=== PATIENT | male | born 1935 | race Two or more races ===

== ENCOUNTER 2016-06-08 15:16 | Inpatient (IN) | payer MEDICARE, MEDICAID ==
[~2016-06-08] VITALS: Ht 154.9 cm; Wt 60.3 kg
[~2016-06-08 15:16] MED LIST: AMLODIPINE-ATO1 EACH ORAL; ASPIRIN EC81 MG ORAL; CARVEDILOL3.125 MG ORAL; CLOPIDOGREL75 MG ORAL; DONEPEZIL HCL10 M2 ORAL; FAMOTIDINE20 MG ORAL; FUROSEMIDE20 M1 ORAL; GABAPENTIN300 MG ORAL; LEVAQUIN250 M1 ORAL; LISINOPRIL20 MG ORAL; MULTIVITAMINS1 EA13 ORAL; NAMENDA10 MG ORAL; REGULAR INSULIN; TAMSULOSIN HCL0.4 MG ORAL; VITAMIN C250 MG ORAL; ZINC SULFATE220 M1 ORAL; ZYPREXA2.5 MG ORAL
[2016-06-08 15:26] VITALS: BP 149/71
[2016-06-08] MEDS ORDERED: NORVASC10 MG ORAL (15:31)
[2016-06-08] MEDS ORDERED: FUROSEMIDE40 MG ORAL (15:31)
[2016-06-08] MEDS ORDERED: ATORVASTATIN CA10 MG ORAL (15:31)
[2016-06-08] MEDS ORDERED: LANTUS SOL100 UNIT/1 SUBQ (15:31)
--- NOTE | 2016-06-08 15:52 | Emergency Room Report ---
History of Present Illness General Chief Complaint: Altered Level of Consciousness Source: Medical Record Present Illness HPI 80 YOM BIBEMS for "AMS." EMS did not provide additional info. EMS strip shows 1st degree AV block. Patient not providing additional info at this time. Is comfortable , smiling in stretcher. Vitals are stable. Afebrile. patient is DNR and comfort care only. I discussed with hospitalist Dr Rodarte and we agree for labwork, ECG, CXR only. Allergies: Coded Allergies: PENICILLINS (Verified Allergy, Unknown, 11/14/15) Patient History Past Medical History: HTN, CAD, renal disease Past Surgical History: unable to obtain Pertinent Family History: unable to obtain Social History: Denies: alcohol use, drug use, smoking Immunizations: UTD Reviewed Nursing Documentation: PMH: Agreed, PSxH: Agreed Nursing Documentation-PMH Hx Cardiac Problems: Yes - cabg Hx Hypertension: Yes Hx Diabetes: No Hx Cancer: No Hx Gastrointestinal Problems: Yes - gi reflux Hx Dialysis: No History Of Psychiatric Problem: Yes - dementia Hx Cerebrovascular Accident: Yes Hx Seizures: No Hx Memory Loss: Yes Hx Dizziness: Yes Hx Syncope: Yes Review of Systems All Other Systems: limited - Patient altered? vs dementia Physical Exam Vital Signs Date Time Temp Pulse Resp B/P Pulse Ox O2 Delivery O2 Flow Rate FiO2 06/08/16 15:16 98.1 60 16 149/71 97 Room Air Sp02 EP Interpretation: reviewed, normal General Appearance: normal inspection, well appearing, no apparent distress, alert, non-toxic Head: normocephalic, atraumatic Eyes: bilateral eye EOMI, bilateral eye PERRL ENT: normal ENT inspection, hearing grossly normal, normal voice Neck: normal inspection, full range of motion, supple, thyroid normal, no meningismus, no bony tend Respiratory: normal inspection, lungs clear, normal breath sounds, no rhonchi, no respiratory distress, no retraction, no accessory muscle use, no wheezing Cardiovascular #1: regular rate, rhythm, no edema Gastrointestinal: normal inspection, normal bowel sounds, non tender, soft, no guarding, no hernia Genitourinary: no CVA tenderness Musculoskeletal: normal inspection, back normal, normal range of motion, Ashish' s Sign negative Neurologic: normal inspection, alert, responsive, 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 I attest that this information is true, accurate and complete to the best of my knowledge. I understand that any falsification, omission, or concealment of material fact may subject me to administrative, civil, or criminal liability. This patient warrants hospital admission for extreme of age and has a condition that cannot be treated as outpatient. Diagnostic Impression: Primary Impression: Altered level of consciousness Additional Impressions: JUAQUIN (acute kidney injury) Hyperglycemia ER Course 80 YO M with ?AMS from SNF during rehab. Patient is comfort care only, paperwork is in chart Patient's daughter bedside, agrees for "minimal workup" ECG is sinus rhythm with 1st degree AV block Troponin 0 Serum Cr 2.7 H&H stable No leuks Glucose 394 AMS possibly d/t elevated glucose, JUAQUIN IVF and insulin given SPoke to Dr Ha at [phone] from patient's insurance He approved admission for overnight stay/observation - they have no beds at their facility either Endorsed to Dr Rodarte at 726pm for med/surg admission. EKG Diagnostic Results Rate: normal, other - 1st degree AV block Rhythm: NSR ST Segments: no acute changes ASA given to the pt in ED: No Rhythm Strip Diag. Results EP Interpretation: yes Rate: 55 Rhythm: NSR, no PVC's, no ectopy Chest X-Ray Diagnostic Results EP Interpretation: Yes Findings: no consolidation, no effusion, no pneumothorax, no acute cardiopulmonary disease Number of Views: 1 Last Vital Signs Date Time Temp Pulse Resp B/P Pulse Ox O2 Delivery O2 Flow Rate FiO2 06/08/16 15:16 98.1 60 16 149/71 97 Room Air Status: improved Disposition: ADMITTED INPATIENT Condition: Serious CHAPIS GUERRERO M.D. Jun 08, 2016 15:51
[2016-06-08 16:02] LABS: BASOPHILS % (AUTO) 1.3 % (0.0-2.0); EOSINOPHILS % (AUTO) 3.6 % (0.0-3.0); LYMPHOCYTES % (AUTO) 28.3 % (20.0-45.0); MEAN CORPUSCULAR HEMOGLOBIN 31.9 PG (27.0-31.0); MEAN CORPUSCULAR HGB CONC 33.5 G/DL (32.0-36.0); MEAN CORPUSCULAR VOLUME 95 FL (80-99); MEAN PLATELET VOLUME 10.6 FL (6.5-10.1); MONOCYTES % (AUTO) 10.2 % (1.0-10.0); NEUTROPHILS % (AUTO) 56.7 % (45.0-75.0); PLATELET COUNT 131 K/UL (150-450); RED BLOOD COUNT 4.11 M/UL (4.70-6.10); RED CELL DISTRIBUTION WIDTH 12.1 % (11.6-14.8); WHITE BLOOD COUNT 6.8 K/UL (4.8-10.8)
[2016-06-08 16:11] LABS: TROPONIN I < 0.30 ng/mL (<=0.30)
[2016-06-08 16:20] LABS: ALANINE AMINOTRANSFERASE 7 U/L (3-41); ALBUMIN/GLOBULIN RATIO 1.1 (1.0-2.7); ANION GAP 15 (5-15); ASPARTATE AMINO TRANSFERASE 14 U/L (5-40); CALCIUM 9.4 mg/dL (8.6-10.2); CARBON DIOXIDE 23 mEQ/L (20-30); CHLORIDE 97 mEQ/L (98-107); CREATININE 2.7 mg/dL (0.7-1.2); HEMOLYSIS 29; POTASSIUM 4.7 mEQ/L (3.4-4.9); SODIUM 135 mEQ/L (135-145); TOTAL PROTEIN 6.3 g/dL (6.6-8.7)
[2016-06-08 18:26] VITALS: BP 165/70
[2016-06-08] MEDS ORDERED: Miralax 17gm pkt ORAL PRN (20:15)
[2016-06-08] MEDS ORDERED: DuoNeb 0.5-3(2.5)mg/3ml neb HHN PRN (20:15)
[2016-06-08] MEDS ORDERED: Morphine Sulfate 2mg/ml Inj IVP PRN (20:15)
[2016-06-08] MEDS ORDERED: Nitroglycerin Subl 0.4mg tab (Bottle Of 25) SL PRN (20:15)
[2016-06-08 20:50] VITALS: BP 177/71
[2016-06-08] MEDS: NovoLOG Insulin Flexpen SUBQ SCH (21:00)
[2016-06-08] MEDS: Heparin 5000 units/ml inj SUBQ SCH (21:00)
[2016-06-08] MEDS ORDERED: Cefepime 1gm vial ONE (21:16)
[2016-06-08] MEDS ORDERED: Cefepime HCl 2 GM in D5W 110 ML IV ONE (22:30)
[2016-06-08 22:56] VITALS: BP 160/96
[2016-06-09] VITALS (8 sets, daily range): BP systolic 138–172; BP diastolic 60–84
[2016-06-09] MEDS ORDERED: Vancomycin 1 GM in D5W 275 ML IV SCH (00:30)
[2016-06-09] MEDS ORDERED: Vancomycin 1gm inj IVPB ONE (04:50)
[2016-06-09] MEDS: NovoLOG Insulin Flexpen SUBQ SCH ×4 (07:11→20:31)
[2016-06-09 08:10] LABS: BASOPHILS % (AUTO) 0.7 % (0.0-2.0); EOSINOPHILS % (AUTO) 3.1 % (0.0-3.0); LYMPHOCYTES % (AUTO) 27.2 % (20.0-45.0); MEAN CORPUSCULAR HEMOGLOBIN 32.5 PG (27.0-31.0); MEAN CORPUSCULAR HGB CONC 34.7 G/DL (32.0-36.0); MEAN CORPUSCULAR VOLUME 94 FL (80-99); MEAN PLATELET VOLUME 12.4 FL (6.5-10.1); MONOCYTES % (AUTO) 9.9 % (1.0-10.0); NEUTROPHILS % (AUTO) 59.2 % (45.0-75.0); PLATELET COUNT 133 K/UL (150-450); RED BLOOD COUNT 3.95 M/UL (4.70-6.10); RED CELL DISTRIBUTION WIDTH 12.1 % (11.6-14.8); WHITE BLOOD COUNT 7.4 K/UL (4.8-10.8)
[2016-06-09 08:30] LABS: ALANINE AMINOTRANSFERASE 5 U/L (3-41); ALBUMIN/GLOBULIN RATIO 1.3 (1.0-2.7); ANION GAP 11 (5-15); ASPARTATE AMINO TRANSFERASE 12 U/L (5-40); CALCIUM 9.4 mg/dL (8.6-10.2); CARBON DIOXIDE 27 mEQ/L (20-30); CHLORIDE 105 mEQ/L (98-107); CREATININE 2.2 mg/dL (0.7-1.2); HEMOLYSIS 4; POTASSIUM 4.3 mEQ/L (3.4-4.9); SODIUM 143 mEQ/L (135-145)
[2016-06-09] MEDS ORDERED: OLANZapine 2.5mg tab ORAL SCH (09:00)
[2016-06-09] MEDS: Heparin 5000 units/ml inj SUBQ SCH ×2 (09:40→20:31)
--- NOTE | 2016-06-09 11:08 | Consultation ---
Consult Note Consult Note ID Dic # [id number] MARLI CLANCY M.D. Jun 09, 2016 11:07
--- NOTE | 2016-06-09 12:36 | History and Physical ---
History of Present Illness General Date patient seen: Jun 09, 2016 Reason for Hospitalization: Altered Level of Consciousness Present Illness HPI 80 year old male with hx of CAD, htn, Renal insufficiency, custodial resident was taken by paramedics to [facility] b/o [facility]. Pt was found to have hyperglycemia, his mental status improved slowly. He is admitted for further work up. Currently he is comfortable, no acute distress. Allergies: Coded Allergies: PENICILLINS (Verified Allergy, Unknown, 11/14/15) Medication History Scheduled Amlodipine Besylate (Norvasc), 10 MG ORAL DAILY, (Reported) Amlodipine/Atorvastatin 10-10 Mg (Amlodipine-Atorvast 10-10 Mg), 1 TAB ORAL DAILY, (Reported) Ascorbic Acid* (Vitamin C*), 500 MG ORAL DAILY, (Reported) Aspirin Ec* (Aspirin Ec*), 81 MG ORAL DAILY, (Reported) Atorvastatin Calcium* (Lipitor*), 10 MG ORAL BEDTIME, (Reported) Carvedilol* (Carvedilol*), 3.125 MG ORAL BID, (Reported) Clopidogrel* (Clopidogrel*), 75 MG ORAL DAILY, (Reported) Donepezil Hcl* (Donepezil Hcl*), 10 MG ORAL DAILY, (Reported) Furosemide* (Lasix*), 40 MG ORAL DAILY, (Reported) Furosemide* (Lasix*), 40 MG ORAL DAILY, (Reported) Gabapentin* (Gabapentin*), 300 MG ORAL THREE TIMES A DAY, (Reported) Insulin Glargine (Lantus), 0 SUBQ BEDTIME, (Reported) Levofloxacin* (Levaquin*), 250 MG ORAL DAILY Multivitamin with Minerals (Multivitamins with Minerals), 1 TAB ORAL DAILY, ( Reported) Olanzapine* (Zyprexa*), 2.5 MG ORAL DAILY, (Reported) Zinc Sulfate (Zinc Sulfate*), 220 MG ORAL DAILY, (Reported) Miscellaneous Medications [Regular Insulin], (Reported) Patient History Healthcare decision maker Resuscitation status Do Not Resuscitate Advanced Directive on File No Past Medical/Surgical History Past Medical/Surgical History: (1) CAD (coronary artery disease) (2) Hx of CABG (3) Renal insufficiency Review of Systems All Other Systems: negative except mentioned in HPI Physical Exam Lines, tubes and drains: peripheral, central line HEENT: normocephalic, atraumatic Neck: non-tender, normal alignment Respiratory/Chest: chest wall non-tender, lungs clear Cardiovascular/Chest: normal peripheral pulses, normal rate Abdomen: non tender Genitourinary/Rectal: normal genital exam, normal rectal exam Last 24 Hour Vital Signs Date Time Temp Pulse Resp B/P Pulse Ox O2 Delivery O2 Flow Rate FiO2 06/09/16 11:44 97.9 54 18 144/69 99 Room Air 06/09/16 08:14 97.7 63 18 143/73 98 Room Air 06/09/16 08:00 71 06/09/16 04:00 97.0 94 20 169/84 97 Room Air 06/09/16 02:35 98.1 75 17 163/70 99 Room Air 06/09/16 01:56 98.1 75 17 163/70 99 Room Air 06/09/16 00:56 98.0 74 18 164/71 99 Room Air 06/08/16 22:56 98.2 70 15 160/96 100 Room Air 06/08/16 20:50 98.2 64 15 177/71 99 Room Air 06/08/16 18:26 98.2 56 18 165/70 99 Room Air 06/08/16 15:26 98.1 82 16 149/71 97 Room Air 06/08/16 15:16 98.1 60 16 149/71 97 Room Air Intake and Output 06/08/16 06/09/16 19:00 07:00 Intake Total 950 ml Balance 950 ml Intake IV Total 950 ml # Voids 1 1 Laboratory Tests Test 06/08/16 15:35 06/09/16 06:35 White Blood Count 6.8 K/UL (4.8-10.8) 7.4 K/UL (4.8-10.8) Red Blood Count 4.11 M/UL (4.70-6.10) L 3.95 M/UL (4.70-6.10) L Hemoglobin 13.1 G/DL (14.2-18.0) L 12.8 G/DL (14.2-18.0) L Hematocrit 39.1 % (42.0-52.0) L 37.0 % (42.0-52.0) L Mean Corpuscular Volume 95 FL (80-99) 94 FL (80-99) Mean Corpuscular Hemoglobin 31.9 PG (27.0-31.0) H 32.5 PG (27.0-31.0) H Mean Corpuscular Hemoglobin Concent 33.5 G/DL (32.0-36.0) 34.7 G/DL (32.0-36.0) Red Cell Distribution Width 12.1 % (11.6-14.8) 12.1 % (11.6-14.8) Platelet Count 131 K/UL (150-450) L 133 K/UL (150-450) L Mean Platelet Volume 10.6 FL (6.5-10.1) H 12.4 FL (6.5-10.1) H Neutrophils (%) (Auto) 56.7 % (45.0-75.0) 59.2 % (45.0-75.0) Lymphocytes (%) (Auto) 28.3 % (20.0-45.0) 27.2 % (20.0-45.0) Monocytes (%) (Auto) 10.2 % (1.0-10.0) H 9.9 % (1.0-10.0) Eosinophils (%) (Auto) 3.6 % (0.0-3.0) H 3.1 % (0.0-3.0) H Basophils (%) (Auto) 1.3 % (0.0-2.0) 0.7 % (0.0-2.0) Sodium Level 135 mEQ/L (135-145) 143 mEQ/L (135-145) Potassium Level 4.7 mEQ/L (3.4-4.9) 4.3 mEQ/L (3.4-4.9) Chloride Level 97 mEQ/L (98-107) L 105 mEQ/L (98-107) Carbon Dioxide Level 23 mEQ/L (20-30) 27 mEQ/L (20-30) Anion Gap 15 (5-15) 11 (5-15) Blood Urea Nitrogen 33 mg/dL (7-23) H 28 mg/dL (7-23) H Creatinine 2.7 mg/dL (0.7-1.2) H 2.2 mg/dL (0.7-1.2) H Estimat Glomerular Filtration Rate mL/min (>60) mL/min (>60) Glucose Level 394 mg/dL (74-106) H 231 mg/dL (74-106) #H Lactic Acid Level 1.60 mmol/L (0.66-2.22) Calcium Level 9.4 mg/dL (8.6-10.2) 9.4 mg/dL (8.6-10.2) Total Bilirubin 0.3 mg/dL (0.0-1.2) 0.4 mg/dL (0.0-1.2) Aspartate Amino Transf (AST/SGOT) 14 U/L (5-40) 12 U/L (5-40) Alanine Aminotransferase (ALT/SGPT) 7 U/L (3-41) 5 U/L (3-41) Alkaline Phosphatase 100 U/L (40-129) 82 U/L (40-129) Total Creatine Kinase 34 U/L (38-174) L Creatine Kinase MB Pending Troponin I < 0.30 ng/mL (<=0.30) Total Protein 6.3 g/dL (6.6-8.7) L 6.0 g/dL (6.6-8.7) L Albumin 3.4 g/dL (3.5-5.2) L 3.4 g/dL (3.5-5.2) L Globulin 2.9 g/dL 2.6 g/dL Albumin/Globulin Ratio 1.1 (1.0-2.7) 1.3 (1.0-2.7) Height (Feet): 5 Height (Inches): 1.00 Weight (Pounds): 133 Medications Current Medications Medications (Trade) Dose Ordered Sig/Jason Route PRN Reason Start Time Stop Time Status Last Admin Dose Admin Acetaminophen (Tylenol) 650 mg Q4H PRN ORAL fever 06/08/16 20:15 07/08/16 20:14 Albuterol/ Ipratropium (DuoNeb 0.5-3(2.5)mg/3ml) 3 ml EVERY 4 HOURS PRN HHN Shortness of Breath 06/08/16 20:15 06/13/16 20:14 Dextrose (Dextrose 50%) STAT PRN IV Hypoglycemia 06/08/16 20:15 07/08/16 20:14 Heparin Sodium (Porcine) (Heparin 5000 units/ml) 5,000 units EVERY 12 HOURS SUBQ 06/08/16 21:00 07/08/16 20:59 06/09/16 09:40 Insulin Aspart (NovoLOG) BEFORE MEALS AND HS SUBQ 06/08/16 21:00 07/08/16 20:59 06/09/16 07:11 Morphine Sulfate (Morphine Sulfate) 2 mg EVERY 4 HOURS PRN IVP Moderate Pain (Pain Scale 4-6) 06/08/16 20:15 06/15/16 20:14 Nitroglycerin (Ntg) 0.4 mg Q5M PRN SL CHEST PAIN 06/08/16 20:15 07/08/16 20:14 Olanzapine 2.5 mg 2.5 mg DAILY ORAL 06/09/16 09:00 07/09/16 08:59 06/09/16 09:40 Ondansetron HCl (Zofran) 4 mg Q6H PRN IVP Nausea & Vomiting 06/08/16 20:15 07/08/16 20:14 Polyethylene Glycol (Miralax) 17 gm DAILYPRN PRN ORAL Constipation 06/08/16 20:15 07/08/16 20:14 Sodium Chloride (Sodium Chloride 1000ml bag) 1,000 ml @ 100 mls/hr Q10H IVLG 06/09/16 00:21 07/09/16 00:20 06/09/16 04:34 Temazepam (Restoril) 15 mg HSPRN PRN ORAL Insomnia 06/08/16 20:15 06/15/16 20:14 Assessment/Plan Problem List: (1) Acute encephalopathy ICD Codes: G93.40 - Encephalopathy, unspecified SNOMED: 9958618 (2) Hyperglycemia ICD Codes: R73.9 - Hyperglycemia, unspecified SNOMED: 53378680 (3) JUAQUIN (acute kidney injury) ICD Codes: N17.9 - Acute kidney failure, unspecified SNOMED: 20455459 (4) Hx of CABG ICD Codes: Z95.1 - Presence of aortocoronary bypass graft SNOMED: 838658493, 661134773 (5) CAD (coronary artery disease) ICD Codes: I25.10 - Atherosclerotic heart disease of [place] coronary artery without angina pectoris SNOMED: 95354423 Assessment/Plan Neuro evaluaiton pt/ot check hem A1c endo evaluation titrate cardiac meds pt receiving too many meds at the custodial DEYANIRA LOPEZ Jun 09, 2016 12:36
[2016-06-09] MEDS ORDERED: Vancomycin 500mg/D5W 110ml IVPB ONE ×2 (13:00)
--- NOTE | 2016-06-09 16:13 | Consultation ---
Consult Note Consult Note asked to eval for renal failure 80 YOM BIBEMS for "AMS." EMS did not provide additional info. EMS strip shows 1st degree AV block. Patient not providing additional info at this time. Is comfortable , smiling in stretcher. Vitals are stable. Afebrile. patient is DNR and comfort care only. I discussed with hospitalist Dr Rodarte and we agree for labwork, ECG, CXR only. Allergies: Coded Allergies: PENICILLINS (Verified Allergy, Unknown, 11/14/15) Past Medical History: HTN, CAD, renal disease Hx Cardiac Problems: Yes - cabg Hx Hypertension: Yes Hx Gastrointestinal Problems: Yes - gi reflux History Of Psychiatric Problem: Yes - dementia Hx Cerebrovascular Accident: Yes Hx Memory Loss: Yes Hx Dizziness: Yes Hx Syncope: Yes Assessment/Plan status: (1) Acute encephalopathy (2) Hyperglycemia / Dm (3) JUAQUIN (acute kidney injury) ? superimposed on CKD Possibilities: Diabetic Nephropathy- ( No UA Available) (4) Hx of CABG (5) CAD (coronary artery disease) Plan: UA and urine studies Keep BS and BP in check Avoid Nephrotoxics- Kidney SHERI adjust bp MEHRDAD Moore Jun 09, 2016 16:13
[2016-06-09] MEDS ORDERED: HydrALAZINE 25mg tab ORAL PRN (16:30)
[2016-06-09] MEDS ORDERED: Tamsulosin 0.4mg cap ORAL ONE (16:30)
[2016-06-09] MEDS ORDERED: Tamsulosin 0.4mg cap ORAL SCH (21:00)
[2016-06-09] MEDS ORDERED: Cefepime 1gm/D5W 55ml IVPB SCH ×2 (21:00)
--- NOTE | 2016-06-09 21:17 | Consultation ---
DATE OF CONSULTATION: INFECTIOUS DISEASES CONSULTATION CONSULTING PHYSICIAN: Song Esquivel M.D. REFERRING PHYSICIAN: Frankie Rodarte M.D. REASON FOR CONSULTATION: Evaluation of the patient for possible sepsis and antibiotic management. HISTORY OF PRESENT ILLNESS: The patient is an 80-year-old male with multiple medical problems listed below. The patient was brought to the hospital after the patient had chest pain and discomfort. The patient was found to have AV block. In the past, the patient was admitted for sepsis. An Infectious Disease consultation has been requested if there is need for sepsis workup and antibiotic treatment. PAST MEDICAL HISTORY: 1. CAD/acute OR. 2. Diabetes. 3. Hypertension. 4. Benign prostatic hypertrophy. 5. Gastroesophageal reflux disease. 6. Chronic kidney disease. MEDICATIONS: Vancomycin and cefepime. ALLERGIES: Penicillin. FAMILY HISTORY: Noncontributory. REVIEW OF SYSTEMS: HEENT: No recent change in vision or hearing. no chills. Pulmonary: No cough or shortness of breath. Cardiovascular: as mentioned above. Gastrointestinal: No nausea or vomiting. No diarrhea. Genitourinary: No dysuria. PHYSICAL EXAMINATION: VITAL SIGNS: Temperature 97.7, blood pressure 143/78, pulse 86, respiratory rate 18. HEENT: Mild pale conjunctivae. No icterus. NECK: No lymphadenopathy. CHEST: Coarse breathing sounds. HEART: S1 and S2. ABDOMEN: Soft and nontender. EXTREMITIES: No cyanosis. NEUROLOGIC: Awake and alert. LABORATORY AND DIAGNOSTIC DATA: White cell 7.4, hemoglobin 12.8, platelets were 133,000. BUN 28, creatinine 2.2. UA unremarkable. ASSESSMENT: The patient is an 80-year-old male, who came in with chest discomfort. Apparently the patient also had altered level of consciousness, probably cardiac issues. At this time do not appear to have any source of infection and no need for antibiotic treatment. PLAN: 1. We will discontinue antibiotics. 2. We will monitor sputum cultures. 3. . 4. Monitor BMP. 5. Monitor chest x-ray. Based on the patient's clinical course and laboratories, we do further recommendations. Thank you, Dr. Rodarte, for allowing me to participate in the care of this patient. I will follow the patient with you during this hospitalization. Song Esquivel M.D. DR: Danilo JOB#: [id number] CC:
[2016-06-10] VITALS: BP 141/69
[2016-06-10 00:10] VITALS: BP 147/62
[2016-06-10] MEDS ORDERED: Nitroglycerin Subl 0.4mg tab (Bottle Of 25) SL PRN (00:15)
[2016-06-10] MEDS ORDERED: DuoNeb 0.5-3(2.5)mg/3ml neb HHN PRN (01:00)
[2016-06-10] MEDS ORDERED: Morphine Sulfate 2mg/ml Inj IVP PRN (01:00)
[2016-06-10 02:29] LABS: APPEARANCE,URINE CLEAR; KETONES,URINE NEGATIVE (NEGATIVE); LEUKOCYTE ESTERASE ,URINE NEGATIVE (NEGATIVE); NITRITE,URINE NEGATIVE (NEGATIVE); PH,URINE 6 (4.5-8.0); PROTEIN,URINE 3+ (NEGATIVE); UROBILINOGEN,URINE NORMAL MG/DL (0.0-1.0)
[2016-06-10 02:43] LABS: RBC,URINE 0-2 /HPF (0 - 0); WBC,URINE 0 /HPF (0 - 0)
[2016-06-10 02:44] LABS: SQUAMOUS EPITHELIAL CELL,UR FEW /LPF (NONE/OCC)
[2016-06-10 04:00] VITALS: BP 148/67
[2016-06-10] MEDS ORDERED: HydrALAZINE 25mg tab ORAL PRN (04:30)
[2016-06-10] MEDS: NovoLOG Insulin Flexpen SUBQ SCH ×3 (06:18→17:03)
[2016-06-10 08:00] VITALS: BP 138/55
[2016-06-10] MEDS ORDERED: OLANZapine 2.5mg tab ORAL SCH (09:00)
[2016-06-10] MEDS ORDERED: Aspirin EC 81mg tab ORAL SCH ×2 (09:00)
[2016-06-10] MEDS ORDERED: Heparin 5000 units/ml inj SUBQ SCH (09:00)
[2016-06-10 09:45] LABS: BASOPHILS % (AUTO) 0.8 % (0.0-2.0); EOSINOPHILS % (AUTO) 5.5 % (0.0-3.0); MEAN CORPUSCULAR HEMOGLOBIN 32.2 PG (27.0-31.0); MEAN CORPUSCULAR HGB CONC 33.8 G/DL (32.0-36.0); MEAN CORPUSCULAR VOLUME 95 FL (80-99); MEAN PLATELET VOLUME 12.3 FL (6.5-10.1); MONOCYTES % (AUTO) 8.9 % (1.0-10.0); NEUTROPHILS % (AUTO) 55.9 % (45.0-75.0); PLATELET COUNT 130 K/UL (150-450); RED BLOOD COUNT 3.89 M/UL (4.70-6.10); RED CELL DISTRIBUTION WIDTH 12.2 % (11.6-14.8); WHITE BLOOD COUNT 5.1 K/UL (4.8-10.8)
--- NOTE | 2016-06-10 09:52 | Infectious Diseases Prog Note ---
Assessment/Plan Assessment/Plan A: The patient is an 80-year-old male with no evidence of infection / sepsis at this time SP chest pain AV block CAD/acute IA. Diabetes. HTN BPH GERD Chronic kidney disease PLAN: Monitor pt off of AB Rx Monitor cultures Monitor BMP and CBC Monitor chest x-ray Subjective Constitutional: Denies: anorexia, chills, drenching sweats, fatigue, fever, no symptoms, other Allergies: Coded Allergies: PENICILLINS (Verified Allergy, Unknown, 11/14/15) Objective Vital Signs Last 24 Hour Vital Signs Date Time Temp Pulse Resp B/P Pulse Ox O2 Delivery O2 Flow Rate FiO2 06/10/16 08:48 78 138/55 06/10/16 04:00 97.2 62 19 148/67 98 Room Air 06/10/16 00:10 98.6 48 21 147/62 94 Room Air 06/10/16 00:00 97.2 46 19 141/69 97 Room Air 06/09/16 20:00 97.9 51 20 147/62 97 Room Air 06/09/16 17:00 138/60 06/09/16 16:00 97.9 62 21 172/75 98 Room Air 06/09/16 14:19 50 06/09/16 11:44 97.9 54 18 144/69 99 Room Air Height (Feet): 5 Height (Inches): 1.00 Weight (Pounds): 133 HEENT: anicteric Respiratory/Chest: lungs clear Cardiovascular: normal rate Abdomen: non distended Laboratory Tests Test 06/10/16 02:15 06/10/16 09:20 Urine Color Pale yellow Urine Appearance Clear Urine pH 6 (4.5-8.0) Urine Specific [place] 1.010 (1.005-1.035) Urine Protein 3+ (NEGATIVE) H Urine Glucose (UA) 2+ (NEGATIVE) H Urine Ketones Negative (NEGATIVE) Urine Occult Blood 1+ (NEGATIVE) H Urine Nitrite Negative (NEGATIVE) Urine Bilirubin Negative (NEGATIVE) Urine Urobilinogen Normal MG/DL (0.0-1.0) Urine Leukocyte Esterase Negative (NEGATIVE) Urine RBC 0-2 /HPF (0 - 0) H Urine WBC 0 /HPF (0 - 0) Urine Squamous Epithelial Cells Few /LPF (NONE/OCC) Urine Bacteria None /HPF (NONE) Urine Sperm Few /LPF (NONE) Urine Eosinophils None seen Urine Random Sodium Pending White Blood Count 5.1 K/UL (4.8-10.8) Red Blood Count 3.89 M/UL (4.70-6.10) L Hemoglobin 12.5 G/DL (14.2-18.0) L Hematocrit 37.0 % (42.0-52.0) L Mean Corpuscular Volume 95 FL (80-99) Mean Corpuscular Hemoglobin 32.2 PG (27.0-31.0) H Mean Corpuscular Hemoglobin Concent 33.8 G/DL (32.0-36.0) Red Cell Distribution Width 12.2 % (11.6-14.8) Platelet Count 130 K/UL (150-450) L Mean Platelet Volume 12.3 FL (6.5-10.1) H Neutrophils (%) (Auto) 55.9 % (45.0-75.0) Lymphocytes (%) (Auto) 29.0 % (20.0-45.0) Monocytes (%) (Auto) 8.9 % (1.0-10.0) Eosinophils (%) (Auto) 5.5 % (0.0-3.0) H Basophils (%) (Auto) 0.8 % (0.0-2.0) Sodium Level Pending Potassium Level Pending Chloride Level Pending Carbon Dioxide Level Pending Blood Urea Nitrogen Pending Creatinine Pending Estimat Glomerular Filtration Rate Pending Glucose Level Pending Uric Acid Pending Calcium Level Pending Phosphorus Level Pending Magnesium Level Pending Total Bilirubin Pending Gamma Glutamyl Transpeptidase Pending Aspartate Amino Transf (AST/SGOT) Pending Alanine Aminotransferase (ALT/SGPT) Pending Alkaline Phosphatase Pending Total Creatine Kinase Pending C-Reactive Protein, Quantitative Pending Pro-B-Type Natriuretic Peptide Pending Total Protein Pending Albumin Pending Globulin Pending Triglycerides Level Pending Cholesterol Level Pending LDL Cholesterol Pending HDL Cholesterol Pending Cholesterol/HDL Ratio Pending Vitamin B12 Level Pending Folate Pending Current Medications Medications (Trade) Dose Ordered Sig/Jason Route PRN Reason Start Time Stop Time Status Last Admin Dose Admin Acetaminophen (Tylenol) 650 mg Q4H PRN ORAL fever 06/10/16 00:15 07/10/16 00:14 Albuterol/ Ipratropium (DuoNeb 0.5-3(2.5)mg/3ml) 3 ml Q4H PRN HHN Shortness of Breath 06/10/16 01:00 06/15/16 00:59 Amlodipine Besylate (Norvasc) 10 mg DAILY ORAL 06/10/16 09:00 07/10/16 08:59 06/10/16 08:48 Aspirin (Ecotrin) 81 mg DAILY ORAL 06/10/16 09:00 07/10/16 08:59 06/10/16 08:48 Dextrose (Dextrose 50%) STAT PRN IV Hypoglycemia 06/10/16 20:15 07/10/16 20:14 Heparin Sodium (Porcine) (Heparin 5000 units/ml) 5,000 units EVERY 12 HOURS SUBQ 06/10/16 09:00 07/10/16 08:59 Hydralazine HCl (Apresoline) 25 mg Q6H PRN ORAL bp over 160 syst 06/10/16 04:30 07/10/16 04:29 Insulin Aspart (NovoLOG) BEFORE MEALS AND HS SUBQ 06/10/16 06:30 07/10/16 06:29 06/10/16 06:18 Morphine Sulfate (Morphine Sulfate) 2 mg Q4H PRN IVP Moderate Pain (Pain Scale 4-6) 06/10/16 01:00 06/17/16 00:59 Nitroglycerin (Ntg) 0.4 mg Q5M PRN SL CHEST PAIN 06/10/16 00:15 07/10/16 00:14 Olanzapine (ZyPREXA) 2.5 mg DAILY ORAL 06/10/16 09:00 07/10/16 08:59 06/10/16 08:48 Ondansetron HCl (Zofran) 4 mg Q6H PRN IVP Nausea & Vomiting 06/10/16 02:15 07/10/16 02:14 Polyethylene Glycol (Miralax) 17 gm DAILYPRN PRN ORAL Constipation 06/10/16 20:15 07/10/16 20:14 Sodium Chloride (Sodium Chloride 1000ml bag) 1,000 ml @ 75 mls/hr [id number] IVLG 06/10/16 00:15 07/10/16 00:14 06/10/16 00:37 Tamsulosin HCl (Flomax) 0.4 mg BEDTIME ORAL 06/10/16 21:00 07/10/16 20:59 Temazepam (Restoril) 15 mg HSPRN PRN ORAL Insomnia 06/10/16 20:15 06/17/16 20:14 MARLI CLANCY M.D. Jun 10, 2016 09:52
[2016-06-10 10:08] LABS: ALANINE AMINOTRANSFERASE 6 U/L (3-41); ALBUMIN/GLOBULIN RATIO 1.4 (1.0-2.7); ANION GAP 13 (5-15); ASPARTATE AMINO TRANSFERASE 11 U/L (5-40); CALCIUM 9.5 mg/dL (8.6-10.2); CARBON DIOXIDE 23 mEQ/L (20-30); CHLORIDE 105 mEQ/L (98-107); CREATININE 2.1 mg/dL (0.7-1.2); HEMOLYSIS 3; MAGNESIUM 1.8 mg/dL (1.7-2.5); PHOSPHORUS 2.8 mg/dL (2.5-4.8); POTASSIUM 4.4 mEQ/L (3.4-4.9); SODIUM 141 mEQ/L (135-145)
[2016-06-10 12:00] VITALS: BP 153/73
--- NOTE | 2016-06-10 13:36 | Pulmonology Progress Note ---
Assessment/Plan Problems: (1) Acute encephalopathy (2) Hyperglycemia (3) JUAQUIN (acute kidney injury) (4) Hx of CABG (5) CAD (coronary artery disease) Assessment/Plan improving no sign of sepsis probably had one episode of TIA dc to [facility]. Subjective ROS Limited/Unobtainable: No Constitutional: Reports: no symptoms HEENT: Repors: no symptoms Respiratory: Reports: no symptoms Cardiovascular: Reports: no symptoms Allergies: Coded Allergies: PENICILLINS (Verified Allergy, Unknown, 11/14/15) Objective Last 24 Hour Vital Signs Date Time Temp Pulse Resp B/P Pulse Ox O2 Delivery O2 Flow Rate FiO2 06/10/16 12:00 96.6 71 20 153/73 98 Room Air 71 06/10/16 08:48 78 138/55 06/10/16 08:00 97.7 78 20 138/55 98 Room Air 78 06/10/16 04:00 97.2 62 19 148/67 98 Room Air 06/10/16 00:10 98.6 48 21 147/62 94 Room Air 06/10/16 00:00 97.2 46 19 141/69 97 Room Air 06/09/16 20:00 97.9 51 20 147/62 97 Room Air 06/09/16 17:00 138/60 06/09/16 16:00 97.9 62 21 172/75 98 Room Air 06/09/16 14:19 50 Intake and Output 06/09/16 06/10/16 19:00 07:00 Intake Total 995 ml 750 ml Output Total 0 ml Balance 995 ml 750 ml Intake Oral 120 ml IV Total 875 ml 750 ml Output Urine Total 0 ml # Voids 3 2 # Bowel Movements 1 General Appearance: WD/WN HEENT: normocephalic Respiratory/Chest: chest wall non-tender, lungs clear Cardiovascular: normal peripheral pulses, normal rate Abdomen: normal bowel sounds, no organomegaly Laboratory Tests 06/10/16 02:15: Urine Color Pale yellow, Urine Appearance Clear, Urine pH 6, Urine Specific [place] 1.010, Urine Protein 3+H, Urine Glucose (UA) 2+H, Urine Ketones Negative , Urine Occult Blood 1+H, Urine Nitrite Negative, Urine Bilirubin Negative, Urine Urobilinogen Normal, Urine Leukocyte Esterase Negative, Urine RBC 0-2H, Urine WBC 0, Urine Squamous Epithelial Cells Few, Urine Bacteria None, Urine Sperm Few, Urine Eosinophils None seen, Urine Random Sodium 70 06/10/16 09:20: White Blood Count 5.1, Red Blood Count 3.89L, Hemoglobin 12.5L, Hematocrit 37.0L , Mean Corpuscular Volume 95, Mean Corpuscular Hemoglobin 32.2H, Mean Corpuscular Hemoglobin Concent 33.8, Red Cell Distribution Width 12.2, Platelet Count 130L, Mean Platelet Volume 12.3H, Neutrophils (%) (Auto) 55.9, Lymphocytes (%) (Auto) 29.0, Monocytes (%) (Auto) 8.9, Eosinophils (%) (Auto) 5.5H, Basophils (%) (Auto) 0.8, Sodium Level 141, Potassium Level 4.4, Chloride Level 105, Carbon Dioxide Level 23, Anion Gap 13, Blood Urea Nitrogen 25H, Creatinine 2.1H, Estimat Glomerular Filtration Rate , Glucose Level 230H, Uric Acid [Pending], Calcium Level 9.5, Phosphorus Level 2.8, Magnesium Level 1.8, Total Bilirubin 0.4, Gamma Glutamyl Transpeptidase [Pending], Aspartate Amino Transf (AST/SGOT) 11, Alanine Aminotransferase (ALT/SGPT) 6, Alkaline Phosphatase 80, Total Creatine Kinase 31L, C-Reactive Protein, Quantitative [ Pending], Pro-B-Type Natriuretic Peptide 1499H, Total Protein 6.0L, Albumin 3.5 , Globulin 2.5, Albumin/Globulin Ratio 1.4, Triglycerides Level [Pending], Cholesterol Level [Pending], LDL Cholesterol [Pending], HDL Cholesterol [Pending ], Cholesterol/HDL Ratio [Pending], Vitamin B12 Level [Pending], Folate [Pending ] Current Medications Medications (Trade) Dose Ordered Sig/Jason Route PRN Reason Start Time Stop Time Status Last Admin Dose Admin Acetaminophen (Tylenol) 650 mg Q4H PRN ORAL fever 06/10/16 00:15 07/10/16 00:14 Albuterol/ Ipratropium (DuoNeb 0.5-3(2.5)mg/3ml) 3 ml Q4H PRN HHN Shortness of Breath 06/10/16 01:00 06/15/16 00:59 Amlodipine Besylate (Norvasc) 10 mg DAILY ORAL 06/10/16 09:00 07/10/16 08:59 06/10/16 08:48 Aspirin (Ecotrin) 81 mg DAILY ORAL 06/10/16 09:00 07/10/16 08:59 06/10/16 08:48 Dextrose (Dextrose 50%) STAT PRN IV Hypoglycemia 06/10/16 20:15 07/10/16 20:14 Heparin Sodium (Porcine) (Heparin 5000 units/ml) 5,000 units EVERY 12 HOURS SUBQ 06/10/16 09:00 07/10/16 08:59 Hydralazine HCl (Apresoline) 25 mg Q6H PRN ORAL bp over 160 syst 06/10/16 04:30 07/10/16 04:29 Insulin Aspart (NovoLOG) BEFORE MEALS AND HS SUBQ 06/10/16 06:30 07/10/16 06:29 06/10/16 11:40 Morphine Sulfate (Morphine Sulfate) 2 mg Q4H PRN IVP Moderate Pain (Pain Scale 4-6) 06/10/16 01:00 06/17/16 00:59 Nitroglycerin (Ntg) 0.4 mg Q5M PRN SL CHEST PAIN 06/10/16 00:15 07/10/16 00:14 Olanzapine (ZyPREXA) 2.5 mg DAILY ORAL 06/10/16 09:00 07/10/16 08:59 06/10/16 08:48 Ondansetron HCl (Zofran) 4 mg Q6H PRN IVP Nausea & Vomiting 06/10/16 02:15 07/10/16 02:14 Polyethylene Glycol (Miralax) 17 gm DAILYPRN PRN ORAL Constipation 06/10/16 20:15 07/10/16 20:14 Sodium Chloride (Sodium Chloride 1000ml bag) 1,000 ml @ 75 mls/hr [id number] IVLG 06/10/16 00:15 07/10/16 00:14 06/10/16 00:37 Tamsulosin HCl (Flomax) 0.4 mg BEDTIME ORAL 06/10/16 21:00 07/10/16 20:59 Temazepam (Restoril) 15 mg HSPRN PRN ORAL Insomnia 06/10/16 20:15 06/17/16 20:14 DEYANIRA LOPEZ Jun 10, 2016 13:36
--- NOTE | 2016-06-10 13:40 | General Progress Note ---
Assessment/Plan Status: stable Assessment/Plan (1) Acute encephalopathy (2) Hyperglycemia / Dm (3) JUAQUIN (acute kidney injury) ? superimposed on CKD Possibilities: Diabetic Nephropathy- ( UA 3+ Protein, 2+ Glucose) (4) Hx of CABG (5) CAD (coronary artery disease) Plan: UA and urine studies Keep BS and BP in check Avoid Nephrotoxics- Kidney SHERI adjust BP meds Subjective ROS Limited/Unobtainable: No Constitutional: Reports: malaise Allergies: Coded Allergies: PENICILLINS (Verified Allergy, Unknown, 11/14/15) Objective Last 24 Hour Vital Signs Date Time Temp Pulse Resp B/P Pulse Ox O2 Delivery O2 Flow Rate FiO2 06/10/16 12:00 96.6 71 20 153/73 98 Room Air 71 06/10/16 08:48 78 138/55 06/10/16 08:00 97.7 78 20 138/55 98 Room Air 78 06/10/16 04:00 97.2 62 19 148/67 98 Room Air 06/10/16 00:10 98.6 48 21 147/62 94 Room Air 06/10/16 00:00 97.2 46 19 141/69 97 Room Air 06/09/16 20:00 97.9 51 20 147/62 97 Room Air 06/09/16 17:00 138/60 06/09/16 16:00 97.9 62 21 172/75 98 Room Air 06/09/16 14:19 50 Intake and Output 06/09/16 06/10/16 19:00 07:00 Intake Total 995 ml 750 ml Output Total 0 ml Balance 995 ml 750 ml Intake Oral 120 ml IV Total 875 ml 750 ml Output Urine Total 0 ml # Voids 3 2 # Bowel Movements 1 Laboratory Tests 06/10/16 02:15: Urine Color Pale yellow, Urine Appearance Clear, Urine pH 6, Urine Specific [place] 1.010, Urine Protein 3+H, Urine Glucose (UA) 2+H, Urine Ketones Negative , Urine Occult Blood 1+H, Urine Nitrite Negative, Urine Bilirubin Negative, Urine Urobilinogen Normal, Urine Leukocyte Esterase Negative, Urine RBC 0-2H, Urine WBC 0, Urine Squamous Epithelial Cells Few, Urine Bacteria None, Urine Sperm Few, Urine Eosinophils None seen, Urine Random Sodium 70 06/10/16 09:20: White Blood Count 5.1, Red Blood Count 3.89L, Hemoglobin 12.5L, Hematocrit 37.0L , Mean Corpuscular Volume 95, Mean Corpuscular Hemoglobin 32.2H, Mean Corpuscular Hemoglobin Concent 33.8, Red Cell Distribution Width 12.2, Platelet Count 130L, Mean Platelet Volume 12.3H, Neutrophils (%) (Auto) 55.9, Lymphocytes (%) (Auto) 29.0, Monocytes (%) (Auto) 8.9, Eosinophils (%) (Auto) 5.5H, Basophils (%) (Auto) 0.8, Sodium Level 141, Potassium Level 4.4, Chloride Level 105, Carbon Dioxide Level 23, Anion Gap 13, Blood Urea Nitrogen 25H, Creatinine 2.1H, Estimat Glomerular Filtration Rate , Glucose Level 230H, Uric Acid [Pending], Calcium Level 9.5, Phosphorus Level 2.8, Magnesium Level 1.8, Total Bilirubin 0.4, Gamma Glutamyl Transpeptidase [Pending], Aspartate Amino Transf (AST/SGOT) 11, Alanine Aminotransferase (ALT/SGPT) 6, Alkaline Phosphatase 80, Total Creatine Kinase 31L, C-Reactive Protein, Quantitative [ Pending], Pro-B-Type Natriuretic Peptide 1499H, Total Protein 6.0L, Albumin 3.5 , Globulin 2.5, Albumin/Globulin Ratio 1.4, Triglycerides Level [Pending], Cholesterol Level [Pending], LDL Cholesterol [Pending], HDL Cholesterol [Pending ], Cholesterol/HDL Ratio [Pending], Vitamin B12 Level [Pending], Folate [Pending ] Height (Feet): 5 Height (Inches): 1.00 Weight (Pounds): 133 General Appearance: no apparent distress Respiratory/Chest: decreased breath sounds Objective physical exam not changed MEHRDAD GONZALEZ Jun 10, 2016 13:40
[2016-06-10 14:07] LABS: CHOLESTEROL 166 mg/dL (< 200); CHOLESTEROL/HDL RATIO 2.6 (3.3-4.4); CRP QUANT 1.1 mg/dL (< 0.5); LDL CHOLESTEROL (CALC.) 84 mg/dL (60-99); URIC ACID 5.3 mg/dL (3.0-7.5)
[2016-06-10 14:21] LABS: CKMB < 1.5 ng/mL (< 6.7)
[2016-06-10 16:28] VITALS: BP 146/80
[2016-06-10] MEDS ORDERED: 1/2 NS 1000ml IV ONE (17:59)
[2016-06-10] MEDS ORDERED: D5W 275ml ONE (17:59)
[2016-06-10] MEDS ORDERED: NS 275ml ONE (17:59)
[2016-06-10] MEDS ORDERED: Tubing IV Secondary IV ONE ×3 (17:59)
[2016-06-10] MEDS ORDERED: Miralax 17gm pkt ORAL PRN (20:15)
[2016-06-10] MEDS ORDERED: Tamsulosin 0.4mg cap ORAL SCH (21:00)
--- NOTE | 2016-06-11 08:17 | Cardiology Report ---
APPROVED REPORT EXAM: Two-dimensional and M-mode echocardiogram with Doppler and color Doppler. INDICATION Left ventricular function M-Mode DIMENSIONS IVSd1.1 (0.7-1.1cm)Left Atrium (MM)4.3 (1.6-4.0cm) LVDd4.5 (3.5-5.6cm)Aortic Root3.3 (2.0-3.7cm) PWd0.9 (0.7-1.1cm)Aortic Cusp Exc.1.9 (1.5-2.0cm) LVDs3.3 (2.5-4.0cm) PWs0.9 cm Normal left ventricular chamber size, systolic function and wall motion. Left ventricular ejection fraction estimated to be 55-60 %. Mild left ventricular hypertrophy. No evidence of pericardial fat or effusion. Right cardiac chamber sizes are within normal limits. Mild left atrial enlargement by 2D. Focal aortic valve sclerosis with adequate cusp excursion Thickened mitral valve leaflets with normal excursion. Mitral annulus and aortic root calcification. Pulmonic valve not well visualized. Normal tricuspid valve structure. IVC is normal in size with physiologic collapse. A color flow and spectral Doppler study was performed and revealed: No aortic regurgitation. Trace mitral regurgitation. Left ventricular diastolic dysfunction grade 1. No tricuspid regurgitation. Pulmonic regurgitation present.
--- NOTE | 2016-06-11 11:39 | Discharge Summary ---
Discharge Summary Hospital Course Date of Admission Jun 08, 2016 at 19:03 Date of Discharge Jun 10, 2016 at 18:00 Admitting Diagnosis ALTERD MENTAL STATUS HPI Manjeet Juarez is a 80 year old male who was admitted on Jun 08, 2016 at 19: 03 for Altered Mental Status Hospital Course [id number] Discharge Discharge Disposition Patient was discharged to SNF/Subacute Facility(03) Discharge Diagnoses: Dara Rodriguez NP Jun 11, 2016 11:39
--- NOTE | 2016-06-11 13:00 | Diagnostic Imaging Report ---
Indication: Chest Technique: One view of the chest Comparison: 11/14/2015 Findings: Lungs and pleural spaces are clear. Heart size is normal. Prior CABG. An eggshell calcification again projects in the left lower neck, and Impression: No acute process Left lower neck eggshell calcification. Most likely a calcified thyroid nodule, other etiologies such as calcified aneurysm excludable. Consider further evaluation with sonography if not performed previously
--- NOTE | 2016-06-11 15:46 | Cardiology Report ---
APPROVED REPORT EKG Measurement Heart [id number] Sinus bradycardia with 1st degree AV block Possible Anterior infarct, age undetermined Abnormal ECG
--- NOTE | 2016-06-11 23:27 | Discharge Summary 2 SIG ---
DATE OF ADMISSION: 06/08/2016 DATE OF DISCHARGE: 06/10/2016 CONSULTANTS: 1. Song Esquivel M.D. 2. Quan Romero M.D. BRIEF HOSPITAL COURSE: The patient is an 80-year-old male with history of coronary artery disease, hypertension, renal insufficiency, snf resident, who was taken by paramedics to [facility] because of altered level of consciousness. The patient was found to have hyperglycemia. Glucose of 394 and also creatinine was elevated to 2.7. Dr. Romero was consulted. Urine studies showed urine sodium of 70 with negative eosinophils. The patient has probable superimposed chronic kidney disease secondary to diabetic nephropathy with UA 2+ protein and 2+ glucose. Dr. Esquivel was consulted. However, on evaluation did not appear to have any signs of infection. No sepsis and patient was taken off antibiotic treatment. He was eventually discharged back to the snf. FINAL DIAGNOSES: 1. Acute metabolic encephalopathy. 2. Hyperglycemia secondary to uncontrolled diabetes mellitus. 3. Acute kidney injury superimposed on chronic kidney disease. 4. Diabetes mellitus with diabetic nephropathy. 5. Coronary artery disease. 6. History of coronary artery bypass graft. Frankie Rodarte M.D. I have been assigned to dictate discharge summary on this account and I was not involved in the patient's management. Dara Rodriguez N.P. DR: NAVDEEP JOB#: [id number] CC: ARACELY
== END 2016-06-10 18:00 | DRG 637 ==
LOC: EDBD 15:16 → EMR 16:32 → 2E 19:03 → EDBEDREQ 06-09 01:33 → 2E 06-09 05:23 → 3E 06-10 00:45
DX: E11.65 Type 2 diabetes mellitus with hyperglycemia (principal); G93.41 Metabolic encephalopathy; N17.9 Acute kidney failure, unspecified; E11.22 Type 2 diabetes mellitus with diabetic chronic kidney disease; I25.10 Atherosclerotic heart disease of native coronary artery without angina pectoris; I44.0 Atrioventricular block, first degree; Z51.5 Encounter for palliative care; Z66 Do not resuscitate; I12.9 Hypertensive chronic kidney disease with stage 1 through stage 4 chronic kidney disease, or unspecified chronic kidney disease; N40.0 Benign prostatic hyperplasia without lower urinary tract symptoms; N18.9 Chronic kidney disease, unspecified; Z95.1 Presence of aortocoronary bypass graft; Z79.4 Long term (current) use of insulin; Z79.82 Long term (current) use of aspirin; Z88.0 Allergy status to penicillin; I25.2 Old myocardial infarction; K21.9 Gastro-esophageal reflux disease without esophagitis
CPT/HCPCS: 36415; 71010; 80053; 80061; 81001; 82550; 82553; 82607; 82746; 82962; 82977; 83036; 83605; 83735; 83880; 84100; 84300; 84484; 84550; 85025; 86140; 87081; 89050; 93005; 93306; J1815

== ENCOUNTER 2016-06-26 06:17 | Inpatient (IN) | payer MEDICARE, MEDICAID ==
[~2016-06-26] VITALS: Ht 172.7 cm; Wt 72.6 kg
[~2016-06-26 06:17] MED LIST changes: +ATORVASTATIN CA10 MG ORAL; +FUROSEMIDE40 MG ORAL; +LANTUS SOL100 UNIT/1 SUBQ; +NORVASC10 MG ORAL
[2016-06-26 06:35] VITALS: BP 157/59
[2016-06-26 06:53] LABS: BASOPHILS % (AUTO) 0.7 % (0.0-2.0); EOSINOPHILS % (AUTO) 4.2 % (0.0-3.0); LYMPHOCYTES % (AUTO) 30.5 % (20.0-45.0); MEAN CORPUSCULAR HEMOGLOBIN 30.7 PG (27.0-31.0); MEAN CORPUSCULAR HGB CONC 32.9 G/DL (32.0-36.0); MEAN CORPUSCULAR VOLUME 93 FL (80-99); MONOCYTES % (AUTO) 9.7 % (1.0-10.0); PLATELET COUNT 237 K/UL (150-450); RED BLOOD COUNT 4.43 M/UL (4.70-6.10); RED CELL DISTRIBUTION WIDTH 11.7 % (11.6-14.8); WHITE BLOOD COUNT 8.6 K/UL (4.8-10.8)
[2016-06-26 07:07] LABS: ALANINE AMINOTRANSFERASE 12 U/L (3-41); ALBUMIN/GLOBULIN RATIO 0.9 (1.0-2.7); ASPARTATE AMINO TRANSFERASE 17 U/L (5-40); CARBON DIOXIDE 26 mEQ/L (20-30); CREATININE 2.9 mg/dL (0.7-1.2); HEMOLYSIS 0; TOTAL PROTEIN 7.1 g/dL (6.6-8.7)
[2016-06-26 07:08] LABS: ANION GAP 16 (5-15); CHLORIDE 98 mEQ/L (98-107); POTASSIUM 4.3 mEQ/L (3.4-4.9); SODIUM 140 mEQ/L (135-145)
--- NOTE | 2016-06-26 07:17 | Emergency Room Report ---
History of Present Illness General Chief Complaint: Multiple Trauma/Fall Source: Patient, EMS Present Illness HPI Patient is an 80-year-old male who presented after increased left hip pain after a fall at his correction. Patient reportedly normally ambulatory with walker. Patient has some prior history of kidney disease. The patient reported having increased pain with movement to his left hip. The patient was brought in by EMS and was given IV morphine prior to arrival. The patient reported sharp pain which is worse with movement pain is severe in intensity. Allergies: Coded Allergies: PENICILLINS (Verified Allergy, Unknown, 11/14/15) Patient History Past Medical History: see triage record Reviewed Nursing Documentation: PMH: Agreed, PSxH: Agreed Nursing Documentation-PMH Hx Cardiac Problems: Yes - cabg Hx Hypertension: Yes Hx Diabetes: No Hx Cancer: No Hx Gastrointestinal Problems: Yes - gi reflux Hx Dialysis: No Hx Cerebrovascular Accident: Yes Hx Seizures: No Hx Memory Loss: Yes Hx Dizziness: Yes Hx Syncope: Yes Review of Systems All Other Systems: negative except mentioned in HPI Physical Exam Vital Signs Date Time Temp Pulse Resp B/P Pulse Ox O2 Delivery O2 Flow Rate FiO2 06/26/16 06:17 96.6 68 14 160/64 95 06/26/16 06:35 Room Air Sp02 EP Interpretation: reviewed, normal General Appearance: normal inspection, well appearing, no apparent distress, alert, non-toxic Head: normocephalic, atraumatic ENT: normal ENT inspection, hearing grossly normal, normal voice Neck: normal inspection, full range of motion, supple, no bony tend Respiratory: normal inspection, lungs clear, normal breath sounds, no respiratory distress, no retraction, no wheezing Cardiovascular #1: regular rate, rhythm, no edema Gastrointestinal: normal inspection, normal bowel sounds, non tender, soft, no guarding, no hernia Genitourinary: no CVA tenderness Musculoskeletal: normal inspection, back normal, tender - decreased rom, tenderness to left hip Neurologic: normal inspection, alert, oriented x3, responsive, carcass trimmer III-XII nml as tested, speech normal, motor weakness Psychiatric: normal inspection, judgement/insight normal, mood/affect normal Skin: normal inspection, normal color, no rash Medical Decision Making Diagnostic Impression: Primary Impression: Fall Additional Impressions: Renal insufficiency Hip fracture ER Course Patient presented for left hip pain. Differential diagnosis included was not limited to fracture, dislocation, muscle injury, sprain, among others.Because of complexity of patient's case laboratory testing and imaging studies were ordered. A CT imaging of the left hip was obtained which showed a nondisplaced fracture intertrochanteric of the left proximal femur. EKG interpreted by me showed normal sinus rhythm with a rate of [address] or T wave changes patient was noted to have a prolonged QT interval. Patient was discussed with Dr. Eros Espinoza for inpatient management due to patients insurance. Patient was also discussed with Dr. Otis Greene for orthopedic consult Labs Test 06/26/16 06:23 White Blood Count 8.6 K/UL (4.8-10.8) Red Blood Count 4.43 M/UL (4.70-6.10) Hemoglobin 13.6 G/DL (14.2-18.0) Hematocrit 41.3 % (42.0-52.0) Mean Corpuscular Volume 93 FL (80-99) Mean Corpuscular Hemoglobin 30.7 PG (27.0-31.0) Mean Corpuscular Hemoglobin Concent 32.9 G/DL (32.0-36.0) Red Cell Distribution Width 11.7 % (11.6-14.8) Platelet Count 237 K/UL (150-450) Mean Platelet Volume 10.0 FL (6.5-10.1) Neutrophils (%) (Auto) 55.0 % (45.0-75.0) Lymphocytes (%) (Auto) 30.5 % (20.0-45.0) Monocytes (%) (Auto) 9.7 % (1.0-10.0) Eosinophils (%) (Auto) 4.2 % (0.0-3.0) Basophils (%) (Auto) 0.7 % (0.0-2.0) Prothrombin Time 10.0 SEC (9.30-11.50) Prothromb Time International Ratio 1.0 (0.9-1.1) Activated Partial Thromboplast Time 26 SEC (23-33) Sodium Level 140 mEQ/L (135-145) Potassium Level 4.3 mEQ/L (3.4-4.9) Chloride Level 98 mEQ/L (98-107) Carbon Dioxide Level 26 mEQ/L (20-30) Anion Gap 16 (5-15) Blood Urea Nitrogen 34 mg/dL (7-23) Creatinine 2.9 mg/dL (0.7-1.2) Estimat Glomerular Filtration Rate mL/min (>60) Glucose Level 175 mg/dL (74-106) Calcium Level 10.0 mg/dL (8.6-10.2) Total Bilirubin 0.4 mg/dL (0.0-1.2) Aspartate Amino Transf (AST/SGOT) 17 U/L (5-40) Alanine Aminotransferase (ALT/SGPT) 12 U/L (3-41) Alkaline Phosphatase 94 U/L (40-129) Total Protein 7.1 g/dL (6.6-8.7) Albumin 3.5 g/dL (3.5-5.2) Globulin 3.6 g/dL Albumin/Globulin Ratio 0.9 (1.0-2.7) Rhythm Strip Diag. Results EP Interpretation: yes Rhythm: NSR, no PVC's, no ectopy, other Last Vital Signs Date Time Temp Pulse Resp B/P Pulse Ox O2 Delivery O2 Flow Rate FiO2 06/26/16 06:35 96.6 61 11 157/59 96 Room Air Status: unchanged Disposition: ADMITTED INPATIENT Condition: Serious Referrals: NON PHYSICIAN (PCP) Abiodun Paul Jun 26, 2016 07:17
[2016-06-26 08:55] VITALS: BP 143/55
[2016-06-26] MEDS ORDERED: Morphine Sulfate 2mg/ml Inj ONE (09:40)
[2016-06-26] MEDS ORDERED: Morphine Sulfate 2mg/ml Inj IVP ONE (09:45)
[2016-06-26 10:25] VITALS: BP 152/74
--- NOTE | 2016-06-26 11:09 | Diagnostic Imaging Report ---
Indication: Left-sided hip pain status post fall Technique: Noncontrast spiral acquisitions obtained through the left hip. Multiplanar reconstructions were generated. Total dose length product 339 mGycm. CTDIvol(s) mGy. Radiation dose was minimized using automated exposure control Comparison: None Findings: There is a nondisplaced left intertrochanteric fracture. The fracture lines are difficult to follow, as they are only seen in the cortices and not visible within the medullary space.. However, there is definitely a cortical break in the sub-trochanteric region inferior cortex, best visualized on the coronal reconstructed images. Cortical breaks are seen in the greater trochanter, both medially and laterally, best appreciated on the coronal reconstructed images. A cortical break is seen in the medial intertrochanteric region on both the coronal and axial reconstructed images. On the axial images, but appears to be a subtle cortical break is seen extending into the distal femoral neck. No pelvic fracture demonstrated. There is minimal degenerative change of the left sacroiliac joint and pubic symphysis. The joint spaces are preserved. There is minimal soft tissue contusion. Included pelvic viscera are remarkable for the presence of colonic diverticulosis. Impression: Positive for nondisplaced intertrochanteric fracture Incidental finding of colonic diverticulosis This agrees with the preliminary interpretation provided overnight by [facility] teleradiology service. The CT scanner at [facility] is accredited by the [employer] and the scans are performed using protocols designed to limit radiation exposure to as low as reasonably achievable to attain images of sufficient resolution adequate for diagnostic evaluation.
[2016-06-26 11:19] VITALS: BP 149/77
--- NOTE | 2016-06-26 11:28 | Diagnostic Imaging Report ---
Indication: Cough Technique: One view of the chest Comparison: 06/08/2016 Findings: Inspiration is suboptimal. Heart is mildly enlarged. There is question with some infiltrate at the right lung base although this could be an artifact of crowding of the bronchovascular markings. Evidence of prior CABG. There is an eggshell calcification in the left neck again demonstrated. Impression: Hypoventilatory exam. Questionable infiltrate at the right lung base, may just be an artifact of crowding of the bronchovascular markings, but pneumonia not completely excludable. Cardiomegaly Other findings as noted
[2016-06-26] MEDS: Zinc Sulfate 220mg cap ORAL SCH ×2 (12:27→12:31)
[2016-06-26] MEDS: Ascorbic Acid 500mg tab ORAL SCH ×2 (12:27→12:31)
[2016-06-26] MEDS: HYDROmorphone 1mg/ml Carpuject IVP PRN ×2 (12:34→18:03)
--- NOTE | 2016-06-26 14:45 | Cardiology Report ---
APPROVED REPORT EKG Measurement Heart [id number] Sinus rhythm with 1st degree AV block Nonspecific T wave abnormality Prolonged QT Abnormal ECG
--- NOTE | 2016-06-26 15:56 | Cardiology Progress Note ---
Assessment/Plan Assessment/Plan The patient is seen and examined, full consult note will be dictated. Objective Last 24 Hour Vital Signs Date Time Temp Pulse Resp B/P Pulse Ox O2 Delivery O2 Flow Rate FiO2 06/26/16 13:19 97.6 06/26/16 12:27 61 149/77 06/26/16 11:19 97.6 61 20 149/77 97 Nasal Cannula 2.0 06/26/16 10:25 97.8 67 20 152/74 98 Nasal Cannula 2.0 06/26/16 09:59 96.6 06/26/16 09:35 96.6 61 11 143/55 95 Room Air 06/26/16 08:55 96.6 61 11 143/55 95 Room Air 06/26/16 06:35 96.6 61 11 157/59 96 Room Air 06/26/16 06:17 96.6 68 14 160/64 95 Laboratory Tests Test 06/26/16 06:23 White Blood Count 8.6 K/UL (4.8-10.8) Red Blood Count 4.43 M/UL (4.70-6.10) L Hemoglobin 13.6 G/DL (14.2-18.0) L Hematocrit 41.3 % (42.0-52.0) L Mean Corpuscular Volume 93 FL (80-99) Mean Corpuscular Hemoglobin 30.7 PG (27.0-31.0) Mean Corpuscular Hemoglobin Concent 32.9 G/DL (32.0-36.0) Red Cell Distribution Width 11.7 % (11.6-14.8) Platelet Count 237 K/UL (150-450) Mean Platelet Volume 10.0 FL (6.5-10.1) Neutrophils (%) (Auto) 55.0 % (45.0-75.0) Lymphocytes (%) (Auto) 30.5 % (20.0-45.0) Monocytes (%) (Auto) 9.7 % (1.0-10.0) Eosinophils (%) (Auto) 4.2 % (0.0-3.0) H Basophils (%) (Auto) 0.7 % (0.0-2.0) Prothrombin Time 10.0 SEC (9.30-11.50) Prothromb Time International Ratio 1.0 (0.9-1.1) Activated Partial Thromboplast Time 26 SEC (23-33) Sodium Level 140 mEQ/L (135-145) Potassium Level 4.3 mEQ/L (3.4-4.9) Chloride Level 98 mEQ/L (98-107) Carbon Dioxide Level 26 mEQ/L (20-30) Anion Gap 16 (5-15) H Blood Urea Nitrogen 34 mg/dL (7-23) H Creatinine 2.9 mg/dL (0.7-1.2) H Estimat Glomerular Filtration Rate mL/min (>60) Glucose Level 175 mg/dL (74-106) H Calcium Level 10.0 mg/dL (8.6-10.2) Total Bilirubin 0.4 mg/dL (0.0-1.2) Aspartate Amino Transf (AST/SGOT) 17 U/L (5-40) Alanine Aminotransferase (ALT/SGPT) 12 U/L (3-41) Alkaline Phosphatase 94 U/L (40-129) Total Protein 7.1 g/dL (6.6-8.7) Albumin 3.5 g/dL (3.5-5.2) Globulin 3.6 g/dL Albumin/Globulin Ratio 0.9 (1.0-2.7) JARRET FERRARO Jun 26, 2016 15:56
[2016-06-26 16:00] VITALS: BP 145/80
[2016-06-26] MEDS: NovoLOG Insulin Flexpen SUBQ SCH ×2 (18:01→21:39)
[2016-06-26 20:00] VITALS: BP 139/79
[2016-06-26] MEDS ORDERED: Donepezil 10mg tab ORAL SCH (21:00)
--- NOTE | 2016-06-26 21:39 | Consultation ---
DATE OF CONSULTATION: 06/26/2016 ORTHOPEDIC CONSULTATION CHIEF COMPLAINT: Left hip pain. HISTORY OF PRESENT ILLNESS: The patient is a pleasant 80-year-old gentleman, who has got multiple medical problems, who presents with complaints of left hip pain. The patient reports having a mechanical fall. He has had difficulty ambulating. He was brought to the ER where imaging study showed a fracture of the hip. Orthopedic consultation was obtained for further care and recommendation. PAST MEDICAL HISTORY: Reviewed from the intake chart. PAST SURGICAL HISTORY: Reviewed from the intake chart. MEDICATIONS: Reviewed from the intake chart. PHYSICAL EXAMINATION: The patient is alert. He is in moderate discomfort. He has pain with internal and external rotation of the left leg. Posterior calf is soft. Neurovascular is normal. RADIOGRAPHIC DATA: CT scan of the left hip shows a nondisplaced left intertrochanteric hip fracture. At this point, he is having significant discomfort and pain. ASSESSMENT: Left intertrochanteric hip fracture. DISCUSSION: At this point, he is indicative of operative fixation with intramedullary device. Unfortunately, he has multiple medical problems that need to be optimized. He currently is also on Plavix and aspirin. I discussed the case with the PMD. We are going to optimize him over the next several days and hopefully, proceed with surgery as soon as possible, probably early next week. Risks, limitations, expectations, and complications related to procedure were discussed in detail. All questions addressed. We will proceed with surgery once he is medically optimized. Otis Greene M.D. DR: POLLO JOB#: [id number] CC:
--- NOTE | 2016-06-26 21:59 | Consultation ---
DATE OF CONSULTATION: 06/26/2016 CARDIOLOGY CONSULTATION CONSULTING PHYSICIAN: Carson Kee M.D. REFERRING PHYSICIAN: Eros Espinoza M.D. REASON FOR CONSULTATION: Management of preoperative cardiac assessment for noncardiac surgery. HISTORY OF PRESENT ILLNESS: The patient is a very pleasant 80-year-old gentleman, who has suffered from cerebrovascular accident in the past and therefore has dysphagia and a very poor historian. He presents to the hospital apparently after sustaining a fall in the nursing facility. He sustained a left hip pain and inability to walk around. The patient was brought in by EMS for further evaluation and management. In the emergency department, his initial blood pressure was 160/64 and heart rate of 68. He had a CT imaging of the left hip, which showed a nondisplaced fracture of inter trochanter of the left femur. A Cardiology consultation, who was seen in for at request of Dr. Espinoza for preoperative cardiac assessment, as he is scheduled for ORIF of the left hip. The review of the record shows that the patient has history of coronary artery disease and coronary artery bypass graft surgery. However, the detail of this procedure is unknown. PAST MEDICAL HISTORY: History of coronary artery disease, status post coronary artery bypass graft surgery, history of hypertension, history of gastroesophageal reflux, history of cerebrovascular accident, history of dizziness/syncope and history of memory loss. PAST SURGICAL HISTORY: Coronary artery bypass graft surgery. ALLERGIES: Penicillin. LIST OF MEDICATIONS: Amlodipine 10 mg p.o. daily, atorvastatin 10 mg p.o. q.h.s., ascorbic acid 500 mg p.o. daily, aspirin 81 mg p.o. daily, carvedilol 3.125 mg p.o. twice daily, clopidogrel 75 mg p.o. daily, donepezil 10 mg p.o. daily, Lasix 40 mg p.o. daily, gabapentin 300 mg p.o. three times daily, insulin Lantus and Levaquin 250 mg p.o. daily, multivitamin one tablet p.o. daily, Zyprexa 2.5 mg p.o. daily, and zinc sulfate 220 mg p.o. daily. HABITS: Denies any tobacco, alcohol, or illicit drug use. He is a resident of retirement facility. REVIEW OF SYSTEMS: Twelve system review were done essentially negative except what was mentioned in the history of present illness. PHYSICAL EXAMINATION: VITAL SIGNS: Blood pressure on arrival to the hospital was 160/64, respiration of 14, pulse of 68, temperature 96.6 degrees Fahrenheit, and O2 saturation is 95% on room air. GENERAL: The patient is a very unfortunate 80-year-old gentleman, in no apparent respiratory distress. HEENT: Atraumatic and normocephalic. Anicteric. Pupils are equal, round, and reactive to light and accommodation. Extraocular muscles intact. NECK: JVP is less than 5 cm. No carotid bruit. Carotid upstroke is 2+ bilaterally. CARDIOVASCULAR: Normal S1 and S2. Regular rate and rhythm. No murmurs, gallops, or rubs. PMI is at fourth intercostal space at the midclavicular line. LUNGS: Clear to auscultation bilaterally. ABDOMEN: Soft, nontender, and nondistended. No hepatosplenomegaly. Positive bowel sounds. EXTREMITIES: No evidence of edema, clubbing, or cyanosis. LABORATORY AND DIAGNOSTIC DATA: INR was 1.0. Sodium 140, potassium 4.3, chloride 98, bicarbonate 26, BUN 34, and creatinine 2.9. Glucose is 175. Calcium is 10.0. WBC is 8.6, hemoglobin of 13.6, hematocrit of 41.3, and platelet count of 237,000. Chest x-ray showed sternal wires, hypoventilatory exam, no pulmonary edema, and cardiomegaly. ASSESSMENT AND PLAN: The patient is a very pleasant 80-year-old gentleman, who was seen in Cardiology consultation at request of Dr. Espinoza. The patient is scheduled for left hip open reduction and internal fixation due to intertrochanteric fracture. Prior to this event, he was ambulatory and did not have any symptoms of chest pain or shortness of breath with these activities. Although, he has had history of coronary artery disease and coronary artery bypass graft surgery. His 12-lead electrocardiogram shows no evidence of ischemia. The patient is scheduled for intermediate risk procedure. He is cleared for the above procedure with the risk of coronary artery events similar to the coronary artery events perioperatively estimated to be less between 1% to 5%. In the meantime, we will like to obtain 2D echocardiography for assessment of left ventricular systolic function. I would like to thank, Dr. Espinoza, for allowing me to participate in the care of this patient. Carson Kee M.D. DR: RAYMOND JOB#: [id number] CC:
[2016-06-27] VITALS: BP 154/73
[2016-06-27] MEDS: HYDROmorphone 1mg/ml Carpuject IVP PRN ×5 (01:35→19:25)
[2016-06-27 04:30] VITALS: BP 159/79
[2016-06-27] MEDS: NovoLOG Insulin Flexpen SUBQ SCH ×4 (06:24→20:48)
[2016-06-27 07:49] VITALS: BP 156/81
[2016-06-27] MEDS: Ascorbic Acid 500mg tab ORAL SCH (08:31)
[2016-06-27] MEDS: Zinc Sulfate 220mg cap ORAL SCH (08:31)
[2016-06-27] MEDS ORDERED: Furosemide 40mg tab ORAL SCH (09:00)
--- NOTE | 2016-06-27 10:53 | History & Physical ---
History and Physical History & Physicial DATE OF ADMISSION: 06/26/2016 HISTORY AND PHYSICAL HISTORY OF PRESENT ILLNESS: The patient is a very pleasant 80-year-old gentleman, who has suffered from cerebrovascular accident in the past and therefore has dysphagia and a very poor historian. He presents to the hospital apparently after sustaining a fall in the nursing facility. He sustained a left hip pain and inability to walk around. The patient was brought in by EMS for further evaluation and management. In the emergency department, his initial blood pressure was 160/64 and heart rate of 68. He had a CT imaging of the left hip, which showed a nondisplaced fracture of inter trochanter of the left femur. He is scheduled for ORIF of the left hip. The review of the record shows that the patient has history of coronary artery disease and coronary artery bypass graft surgery. However, the detail of this procedure is unknown. PAST MEDICAL HISTORY: History of coronary artery disease, status post coronary artery bypass graft surgery, history of hypertension, history of gastroesophageal reflux, history of cerebrovascular accident, history of dizziness/syncope and history of memory loss. PAST SURGICAL HISTORY: Coronary artery bypass graft surgery. ALLERGIES: Penicillin. LIST OF MEDICATIONS: Amlodipine 10 mg p.o. daily, atorvastatin 10 mg p.o. q.h.s., ascorbic acid 500 mg p.o. daily, aspirin 81 mg p.o. daily, carvedilol 3.125 mg p.o. twice daily, clopidogrel 75 mg p.o. daily, donepezil 10 mg p.o. daily, Lasix 40 mg p.o. daily, gabapentin 300 mg p.o. three times daily, insulin Lantus and Levaquin 250 mg p.o. daily, multivitamin one tablet p.o. daily, Zyprexa 2.5 mg p.o. daily, and zinc sulfate 220 mg p.o. daily. HABITS: Denies any tobacco, alcohol, or illicit drug use. He is a resident of skilled nursing facility. REVIEW OF SYSTEMS: Twelve system review were done essentially negative except what was mentioned in the history of present illness. PHYSICAL EXAMINATION: VITAL SIGNS: Blood pressure on arrival to the hospital was 160/64, respiration of 14, pulse of 68, temperature 96.6 degrees Fahrenheit, and O2 saturation is 95% on room air. GENERAL: The patient is a very unfortunate 80-year-old gentleman, in no apparent respiratory distress. HEENT: Atraumatic and normocephalic. Anicteric. Pupils are equal, round, and reactive to light and accommodation. Extraocular muscles intact. NECK: JVP is less than 5 cm. No carotid bruit. Carotid upstroke is 2+ bilaterally. CARDIOVASCULAR: Normal S1 and S2. Regular rate and rhythm. No murmurs, gallops, or rubs. PMI is at fourth intercostal space at the midclavicular line. LUNGS: Clear to auscultation bilaterally. ABDOMEN: Soft, nontender, and nondistended. No hepatosplenomegaly. Positive bowel sounds. EXTREMITIES: No evidence of edema, clubbing, or cyanosis. LABORATORY AND DIAGNOSTIC DATA: INR was 1.0. Sodium 140, potassium 4.3, chloride 98, bicarbonate 26, BUN 34, and creatinine 2.9. Glucose is 175. Calcium is 10.0. WBC is 8.6, hemoglobin of 13.6, hematocrit of 41.3, and platelet count of 237,000. Chest x-ray showed sternal wires, hypoventilatory exam, no pulmonary edema, and cardiomegaly. ASSESSMENT AND PLAN: The patient is a very pleasant 80-year-old gentleman. The patient is scheduled for left hip open reduction and internal fixation due to intertrochanteric fracture. Prior to this event, he was ambulatory and did not have any symptoms of chest pain or shortness of breath with these activities. Although, he has had history of coronary artery disease and coronary artery bypass graft surgery. His 12-lead electrocardiogram shows no evidence of ischemia. The patient is scheduled for intermediate risk procedure. Per cardiology. he is cleared for the above procedure with the risk of coronary artery events similar to the coronary artery events perioperatively estimated to be less between 1% to 5%. Eros Espinoza M.D. Eros Espinoza MD Jun 27, 2016 10:53
[2016-06-27 11:07] VITALS: BP 145/71
[2016-06-27 16:00] VITALS: BP 157/79
[2016-06-27 20:00] VITALS: BP 161/74
[2016-06-27] MEDS: Donepezil 10mg tab ORAL SCH (20:46)
--- NOTE | 2016-06-27 20:58 | Cardiology Progress Note ---
Assessment/Plan Assessment/Plan 1. Stable coronary artery disease, status post coronary artery bypass graft surgery, ORIF of the left hip required, off ASA and plavix. 2. History of hypertension, continue coreg and amlodipine. 3. History of gastroesophageal reflux. 4. History of cerebrovascular accident. Subjective Subjective Sinus rhythm with 1st degree AVB at 77. Objective Last 24 Hour Vital Signs Date Time Temp Pulse Resp B/P Pulse Ox O2 Delivery O2 Flow Rate FiO2 06/27/16 20:45 77 161/74 06/27/16 20:00 77 06/27/16 20:00 80 18 161/74 Nasal Cannula 2.0 91 06/27/16 16:00 79 06/27/16 16:00 97.3 72 18 157/79 Nasal Cannula 2.0 97 06/27/16 11:07 97.5 67 16 145/71 95 Room Air 06/27/16 10:33 97.2 06/27/16 08:32 70 156/81 06/27/16 08:31 70 156/81 06/27/16 07:49 97.2 70 14 156/81 96 Nasal Cannula 06/27/16 04:30 98.0 85 20 159/79 99 Nasal Cannula 2.0 06/27/16 04:00 98.1 83 20 99 Nasal Cannula 2.0 06/27/16 00:00 97.5 77 20 154/73 92 Nasal Cannula 2.0 06/26/16 21:38 73 145/80 Intake and Output 06/26/16 06/27/16 19:00 07:00 Intake Total 100 ml 630 ml Output Total 250 ml Balance -150 ml 630 ml Intake Oral 0 ml 180 ml IV Total 100 ml 450 ml Output Urine Total 250 ml # Voids 3 Microbiology Date/Time Source Procedure Growth Status 06/26/16 08:45 Nasal Nares MRSA Culture - Final NO METHICILLIN RESISTANT STAPH AUREUS... Complete Objective HEENT: Atraumatic and normocephalic. Anicteric. Pupils are equal, round, and reactive to light and accommodation. Extraocular muscles intact. NECK: JVP is less than 5 cm. No carotid bruit. Carotid upstroke is 2+ bilaterally. CARDIOVASCULAR: Normal S1 and S2. Regular rate and rhythm. No murmurs, gallops, or rubs. PMI is at fourth intercostal space at the midclavicular line. LUNGS: Clear to auscultation bilaterally. ABDOMEN: Soft, nontender, and nondistended. No hepatosplenomegaly. Positive bowel sounds. EXTREMITIES: No evidence of edema, clubbing, or cyanosis. JARRET GODINEZ Jun 27, 2016 20:58
[2016-06-28] VITALS (7 sets, daily range): BP systolic 126–188; BP diastolic 58–90
[2016-06-28] MEDS: HYDROmorphone 1mg/ml Carpuject IVP PRN ×5 (01:15→21:49)
[2016-06-28] MEDS: NovoLOG Insulin Flexpen SUBQ SCH ×4 (05:41→21:45)
--- NOTE | 2016-06-28 08:30 | Diagnostic Imaging Report ---
\H\CT Brain without Intravenous Contrast INDICATION: \N\Altered mental status.\H\ COMPARISON: \N\None\H\ TECHNIQUE: Serial axial images were obtained from the the skull base through the vertex without intravenous contrast. Coronal reformats were obtained. Dose Estimate: Total DLP \N\1449\H\ mGycm CTDIvol \N\70\H\ mGy FINDINGS: Hypodensity from prior infarct involving the right cerebellum is identified. Probable chronic lacunar infarcts are noted in the basal ganglia. Few periventricular and subcortical white matter hypodensities are nonspecific but may reflect the sequela of chronic microangiopathy. There is no evidence of acute intracranial hemorrhage or large territorial infarct. The cortical sulci, ventricles and extra-axial CSF spaces appear prominent but likely normal for patient's age. There is no space occupying lesion, mass effect or midline shift. Mild mucosal thickening of the right maxillary sinus is noted. The remaining visualized paranasal sinuses and mastoid air cells are clear. The osseous structures are unremarkable. \N\\H\IMPRESSION: 1. No acute intracranial hemorrhage, midline shift or mass effect. 2. Probable lacunar infarcts involving the basal ganglia. Chronic focal infarct involving the right cerebellum. 3. Mild diffuse cerebral atrophy. Few scattered white matter hypodensities are nonspecific but may reflect the sequela of chronic microangiopathy.\N\
[2016-06-28 08:51] LABS: TROPONIN I < 0.30 ng/mL (<=0.30)
[2016-06-28] MEDS: Ascorbic Acid 500mg tab ORAL SCH (09:40)
[2016-06-28] MEDS: Zinc Sulfate 220mg cap ORAL SCH (09:41)
[2016-06-28] MEDS: Furosemide 40mg tab ORAL SCH (09:41)
--- NOTE | 2016-06-28 11:00 | Pulmonology Progress Note ---
Assessment/Plan Assessment/Plan ASSESSMENT AND PLAN: Plan noted for left hip open reduction and internal fixation due to intertrochanteric fracture. CAD (coronary artery disease and coronary artery bypass graft surgery) Will continue to hold ASA and Plavix CKD Cleared for surgery Is considered intermediate risk Subjective Interval Events: More awake today; dysarthric Constitutional: Reports: no symptoms HEENT: Repors: no symptoms Respiratory: Reports: no symptoms Cardiovascular: Reports: no symptoms Gastrointestinal/Abdominal: Reports: no symptoms Genitourinary: Reports: no symptoms Allergies: Coded Allergies: PENICILLINS (Verified Allergy, Unknown, 11/14/15) Objective Last 24 Hour Vital Signs Date Time Temp Pulse Resp B/P Pulse Ox O2 Delivery O2 Flow Rate FiO2 06/28/16 09:43 80 167/73 06/28/16 09:42 80 167/73 06/28/16 08:00 98.2 123 17 167/73 93 Room Air 06/28/16 08:00 75 06/28/16 04:00 98.0 79 20 126/76 95 Nasal Cannula 2.0 06/28/16 04:00 70 06/28/16 00:00 97.0 66 20 181/90 99 Nasal Cannula 2.0 06/28/16 00:00 63 06/27/16 20:45 77 161/74 06/27/16 20:00 77 06/27/16 20:00 80 18 161/74 Nasal Cannula 2.0 91 06/27/16 16:00 79 06/27/16 16:00 97.3 72 18 157/79 Nasal Cannula 2.0 97 06/27/16 11:07 97.5 67 16 145/71 95 Room Air Intake and Output 06/27/16 06/28/16 19:00 07:00 Intake Total 700 ml 600 ml Output Total 550 ml 900 ml Balance 150 ml -300 ml Intake Oral 250 ml IV Total 450 ml 600 ml Output Urine Total 550 ml 900 ml # Voids 2 General Appearance: WD/WN HEENT: normocephalic Respiratory/Chest: chest wall non-tender, lungs clear Cardiovascular: normal peripheral pulses, normal rate Abdomen: normal bowel sounds, soft, non tender Extremities: no cyanosis Microbiology Date/Time Source Procedure Growth Status 06/26/16 08:45 Nasal Nares MRSA Culture - Final NO METHICILLIN RESISTANT STAPH AUREUS... Complete Laboratory Tests 06/28/16 08:00: Troponin I < 0.30 Current Medications Medications (Trade) Dose Ordered Sig/Jason Route PRN Reason Start Time Stop Time Status Last Admin Dose Admin Amlodipine Besylate (Norvasc) 10 mg DAILY ORAL 06/28/16 09:00 07/28/16 08:59 06/28/16 09:42 Ascorbic Acid (Vitamin C) 500 mg DAILY ORAL 06/28/16 09:00 07/28/16 08:59 06/28/16 09:40 Atorvastatin Calcium (Lipitor) 10 mg BEDTIME ORAL 06/27/16 21:00 07/27/16 20:59 06/27/16 20:46 Carvedilol (Coreg) 3.125 mg EVERY 12 HOURS ORAL 06/27/16 21:00 07/27/16 20:59 06/28/16 09:43 Dextrose (Dextrose 50%) STAT PRN IV Hypoglycemia 06/27/16 15:00 07/27/16 14:59 Donepezil HCl (Aricept) 10 mg QHS ORAL 06/27/16 21:00 07/27/16 20:59 06/27/16 20:46 Furosemide (Lasix) 40 mg DAILY ORAL 06/28/16 09:00 07/28/16 08:59 06/28/16 09:41 Gabapentin (Neurontin) 300 mg THREE TIMES A DAY ORAL 06/27/16 18:00 07/27/16 17:59 06/28/16 09:40 Hydromorphone HCl (Dilaudid) 1 mg Q4H PRN IVP For Pain 06/27/16 15:00 07/04/16 14:59 06/28/16 05:35 Insulin Aspart (NovoLOG) BEFORE MEALS AND HS SUBQ 06/27/16 16:30 07/27/16 16:29 06/28/16 05:41 Multivitamins (Multivitamins) 1 tab DAILY ORAL 06/28/16 09:00 07/28/16 08:59 06/28/16 09:40 Sodium Chloride (Sodium Chloride 1000ml bag) 1,000 ml @ 50 mls/hr Q20H IV 06/27/16 15:00 07/27/16 14:59 06/27/16 15:06 Zinc Sulfate (Zinc Sulfate) 220 mg DAILY ORAL 06/28/16 09:00 07/28/16 08:59 06/28/16 09:41 Eros Espinoza MD Jun 28, 2016 11:00
[2016-06-28] MEDS: Donepezil 10mg tab ORAL SCH (21:42)
[2016-06-29] VITALS (12 sets, daily range): BP systolic 145–186; BP diastolic 42–96
[2016-06-29] MEDS: HYDROmorphone 1mg/ml Carpuject IVP PRN ×2 (04:26→08:44)
[2016-06-29] MEDS: NovoLOG Insulin Flexpen SUBQ SCH ×4 (06:30→21:56)
[2016-06-29 08:38] LABS: TROPONIN I < 0.30 ng/mL (<=0.30)
[2016-06-29] MEDS: Ascorbic Acid 500mg tab ORAL SCH (08:44)
[2016-06-29] MEDS: Furosemide 40mg tab ORAL SCH (08:45)
[2016-06-29] MEDS: Zinc Sulfate 220mg cap ORAL SCH (08:45)
--- NOTE | 2016-06-29 09:23 | Cardiology Report ---
APPROVED REPORT EXAM: Two-dimensional and M-mode echocardiogram with Doppler and color Doppler. INDICATION CAD M-Mode DIMENSIONS IVSd0.8 (0.7-1.1cm)Left Atrium (MM)3.8 (1.6-4.0cm) LVDd4.6 (3.5-5.6cm)Aortic Root2.8 (2.0-3.7cm) PWd0.7 (0.7-1.1cm)Aortic Cusp Exc.1.8 (1.5-2.0cm) LVDs3.2 (2.5-4.0cm) PWs1.2 cm Normal left ventricular chamber size, systolic function and wall motion. Left ventricular ejection fraction estimated to be 60-65 %. Mild left ventricular hypertrophy. No evidence of pericardial fat or effusion. Right cardiac chamber sizes are within normal limits. Mild left atrial enlargement by 2D. Focal aortic valve sclerosis with adequate cusp excursion Thickened mitral valve leaflets with normal excursion. Mild mitral annulus and aortic root calcification. Pulmonic valve is well visualized. Normal tricuspid valve structure. IVC not obtainable. A color flow and spectral Doppler study was performed and revealed: No aortic regurgitation. No mitral regurgitation. Left ventricular diastolic dysfunction grade 1. No tricuspid regurgitation.
--- NOTE | 2016-06-29 10:06 | Cardiology Report ---
APPROVED REPORT EKG Measurement Heart [id number] MA [id number] Sinus rhythm with 1st degree AV block Nonspecific T wave abnormality Abnormal ECG
--- NOTE | 2016-06-29 10:21 | Pulmonology Progress Note ---
Assessment/Plan Assessment/Plan ASSESSMENT AND PLAN: Plan noted for left hip open reduction and internal fixation due to intertrochanteric fracture. CAD (coronary artery disease and coronary artery bypass graft surgery) Will continue to hold ASA and Plavix CKD Cleared for surgery Is considered intermediate risk Subjective Interval Events: For surgery today; no new complaints Constitutional: Reports: no symptoms HEENT: Repors: no symptoms Respiratory: Reports: no symptoms Cardiovascular: Reports: no symptoms Gastrointestinal/Abdominal: Reports: no symptoms Allergies: Coded Allergies: PENICILLINS (Verified Allergy, Unknown, 11/14/15) Objective Last 24 Hour Vital Signs Date Time Temp Pulse Resp B/P Pulse Ox O2 Delivery O2 Flow Rate FiO2 06/29/16 08:45 66 159/88 06/29/16 08:45 66 159/88 06/29/16 08:08 97.9 85 20 175/67 96 Room Air 06/29/16 04:56 97.3 06/29/16 04:21 97.3 77 16 169/86 97 Room Air 06/29/16 04:00 77 06/29/16 00:00 97.0 66 16 159/88 95 Room Air 06/29/16 00:00 65 06/28/16 21:42 59 152/74 06/28/16 20:00 59 18 152/74 96 Room Air 06/28/16 20:00 62 06/28/16 16:00 97.9 72 19 170/71 94 Room Air 06/28/16 16:00 71 06/28/16 14:50 73 134/58 06/28/16 12:00 88 06/28/16 12:00 97.2 71 18 188/80 95 Room Air Intake and Output 06/28/16 06/29/16 19:00 07:00 Intake Total 540 ml Output Total 860 ml 600 ml Balance -320 ml -600 ml Intake Oral 120 ml IV Total 420 ml Output Urine Total 860 ml 600 ml # Voids 1 General Appearance: no acute distress HEENT: normocephalic Respiratory/Chest: chest wall non-tender, lungs clear Cardiovascular: normal peripheral pulses, normal rate Abdomen: normal bowel sounds Laboratory Tests 06/29/16 07:50: Troponin I < 0.30 Current Medications Medications (Trade) Dose Ordered Sig/Jason Route PRN Reason Start Time Stop Time Status Last Admin Dose Admin Amlodipine Besylate (Norvasc) 10 mg DAILY ORAL 2/19/17 09:00 07/28/16 08:59 06/29/16 08:45 Ascorbic Acid (Vitamin C) 500 mg DAILY ORAL 06/28/16 09:00 07/28/16 08:59 06/29/16 08:44 Atorvastatin Calcium (Lipitor) 10 mg BEDTIME ORAL 06/27/16 21:00 07/27/16 20:59 06/28/16 21:42 Carvedilol (Coreg) 3.125 mg EVERY 12 HOURS ORAL 06/27/16 21:00 07/27/16 20:59 06/29/16 08:45 Dextrose (Dextrose 50%) STAT PRN IV Hypoglycemia 06/27/16 15:00 07/27/16 14:59 Donepezil HCl (Aricept) 10 mg QHS ORAL 06/27/16 21:00 07/27/16 20:59 06/28/16 21:42 Furosemide (Lasix) 40 mg DAILY ORAL 06/28/16 09:00 07/28/16 08:59 06/29/16 08:45 Gabapentin (Neurontin) 300 mg THREE TIMES A DAY ORAL 06/27/16 18:00 07/27/16 17:59 06/29/16 08:44 Hydromorphone HCl (Dilaudid) 1 mg Q4H PRN IVP For Pain 06/27/16 15:00 07/04/16 14:59 06/29/16 08:44 Insulin Aspart (NovoLOG) BEFORE MEALS AND HS SUBQ 06/27/16 16:30 07/27/16 16:29 06/29/16 06:30 Multivitamins (Multivitamins) 1 tab DAILY ORAL 06/28/16 09:00 07/28/16 08:59 06/29/16 08:45 Sodium Chloride (Sodium Chloride 1000ml bag) 1,000 ml @ 50 mls/hr Q20H IV 06/27/16 15:00 07/27/16 14:59 06/29/16 06:30 Zinc Sulfate (Zinc Sulfate) 220 mg DAILY ORAL 06/28/16 09:00 07/28/16 08:59 06/29/16 08:45 Eros Espinoza MD Jun 29, 2016 10:21
--- NOTE | 2016-06-29 10:54 | Diagnostic Imaging Report ---
Indication:Flank pain Technique: Grayscale and duplex Doppler imaging of the kidneys performed. Comparison: None Findings: The renal cortical parenchyma may be slightly echogenic. There is suggestion of small cyst in the right kidney measuring 8 mm. There is no hydronephrosis demonstrated. Ravi catheter is present. IVC is not demonstrated. The right kidney is 9.5 CM. Left kidney 10.9 CM in length. Impression: No obstructive nephropathy demonstrated Questionable medical renal disease.
--- NOTE | 2016-06-29 15:17 | Physician Query ---
PLEASE COMPLETE THE DOCUMENT BEFORE SIGNING Dear Dr. Eros Espinoza Date: June Dross Puller/CDS Name: Jodi Ro CDS Dross Puller / CDS Phone #[phone] Exercise your independent professional judgment when responding to query. Question asked do not imply a particular answer is desired/expected Clinical Documentation States: "CKD" documented in the Assessment of Dr. Eros Espinoza. Clinical Findings Show: Creatinine 2.9 BUN 34 Cr/BUN GFR Urinalysis Please Clarify the type of renal failure below: Etiology [] ARF w/ Tubular Necrosis [] ARF w/ Cortical Necrosis [] ARF w/ Medullary Necrosis [] Acute Renal Failure (unspecified) [] Other: If Chronic, please specify the stage: [] CKD Stage 1 [] CKD Stage 2 [] CKD Stage 3 [] CKD Stage 4 [] CKD Stage 5 [] ESRD [] Not applicable Condition Present on Admission: [] Yes [] No []Clinically Undeterminable Please also document in your Progress Notes and/or Discharge Summary and indicate if the condition was present on admission. Eros Espinoza MD Time/Date MTDD
[2016-06-29] MEDS ORDERED: Bacitracin 50000 Units Vial ONE (15:54)
[2016-06-29] MEDS ORDERED: Midazolam 2mg/2ml Inj ONE (16:00)
[2016-06-29] MEDS ORDERED: LR 1000ml ONE (16:00)
[2016-06-29] MEDS ORDERED: Propofol 10mg/ml 20ml IV ONE (16:00)
[2016-06-29] MEDS ORDERED: NS Irrig 1000ml ONE (16:00)
[2016-06-29] MEDS ORDERED: fentaNYL 100 mcg/2 mL IV ONE (16:00)
[2016-06-29] MEDS ORDERED: LR 1000ml 1,000 ML IVLG SCH ×2 (16:07)
[2016-06-29] MEDS ORDERED: LORazepam Inj 2mg/ml 1ml IV PRN (16:15)
[2016-06-29] MEDS ORDERED: Hydromorphone 0.5mg/0.5ml inj IVP PRN ×2 (16:15)
[2016-06-29] MEDS ORDERED: LR 1000ml 1,000 ML IV SCH (16:15)
--- NOTE | 2016-06-29 16:16 | Immediate Post-Op Evaluation ---
Immediate Post-Op Evalulation Immediate Post-Op Evalulation Procedure: ORIF left hip Date of Evaluation: Jun 29, 2016 Time of Evaluation: 17:25 IV Fluids: 300 Estimated Blood Loss: 30 Blood Pressure Systolic: 181 Blood Pressure Diastolic: 86 Pulse Rate: 86 Respiratory Rate: 16 O2 Sat by Pulse Oximetry: 100 Temperature (Fahrenheit): 98.7 Pain Score (1-10): 0 Nausea: No Vomiting: No Complications No complication Patient Status: reacts, patent, none Hydration Status: adequate Drug: Ancef Given Within 1 Hr of Incision: Yes Time Given: 16:20 AMBER CISNEROS M.D. Jun 29, 2016 16:16
--- NOTE | 2016-06-29 16:16 | Anethesia Preoperative Eval ---
Anesthesia Pre-op PMH/ROS General Date of Evaluation: Jun 29, 2016 Time of Evaluation: 15:00 Anesthesiologist: Kalani ASA Score: ASA 3 Mallampati Score Class I : Soft palate, uvula, fauces, pillars visible Class II: Soft palate, uvula, fauces visible Class III: Soft palate, base of uvula visible Class IV: Only hard plate visible Mallampati Classification: Class II Surgeon: Jc Diagnosis: Left hip fracture Surgical Procedure: ORID left hip Allergies: Coded Allergies: PENICILLINS (Verified Allergy, Unknown, 11/14/15) Medications: see eMAR Past Medical History Cardiovascular: Reports: CAD - S/P CABG, HTN Gastrointestinal/Genitourinary: Reports: GERD, other - Elevated Bun/Cr Neurologic/Psychiatric: Reports: CVA, dementia PMH Narrative: HTN, CAD (s/p CABG), GERD, CVA, dementia PSxH Narrative: CABG Anesthesia Pre-op Phys. Exam Physician Exam Last Vital Signs Date Time Temp Pulse Resp B/P Pulse Ox O2 Delivery O2 Flow Rate FiO2 06/29/16 12:00 79 06/29/16 11:20 97.2 20 167/74 96 Room Air 06/28/16 04:00 2.0 06/27/16 20:00 91 Constitutional: NAD Neurologic: other - Poor historian Cardiovascular: RRR, no M/R/G Respiratory: CTA Gastrointestinal: S/NT/ND Airway Exam Mallampati Score: Class II MO: full ROM: full Anesthesia Pre-op A/P Labs Chemistry Test 06/29/16 07:50 Troponin I < 0.30 ng/mL (<=0.30) Studies Pre-op Studies: EKG - !st degree AVB, slilght delay or R wave progression, echo - Normal EF and wall motion, no significant valvular defect Risk Assessment & Plan Assessment: ORIF left hip Plan: GA, LMA Status Change Before Surgery: No Pre-Antibiotics Drug: Ancef Given Within 1 Hr of Incision: Yes Time Given: 16:20 AMBER CISNEROS M.D. Jun 29, 2016 16:16
--- NOTE | 2016-06-29 16:21 | Operative Note - PDOC ---
Operative Note Operative Note Pre-op Diagnosis: left hip fracture Procedure: orif left hip Post-op Diagnosis: same as pre-op Operative Findings: consistent w/pre-op dx studies Anesthesia: general Specimen: none Complications: none Condition: stable Estimated Blood Loss: minimal Implant(s) used?: Yes AUGUSTO DREW Jun 29, 2016 16:21
--- NOTE | 2016-06-29 16:21 | Pre-Procedure Note/Attestation ---
Pre-Procedure Note/Attestation Complete Prior to Procedure Planned Procedure: left Procedure Narrative: hip orif Indications for Procedure Pre-Operative Diagnosis: left hip fracture Attestation I attest that I discussed the nature of the procedure; its benefits; risks and complications; and alternatives (and the risks and benefits of such alternatives ), prior to the procedure, with the patient (or the patient's legal passenger service representative). I attest that, if there was a reasonable possibility of needing a blood transfusion, the patient (or the patient's legal passenger service representative) was given the [facility] standardized written summary, pursuant to the [place] Blood Safety Act ([place] Health and Safety Code # 1645, as amended). I attest that I re-evaluated the patient just prior to the surgery and that there has been no change in the patient's H&P, except as documented below: AUGUSTO DREW Jun 29, 2016 16:21
[2016-06-29] MEDS ORDERED: Bupivacaine w/Epi 0.25% 30ml Vial INJ ONE (16:47)
--- NOTE | 2016-06-29 17:22 | 48 Hour Post Anesthesia Eval ---
Post Anesthesia Evaluation Procedure: ORIF left hip Date of Evaluation: Jun 29, 2016 Time of Evaluation: 18:00 Blood Pressure Systolic: 165 0: 72 Pulse Rate: 74 Respiratory Rate: 15 O2 Sat by Pulse Oximetry: 100 Airway: patent Nausea: No Vomiting: No Pain Intensity: 0 Hydration Status: adequate Cardiopulmonary Status: Stable Mental Status/LOC: patient returned to baseline Follow-up Care/Observations: As per surgery Post-Anesthesia Complications: No anesthetic complication Follow-up care needed: N/A AMBER CISNEROS M.D. Jun 29, 2016 17:22
[2016-06-29] MEDS: Labetalol 5mg/ml 20ml vial IV PRN ×2 (17:33→17:55)
[2016-06-29] MEDS ORDERED: Norco 5mg/325mg tab ORAL PRN (19:00)
[2016-06-29] MEDS ORDERED: Norco 7.5mg/325mg tab ORAL PRN (19:00)
[2016-06-29] MEDS ORDERED: Milk of Magnesia 30ml Ud ORAL PRN (19:00)
[2016-06-29] MEDS ORDERED: oxyCODONE 5mg IR tab ORAL PRN (19:00)
[2016-06-29] MEDS ORDERED: Morphine Sulfate 2mg/ml Inj IVP PRN (19:00)
--- NOTE | 2016-06-29 20:08 | Operative Note - Dictated ---
DATE OF OPERATION: 06/29/2016 PREOPERATIVE DIAGNOSIS: Left two-part intertrochanteric hip fracture. POSTOPERATIVE DIAGNOSIS: Left two-part intertrochanteric hip fracture. PROCEDURES: Open reduction and internal fixation of left two-part intertrochanteric hip fracture. SURGEON: Otis Greene M.D. ANESTHESIA: General preop. INDICATION FOR THE PROCEDURE: The patient is a pleasant gentleman, who has had mechanical fall and diagnosed nondisplaced intertrochanteric hip fracture is indicating operative fixation. Risks, limitations, expectations, and complications of procedure were discussed in detail. All questions were addressed. DESCRIPTION OF PROCEDURE: An informed consent was obtained. The patient was brought to the operating room and placed under general anesthesia. The patient was then carefully placed on the fracture table, padded all the extremities. Once the left hip was adequately positioned, it was prepped and draped in a sterile manner and Ancef was administered. A standard lateral skin incision was then made. Guidewire was put into the proximal femur. The proximal femur was opened with the opening reamer. A short Gamma nail was selected. The second stab incision, the guidewire was placed through the neck head junction. 90 mm cannula screw was then placed. The screws were locked and turned off quarter turn. At this point, the third stab incision, a 30 mm distal locking screw was placed. Once this was done, turned device was removed. The wound was copiously irrigated. Hemostasis using electrocautery. The skin was closed with #1 Vicryl suture, 3-0 Vicryl suture and 3-0 Monocryl sutures. Compression dressing was applied. The patient was awoken and taken to the recovery room with stable vital signs. ESTIMATED BLOOD LOSS: Minimal. COMPLICATIONS: None. SPECIMENS: None. IMPLANT: Include Mindy short gamma nail. Otis Greene M.D. DR: STARLA JOB#: [id number] CC:
[2016-06-29] MEDS: D5 1/2NS w/KCl 20mEq 1,000 ML IV SCH (21:54)
[2016-06-29] MEDS: Morphine Sulfate 2mg/ml Inj IVP PRN (21:55)
[2016-06-29] MEDS: Pericolace tab ORAL SCH (21:59)
[2016-06-29] MEDS: Donepezil 10mg tab ORAL SCH (21:59)
--- NOTE | 2016-06-29 23:48 | Cardiology Progress Note ---
Assessment/Plan Assessment/Plan 1. Stable coronary artery disease, status post coronary artery bypass graft surgery. 2. S/p ORIF of the left hip, POD #0 2. History of hypertension, continue coreg and amlodipine. 3. History of gastroesophageal reflux. 4. History of cerebrovascular accident. Subjective Subjective Sinus rhythm with 1st degree AVB at 82. s/p left hip ORIF. Objective Last 24 Hour Vital Signs Date Time Temp Pulse Resp B/P Pulse Ox O2 Delivery O2 Flow Rate FiO2 06/29/16 21:54 82 159/83 06/29/16 20:00 97.5 82 20 159/83 98 Nasal Cannula 2.0 06/29/16 19:00 Nasal Cannula 2.0 28 06/29/16 18:12 98.9 06/29/16 18:10 98.9 70 11 145/42 100 Nasal Cannula 3.0 06/29/16 17:55 73 179/81 06/29/16 17:55 68 19 173/89 100 Nasal Cannula 3.0 06/29/16 17:40 71 18 178/82 100 Nasal Cannula 3.0 06/29/16 17:33 81 184/92 06/29/16 17:25 82 16 184/92 96 Nasal Cannula 3.0 06/29/16 17:22 74 15 100 06/29/16 17:21 86 16 100 06/29/16 17:20 84 14 186/96 96 Simple Mask 6.0 06/29/16 17:15 98.7 81 11 181/86 96 Simple Mask 6.0 06/29/16 12:00 79 06/29/16 11:20 97.2 76 20 167/74 96 Room Air 06/29/16 08:45 66 159/88 06/29/16 08:45 66 159/88 06/29/16 08:08 97.9 85 20 175/67 96 Room Air 06/29/16 08:00 75 06/29/16 04:56 97.3 06/29/16 04:21 97.3 77 16 169/86 97 Room Air 06/29/16 04:00 77 06/29/16 00:00 97.0 66 16 159/88 95 Room Air 06/29/16 00:00 65 Intake and Output 06/28/16 06/29/16 19:00 07:00 Intake Total 540 ml Output Total 860 ml 600 ml Balance -320 ml -600 ml Intake Oral 120 ml IV Total 420 ml Output Urine Total 860 ml 600 ml # Voids 1 2D Echo: LVEF 60-65%, Grade I LVDD Laboratory Tests Test 06/29/16 07:50 Troponin I < 0.30 ng/mL (<=0.30) Objective HEENT: Atraumatic and normocephalic. Anicteric. Pupils are equal, round, and reactive to light and accommodation. Extraocular muscles intact. NECK: JVP is less than 5 cm. No carotid bruit. Carotid upstroke is 2+ bilaterally. CARDIOVASCULAR: Normal S1 and S2. Regular rate and rhythm. No murmurs, gallops, or rubs. PMI is at fourth intercostal space at the midclavicular line. LUNGS: Clear to auscultation bilaterally. ABDOMEN: Soft, nontender, and nondistended. No hepatosplenomegaly. Positive bowel sounds. EXTREMITIES: No evidence of edema, clubbing, or cyanosis. JARRET GODINEZ Jun 29, 2016 23:48
[2016-06-30] VITALS (9 sets, daily range): BP systolic 140–175; BP diastolic 62–96
[2016-06-30] MEDS: ceFAZolin sod 1 GM in D5W 55 ML IV SCH ×2 (00:48→08:57)
[2016-06-30] MEDS: Morphine Sulfate 2mg/ml Inj IVP PRN ×3 (01:01→09:33)
[2016-06-30] MEDS: D5 1/2NS w/KCl 20mEq 1,000 ML IV SCH (06:04)
[2016-06-30] MEDS: NovoLOG Insulin Flexpen SUBQ SCH ×4 (06:06→21:31)
[2016-06-30 08:47] LABS: TROPONIN I < 0.30 ng/mL (<=0.30)
--- NOTE | 2016-06-30 09:05 | Pulmonology Progress Note ---
Assessment/Plan Assessment/Plan ASSESSMENT AND PLAN: s/p left hip open reduction and internal fixation due to intertrochanteric fracture. POD #1 CAD (coronary artery disease and coronary artery bypass graft surgery) Will continue to hold ASA and Plavix CKD DM PT/OT Change to diabetic diet DC IV fluids DC planning Sub Q insulin Check labs in AM Subjective Interval Events: POD s/p ORIF hip; hyperglycemic today Constitutional: Reports: no symptoms HEENT: Repors: no symptoms Respiratory: Reports: no symptoms Cardiovascular: Reports: no symptoms Allergies: Coded Allergies: PENICILLINS (Verified Allergy, Unknown, 11/14/15) Objective Last 24 Hour Vital Signs Date Time Temp Pulse Resp B/P Pulse Ox O2 Delivery O2 Flow Rate FiO2 06/30/16 07:42 97.9 70 20 143/62 96 Room Air 06/30/16 04:30 149/82 06/30/16 04:00 91 06/30/16 04:00 97.9 92 20 175/96 94 Nasal Cannula 2.0 06/30/16 01:30 153/79 06/30/16 00:00 97.9 90 20 161/82 95 Nasal Cannula 2.0 06/30/16 00:00 83 06/29/16 22:30 146/81 06/29/16 21:54 82 159/83 06/29/16 20:00 97.5 82 20 159/83 98 Nasal Cannula 2.0 06/29/16 20:00 87 06/29/16 19:00 Nasal Cannula 2.0 28 06/29/16 18:12 98.9 06/29/16 18:10 98.9 70 11 145/42 100 Nasal Cannula 3.0 06/29/16 17:55 73 179/81 06/29/16 17:55 68 19 173/89 100 Nasal Cannula 3.0 06/29/16 17:40 71 18 178/82 100 Nasal Cannula 3.0 06/29/16 17:33 81 184/92 06/29/16 17:25 82 16 184/92 96 Nasal Cannula 3.0 06/29/16 17:22 74 15 100 06/29/16 17:21 86 16 100 06/29/16 17:20 84 14 186/96 96 Simple Mask 6.0 06/29/16 17:15 98.7 81 11 181/86 96 Simple Mask 6.0 06/29/16 12:00 79 06/29/16 11:20 97.2 76 20 167/74 96 Room Air Intake and Output 06/29/16 06/30/16 19:00 07:00 Intake Total 800 ml 810 ml Output Total 1230 ml 1900 ml Balance -430 ml -1090 ml IV Total 800 ml 810 ml Output Urine Total 1200 ml 1900 ml Estimated Blood Loss 30 ml General Appearance: no acute distress HEENT: normocephalic Respiratory/Chest: chest wall non-tender, lungs clear Cardiovascular: normal peripheral pulses, normal rate Extremities: no cyanosis Laboratory Tests 06/30/16 07:55: Troponin I < 0.30 Current Medications Medications (Trade) Dose Ordered Sig/Jason Route PRN Reason Start Time Stop Time Status Last Admin Dose Admin Acetaminophen/ Hydrocodone Bitart ([place] 5/325) 2 tab Q6H PRN ORAL Severe Pain (Pain Scale 7-10) 06/29/16 19:00 07/06/16 18:59 06/30/16 06:05 Acetaminophen/ Hydrocodone Bitart ([place] 7.5/325) 1 ea Q4H PRN ORAL Moderate Pain (Pain Scale 4-6) 06/29/16 19:00 07/06/16 18:59 Amlodipine Besylate (Norvasc) 10 mg DAILY ORAL 06/28/16 09:00 07/28/16 08:59 06/29/16 08:45 Ascorbic Acid (Vitamin C) 500 mg DAILY ORAL 06/28/16 09:00 07/28/16 08:59 06/29/16 08:44 Atorvastatin Calcium (Lipitor) 10 mg BEDTIME ORAL 06/27/16 21:00 07/27/16 20:59 06/29/16 21:54 Carvedilol (Coreg) 3.125 mg EVERY 12 HOURS ORAL 06/27/16 21:00 07/27/16 20:59 06/29/16 21:54 Dextrose (Dextrose 50%) STAT PRN IV Hypoglycemia 06/27/16 15:00 07/27/16 14:59 Dextrose/ Electrolytes (D5 0.45%NS W/ KCl 20mEq) 1,000 ml @ 100 mls/hr Q10H IV 06/29/16 19:00 07/29/16 18:59 06/30/16 06:04 Donepezil HCl (Aricept) 10 mg QHS ORAL 06/27/16 21:00 07/27/16 20:59 06/29/16 21:59 Furosemide (Lasix) 40 mg DAILY ORAL 06/28/16 09:00 07/28/16 08:59 06/29/16 08:45 Gabapentin (Neurontin) 300 mg THREE TIMES A DAY ORAL 06/27/16 18:00 07/27/16 17:59 06/29/16 13:20 Insulin Aspart (NovoLOG) BEFORE MEALS AND HS SUBQ 06/27/16 16:30 07/27/16 16:29 06/30/16 06:06 Magnesium Hydroxide (Mom) 30 ml DAILYPRN PRN ORAL Constipation 06/29/16 19:00 07/29/16 18:59 Morphine Sulfate (Morphine Sulfate) 1 mg Q3H PRN IVP Pain scale 1-3 06/29/16 19:00 07/06/16 18:59 Morphine Sulfate (Morphine Sulfate) 2 mg Q3H PRN IVP Moderate Pain (Pain Scale 4-6) 06/29/16 19:00 07/06/16 18:59 06/30/16 04:01 Multivitamins (Multivitamins) 1 tab DAILY ORAL 06/28/16 09:00 07/28/16 08:59 06/29/16 08:45 Ondansetron HCl (Zofran) 4 mg Q6HR PRN IVP Nausea & Vomiting 06/29/16 16:30 07/29/16 16:29 Oxycodone HCl (Roxicodone) 5 mg Q4H PRN ORAL Breakthrough Pain 06/29/16 19:00 07/06/16 18:59 Senna/Docusate Sodium (Linda-Colace) 1 ea TWICE A DAY ORAL 06/29/16 19:00 07/29/16 18:59 06/29/16 21:59 Temazepam (Restoril) 15 mg HSPRN PRN ORAL Insomnia 06/29/16 16:30 07/06/16 16:29 Zinc Sulfate 220 mg 220 mg DAILY ORAL 06/28/16 09:00 07/28/16 08:59 06/29/16 08:45 Eros Espinoza MD Jun 30, 2016 09:05
--- NOTE | 2016-06-30 09:33 | Diagnostic Imaging Report ---
Indication: FX, pain, status post fall Technique: Digital intraoperative images Comparison: CT scan dated 06/26/2016 Findings: Intraoperative images document surgical repair of previously reported intertrochanteric fracture with medullary cam and compression screw Impression: Intraoperative imaging, as described
[2016-06-30] MEDS: Furosemide 40mg tab ORAL SCH (09:37)
[2016-06-30] MEDS: Pericolace tab ORAL SCH ×2 (09:38→17:43)
[2016-06-30] MEDS: Zinc Sulfate 220mg cap ORAL SCH (09:39)
[2016-06-30] MEDS: Ascorbic Acid 500mg tab ORAL SCH (09:39)
[2016-06-30] MEDS ORDERED: Levemir Flexpen SUBQ SCH (21:00)
[2016-06-30] MEDS: Donepezil 10mg tab ORAL SCH (21:30)
--- NOTE | 2016-06-30 22:35 | Cardiology Progress Note ---
Assessment/Plan Assessment/Plan 1. Coronary artery disease, status post coronary artery bypass graft surgery, stable, asymptomatic. 2. S/p ORIF of the left hip, POD #1, no perioperative cardiac events. 3. History of hypertension, continue coreg and amlodipine. 4. History of gastroesophageal reflux. 5. History of cerebrovascular accident. Subjective Subjective Sinus rhythm with 1st degree AVB at 75. s/p left hip ORIF, POD #1 Objective Last 24 Hour Vital Signs Date Time Temp Pulse Resp B/P Pulse Ox O2 Delivery O2 Flow Rate FiO2 06/30/16 22:00 98.1 70 18 151/62 96 Nasal Cannula 2.0 06/30/16 21:29 73 163/73 06/30/16 20:00 98.1 68 18 163/81 94 Room Air 06/30/16 17:12 94 Nasal Cannula 2.0 28 06/30/16 17:12 Nasal Cannula 2.0 28 06/30/16 16:00 62 06/30/16 16:00 97.3 60 18 152/72 93 Room Air 06/30/16 12:00 61 06/30/16 11:22 97.2 60 20 140/80 96 Room Air 06/30/16 09:39 70 143/62 06/30/16 09:39 70 143/62 06/30/16 08:00 66 06/30/16 07:42 97.9 70 20 143/62 96 Room Air 06/30/16 04:30 149/82 06/30/16 04:00 91 06/30/16 04:00 97.9 92 20 175/96 94 Nasal Cannula 2.0 06/30/16 01:30 153/79 06/30/16 00:00 97.9 90 20 161/82 95 Nasal Cannula 2.0 06/30/16 00:00 83 Intake and Output 06/29/16 06/30/16 19:00 07:00 Intake Total 800 ml 810 ml Output Total 1230 ml 1900 ml Balance -430 ml -1090 ml IV Total 800 ml 810 ml Output Urine Total 1200 ml 1900 ml Estimated Blood Loss 30 ml 2D Echo: LVEF 60-65%, Grade I LVDD Laboratory Tests Test 06/30/16 07:55 Troponin I < 0.30 ng/mL (<=0.30) Objective HEENT: Atraumatic and normocephalic. Anicteric. Pupils are equal, round, and reactive to light and accommodation. Extraocular muscles intact. NECK: JVP is less than 5 cm. No carotid bruit. Carotid upstroke is 2+ bilaterally. CARDIOVASCULAR: Normal S1 and S2. Regular rate and rhythm. No murmurs, gallops, or rubs. PMI is at fourth intercostal space at the midclavicular line. LUNGS: Clear to auscultation bilaterally. ABDOMEN: Soft, nontender, and nondistended. No hepatosplenomegaly. Positive bowel sounds. EXTREMITIES: No evidence of edema, clubbing, or cyanosis. JARRET GODINEZ Jun 30, 2016 22:35
[2016-07-01 00:32] VITALS: BP 128/60
[2016-07-01 04:00] VITALS: BP 114/61
[2016-07-01] MEDS: NovoLOG Insulin Flexpen SUBQ SCH ×4 (06:10→21:53)
[2016-07-01] MEDS ORDERED: sitaGLIPtin 50mg tab ORAL SCH (06:30)
[2016-07-01] MEDS: sitaGLIPtin 50mg tab ORAL SCH (06:49)
--- NOTE | 2016-07-01 06:55 | Pulmonology Progress Note ---
Assessment/Plan Assessment/Plan ASSESSMENT AND PLAN: s/p left hip open reduction and internal fixation due to intertrochanteric fracture. POD #1 CAD (coronary artery disease and coronary artery bypass graft surgery) Will continue to hold ASA and Plavix CKD DM PT/OT Changed to diabetic diet Endocrine consult DC to SNF in AM tomorrow Sub Q insulin Check labs in AM Subjective Interval Events: No new problems; sugars better Constitutional: Reports: no symptoms HEENT: Repors: no symptoms Respiratory: Reports: no symptoms Cardiovascular: Reports: no symptoms Allergies: Coded Allergies: PENICILLINS (Verified Allergy, Unknown, 11/14/15) Objective Last 24 Hour Vital Signs Date Time Temp Pulse Resp B/P Pulse Ox O2 Delivery O2 Flow Rate FiO2 07/01/16 04:00 98.2 68 20 114/61 94 Room Air 07/01/16 03:35 62 07/01/16 00:32 97.1 61 20 128/60 94 Room Air 06/30/16 23:47 62 06/30/16 22:00 98.2 70 18 151/62 95 Room Air 06/30/16 21:29 73 163/73 06/30/16 20:00 98.1 68 18 163/81 94 Room Air 06/30/16 20:00 67 06/30/16 17:12 94 Nasal Cannula 2.0 28 06/30/16 17:12 Nasal Cannula 2.0 28 06/30/16 16:00 62 06/30/16 16:00 97.3 60 18 152/72 93 Room Air 06/30/16 12:00 61 06/30/16 11:22 97.2 60 20 140/80 96 Room Air 06/30/16 09:39 70 143/62 06/30/16 09:39 70 143/62 06/30/16 08:00 66 06/30/16 07:42 97.9 70 20 143/62 96 Room Air Intake and Output 06/30/16 07/01/16 19:00 07:00 Intake Total 640 ml 300 ml Output Total 250 ml 850 ml Balance 390 ml -550 ml Intake Oral 440 ml 300 ml IV Total 200 ml Output Urine Total 250 ml 850 ml General Appearance: no acute distress HEENT: normocephalic Respiratory/Chest: chest wall non-tender, lungs clear Cardiovascular: normal peripheral pulses, normal rate Abdomen: normal bowel sounds, soft, non tender Laboratory Tests 06/30/16 07:55: Troponin I < 0.30 Current Medications Medications (Trade) Dose Ordered Sig/Jason Route PRN Reason Start Time Stop Time Status Last Admin Dose Admin Acetaminophen/ Hydrocodone Bitart ([place] 5/325) 2 tab Q6H PRN ORAL Severe Pain (Pain Scale 7-10) 06/29/16 19:00 07/06/16 18:59 06/30/16 06:05 Acetaminophen/ Hydrocodone Bitart ([place] 7.5/325) 1 ea Q4H PRN ORAL Moderate Pain (Pain Scale 4-6) 06/29/16 19:00 07/06/16 18:59 Amlodipine Besylate (Norvasc) 10 mg DAILY ORAL 06/28/16 09:00 07/28/16 08:59 06/30/16 09:39 Ascorbic Acid (Vitamin C) 500 mg DAILY ORAL 06/28/16 09:00 07/28/16 08:59 06/30/16 09:39 Atorvastatin Calcium (Lipitor) 10 mg BEDTIME ORAL 06/27/16 21:00 07/27/16 20:59 06/30/16 21:29 Carvedilol (Coreg) 3.125 mg EVERY 12 HOURS ORAL 06/27/16 21:00 07/27/16 20:59 06/30/16 21:29 Dextrose (Dextrose 50%) STAT PRN IV Hypoglycemia 06/30/16 09:15 07/30/16 09:14 Donepezil HCl (Aricept) 10 mg QHS ORAL 06/27/16 21:00 07/27/16 20:59 06/30/16 21:30 Furosemide (Lasix) 40 mg DAILY ORAL 06/28/16 09:00 07/28/16 08:59 06/30/16 09:37 Gabapentin (Neurontin) 300 mg THREE TIMES A DAY ORAL 06/27/16 18:00 07/27/16 17:59 06/30/16 17:43 Insulin Aspart (NovoLOG) BEFORE MEALS AND HS SUBQ 06/27/16 16:30 07/27/16 16:29 07/01/16 06:10 Insulin Detemir (Levemir) 10 units BID@0900,2100 SUBQ 07/01/16 09:00 07/31/16 08:59 Magnesium Hydroxide (Mom) 30 ml DAILYPRN PRN ORAL Constipation 06/29/16 19:00 07/29/16 18:59 Morphine Sulfate (Morphine Sulfate) 1 mg Q3H PRN IVP Pain scale 1-3 06/29/16 19:00 07/06/16 18:59 Morphine Sulfate (Morphine Sulfate) 2 mg Q3H PRN IVP Moderate Pain (Pain Scale 4-6) 06/29/16 19:00 07/06/16 18:59 06/30/16 09:33 Multivitamins (Multivitamins) 1 tab DAILY ORAL 06/28/16 09:00 07/28/16 08:59 06/30/16 09:38 Nateglinide (Starlix) 120 mg TIAC ORAL 07/01/16 06:30 07/31/16 06:29 07/01/16 06:49 Ondansetron HCl (Zofran) 4 mg Q6HR PRN IVP Nausea & Vomiting 06/29/16 16:30 07/29/16 16:29 Oxycodone HCl (Roxicodone) 5 mg Q4H PRN ORAL Breakthrough Pain 06/29/16 19:00 07/06/16 18:59 Senna/Docusate Sodium (Linda-Colace) 1 ea TWICE A DAY ORAL 06/29/16 19:00 07/29/16 18:59 06/30/16 17:43 Sitagliptin Phosphate (Januvia) 25 mg ACBREAKFAST ORAL 07/01/16 06:45 07/31/16 06:44 07/01/16 06:49 Temazepam (Restoril) 15 mg HSPRN PRN ORAL Insomnia 06/29/16 16:30 07/06/16 16:29 Zinc Sulfate (Zinc Sulfate) 220 mg DAILY ORAL 06/28/16 09:00 07/28/16 08:59 06/30/16 09:39 Eros Espinoza MD Jul 01, 2016 06:55
[2016-07-01 07:30] LABS: BASOPHILS % (AUTO) 0.3 % (0.0-2.0); EOSINOPHILS % (AUTO) 5.7 % (0.0-3.0); LYMPHOCYTES % (AUTO) 17.8 % (20.0-45.0); MEAN CORPUSCULAR HEMOGLOBIN 31.6 PG (27.0-31.0); MEAN CORPUSCULAR HGB CONC 33.6 G/DL (32.0-36.0); MEAN CORPUSCULAR VOLUME 94 FL (80-99); MEAN PLATELET VOLUME 8.5 FL (6.5-10.1); MONOCYTES % (AUTO) 9.9 % (1.0-10.0); NEUTROPHILS % (AUTO) 66.4 % (45.0-75.0); PLATELET COUNT 199 K/UL (150-450); RED BLOOD COUNT 3.81 M/UL (4.70-6.10); WHITE BLOOD COUNT 9.6 K/UL (4.8-10.8)
[2016-07-01 07:36] LABS: ANION GAP 14 (5-15); CALCIUM 9.2 mg/dL (8.6-10.2); CARBON DIOXIDE 27 mEQ/L (20-30); CHLORIDE 103 mEQ/L (98-107); CREATININE 2.8 mg/dL (0.7-1.2); HEMOLYSIS 3; POTASSIUM 3.8 mEQ/L (3.4-4.9); SODIUM 144 mEQ/L (135-145)
[2016-07-01 08:00] VITALS: BP 148/67
[2016-07-01] MEDS: Zinc Sulfate 220mg cap ORAL SCH (08:55)
[2016-07-01] MEDS: Pericolace tab ORAL SCH ×2 (08:55→18:20)
[2016-07-01] MEDS: Ascorbic Acid 500mg tab ORAL SCH (08:56)
[2016-07-01] MEDS: Furosemide 40mg tab ORAL SCH (08:56)
[2016-07-01] MEDS: Levemir Flexpen SUBQ SCH ×2 (08:59→21:53)
[2016-07-01] MEDS: Morphine Sulfate 2mg/ml Inj IVP PRN ×2 (09:40→21:52)
--- NOTE | 2016-07-01 09:58 | Consultation ---
DATE OF CONSULTATION: 07/01/2016 ENDOCRINOLOGY CONSULTATION CONSULTING PHYSICIAN: Rahul Florence M.D. REFERRING PHYSICIAN: Eros Espinoza M.D. REASON FOR CONSULTATION: Diabetes management. HISTORY OF PRESENT ILLNESS: The patient is a pleasant 80-year-old male, who was admitted to [facility] on 06/26/2016 with status post falling from the stair at the senior care facility sustaining a left hip fracture. He underwent a left hip surgery by Dr. Otis Greene on 06/29/2016. Glucose is elevated. Endocrinology was consulted in order to assist in the management of hyperglycemia. PAST MEDICAL HISTORY: 1. Type 2 diabetes. 2. Coronary artery disease. 3. CABG. 4. Chronic kidney disease. 5. Hypertension. 6. CVA. 7. Memory loss. PAST SURGICAL HISTORY: CABG and hip fracture during this admission. MEDICATIONS: Reviewed and reconciled. ALLERGIES: Allergy to penicillin. SOCIAL HISTORY: No smoking, alcohol, or drug use. He lives in an adult senior care facility. REVIEW OF SYSTEMS: Difficult to obtain. PHYSICAL EXAMINATION: VITAL SIGNS: Blood pressure is 114/61, pulse of 68, temperature of 98.2 degrees, and respiratory rate of 20. HEENT: Pupils are equal and reactive to light. Sclerae are anicteric. NECK: No JVD. LUNGS: Clear. HEART: Regular. ABDOMEN: Positive bowel sounds. EXTREMITIES: Trace edema. LABORATORY DATA: Laboratory values, sodium 140, potassium 4.2, chloride 98, bicarbonate 26, BUN 34, creatinine 2.9, point of care glucose is 336, 341, 374, 431, and 478. DIAGNOSES: 1. Hip fracture, status post surgery. 2. Chronic kidney disease. 3. Coronary artery disease. 4. Diabetes out of control. PLAN: 1. Change Levemir from 8 units nightly to 10 units b.i.d. 2. Add Starlix 120 mg before each meal. 3. Add Januvia 50 mg daily. 4. Continue sliding scale with NovoLog. 5. I will follow the patient during the hospital stay. Thank you, Dr. Espinoza, for the courtesy of this consultation. Rahul Florence M.D. DR: Dahlia JOB#: [id number] CC:
[2016-07-01 12:00] VITALS: BP 129/57
[2016-07-01 16:00] VITALS: BP 150/76
[2016-07-01 20:00] VITALS: BP 166/76
[2016-07-01] MEDS: Donepezil 10mg tab ORAL SCH (21:51)
[2016-07-02 00:14] VITALS: BP 164/76
[2016-07-02 04:00] VITALS: BP 154/69
[2016-07-02] MEDS: sitaGLIPtin 50mg tab ORAL SCH (06:25)
[2016-07-02] MEDS: NovoLOG Insulin Flexpen SUBQ SCH ×2 (06:25→12:47)
--- NOTE | 2016-07-02 06:51 | General Progress Note ---
Assessment/Plan Problem List: (1) Hip fracture ICD Codes: S72.009A - Fracture of unspecified part of neck of unspecified femur , initial encounter for closed fracture SNOMED: 242722817 (2) Renal insufficiency ICD Codes: N28.9 - Disorder of kidney and ureter, unspecified SNOMED: 253076210 (3) Diabetes mellitus out of control ICD Codes: E11.65 - Type 2 diabetes mellitus with hyperglycemia SNOMED: 306063588 Assessment/Plan glycemic control has improved continue Starlix 120 mg ac tid and Januvia 25 mg daily + SSI reduce Levemir 10 units bid to 8 units bid Subjective Allergies: Coded Allergies: PENICILLINS (Verified Allergy, Unknown, 11/14/15) All Systems: reviewed and negative except above Subjective events noted Objective Last 24 Hour Vital Signs Date Time Temp Pulse Resp B/P Pulse Ox O2 Delivery O2 Flow Rate FiO2 07/02/16 04:00 98.2 66 20 154/69 97 Room Air 07/02/16 00:14 97.2 68 18 164/76 97 Room Air 07/02/16 00:00 67 07/01/16 21:51 74 166/76 07/01/16 20:00 74 18 166/76 96 Room Air 07/01/16 20:00 80 07/01/16 19:30 Room Air 07/01/16 19:30 97 Room Air 07/01/16 16:00 54 07/01/16 16:00 98.1 71 18 150/76 95 Room Air 07/01/16 12:00 98.1 64 17 129/57 98 Room Air 07/01/16 12:00 65 07/01/16 10:00 97.6 07/01/16 08:56 65 148/67 07/01/16 08:55 65 148/67 07/01/16 08:00 62 07/01/16 08:00 97.6 65 17 148/67 99 Room Air Intake and Output 07/01/16 07/02/16 19:00 07:00 Intake Total 200 ml Balance 200 ml Intake Oral 200 ml # Voids 2 3 # Bowel Movements 1 4 Height (Feet): 5 Height (Inches): 8.00 Weight (Pounds): 160 General Appearance: no apparent distress Neck: normal alignment Cardiovascular: normal rate Respiratory/Chest: lungs clear Abdomen: normal bowel sounds Edema: no edema noted Arm (L), no edema noted Arm (R), no edema noted Leg (L), no edema noted Leg (R), no edema noted Pedal (L), no edema noted Pedal (R), no edema noted Generalized Objective Current Medications Medications (Trade) Dose Ordered Sig/Jason Route PRN Reason Start Time Stop Time Status Last Admin Dose Admin Acetaminophen/ Hydrocodone Bitart ([place] 5/325) 2 tab Q6H PRN ORAL Severe Pain (Pain Scale 7-10) 06/29/16 19:00 07/06/16 18:59 06/30/16 06:05 Acetaminophen/ Hydrocodone Bitart ([place] 7.5/325) 1 ea Q4H PRN ORAL Moderate Pain (Pain Scale 4-6) 06/29/16 19:00 07/06/16 18:59 Amlodipine Besylate (Norvasc) 10 mg DAILY ORAL 06/28/16 09:00 07/28/16 08:59 07/01/16 08:55 Ascorbic Acid (Vitamin C) 500 mg DAILY ORAL 06/28/16 09:00 07/28/16 08:59 07/01/16 08:56 Atorvastatin Calcium (Lipitor) 10 mg BEDTIME ORAL 06/27/16 21:00 07/27/16 20:59 07/01/16 21:51 Carvedilol (Coreg) 3.125 mg EVERY 12 HOURS ORAL 06/27/16 21:00 07/27/16 20:59 07/01/16 21:51 Dextrose (Dextrose 50%) STAT PRN IV Hypoglycemia 06/30/16 09:15 07/30/16 09:14 Donepezil HCl (Aricept) 10 mg QHS ORAL 06/27/16 21:00 07/27/16 20:59 07/01/16 21:51 Furosemide (Lasix) 40 mg DAILY ORAL 06/28/16 09:00 07/28/16 08:59 07/01/16 08:56 Gabapentin (Neurontin) 300 mg THREE TIMES A DAY ORAL 06/27/16 18:00 07/27/16 17:59 07/01/16 18:20 Insulin Aspart (NovoLOG) BEFORE MEALS AND HS SUBQ 06/27/16 16:30 07/27/16 16:29 07/01/16 21:53 Insulin Detemir (Levemir) 10 units BID@0900,2100 SUBQ 07/01/16 09:00 07/31/16 08:59 07/01/16 21:53 Magnesium Hydroxide (Mom) 30 ml DAILYPRN PRN ORAL Constipation 06/29/16 19:00 07/29/16 18:59 Morphine Sulfate (Morphine Sulfate) 1 mg Q3H PRN IVP Pain scale 1-3 06/29/16 19:00 07/06/16 18:59 Morphine Sulfate (Morphine Sulfate) 2 mg Q3H PRN IVP Moderate Pain (Pain Scale 4-6) 06/29/16 19:00 07/06/16 18:59 07/01/16 21:52 Multivitamins (Multivitamins) 1 tab DAILY ORAL 06/28/16 09:00 07/28/16 08:59 07/01/16 08:55 Nateglinide (Starlix) 120 mg TIAC ORAL 07/01/16 06:30 07/31/16 06:29 07/02/16 06:25 Ondansetron HCl (Zofran) 4 mg Q6HR PRN IVP Nausea & Vomiting 06/29/16 16:30 07/29/16 16:29 Oxycodone HCl (Roxicodone) 5 mg Q4H PRN ORAL Breakthrough Pain 06/29/16 19:00 07/06/16 18:59 Senna/Docusate Sodium (Linda-Colace) 1 ea TWICE A DAY ORAL 06/29/16 19:00 07/29/16 18:59 07/01/16 18:20 Sitagliptin Phosphate (Januvia) 25 mg ACBREAKFAST ORAL 07/01/16 06:45 07/31/16 06:44 07/02/16 06:25 Temazepam (Restoril) 15 mg HSPRN PRN ORAL Insomnia 06/29/16 16:30 07/06/16 16:29 Zinc Sulfate (Zinc Sulfate) 220 mg DAILY ORAL 06/28/16 09:00 07/28/16 08:59 07/01/16 08:55 Item Value Date Time Bedside Blood Glucose 92 mg/dl 07/02/16 0625 Bedside Blood Glucose 123 mg/dl H 07/01/162152 Bedside Blood Glucose 182 mg/dl H 07/01/16 182 Bedside Blood Glucose 209 mg/dl H 07/01/16 1120 Bedside Blood Glucose 188 mg/dl H 07/01/16 0859 CARMEN GREWAL Jul 02, 2016 06:51
[2016-07-02 07:50] LABS: ANION GAP 14 (5-15); CALCIUM 9.2 mg/dL (8.6-10.2); CARBON DIOXIDE 27 mEQ/L (20-30); CHLORIDE 100 mEQ/L (98-107); CREATININE 2.8 mg/dL (0.7-1.2); HEMOLYSIS 0; POTASSIUM 3.8 mEQ/L (3.4-4.9); SODIUM 141 mEQ/L (135-145)
[2016-07-02 07:53] LABS: BASOPHILS % (AUTO) 0.7 % (0.0-2.0); EOSINOPHILS % (AUTO) 6.3 % (0.0-3.0); MEAN CORPUSCULAR HEMOGLOBIN 31.4 PG (27.0-31.0); MEAN CORPUSCULAR HGB CONC 32.8 G/DL (32.0-36.0); MEAN CORPUSCULAR VOLUME 96 FL (80-99); MEAN PLATELET VOLUME 8.2 FL (6.5-10.1); MONOCYTES % (AUTO) 11.2 % (1.0-10.0); NEUTROPHILS % (AUTO) 61.8 % (45.0-75.0); PLATELET COUNT 169 K/UL (150-450); RED BLOOD COUNT 3.87 M/UL (4.70-6.10); RED CELL DISTRIBUTION WIDTH 11.7 % (11.6-14.8); WHITE BLOOD COUNT 8.9 K/UL (4.8-10.8)
[2016-07-02 08:00] VITALS: BP 151/71
[2016-07-02] MEDS: Zinc Sulfate 220mg cap ORAL SCH (08:39)
[2016-07-02] MEDS: Ascorbic Acid 500mg tab ORAL SCH (08:39)
[2016-07-02] MEDS: Furosemide 40mg tab ORAL SCH (08:39)
[2016-07-02] MEDS: Pericolace tab ORAL SCH (08:43)
--- NOTE | 2016-07-02 08:59 | Pulmonology Progress Note ---
Assessment/Plan Assessment/Plan ASSESSMENT AND PLAN: s/p left hip open reduction and internal fixation due to intertrochanteric fracture. CAD (coronary artery disease and coronary artery bypass graft surgery) Will continue to hold ASA and Plavix CKD DM PT/OT On diabetic diet Endocrine consult noted DC to SNF today Subjective Interval Events: Doing well, sugars controlled; delgado dc; smiling in bed Constitutional: Reports: no symptoms HEENT: Repors: no symptoms Respiratory: Reports: no symptoms Cardiovascular: Reports: no symptoms Gastrointestinal/Abdominal: Reports: no symptoms Allergies: Coded Allergies: PENICILLINS (Verified Allergy, Unknown, 11/14/15) Objective Last 24 Hour Vital Signs Date Time Temp Pulse Resp B/P Pulse Ox O2 Delivery O2 Flow Rate FiO2 07/02/16 08:39 75 157/71 07/02/16 08:38 75 157/71 07/02/16 04:00 98.2 66 20 154/69 97 Room Air 07/02/16 04:00 58 07/02/16 00:14 97.2 68 18 164/76 97 Room Air 07/02/16 00:00 67 07/01/16 21:51 74 166/76 07/01/16 20:00 74 18 166/76 96 Room Air 07/01/16 20:00 80 07/01/16 19:30 Room Air 07/01/16 19:30 97 Room Air 07/01/16 16:00 54 07/01/16 16:00 98.1 71 18 150/76 95 Room Air 07/01/16 12:00 98.1 64 17 129/57 98 Room Air 07/01/16 12:00 65 07/01/16 10:00 97.6 Intake and Output 07/01/16 07/02/16 19:00 07:00 Intake Total 200 ml Balance 200 ml Intake Oral 200 ml # Voids 2 3 # Bowel Movements 1 4 General Appearance: no acute distress HEENT: normocephalic Respiratory/Chest: chest wall non-tender, lungs clear Cardiovascular: normal peripheral pulses, normal rate Abdomen: normal bowel sounds, soft, non tender Laboratory Tests 07/02/16 07:05: White Blood Count 8.9, Red Blood Count 3.87L, Hemoglobin 12.1L, Hematocrit 37.0L , Mean Corpuscular Volume 96, Mean Corpuscular Hemoglobin 31.4H, Mean Corpuscular Hemoglobin Concent 32.8, Red Cell Distribution Width 11.7, Platelet Count 169, Mean Platelet Volume 8.2, Neutrophils (%) (Auto) 61.8, Lymphocytes (% ) (Auto) 20.0, Monocytes (%) (Auto) 11.2H, Eosinophils (%) (Auto) 6.3H, Basophils (%) (Auto) 0.7, Sodium Level 141, Potassium Level 3.8, Chloride Level 100, Carbon Dioxide Level 27, Anion Gap 14, Blood Urea Nitrogen 40H, Creatinine 2.8H, Estimat Glomerular Filtration Rate , Glucose Level 127#H, Calcium Level 9.2 Current Medications Medications (Trade) Dose Ordered Sig/Jason Route PRN Reason Start Time Stop Time Status Last Admin Dose Admin Acetaminophen/ Hydrocodone Bitart ([place] 5/325) 2 tab Q6H PRN ORAL Severe Pain (Pain Scale 7-10) 06/29/16 19:00 07/06/16 18:59 06/30/16 06:05 Acetaminophen/ Hydrocodone Bitart ([place] 7.5/325) 1 ea Q4H PRN ORAL Moderate Pain (Pain Scale 4-6) 06/29/16 19:00 07/06/16 18:59 Amlodipine Besylate (Norvasc) 10 mg DAILY ORAL 06/28/16 09:00 07/28/16 08:59 07/02/16 08:39 Ascorbic Acid (Vitamin C) 500 mg DAILY ORAL 06/28/16 09:00 07/28/16 08:59 07/02/16 08:39 Atorvastatin Calcium (Lipitor) 10 mg BEDTIME ORAL 06/27/16 21:00 07/27/16 20:59 07/01/16 21:51 Carvedilol (Coreg) 3.125 mg EVERY 12 HOURS ORAL 06/27/16 21:00 07/27/16 20:59 07/02/16 08:38 Dextrose (Dextrose 50%) STAT PRN IV Hypoglycemia 06/30/16 09:15 07/30/16 09:14 Donepezil HCl (Aricept) 10 mg QHS ORAL 06/27/16 21:00 07/27/16 20:59 07/01/16 21:51 Furosemide (Lasix) 40 mg DAILY ORAL 06/28/16 09:00 07/28/16 08:59 07/02/16 08:39 Gabapentin (Neurontin) 300 mg THREE TIMES A DAY ORAL 06/27/16 18:00 07/27/16 17:59 07/02/16 08:39 Insulin Aspart (NovoLOG) BEFORE MEALS AND HS SUBQ 06/27/16 16:30 07/27/16 16:29 07/01/16 21:53 Insulin Detemir (Levemir) 8 units BID@0900,2100 SUBQ 07/02/16 09:00 08/01/16 08:59 07/02/16 08:42 Magnesium Hydroxide (Mom) 30 ml DAILYPRN PRN ORAL Constipation 06/29/16 19:00 07/29/16 18:59 Morphine Sulfate (Morphine Sulfate) 1 mg Q3H PRN IVP Pain scale 1-3 06/29/16 19:00 07/06/16 18:59 Morphine Sulfate (Morphine Sulfate) 2 mg Q3H PRN IVP Moderate Pain (Pain Scale 4-6) 06/29/16 19:00 07/06/16 18:59 07/01/16 21:52 Multivitamins (Multivitamins) 1 tab DAILY ORAL 06/28/16 09:00 07/28/16 08:59 07/02/16 08:38 Nateglinide (Starlix) 120 mg TIAC ORAL 07/01/16 06:30 07/31/16 06:29 07/02/16 06:25 Ondansetron HCl (Zofran) 4 mg Q6HR PRN IVP Nausea & Vomiting 06/29/16 16:30 07/29/16 16:29 Oxycodone HCl (Roxicodone) 5 mg Q4H PRN ORAL Breakthrough Pain 06/29/16 19:00 07/06/16 18:59 Senna/Docusate Sodium (Linda-Colace) 1 ea TWICE A DAY ORAL 06/29/16 19:00 07/29/16 18:59 07/01/16 18:20 Sitagliptin Phosphate (Januvia) 25 mg ACBREAKFAST ORAL 07/01/16 06:45 07/31/16 06:44 07/02/16 06:25 Temazepam (Restoril) 15 mg HSPRN PRN ORAL Insomnia 06/29/16 16:30 07/06/16 16:29 Zinc Sulfate (Zinc Sulfate) 220 mg DAILY ORAL 06/28/16 09:00 07/28/16 08:59 07/02/16 08:39 Eros Espinoza MD Jul 02, 2016 08:59
[2016-07-02] MEDS ORDERED: Levemir Flexpen SUBQ SCH (09:00)
[2016-07-02] MEDS ORDERED: JANUVIA50 MG ORAL (09:02)
[2016-07-02] MEDS ORDERED: ROXICODONE5 MG ORAL (09:02)
[2016-07-02] MEDS ORDERED: STARLIX120 MG ORAL (09:02)
[2016-07-02] MEDS: Morphine Sulfate 2mg/ml Inj IVP PRN (09:12)
[2016-07-02 12:00] VITALS: BP 149/73
[2016-07-02] MEDS ORDERED: Tubing IV Secondary IV ONE (13:45)
[2016-07-02] MEDS ORDERED: NS 275ml ONE (13:45)
--- NOTE | 2016-07-03 09:55 | Discharge Summary ---
Discharge Summary Hospital Course Date of Admission Jun 26, 2016 at 08:18 Date of Discharge Jul 02, 2016 at 13:46 Admitting Diagnosis left hip fracture HPI Manjeet Juarez is a 80 year old male who was admitted on Jun 26, 2016 at 08: 18 for Left Hip Fracture Hospital Course [id number] Discharge Discharge Disposition Patient was discharged to SNF/Subacute Facility(03) Discharge Diagnoses: Dara Rodriguez NP Jul 03, 2016 09:55
--- NOTE | 2016-07-04 01:18 | Discharge Summary 2 SIG ---
DATE OF ADMISSION: 06/26/2016 DATE OF DISCHARGE: 07/02/2016 CONSULTANTS: 1. Otis Greene M.D. 2. Carson Kee M.D. 3. Rahul Florence M.D. BRIEF HOSPITAL COURSE: The patient is an 80-year-old gentleman, who suffered from cerebrovascular accident in the past and has dysphagia. Apparently, he sustained a fall in the nursing facility and had left hip pain and inability to walk. He was brought in by EMS to ED where he had a CAT scan imaging of the left hip that showed a nondisplaced fracture of the intertrochanteric of the left femur. Prior to this event, he was ambulatory and did not have any symptoms of chest pain or shortness of breath. He does have coronary artery disease and has been on Plavix and aspirin. Dr. Kee was consulted for preoperative clearance. Plavix and aspirin has been discontinued. He had a 12-lead echocardiogram that showed no ischemia. Echocardiogram showed ejection fraction of 60% to 65% with normal left ventricular size, function, and wall motion. He was cleared for procedure. On 06/29/2016, he underwent open reduction and internal fixation of the left two part intertrochanteric hip. He tolerated the procedure well and postoperatively was given pain management and physical and occupational therapy. He had episodes of hyperglycemia and Dr. Florence was consulted. Levemir was increased to 10 units b.i.d. Januvia and Starlix were added and was continued on sliding scale with NovoLog. Insulin was adjusted. Glycemic control has improved. Levemir was reduced back to 8 units b.i.d. The patient was eventually discharged back to SNF. FINAL DIAGNOSES: 1. Left hip fracture status post left hip open reduction and internal fixation. 2. Coronary artery disease status post coronary artery bypass graft surgery. 3. Chronic kidney disease. 4. Diabetes mellitus. 5. Hypertension. 6. Gastroesophageal reflux disease. 7. Old cerebrovascular accident. Eros Espinoza M.D. I have been assigned to dictate discharge summary on this account and I was not involved in the patient's management. Dara Rodriguez N.P. DR: NAVDEEP JOB#: [id number] CC: ARACELY
== END 2016-07-02 13:46 | DRG 482 ==
LOC: EDBD 06:17 → EMR 06:34 → EDBEDREQ 07:35 → 4E 08:18 → EDBEDREQ 08:59 → 4E 06-27 05:21 → 2E 06-27 14:23
PROC: 0QS706Z Reposition Left Upper Femur with Intramedullary Internal Fixation Device, Open Approach (ICD-10-PCS; principal; 2016-06-29 14:45)
DX: S72.142A Displaced intertrochanteric fracture of left femur, initial encounter for closed fracture (principal); E11.65 Type 2 diabetes mellitus with hyperglycemia; Z95.1 Presence of aortocoronary bypass graft; R13.10 Dysphagia, unspecified; I12.9 Hypertensive chronic kidney disease with stage 1 through stage 4 chronic kidney disease, or unspecified chronic kidney disease; W19.XXXA Unspecified fall, initial encounter; Y92.9 Unspecified place or not applicable; I25.10 Atherosclerotic heart disease of native coronary artery without angina pectoris; Z86.73 Personal history of transient ischemic attack (TIA), and cerebral infarction without residual deficits; K21.9 Gastro-esophageal reflux disease without esophagitis; N18.9 Chronic kidney disease, unspecified; Z88.0 Allergy status to penicillin; Y92.129 Unspecified place in nursing home as the place of occurrence of the external cause; Z79.4 Long term (current) use of insulin; Z79.02 Long term (current) use of antithrombotics/antiplatelets
CPT/HCPCS: 36415; 70450; 71010; 76001; 76775; 80048; 80053; 82962; 84484; 85025; 85610; 85730; 86850; 86900; 86901; 87081; 93005; 93306; 94003; 94150; 94760; C9399; J1815; J2250; J2405; S5561

== ENCOUNTER 2016-12-31 14:06 | Inpatient (IN) | payer MEDICARE, MEDICAID ==
[~2016-12-31] VITALS: Ht 165.1 cm; Wt 68.0 kg
[~2016-12-31 14:06] MED LIST changes: +JANUVIA50 MG ORAL; +ROXICODONE5 MG ORAL; +STARLIX120 MG ORAL
[2016-12-31] MEDS ORDERED: Nitroglycerin Subl 0.4mg tab (Bottle Of 25) SL ONE (14:09)
[2016-12-31] MEDS ORDERED: Nitroglycerin Subl 0.4mg tab (Bottle Of 25) SL PRN (14:15)
--- NOTE | 2016-12-31 14:22 | Emergency Room Report ---
History of Present Illness General Chief Complaint: Chest Pain Source: Medical Record, EMS Present Illness HPI 81 yo M with pmhx of * CAD (?CABG), CVA, HTN, GERD, dementia p/w chest pain x 1 day. EMS providing history as patient has dementia only AO x1. EMS reports that chest pain started after patient ate lunch. Nursing facility noted patient to be complaining of chest pain however not describing pain. Occurred at rest. Unknown if patient had any palpitations but there was no nausea or vomiting. Unknown last stress test or cardiac catheterization. Patient is currently oriented to name however not answering questions appropriately. Patient with baseline dementia, no change in his mental status. BGM >300 in the field Allergies: Coded Allergies: PENICILLINS (Verified Allergy, Unknown, 11/14/15) Patient History Limited by: medical condition - dementia Past Surgical History: unable to obtain Pertinent Family History: unable to obtain Nursing Documentation-PMH Hx Cardiac Problems: Yes Hx Hypertension: Yes Hx Diabetes: Yes Hx Cancer: No Hx Gastrointestinal Problems: Yes - gi reflux Hx Dialysis: No History Of Psychiatric Problem: Yes - DEMENTIA Hx Cerebrovascular Accident: Yes - Multiple Hx Dementia: Yes Hx Alzheimer's Disease: Yes Hx Seizures: No Hx Memory Loss: Yes Hx Dizziness: Yes Hx Syncope: Yes Review of Systems All Other Systems: limited Physical Exam Vital Signs Date Time Temp Pulse Resp B/P (MAP) Pulse Ox O2 Delivery O2 Flow Rate FiO2 12/31/16 13:56 99.0 64 14 166/88 98 Room Air Sp02 EP Interpretation: reviewed, normal General Appearance: normal inspection, alert, other - Elderly male awake moving extremities spontaneously not in acute distress Head: normocephalic, atraumatic Eyes: bilateral eye normal inspection, bilateral eye PERRL, bilateral eye EOMI ENT: normal ENT inspection, normal pharynx, moist mucus membranes Neck: normal inspection, full range of motion, supple Respiratory: normal inspection, lungs clear, normal breath sounds, no respiratory distress, no retraction, no wheezing, speaking full sentences, chest symmetrical Cardiovascular #1: normal inspection, regular rate, rhythm, no edema, normal capillary refill, other - Well-healed substernal surgical scar Gastrointestinal: normal inspection, non tender, soft, non-distended, no guarding Musculoskeletal: normal inspection, back normal, normal range of motion, non- tender Neurologic: normal inspection, alert, responsive, motor strength/tone normal, sensory intact, other - Follows commands moves extremities spontaneously oriented to name Psychiatric: normal inspection, judgement/insight normal, memory normal Skin: normal inspection, normal color, no rash, warm/dry, well hydrated, normal turgor Medical Decision Making Medicare Attestation I, Simon Singh MD hereby attest that the medical record entry for date of service, 12 31 16 accurately reflects signatures/notations that I made in my capacity as MD when I treated/diagnosed the above listed Medicare beneficiary. I attest that this information is true, accurate and complete to the best of my knowledge. I understand that any falsification, omission, or concealment of material fact may subject me to administrative, civil, or criminal liability. This patient warrants hospital admission for extreme of age and has a condition that cannot be treated as outpatient. Diagnostic Impression: Primary Impression: Chest pain Qualified Codes: R07.2 - Precordial pain Additional Impression: Renal failure Qualified Codes: N19 - Unspecified kidney failure ER Course 81 yo M p/w CP DDX: ACS vs. CHF vs. pneumonia vs. gastritis/GERD Plan: IV access, obtain labs including troponin, EKG, CXR ASA, pain control with nitro / morphine Anticipate admission ER course: Patient was treated with ASA. Pain was treated with nitroglycerin SL Labs - renal failure, Troponin neg x 1 EKG: sinus rose, T wave flattening lateral leads. 2 ekgs performed with no evolving changes CXR: unremarkable Patient has remained on a monitor, HD stable, chest pain improved. Disposition: Patient requires admission for chest pain. d/w risk factors, he is at increased risk of major acute cardiac event. Patient requires admission for further workup, serial troponin, and possible stress test /cath inpatient. D/W hospitalist Laboratory Tests Test 12/31/16 14:40 White Blood Count 7.0 K/UL (4.8-10.8) Red Blood Count 4.50 M/UL (4.70-6.10) L Hemoglobin 13.9 G/DL (14.2-18.0) L Hematocrit 43.4 % (42.0-52.0) Mean Corpuscular Volume 96 FL (80-99) Mean Corpuscular Hemoglobin 30.8 PG (27.0-31.0) Mean Corpuscular Hemoglobin Concent 32.0 G/DL (32.0-36.0) Red Cell Distribution Width 12.4 % (11.6-14.8) Platelet Count 174 K/UL (150-450) Mean Platelet Volume 10.1 FL (6.5-10.1) Neutrophils (%) (Auto) 58.1 % (45.0-75.0) Lymphocytes (%) (Auto) 24.8 % (20.0-45.0) Monocytes (%) (Auto) 10.2 % (1.0-10.0) H Eosinophils (%) (Auto) 6.1 % (0.0-3.0) H Basophils (%) (Auto) 0.7 % (0.0-2.0) Sodium Level 137 mEQ/L (135-145) Potassium Level 4.2 mEQ/L (3.4-4.9) Chloride Level 99 mEQ/L (98-107) Carbon Dioxide Level 25 mEQ/L (20-30) Anion Gap 13 (5-15) Blood Urea Nitrogen 32 mg/dL (7-23) H Creatinine 3.5 mg/dL (0.7-1.2) H Estimate Glomerular Filtration Rate mL/min (>60) Glucose Level 321 mg/dL (74-106) H Calcium Level 9.7 mg/dL (8.6-10.2) Total Bilirubin 0.2 mg/dL (0.0-1.2) Aspartate Amino Transferase (AST) 10 U/L (5-40) Alanine Aminotransferase (ALT) 5 U/L (3-41) Alkaline Phosphatase 111 U/L (40-129) Total Creatine Kinase 41 U/L (38-174) Creatine Kinase MB < 1.5 ng/mL (< 6.7) Creatine Kinase MB Relative Index Troponin I < 0.30 ng/mL (<=0.30) Total Protein 6.9 g/dL (6.6-8.7) Albumin 3.9 g/dL (3.5-5.2) Globulin 3.0 g/dL Albumin/Globulin Ratio 1.3 (1.0-2.7) EKG Diagnostic Results Rate: bradycardiac Rhythm: NSR ST Segments: other - t wave flattening lateral leads ASA given to the pt in ED: Yes Rhythm Strip Diag. Results EP Interpretation: yes Rhythm: NSR Chest X-Ray Diagnostic Results Chest X-Ray Diagnostic Results : # of Views/Limited/Complete: 1 View Indication: Chest Pain EP Interpretation: Yes Interpretation: no acute cardiopulmonary disease Impression: No acute disease Interpreting ER Provider: Electronically signed by Simon Singh M.D. Last Vital Signs Date Time Temp Pulse Resp B/P (MAP) Pulse Ox O2 Delivery O2 Flow Rate FiO2 12/31/16 14:14 166/88 12/31/16 13:56 99.0 64 14 98 Room Air Disposition: ADMITTED INPATIENT Condition: Serious Simon Singh M.D. Dec 31, 2016 14:22
--- NOTE | 2016-12-31 14:58 | Diagnostic Imaging Report ---
Indication: Dyspnea Comparison: 06/26/16 A single view chest radiograph was obtained. Findings: The heart is mildly enlarged. Sternotomy is noted. Lungs are essentially clear. Bones are osteopenic. Impression: No acute disease
[2016-12-31 15:07] LABS: BASOPHILS % (AUTO) 0.7 % (0.0-2.0); EOSINOPHILS % (AUTO) 6.1 % (0.0-3.0); LYMPHOCYTES % (AUTO) 24.8 % (20.0-45.0); MEAN CORPUSCULAR HEMOGLOBIN 30.8 PG (27.0-31.0); MEAN CORPUSCULAR VOLUME 96 FL (80-99); MEAN PLATELET VOLUME 10.1 FL (6.5-10.1); MONOCYTES % (AUTO) 10.2 % (1.0-10.0); NEUTROPHILS % (AUTO) 58.1 % (45.0-75.0); PLATELET COUNT 174 K/UL (150-450); RED CELL DISTRIBUTION WIDTH 12.4 % (11.6-14.8)
[2016-12-31 15:15] LABS: ALANINE AMINOTRANSFERASE 5 U/L (3-41); ALBUMIN/GLOBULIN RATIO 1.3 (1.0-2.7); ANION GAP 13 (5-15); ASPARTATE AMINO TRANSFERASE 10 U/L (5-40); CALCIUM 9.7 mg/dL (8.6-10.2); CARBON DIOXIDE 25 mEQ/L (20-30); CHLORIDE 99 mEQ/L (98-107); CREATININE 3.5 mg/dL (0.7-1.2); HEMOLYSIS 4; POTASSIUM 4.2 mEQ/L (3.4-4.9); SODIUM 137 mEQ/L (135-145); TOTAL PROTEIN 6.9 g/dL (6.6-8.7)
[2016-12-31 15:16] LABS: TROPONIN I < 0.30 ng/mL (<=0.30)
[2016-12-31 15:25] LABS: CKMB < 1.5 ng/mL (< 6.7)
[2016-12-31 15:52] VITALS: BP 166/88
[2016-12-31 15:54] VITALS: BP 159/68
[2016-12-31] MEDS ORDERED: DOCUSATE SODIU100 MG ORAL (16:00)
[2016-12-31] MEDS ORDERED: ARICEPT10 MG ORAL (16:00)
[2016-12-31] MEDS ORDERED: JANUVIA25 MG ORAL (16:00)
[2016-12-31 17:21] VITALS: BP 172/70
[2016-12-31 18:40] VITALS: BP 178/74
[2016-12-31 19:21] VITALS: BP 183/108
[2016-12-31] MEDS ORDERED: Oxybutynin 5mg tab ORAL PRN (21:30)
[2016-12-31 23:27] VITALS: BP 157/81
[2017-01-01] VITALS: BP 157/81
[2017-01-01 03:45] VITALS: BP 140/65
[2017-01-01] MEDS: NovoLOG Insulin Flexpen SUBQ SCH ×3 (05:45→22:14)
[2017-01-01 06:25] LABS: HEMOGLOBIN A1C 7.3 % (< 6.0)
[2017-01-01 06:26] LABS: TROPONIN I < 0.30 ng/mL (<=0.30)
[2017-01-01 06:39] LABS: ANION GAP 10 (5-15); CALCIUM 9.3 mg/dL (8.6-10.2); CARBON DIOXIDE 26 mEQ/L (20-30); CHLORIDE 106 mEQ/L (98-107); CHOLESTEROL 133 mg/dL (< 200); CHOLESTEROL/HDL RATIO 2.6 (3.3-4.4); CREATININE 3.3 mg/dL (0.7-1.2); HEMOLYSIS 4; LDL CHOLESTEROL (CALC.) 54 mg/dL (60-99); POTASSIUM 4.2 mEQ/L (3.4-4.9); SODIUM 142 mEQ/L (135-145)
--- NOTE | 2017-01-01 06:46 | Consultation ---
DATE OF CONSULTATION: 12/31/2016 CARDIOLOGY CONSULTATION CONSULTING PHYSICIAN: Blaze Lucero M.D. REQUESTING PHYSICIAN: Eros Espinoza M.D. REASON FOR CONSULTATION: Chest pain is the reason in the setting of known coronary artery disease. HISTORY OF PRESENT ILLNESS: This is an 81-year-old male with a known history of coronary artery disease and prior coronary artery bypass graft. Apparently, he had chest pain following lunch today. He has underlying dementia, so poor historical data can be obtained. He lives at a senior care facility following a recent hip fracture and surgery. The chest pain occurred at rest and with unusual prompting has been transferred here for further evaluation. The patient was hospitalized here in June of this year for a hip fracture. At that time, he had an echocardiogram revealing normal ejection fraction. His baseline creatinine was in the range of 2.5 to 3. He did not have any other diagnostic cardiac studies. PAST MEDICAL HISTORY: Coronary artery disease status post coronary artery bypass graft, cerebrovascular disease with history of CVA, hypertension, gastroesophageal reflux disease, prior hip fracture and ORIF on the left. ALLERGIES: Include penicillin. MEDICATIONS: Reviewed and reconciled. SOCIAL HISTORY: No record of smoking, alcohol, or substance abuse. REVIEW OF SYSTEMS: Cannot be reliably obtained. PHYSICAL EXAMINATION: VITAL SIGNS: Blood pressure 166/88, pulse 64, respirations 14, afebrile, temperature 99 degrees. NECK: Supple. Jugular venous pressure normal. LUNGS: Clear. CARDIAC: Regular rhythm and rate. Normal S1 and S2 with a fourth heart sound. ABDOMEN: Soft. EXTREMITIES: Without edema. LABORATORY AND DIAGNOSTIC DATA: White count 7, hemoglobin 13.9, potassium 4.2, BUN 32, and creatinine 2.5. Troponin negative. Glucose 321. Albumin 3.9. EKG with sinus bradycardia with first-degree AV block, poor R-wave progression and possible old inferior infarction. Chest x-ray with no acute process. IMPRESSION: This is an 81-year-old male with prior coronary artery bypass graft surgery and coronary artery disease who presents with chest pain and limited associated data. Obviously, he does have multiple risk factors for coronary disease and at this time an assessment of coronary flow reserve would be prudent to help guide long-term therapy and help to avoid future hospitalizations. PLAN: He will be continued on anti-platelet therapy, ruled out for myocardial infarction and have his diuretic held with close monitoring of cardiorenal parameters and volume status. Serial troponins are pending. Assessment of his hyperglycemia is warranted as well as analysis of lipid parameters. A dobutamine echocardiogram is requested and further recommendations will follow the results of this study. Blaze Lucero M.D. DR: ANDREY JOB#: [id number] CC:
[2017-01-01 08:00] VITALS: BP 156/76
[2017-01-01] MEDS: sitaGLIPtin 25mg tab ORAL SCH (11:52)
[2017-01-01] MEDS: Ascorbic Acid 500mg tab ORAL SCH (11:53)
[2017-01-01] MEDS: Donepezil 10mg tab ORAL SCH (11:53)
[2017-01-01] MEDS: Docusate 100mg cap ORAL SCH ×2 (11:53→19:13)
[2017-01-01] MEDS: Aspirin Baby 81mg ORAL SCH (11:53)
[2017-01-01 11:56] VITALS: BP 153/74
[2017-01-01 12:11] LABS: TROPONIN I < 0.30 ng/mL (<=0.30)
[2017-01-01 15:58] VITALS: BP 157/77
[2017-01-01 20:25] VITALS: BP 142/75
[2017-01-01 20:35] LABS: TROPONIN I < 0.30 ng/mL (<=0.30)
[2017-01-02 00:30] VITALS: BP 138/59
--- NOTE | 2017-01-02 01:45 | History and Physical Report ---
DATE OF ADMISSION: 12/31/2016 HISTORY OF PRESENT ILLNESS: This is an 81-year-old male who was admitted with a history of CAD and CABG. He is a intermediate resident with underlying cognitive impairment and dementia. He presented to the emergency room after having chest pain following lunch yesterday. He was seen and worked up by Cardiology as well. The patient has been residing in intermediate after recent hip fracture and surgical correction. PAST MEDICAL HISTORY: CAD, previous CVA, hypertension, GERD, hip fracture, cognitive impairment, and dementia. ALLERGIES: Penicillin. MEDICATIONS: Home medications are reviewed and reconciled. SOCIAL HISTORY: No alcohol or tobacco usage. REVIEW OF SYSTEMS: Unreliable. PHYSICAL EXAMINATION: GENERAL: Reveals an 81-year-old male. VITAL SIGNS: Blood pressure 160/80, heart rate 64, respirations 18, he is afebrile. HEENT: Unremarkable. CHEST: Shows clear breath sounds bilaterally. ABDOMEN: Soft. EXTREMITIES: There is no edema. NEUROLOGIC: Nonfocal. LABORATORY DATA: Noncontributory with negative troponin. EKG shows first-degree AV block and old PR suggest negative. IMPRESSION: 1. Chest pain. 2. Coronary artery disease. 3. Previous coronary artery bypass graft. 4. Hypertension. 5. Cognitive impairment. PLAN: We will await to be echo. Check serial troponins. Cardiology consultation. We will follow carefully. Eros Espinoza M.D. DR: SEBASTIÁN JOB#: [id number] CC:
[2017-01-02 04:20] VITALS: BP 135/69
[2017-01-02] MEDS: NovoLOG Insulin Flexpen SUBQ SCH ×2 (05:36→11:50)
--- NOTE | 2017-01-02 07:00 | Progress Note ---
DATE: 01/01/2017 CARDIOLOGY PROGRESS NOTE SUBJECTIVE: The patient has no chest pain or shortness of breath. He refused a stress test today. Troponin levels have been negative. OBJECTIVE: VITAL SIGNS: Blood pressure 142/75, pulse 52, and respiratory rate 20. NECK: Supple. LUNGS: Clear. CARDIAC: Regular, but bradycardic. Normal S1 and S2. No murmur. ABDOMEN: Soft. EXTREMITIES: No edema. IMPRESSION: 1. Ischemic heart disease. 2. Class 2 angina. 3. Hypertensive heart disease. 4. Chronic kidney disease. 5. Elevated natriuretic peptide essay due to kidney disease. 6. Acute on chronic diastolic congestive heart failure. 7. Type 2 diabetes mellitus. 8. Bradycardia on beta-blockers. PLAN: 1. Medical management. 2. Continue low-dose carvedilol. 3. Continue anti-platelet and anti-lipid drugs. 4. Titrate diuretics for optimal volume management. 5. Discharge plan with medical management long-term, as the patient has poor performance status. Blaze Lucero M.D. DR: ANDREY JOB#: [id number] CC:
--- NOTE | 2017-01-02 07:39 | Pulmonology Progress Note ---
Assessment/Plan Assessment/Plan IMPRESSION: 1. Chest pain. 2. Coronary artery disease. 3. Previous coronary artery bypass graft. 4. Hypertension. 5. Cognitive impairment. PLAN: Patient refused strress test. HE has been seen and cleared by cardiology Troponins are negative Will dc back to SNF Subjective Interval Events: None Constitutional: Reports: no symptoms HEENT: Repors: no symptoms Respiratory: Reports: no symptoms Cardiovascular: Reports: no symptoms Gastrointestinal/Abdominal: Reports: no symptoms Genitourinary: Reports: no symptoms Allergies: Coded Allergies: PENICILLINS (Verified Allergy, Unknown, 11/14/15) Objective Last 24 Hour Vital Signs Date Time Temp Pulse Resp B/P (MAP) Pulse Ox O2 Delivery O2 Flow Rate FiO2 01/02/17 04:20 97.3 51 20 135/69 94 Nasal Cannula 2.0 01/02/17 00:30 98.4 54 20 138/59 94 Room Air 01/02/17 00:00 56 01/01/17 21:00 50 123/58 01/01/17 20:25 97.0 52 20 142/75 96 Room Air 01/01/17 20:00 51 01/01/17 15:58 97.1 56 21 157/77 97 Room Air 01/01/17 12:00 72 01/01/17 11:56 97.1 50 20 153/74 97 Room Air 01/01/17 11:56 78 156/76 01/01/17 11:54 78 01/01/17 08:00 97.1 51 20 156/76 98 Room Air 01/01/17 08:00 83 General Appearance: no acute distress HEENT: normocephalic Respiratory/Chest: chest wall non-tender, lungs clear Cardiovascular: normal peripheral pulses, normal rate Microbiology Date/Time Source Procedure Growth Status 12/31/16 16:10 Nasal Nares MRSA Culture - Final NO METHICILLIN RESISTANT STAPH AUREUS... Complete Laboratory Tests 01/01/17 11:50: Troponin I < 0.30 01/01/17 20:10: Troponin I < 0.30 Current Medications Medications (Trade) Dose Ordered Sig/Jason Route PRN Reason Start Time Stop Time Status Last Admin Dose Admin Acetaminophen (Tylenol) 650 mg Q4H PRN ORAL Mild Pain/Temp > 100.5 12/31/16 21:30 01/30/17 21:29 Amlodipine Besylate (Norvasc) 10 mg DAILY ORAL 01/01/17 09:00 01/31/17 08:59 01/01/17 11:56 Ascorbic Acid (Vitamin C) 250 mg DAILY ORAL 01/01/17 09:00 01/31/17 08:59 01/01/17 11:53 Aspirin (ASA) 81 mg DAILY ORAL 01/01/17 09:00 01/31/17 08:59 01/01/17 11:53 Atorvastatin Calcium (Lipitor) 10 mg BEDTIME ORAL 01/01/17 21:00 01/31/17 20:59 01/01/17 22:13 Carvedilol (Coreg) 3.125 mg EVERY 12 HOURS ORAL 01/01/17 09:00 01/31/17 08:59 01/01/17 11:54 Clonidine HCl (Catapres) 0.1 mg EVERY 6 HOURS PRN ORAL SBP>150 01/01/17 00:00 01/31/17 00:00 12/31/16 23:05 Clopidogrel Bisulfate (Plavix) 75 mg DAILY ORAL 01/01/17 09:00 01/31/17 08:59 01/01/17 11:53 Dextrose (Dextrose 50%) STAT PRN IV Hypoglycemia 12/31/16 21:30 01/30/17 21:29 Docusate Sodium (Colace) 100 mg TWICE A DAY ORAL 01/01/17 09:00 01/31/17 08:59 01/01/17 19:13 Donepezil HCl (Aricept) 10 mg DAILY ORAL 01/01/17 09:00 01/31/17 08:59 01/01/17 11:53 Gabapentin (Neurontin) 300 mg THREE TIMES A DAY ORAL 01/01/17 09:00 01/31/17 08:59 01/01/17 19:13 Insulin Aspart (NovoLOG) BS <150 0 UNITS... NOVOTIAC SUBQ 01/01/17 06:30 01/31/17 06:29 01/02/17 05:36 Nateglinide (Starlix) 120 mg EVERY 8 HOURS ORAL 12/31/16 22:00 01/30/17 21:59 01/02/17 05:34 Sitagliptin Phosphate (Januvia) 25 mg DAILY ORAL 01/01/17 09:00 01/31/17 08:59 01/01/17 11:52 Eros Espinoza MD Jan 02, 2017 07:39
[2017-01-02 08:00] VITALS: BP 133/68
[2017-01-02] MEDS: sitaGLIPtin 25mg tab ORAL SCH (10:13)
[2017-01-02] MEDS: Donepezil 10mg tab ORAL SCH (10:13)
[2017-01-02] MEDS: Ascorbic Acid 500mg tab ORAL SCH (10:13)
[2017-01-02] MEDS: Docusate 100mg cap ORAL SCH (10:13)
[2017-01-02] MEDS: Aspirin Baby 81mg ORAL SCH (10:14)
[2017-01-02 12:00] VITALS: BP 139/66
--- NOTE | 2017-01-03 09:15 | Progress Note ---
DATE: 01/02/2017 CARDIOLOGY PROGRESS NOTE SUBJECTIVE: The patient remains without chest pain. OBJECTIVE: VITAL SIGNS: Blood pressure 133/68 and pulse 53. Monitored sinus bradycardia. No pauses. NECK: Supple. LUNGS: Clear. Median sternotomy scar. CARDIAC: Regular. Normal S1 and S2. ABDOMEN: Soft. EXTREMITIES: No edema. NEUROLOGIC: Moderate cognitive impairment. IMPRESSION: 1. Anginal syndrome, stable anginal pattern. Refusing stress test. 2. Poor performance status. 3. History of prior acute coronary artery bypass graft. 4. Limited mobility. 5. Low risk for exertional hypoperfusion. 6. Sinus bradycardia of no clinical significance. PLAN: Continue medical therapy as outlined including anti-platelet, anti-lipid, and antihypertensive regimen with beta-dale titration limited by low baseline heart rate. Blaze Lucero M.D. DR: PERRI JOB#: [id number] CC:
[2017-01-03] MEDS ORDERED: NOVOLOG100 UNIT/3 SUBQ (20:40)
[2017-01-03] MEDS ORDERED: ACETAMINOPHEN325 M1 ORAL (20:40)
--- NOTE | 2017-01-05 06:31 | Discharge Summary 2 SIG ---
DATE OF ADMISSION: 12/31/2016 DATE OF DISCHARGE: 01/02/2017 REASON FOR ADMISSION: This is an 81-year-old male with history of coronary artery disease, CABG, hypertension, and GERD, was sent to emergency room for evaluation for chest pain. The patient has underlying dementia and cognitive impairment. The patient developed chest pain after eating lunch. The patient is unable to describe the pain rest. Troponin was negative. Blood pressure was slightly elevated at 166/88. Pulse oximetry was stable on room air. EKG revealed sinus bradycardia with T-wave flattening in lateral leads. EKG performed no evolving changes noted. Chest x-ray was unremarkable. Laboratory workup revealed evidence of renal failure with BUN of 32 and creatinine 3.5. The patient admitted for further management. ADMITTING DIAGNOSES: 1. Chest pain, rule out acute coronary syndrome. 2. Renal failure. 3. Hypertension. 4. Coronary artery disease. 5. History of coronary artery bypass grafting. HOSPITAL STAY: The patient admitted to telemetry floor. Cardiology consult was requested. Serial troponins were negative. EKG revealed no acute ischemic changes. Therefore, the patient was ruled out for acute IL. Obstetrics And Gynecology Professor seen the patient. Obstetrics And Gynecology Professor stated that the patient has multiple risk factor for acute coronary syndrome and suggested the patient to have a stress test. In the meantime, the patient was continued on antiplatelet therapy and statin as well. Lipid panel was stable. Diuretic initially were held secondary to renal parameters. Elevated proBNP likely also to renal failure, as per perinatal specialist. Antihypertensive medications were titrated. The patient was bradycardic, sinus bradycardia on telemetry. Obstetrics And Gynecology Professor recommended low-dose of beta-dale due to the low baseline heart rate. The patient apparently has chronic kidney disease. No change in creatinine parameters. The patient completed first part of the stress test and then declined the test afterward. The patient was discharged back to long term facility and the patient was told that he needs outpatient stress test to be done. According to medical device sales representative, the patient has anginal syndrome. The patient needs close monitoring with the poor performance status and limited mobility. FINAL DIAGNOSES: 1. Anginal syndrome. 2. Coronary artery disease. 3. History of coronary artery bypass graft. 4. Chronic renal failure. 5. Chronic kidney disease. 6. Hypertensive heart disease. 7. Acute on chronic diastolic congestive heart failure. 8. Poor performance status. 9. Sinus bradycardia (No clinical significance, limited mobility.) DISCHARGE MEDICATIONS: See medication reconciliation list. DISCHARGE INSTRUCTIONS: The patient discharged to long term facility. FOLLOWUP: Follow up with medical doctor at the facility. Eros Espinoza M.D. I have been assigned to dictate discharge summary on this account and I was not involved in the patient's management. Anne chantravis NJordanaPJordana DR: Lio JOB#: [id number] CC:
--- NOTE | 2017-01-05 15:55 | Cardiology Report ---
APPROVED REPORT EKG Measurement Heart [id number] Sinus bradycardia with 1st degree AV block Possible Anterior infarct, age undetermined Abnormal ECG
== END 2017-01-02 12:15 | DRG 302 ==
LOC: EDBD 14:06 → EDBEDREQ 15:08 → EMR 16:42 → 2E 16:43 → EDBEDREQ 16:49
DX: I25.119 Atherosclerotic heart disease of native coronary artery with unspecified angina pectoris (principal); I50.33 Acute on chronic diastolic (congestive) heart failure; R00.1 Bradycardia, unspecified; F03.90 Unspecified dementia, unspecified severity, without behavioral disturbance, psychotic disturbance, mood disturbance, and anxiety; I13.0 Hypertensive heart and chronic kidney disease with heart failure and stage 1 through stage 4 chronic kidney disease, or unspecified chronic kidney disease; Z95.1 Presence of aortocoronary bypass graft; K21.9 Gastro-esophageal reflux disease without esophagitis; N18.9 Chronic kidney disease, unspecified; Z88.0 Allergy status to penicillin; Z86.73 Personal history of transient ischemic attack (TIA), and cerebral infarction without residual deficits
CPT/HCPCS: 36415; 71010; 80048; 80053; 80061; 82550; 82553; 82962; 83036; 83880; 84484; 85025; 87081; 93005; 99285; J1815

== ENCOUNTER 2017-01-03 11:51 | Inpatient (IN) | payer MEDICARE, MEDICAID ==
[~2017-01-03] VITALS: Ht 167.6 cm; Wt 74.8 kg
[2017-01-03] VITALS (7 sets, daily range): BP systolic 161–193; BP diastolic 62–84
[~2017-01-03 11:51] MED LIST changes: +ARICEPT10 MG ORAL; +DOCUSATE SODIU100 MG ORAL; +JANUVIA25 MG ORAL
--- NOTE | 2017-01-03 11:59 | Emergency Room Report ---
History of Present Illness General Chief Complaint: Chest Pain Source: Medical Record Present Illness HPI 81 yo m with pmhx of HTN, CAD, CABG, dementia p/w chest pain sent from [facility] Pt poor historian, how is c/o CP. Localized to substernal area, no radiation to back or other areas, sharp in nature, gradual in onset, unknown time frame but states "1 month". Occurred at rest. + SOB. Denies palpitations, diaphoresis, n/ v. . Denies fever, chills, cough, abd pain. Denies trauma. Unknown last stress test or cardiac catheterization. Allergies: Coded Allergies: PENICILLINS (Verified Allergy, Unknown, 11/14/15) Patient History Past Medical History: see triage record Past Surgical History: CABG Pertinent Family History: none Reviewed Nursing Documentation: PMH: Agreed, PSxH: Agreed Nursing Documentation-PMH Past Medical History Deferred: Pt Cognitively Impaired Past Medical History: No History, Except For Hx Cardiac Problems: Yes Hx Hypertension: Yes Hx Diabetes: Yes Hx Cancer: No Hx Gastrointestinal Problems: Yes Hx Dialysis: No Hx Neurological Problems: Yes Hx Cerebrovascular Accident: Yes - Multiple Hx Dementia: Yes Hx Alzheimer's Disease: Yes Hx Seizures: No Hx Memory Loss: Yes Hx Dizziness: Yes Hx Syncope: Yes Review of Systems All Other Systems: negative except mentioned in HPI Physical Exam Vital Signs Date Time Temp Pulse Resp B/P (MAP) Pulse Ox O2 Delivery O2 Flow Rate FiO2 01/03/17 11:46 98.2 58 13 161/64 98 Room Air Sp02 EP Interpretation: reviewed, normal General Appearance: no apparent distress, alert, non-toxic, mild distress, other - Chronically ill-appearing elderly male, appears to be in pain, no respiratory distress, speaking complete sentences Head: normocephalic, atraumatic Eyes: bilateral eye normal inspection, bilateral eye PERRL, bilateral eye EOMI ENT: normal ENT inspection, normal pharynx, normal voice, moist mucus membranes Neck: normal inspection, full range of motion, supple Respiratory: normal inspection, lungs clear, normal breath sounds, no respiratory distress, no retraction, no wheezing, speaking full sentences, chest symmetrical Cardiovascular #1: normal inspection, regular rate, rhythm, no edema, normal capillary refill, other - Well-healed substernal surgical scar Gastrointestinal: normal inspection, non tender, soft, non-distended, no guarding Musculoskeletal: normal inspection, back normal, normal range of motion, non- tender Neurologic: alert, responsive, sensory intact, speech normal, other - Oriented to person, following commands, moving all 4 extremities spontaneously Psychiatric: other - dementia Skin: normal inspection, normal color, no rash, warm/dry, well hydrated, normal turgor Medical Decision Making Diagnostic Impression: Primary Impression: Chest pain Additional Impression: Chronic renal failure ER Course 81 yo M with p/w CP DDX: ACS vs. CHF vs. pneumonia vs. gastritis/GERD vs. pneumothorax Plan: IV access, obtain labs including troponin, EKG, CXR ASA, pain control with nitro / morphine Anticipate admission ER course: Patient was treated with ASA. Labs- Troponin negative Patient has remained on a monitor, HD stable Pepcid also given to patient Disposition: Patient requires admission for chest pain. D/w patients risk factors and history, he is at an increased risk of major acute cardiac event. I discussed the case with Dr Espinoza. Patient was recently in the hospital for chest pain however patient refused stress test. Due to patient's risk factors we will admit the patient to telemetry observation. Please note that this Emergency Department Report was dictated using [employer] payment technology software, occasionally this can lead to erroneous entry secondary to interpretation by the dictation equipment. Laboratory Tests Test 01/03/17 12:00 White Blood Count 6.6 K/UL (4.8-10.8) Red Blood Count 4.78 M/UL (4.70-6.10) Hemoglobin 14.5 G/DL (14.2-18.0) Hematocrit 45.3 % (42.0-52.0) Mean Corpuscular Volume 95 FL (80-99) Mean Corpuscular Hemoglobin 30.4 PG (27.0-31.0) Mean Corpuscular Hemoglobin Concent 32.1 G/DL (32.0-36.0) Red Cell Distribution Width 12.0 % (11.6-14.8) Platelet Count 188 K/UL (150-450) Mean Platelet Volume 9.6 FL (6.5-10.1) Neutrophils (%) (Auto) 58.3 % (45.0-75.0) Lymphocytes (%) (Auto) 24.8 % (20.0-45.0) Monocytes (%) (Auto) 8.4 % (1.0-10.0) Eosinophils (%) (Auto) 7.9 % (0.0-3.0) H Basophils (%) (Auto) 0.7 % (0.0-2.0) Sodium Level 138 mEQ/L (135-145) Potassium Level 4.6 mEQ/L (3.4-4.9) Chloride Level 100 mEQ/L (98-107) Carbon Dioxide Level 24 mEQ/L (20-30) Anion Gap 14 (5-15) Blood Urea Nitrogen 30 mg/dL (7-23) H Creatinine 3.0 mg/dL (0.7-1.2) H Estimate Glomerular Filtration Rate mL/min (>60) Glucose Level 334 mg/dL (74-106) H Calcium Level 9.7 mg/dL (8.6-10.2) Total Bilirubin 0.2 mg/dL (0.0-1.2) Aspartate Amino Transferase (AST) 13 U/L (5-40) Alanine Aminotransferase (ALT) < 5 U/L (3-41) Alkaline Phosphatase 105 U/L (40-129) Total Creatine Kinase 40 U/L (38-174) Creatine Kinase MB < 1.5 ng/mL (< 6.7) Creatine Kinase MB Relative Index 3.7 Troponin I < 0.30 ng/mL (<=0.30) Total Protein 6.8 g/dL (6.6-8.7) Albumin 3.5 g/dL (3.5-5.2) Globulin 3.3 g/dL Albumin/Globulin Ratio 1.0 (1.0-2.7) EKG Diagnostic Results Rate: bradycardiac Rhythm: NSR ST Segments: other - TWI V3, T wave flattening lateral leads ASA given to the pt in ED: Yes Rhythm Strip Diag. Results EP Interpretation: yes Rate: 76 Rhythm: NSR, no PVC's, no ectopy Chest X-Ray Diagnostic Results Chest X-Ray Diagnostic Results : Chest X-Ray Ordered: Yes # of Views/Limited/Complete: 1 View Indication: Chest Pain EP Interpretation: Yes Interpretation: other - Cardiomegaly, poor inspiratory effort Impression: Other - Cardiomegaly Interpreting ER Provider: Electronically signed by Simon Singh MD Last Vital Signs Date Time Temp Pulse Resp B/P (MAP) Pulse Ox O2 Delivery O2 Flow Rate FiO2 8/27/17 11:51 58 13 Room Air 01/03/17 11:51 98.2 161/64 98 Disposition: PLACE IN OBSERVATION Condition: Serious RetinoSimon M.D. Jan 03, 2017 11:59
[2017-01-03 12:22] LABS: ALANINE AMINOTRANSFERASE < 5 U/L (3-41); ANION GAP 14 (5-15); ASPARTATE AMINO TRANSFERASE 13 U/L (5-40); CALCIUM 9.7 mg/dL (8.6-10.2); CARBON DIOXIDE 24 mEQ/L (20-30); CHLORIDE 100 mEQ/L (98-107); HEMOLYSIS 37; POTASSIUM 4.6 mEQ/L (3.4-4.9); SODIUM 138 mEQ/L (135-145); TOTAL PROTEIN 6.8 g/dL (6.6-8.7); TROPONIN I < 0.30 ng/mL (<=0.30)
[2017-01-03 12:33] LABS: CKMB < 1.5 ng/mL (< 6.7)
[2017-01-03 12:37] LABS: BASOPHILS % (AUTO) 0.7 % (0.0-2.0); EOSINOPHILS % (AUTO) 7.9 % (0.0-3.0); LYMPHOCYTES % (AUTO) 24.8 % (20.0-45.0); MEAN CORPUSCULAR HEMOGLOBIN 30.4 PG (27.0-31.0); MEAN CORPUSCULAR HGB CONC 32.1 G/DL (32.0-36.0); MEAN CORPUSCULAR VOLUME 95 FL (80-99); MEAN PLATELET VOLUME 9.6 FL (6.5-10.1); MONOCYTES % (AUTO) 8.4 % (1.0-10.0); NEUTROPHILS % (AUTO) 58.3 % (45.0-75.0); PLATELET COUNT 188 K/UL (150-450); RED BLOOD COUNT 4.78 M/UL (4.70-6.10); WHITE BLOOD COUNT 6.6 K/UL (4.8-10.8)
[2017-01-03] MEDS ORDERED: Famotidine 20 MG/ 2ML VIAL IVP ONE (13:30)
[2017-01-03] MEDS ORDERED: NOVOLOG100 UNIT/3 SUBQ (20:40)
[2017-01-03] MEDS ORDERED: ACETAMINOPHEN325 M1 ORAL (20:40)
[2017-01-03 20:43] LABS: TROPONIN I < 0.30 ng/mL (<=0.30)
[2017-01-03] MEDS ORDERED: oxyCODONE 5mg IR tab ORAL PRN (21:45)
[2017-01-03] MEDS: Donepezil 10mg tab ORAL SCH (21:54)
[2017-01-03] MEDS: NovoLOG Insulin Flexpen SUBQ SCH (22:33)
[2017-01-04] VITALS (7 sets, daily range): BP systolic 121–189; BP diastolic 63–89
[2017-01-04 05:29] LABS: TROPONIN I < 0.30 ng/mL (<=0.30)
[2017-01-04] MEDS ORDERED: sitaGLIPtin 50mg tab ORAL SCH (06:30)
[2017-01-04] MEDS ORDERED: NovoLOG Insulin Flexpen SUBQ SCH (06:30)
[2017-01-04] MEDS: sitaGLIPtin 50mg tab ORAL SCH ×2 (07:21→07:30)
[2017-01-04] MEDS: NovoLOG Insulin Flexpen SUBQ SCH ×4 (07:24→21:40)
[2017-01-04] MEDS: Docusate 100mg cap ORAL SCH (08:58)
[2017-01-04] MEDS: Aspirin EC 81mg tab ORAL SCH (08:59)
[2017-01-04] MEDS: Multivitamin w/Minerals tab ORAL SCH (08:59)
[2017-01-04] MEDS: Ascorbic Acid 500mg tab ORAL SCH (08:59)
[2017-01-04] MEDS ORDERED: Docusate 100mg cap ORAL SCH (09:00)
[2017-01-04] MEDS ORDERED: Donepezil 10mg tab ORAL SCH (09:00)
[2017-01-04] MEDS ORDERED: OLANZapine 2.5mg tab ORAL SCH (09:00)
[2017-01-04] MEDS ORDERED: Aspirin Baby 81mg ORAL SCH (09:00)
--- NOTE | 2017-01-04 09:53 | History & Physical ---
History and Physical History & Physicial DATE OF ADMISSION: 01/03/2017 HISTORY OF PRESENT ILLNESS: This is an 81-year-old male who was admitted with a history of CAD and CABG. he had been admitted here a few days but then discharged as he remained asymptomatic and had refused a stress test. He is a [facility] resident with underlying cognitive impairment and dementia. He presented to the emergency room after having chest pain yesterday. He was seen and worked up by Cardiology as well. The patient has been residing in [facility] after recent hip fracture and surgical correction. PAST MEDICAL HISTORY: CAD, previous CVA, hypertension, GERD, hip fracture, cognitive impairment, and dementia. ALLERGIES: Penicillin. MEDICATIONS: Home medications are reviewed and reconciled. SOCIAL HISTORY: No alcohol or tobacco usage. REVIEW OF SYSTEMS: Unreliable. PHYSICAL EXAMINATION: GENERAL: Reveals an 81-year-old male. VITAL SIGNS: Blood pressure 140/80, heart rate 68, respirations 18, he is afebrile. HEENT: Unremarkable. CHEST: Shows clear breath sounds bilaterally. ABDOMEN: Soft. EXTREMITIES: There is no edema. NEUROLOGIC: Nonfocal. LABORATORY DATA: Noncontributory with negative troponin. EKG shows first-degree AV block and old VA. IMPRESSION: 1. Chest pain. 2. Coronary artery disease. 3. Previous coronary artery bypass graft. 4. Hypertension. 5. Cognitive impairment. PLAN: Will order stress test. Check serial troponins. Cardiology consultation. I will follow carefully. Eros Espinoza M.D. Eros Espinoza MD Jan 04, 2017 09:53
[2017-01-04] MEDS: Nitroglycerin 2% oint pkt TOPIC SCH ×2 (12:00→17:06)
[2017-01-04] MEDS ORDERED: Adenosine Inj IVP ONE (13:00)
[2017-01-04 13:45] LABS: TROPONIN I < 0.30 ng/mL (<=0.30)
--- NOTE | 2017-01-04 15:59 | Diagnostic Imaging Report ---
Indication: Chest pain Comparison: 12/31/16 A single view chest radiograph was obtained. Findings: No definite infiltrate or pulmonary vascular congestion identified. Calcified focus again noted left of the trachea in the area of the thyroid gland Sternotomy noted. The heart is enlarged. The aorta is mildly enlarged consistent with atherosclerotic vascular disease. The bones are osteopenic. Impression: No acute disease
--- NOTE | 2017-01-04 16:49 | Diagnostic Imaging Report ---
Indication: chest pain Technique: The study was conducted under the supervision of a application specialist. Adenosine infusion followed by intravenous administration of 30.1 mCi of technetium 99m Myoview was performed. Three plane SPECT imaging of the heart was then performed. A resting study was performed as part of the one-day protocol with 10.7 mCi of technetium 99m myoview injected intravenously at that time. Three plane SPECT imaging of the heart was obtained. Comparison: None Clinical data: 1. Clinical response: Ischemic. Patient chest pain. 2. Electrocardiographic response: Non ischemic Findings: The myocardial perfusion scan demonstrates fixed perfusion defect in the anterior wall extending into the apex. No definite reversibility of this segment or other segments identified. Finding is probably due to an infarct. Please correlate clinically. LVEF is slightly low at 51%. Impression: Suspected infarct involving the anterior wall and apex. No definite evidence of myocardial ischemia. LVEF 51%
--- NOTE | 2017-01-04 19:42 | Cardiology Report ---
APPROVED REPORT EKG Measurement Heart [id number] ND 260P24 [id number] Sinus bradycardia with 1st degree AV block Possible Anterior infarct, age undetermined Abnormal ECG
[2017-01-04] MEDS: Donepezil 10mg tab ORAL SCH (21:34)
[2017-01-05 00:02] VITALS: BP 122/49
[2017-01-05 04:00] VITALS: BP_SYST 158; BP_SYST 177; BP_DIAS 78
--- NOTE | 2017-01-05 05:00 | Progress Note ---
DATE: 01/04/2017 CARDIOLOGY PROGRESS NOTE SUBJECTIVE: The patient agreed to have a myocardial perfusion scan with adenosine stress today. Results were reviewed and notable for inferior infarction and no reversible ischemia with ejection fraction of about 50%. OBJECTIVE: VITAL SIGNS: Blood pressure 127/70, pulse 49, and respirations 20. NECK: Supple. LUNGS: Clear. CARDIAC: Regular. Slow rate. Normal S1 and S2. Positive fourth heart sound. EXTREMITIES: No edema. IMPRESSION: 1. Ischemic cardiomyopathy. 2. Inferior infarction. 3. Mild systolic dysfunction. 4. Bradycardia due to medications. No role for coronary angiography at this time. PLAN: 1. Add long-acting nitrates. 2. Decrease beta-dale dose. 3. Discharge planning if remains clinically stable with adjusted regimen. 4. Continuing anti-platelet and anti-lipid drugs without change. Blaze Lucero M.D. DR: PERRI JOB#: [id number] CC:
[2017-01-05] MEDS: sitaGLIPtin 50mg tab ORAL SCH (06:30)
[2017-01-05] MEDS: NovoLOG Insulin Flexpen SUBQ SCH ×2 (06:30→12:06)
[2017-01-05] MEDS: Nitroglycerin 2% oint pkt TOPIC SCH ×2 (06:30→12:09)
--- NOTE | 2017-01-05 06:30 | Consultation ---
DATE OF CONSULTATION: CARDIOLOGY CONSULTATION REQUESTING PHYSICIAN: Eros Espinoza M.D. HISTORY OF PRESENT ILLNESS: This 81-year-old, male with known history of coronary artery disease and prior coronary artery bypass graft, was admitted several days ago with chest pain. He is ruled out for myocardial infarction. A dobutamine stress dose was recommended to help guide management, but the patient refused. [facility] to a [facility] facility. He returns today with recurring chest pain. PAST MEDICAL HISTORY: Coronary artery disease, cerebrovascular accident with dementia, hypertension, gastroesophageal reflux disease and history of hip fracture. ALLERGIES: Penicillin. MEDICATIONS: Reviewed and reconciled. SOCIAL HISTORY: No smoking, alcohol, or substance abuse. REVIEW OF SYSTEMS: Not obtainable from patient and unchanged from my dictation several days ago. PHYSICAL EXAMINATION: VITAL SIGNS: Blood pressure 140/80, pulse 70, respirations 18, and afebrile. NECK: Supple. Jugular venous pressure normal. ABDOMEN: Median sternotomy scar. LUNGS: Clear. CARDIAC: Regular. Normal S1 and S2 with a fourth heart sound. EXTREMITIES: No edema. NEUROLOGICAL: Left-sided weakness. DIAGNOSTIC DATA: EKG sinus rhythm, first-degree AV block and possible septal infarct. IMPRESSION: 1. Acute coronary syndrome. 2. Ischemic heart disease. 3. History of coronary artery bypass graft. 4. Hypertension. 5. Cerebrovascular disease with dementia. PLAN: 1. Maximize antianginal regimen. 2. Continue anti-platelet and anti-lipid drugs to help risk stratify and guide long-term management, as well as avoid recurring hospitalizations and noninvasive assessment of coronary flow reserve will be ordered. I will speak with family members to help assist to get this test done and convince patient to comply. Blaze Lucero M.D. DR: ANDREY JOB#: [id number] CC:
[2017-01-05 08:00] VITALS: BP 170/69
[2017-01-05] MEDS: Multivitamin w/Minerals tab ORAL SCH (08:36)
[2017-01-05] MEDS: Aspirin EC 81mg tab ORAL SCH (08:37)
[2017-01-05] MEDS: Ascorbic Acid 500mg tab ORAL SCH (08:37)
[2017-01-05] MEDS: Docusate 100mg cap ORAL SCH (08:37)
[2017-01-05] MEDS ORDERED: Imdur 30mg tab ORAL SCH (09:00)
[2017-01-05] MEDS ORDERED: D5NS 1000ml IV ONE (09:51)
[2017-01-05 12:00] VITALS: BP 125/64
--- NOTE | 2017-01-05 12:52 | Pulmonology Progress Note ---
Assessment/Plan Assessment/Plan 1. Ischemic cardiomyopathy. 2. Inferior infarction. 3. Mild systolic dysfunction. 4. Bradycardia due to medications. No role for coronary angiography at this time. PLAN: 1. Add long-acting nitrates. 2. Decrease beta-dale dose. 3. Discharge back to SNF 4. Continuing anti-platelet and anti-lipid drugs without change. Subjective Interval Events: No chest pain Constitutional: Reports: no symptoms HEENT: Repors: no symptoms Respiratory: Reports: no symptoms Cardiovascular: Reports: no symptoms Gastrointestinal/Abdominal: Reports: no symptoms Allergies: Coded Allergies: PENICILLINS (Verified Allergy, Unknown, 11/14/15) Objective Last 24 Hour Vital Signs Date Time Temp Pulse Resp B/P (MAP) Pulse Ox O2 Delivery O2 Flow Rate FiO2 01/05/17 12:09 125/64 01/05/17 12:00 53 01/05/17 08:42 60 170/69 01/05/17 08:36 170/69 01/05/17 08:00 51 01/05/17 08:00 96.4 52 20 170/69 95 Room Air 01/05/17 06:30 166/77 01/05/17 04:00 98.0 50 20 158/78 98 Room Air 01/05/17 04:00 43 01/05/17 00:02 97.5 43 20 122/49 97 Room Air 01/05/17 00:00 41 01/04/17 20:17 97.0 49 20 127/70 97 Room Air 01/04/17 20:00 46 01/04/17 17:06 148/64 01/04/17 17:05 58 149/64 01/04/17 16:01 96.6 49 18 147/75 97 Room Air 01/04/17 16:00 52 Intake and Output 01/05/17 01/06/17 19:00 07:00 Intake Total 120 ml Balance 120 ml Intake Oral 120 ml # Voids 1 General Appearance: no acute distress HEENT: normocephalic Respiratory/Chest: chest wall non-tender, lungs clear Cardiovascular: normal peripheral pulses, normal rate Microbiology Date/Time Source Procedure Growth Status 01/03/17 13:30 Nasal Nares MRSA Culture - Final NO METHICILLIN RESISTANT STAPH AUREUS... Complete 01/03/17 13:30 Rectum VRE Culture - Final NO VANCOMYCIN RESISTANT ENTEROCOCCUS ... Complete Current Medications Medications (Trade) Dose Ordered Sig/Jason Route PRN Reason Start Time Stop Time Status Last Admin Dose Admin Acetaminophen (Tylenol) 650 mg Q4H PRN ORAL Mild Pain/Temp > 100.5 01/03/17 21:45 02/02/17 21:44 Amlodipine Besylate (Norvasc) 10 mg DAILY ORAL 01/04/17 09:00 02/03/17 08:59 01/05/17 08:42 Ascorbic Acid (Vitamin C) 500 mg DAILY ORAL 01/04/17 09:00 02/03/17 08:59 01/05/17 08:37 Aspirin (Ecotrin) 81 mg DAILY ORAL 01/04/17 09:00 02/03/17 08:59 01/05/17 08:37 Atorvastatin Calcium (Lipitor) 10 mg BEDTIME ORAL 01/03/17 21:00 02/02/17 20:59 01/04/17 21:34 Carvedilol (Coreg) 3.125 mg QHS ORAL 01/05/17 21:00 02/04/17 20:59 Clopidogrel Bisulfate (Plavix) 75 mg DAILY ORAL 01/04/17 09:00 02/03/17 08:59 01/05/17 08:37 Docusate Sodium (Colace) 100 mg DAILY ORAL 01/04/17 09:00 02/03/17 08:59 01/05/17 08:37 Donepezil HCl (Aricept) 10 mg QHS ORAL 01/03/17 21:00 02/02/17 20:59 01/04/17 21:34 Furosemide (Lasix) 20 mg DAILY ORAL 01/04/17 09:00 02/03/17 08:59 01/05/17 08:37 Gabapentin (Neurontin) 300 mg THREE TIMES A DAY ORAL 01/04/17 09:00 02/03/17 08:59 01/05/17 12:48 Insulin Aspart (NovoLOG) BS <150 = no covera... AC+HS SUBQ 01/03/17 22:15 02/02/17 22:14 01/05/17 12:06 Isosorbide Mononitrate (Imdur) 30 mg DAILY ORAL 01/05/17 09:00 02/04/17 08:59 01/05/17 08:36 Multivitamins Therapeutic (Therapeutic Multivitamin) 1 ea DAILY ORAL 01/04/17 09:00 02/03/17 08:59 01/05/17 08:36 Nateglinide (Starlix) 120 mg TIAC ORAL 01/04/17 06:30 02/03/17 06:29 01/05/17 12:04 Nitroglycerin (Nitro-Bid) 1 inch TID@0600,1200,1800 TOPIC 01/04/17 12:00 02/03/17 11:59 01/05/17 12:09 Oxycodone HCl (Roxicodone) 5 mg Q4H PRN ORAL Moderate Pain (Pain Scale 4-6) 01/03/17 21:45 01/10/17 21:44 Sitagliptin Phosphate (Januvia) 25 mg ACBREAKFAST ORAL 01/04/17 06:30 02/03/17 06:29 Eros Espinoza MD Jan 05, 2017 12:52
[2017-01-05] MEDS ORDERED: ISOSORBIDE MONO30 M1 ORAL (12:54)
[2017-01-05] MEDS ORDERED: COREG3.125 MG ORAL (12:54)
[2017-01-05 16:00] VITALS: BP 122/64
--- NOTE | 2017-01-06 06:00 | Progress Note ---
DATE: 01/05/2017 CARDIOLOGY PROGRESS NOTE SUBJECTIVE: No new chest pain. Myocardial perfusion scan yesterday revealed minimally decreased ejection fraction with inferior infarct and no inducible ischemia. OBJECTIVE: VITAL SIGNS: Blood pressure is 125/64 to 170/69, heart rate 51 to 60, respiratory rate 20, and afebrile. NECK: Supple. LUNGS: Clear. Median sternotomy scar. HEART: Regular rhythm and rate. Normal S1 and S2 with a fourth heart sound. ABDOMEN: Soft. EXTREMITIES: No edema. IMPRESSION: 1. Ischemic heart disease. 2. Coronary flow reserve is quite adequate for his performance status. 3. Sinus bradycardia, on beta-blockers. 4. Cerebrovascular disease. PLAN: Medical management including statin drug and anti-platelet therapy as well as long-acting nitrates. Decreasing doses of beta-blockers due to bradycardia. Antihypertensive regimen was advanced last night to optimize blood pressure control. Stable for discharge to shelter facility. Blaze Lucero M.D. DR: SAVANNAH/edwina JOB#: [id number] CC:
--- NOTE | 2017-01-07 10:53 | Discharge Summary ---
Discharge Summary Hospital Course Date of Admission Jan 03, 2017 at 16:40 Date of Discharge Jan 05, 2017 at 17:30 Admitting Diagnosis chest pain HPI Manjeet Juarez is a 81 year old male who was admitted on Jan 03, 2017 at 16: 40 for Chest Pain Hospital Course [id number] Discharge Discharge Disposition Patient was discharged to snf Discharge Diagnoses: Dara Rodriguez NP Jan 07, 2017 10:53
--- NOTE | 2017-01-07 17:00 | Discharge Summary 2 SIG ---
DATE OF ADMISSION: 01/03/2017 DATE OF DISCHARGE: 01/05/2017 TIRE SORTER: Blaze Lucero M.D. BRIEF HOSPITAL COURSE: The patient is an 81-year-old male with a history of CAD and coronary artery bypass graft, who was recently admitted for chest pain and refused to complete a stress test. He was discharged back to group home. However, he presented again for chest pain. He was given aspirin at ED, troponin was negative. Due to his risk factors, he was admitted to telemetry for cardiac evaluation. EKG showed normal sinus rhythm with T-wave inversions in V3 and T-wave flattening on the lateral leads. He was continued on antianginal regimen and resumed on antiplatelet and anti-lipid drugs. He was continued on Lipitor 10 mg. Long acting nitrate was added. He had episodes of bradycardia and Coreg was decreased. He underwent myocardial perfusion scan and revealed minimally decreased ejection fraction with inferior infarct and no inducible ischemia. He was continued on medical management and was eventually discharged back to group home. FINAL DIAGNOSES: 1. Ischemic cardiomyopathy. 2. Inferior infarction. 3. Mild systolic dysfunction. 4. Bradycardia due to medications. DISPOSITION: The patient was discharged to SNF. DISCHARGE MEDICATIONS: Refer to medication list. Eros Espinoza M.D. I have been assigned to dictate discharge summary on this account and I was not involved in the patient's management. Dara Rodriguez N.P. DR: NAZIA JOB#: [id number] CC:
== END 2017-01-05 17:30 | DRG 303 ==
LOC: EDBD 11:51 → EMR 12:05 → EDBEDREQ 13:23 → 2E 16:40
DX: I25.5 Ischemic cardiomyopathy (principal); F03.90 Unspecified dementia, unspecified severity, without behavioral disturbance, psychotic disturbance, mood disturbance, and anxiety; R00.1 Bradycardia, unspecified; I12.9 Hypertensive chronic kidney disease with stage 1 through stage 4 chronic kidney disease, or unspecified chronic kidney disease; G31.84 Mild cognitive impairment of uncertain or unknown etiology; N18.9 Chronic kidney disease, unspecified; I25.10 Atherosclerotic heart disease of native coronary artery without angina pectoris; K21.9 Gastro-esophageal reflux disease without esophagitis; T50.905A Adverse effect of unspecified drugs, medicaments and biological substances, initial encounter; Z95.1 Presence of aortocoronary bypass graft; Z88.0 Allergy status to penicillin; Z86.73 Personal history of transient ischemic attack (TIA), and cerebral infarction without residual deficits; Y92.89 Other specified places as the place of occurrence of the external cause
CPT/HCPCS: 36415; 71010; 78452; 80053; 82550; 82553; 82962; 84484; 85025; 87081; 93005; 93017; 99285; J1815

== ENCOUNTER 2017-02-06 12:52 | Emergency (ER) | payer MEDICARE, MEDICAID ==
[~2017-02-06] VITALS: Ht 177.8 cm; Wt 86.2 kg
[~2017-02-06 12:52] MED LIST changes: +ACETAMINOPHEN325 M1 ORAL; +COREG3.125 MG ORAL; +ISOSORBIDE MONO30 M1 ORAL; +NOVOLOG100 UNIT/3 SUBQ
[2017-02-06 12:56] VITALS: BP 164/66
--- NOTE | 2017-02-06 13:08 | Emergency Room Report ---
History of Present Illness General Chief Complaint: Generalized Weakness Source: Patient, Medical Record, EMS (ELIS MILLER.Thierry) Present Illness HPI Patient presents with complaints of general weakness Patient himself is a poor historian and history of present illness is limited Unknown regarding fevers there was no reports of vomiting or diarrhea Patient however has been eating less than usual There was no reports of focal weakness There was no reports of fall or other traumatic injury Symptoms ongoing for the past 3-4 days The daughter does present to provide further input Patient apparently was found to be hypertensive at the facility, there was also a question of the patient had increased confusion and slurring of his speech (ELIS MILLER D.O.) Allergies: Coded Allergies: PENICILLINS (Verified Allergy, Unknown, 11/14/15) Patient History Past Medical History: see triage record Pertinent Family History: none Reviewed Nursing Documentation: PMH: Agreed, PSxH: Agreed (ELIS MILLER D.O.) Nursing Documentation-PMH Hx Cardiac Problems: Yes - aortocoronary bypass graft, atherosclerosis of CABG w/o angina pectoris Hx Hypertension: Yes - hypertensive CKD Hx Pacemaker: No Hx Asthma: No Hx COPD: No 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 Hx Cancer: No Hx Gastrointestinal Problems: Yes - CKD, BPH, GERD without esophagitis Hx Dialysis: No History Of Psychiatric Problem: No Hx Neurological Problems: Yes - dysphasia following CVA, blindness (one eye) Hx Cerebrovascular Accident: Yes - CVA, unspecified sequelae of cerebral infarction Hx Dementia: Yes Hx Alzheimer's Disease: Yes Hx Seizures: No Hx Peripheral Neuropathy: Yes - polyneuropathy Hx Memory Loss: Yes Hx Dizziness: Yes Hx Syncope: Yes Hx Dysphasia: Yes (ELIS MILLER D.O.) Review of Systems All Other Systems: negative except mentioned in HPI (ELIS MILLER.Thierry) Physical Exam Vital Signs Date Time Temp Pulse Resp B/P (MAP) Pulse Ox O2 Delivery O2 Flow Rate FiO2 02/06/17 12:46 98.8 92 18 168/98 98 Room Air Sp02 EP Interpretation: reviewed, normal General Appearance: no apparent distress Head: normocephalic, atraumatic Eyes: bilateral eye PERRL, bilateral eye EOMI ENT: dry mucus membranes Neck: supple, thyroid normal Respiratory: lungs clear, normal breath sounds Cardiovascular #1: regular rate, rhythm, no edema Gastrointestinal: non tender, soft Musculoskeletal: other - No obvious focal deficit Neurologic: responsive - Verbally and physically poor historian Skin: other - Poor skin turgor (ELIS MILLER D.O.) Medical Decision Making Diagnostic Impression: Primary Impression: Renal insufficiency Additional Impression: UTI (urinary tract infection) ER Course Patient endorsed to me by Dr. Miller. The patient was noted to have a history of diabetes as well as chronic renal sufficiency. Per the patient's daughter patient was at his usual mental status. The patient denied any current complaints. CT of the head read by radiology showed no evidence of acute hemorrhage or CVA with degenerative white matter changes. Patient was noted to have some baseline renal insufficiency. The patient was noted to have slight urinary infection was given IV antibiotics. The patient was discussed with the patient's daughter and she is agreed with discharge to the nursing facility and declined offer for admission. The patient was given prescription for antibiotics for urinary infection Labs Test 02/06/17 14:30 02/06/17 14:50 02/06/17 15:38 Urine Color Pale yellow Urine Appearance Clear Urine pH 5 (4.5-8.0) Urine Specific [place] 1.015 (1.005-1.035) Urine Protein 3+ (NEGATIVE) Urine Glucose (UA) 4+ (NEGATIVE) Urine Ketones Negative (NEGATIVE) Urine Occult Blood 2+ (NEGATIVE) Urine Nitrite Negative (NEGATIVE) Urine Bilirubin Negative (NEGATIVE) Urine Urobilinogen Normal MG/DL (0.0-1.0) Urine Leukocyte Esterase Negative (NEGATIVE) Urine RBC 2-4 /HPF (0 - 0) Urine WBC 2-4 /HPF (0 - 0) Urine Squamous Epithelial Cells None /LPF (NONE/OCC) Urine Bacteria None /HPF (NONE) White Blood Count 10.9 K/UL (4.8-10.8) Red Blood Count 4.29 M/UL (4.70-6.10) Hemoglobin 13.5 G/DL (14.2-18.0) Hematocrit 41.2 % (42.0-52.0) Mean Corpuscular Volume 96 FL (80-99) Mean Corpuscular Hemoglobin 31.4 PG (27.0-31.0) Mean Corpuscular Hemoglobin Concent 32.6 G/DL (32.0-36.0) Red Cell Distribution Width 12.2 % (11.6-14.8) Platelet Count 185 K/UL (150-450) Mean Platelet Volume 10.7 FL (6.5-10.1) Neutrophils (%) (Auto) 82.6 % (45.0-75.0) Lymphocytes (%) (Auto) 7.3 % (20.0-45.0) Monocytes (%) (Auto) 7.8 % (1.0-10.0) Eosinophils (%) (Auto) 1.8 % (0.0-3.0) Basophils (%) (Auto) 0.6 % (0.0-2.0) Sodium Level 140 mEQ/L (135-145) Potassium Level 4.0 mEQ/L (3.4-4.9) Chloride Level 101 mEQ/L (98-107) Carbon Dioxide Level 24 mEQ/L (20-30) Anion Gap 15 (5-15) Blood Urea Nitrogen 37 mg/dL (7-23) Creatinine 3.4 mg/dL (0.7-1.2) Estimat Glomerular Filtration Rate mL/min (>60) Glucose Level 339 mg/dL (74-106) Calcium Level 9.8 mg/dL (8.6-10.2) Total Bilirubin 0.3 mg/dL (0.0-1.2) Aspartate Amino Transf (AST/SGOT) 10 U/L (5-40) Alanine Aminotransferase (ALT/SGPT) 7 U/L (3-41) Alkaline Phosphatase 99 U/L (40-129) Total Creatine Kinase 62 U/L (38-174) Creatine Kinase MB < 1.5 ng/mL (< 6.7) Creatine Kinase MB Relative Index Troponin I < 0.30 ng/mL (<=0.30) Total Protein 6.7 g/dL (6.6-8.7) Albumin 3.6 g/dL (3.5-5.2) Globulin 3.1 g/dL Albumin/Globulin Ratio 1.1 (1.0-2.7) Lactic Acid Level 1.80 mmol/L (0.66-2.22) (Abiodun Pual) Last Vital Signs Date Time Temp Pulse Resp B/P (MAP) Pulse Ox O2 Delivery O2 Flow Rate FiO2 02/06/17 12:56 98.0 75 18 164/66 100 Room Air (ELIS MILLER D.O.) Status: improved (Abiodun Paul) Disposition: XFER SNF Condition: Stable Scripts Ciprofloxacin Hcl* (CIPROFLOXACIN HCL*) 500 Mg Tablet 250 MG ORAL Q12H, #10 TAB 0 Refills Prov: Abiodun Paul 02/06/17 ELIS MILLER D.O. Feb 06, 2017 13:08 Abiodun Paul Feb 06, 2017 17:19
[2017-02-06] MEDS ORDERED: FAMOTIDINE20 MG ORAL (13:27)
[2017-02-06] MEDS ORDERED: JANUVIA25 MG ORAL (13:27)
[2017-02-06 14:20] VITALS: BP 148/68
[2017-02-06 14:55] LABS: BASOPHILS % (AUTO) 0.6 % (0.0-2.0); EOSINOPHILS % (AUTO) 1.8 % (0.0-3.0); LYMPHOCYTES % (AUTO) 7.3 % (20.0-45.0); MEAN CORPUSCULAR HEMOGLOBIN 31.4 PG (27.0-31.0); MEAN CORPUSCULAR HGB CONC 32.6 G/DL (32.0-36.0); MEAN CORPUSCULAR VOLUME 96 FL (80-99); MEAN PLATELET VOLUME 10.7 FL (6.5-10.1); MONOCYTES % (AUTO) 7.8 % (1.0-10.0); NEUTROPHILS % (AUTO) 82.6 % (45.0-75.0); PLATELET COUNT 185 K/UL (150-450); RED BLOOD COUNT 4.29 M/UL (4.70-6.10); RED CELL DISTRIBUTION WIDTH 12.2 % (11.6-14.8); WHITE BLOOD COUNT 10.9 K/UL (4.8-10.8)
[2017-02-06 15:10] LABS: APPEARANCE,URINE CLEAR; KETONES,URINE NEGATIVE (NEGATIVE); LEUKOCYTE ESTERASE ,URINE NEGATIVE (NEGATIVE); NITRITE,URINE NEGATIVE (NEGATIVE); PH,URINE 5 (4.5-8.0); PROTEIN,URINE 3+ (NEGATIVE); UROBILINOGEN,URINE NORMAL MG/DL (0.0-1.0)
[2017-02-06 15:13] LABS: TROPONIN I < 0.30 ng/mL (<=0.30)
[2017-02-06 15:16] LABS: ALANINE AMINOTRANSFERASE 7 U/L (3-41); ALBUMIN/GLOBULIN RATIO 1.1 (1.0-2.7); ANION GAP 15 (5-15); ASPARTATE AMINO TRANSFERASE 10 U/L (5-40); CALCIUM 9.8 mg/dL (8.6-10.2); CARBON DIOXIDE 24 mEQ/L (20-30); CHLORIDE 101 mEQ/L (98-107); CREATININE 3.4 mg/dL (0.7-1.2); HEMOLYSIS 7; SODIUM 140 mEQ/L (135-145); TOTAL PROTEIN 6.7 g/dL (6.6-8.7)
[2017-02-06 15:22] LABS: REFLEX LACTIC ACID YES OR NO YES
[2017-02-06 15:27] LABS: CKMB < 1.5 ng/mL (< 6.7)
[2017-02-06] MEDS ORDERED: CIPROFLOXACIN500 M2 ORAL (15:50)
[2017-02-06 16:20] VITALS: BP 157/62
[2017-02-06 18:30] VITALS: BP 175/75
--- NOTE | 2017-02-07 09:20 | Diagnostic Imaging Report ---
Indication: Altered mental status, weakness Comparison: None Technique: Contiguous helical CT images of the brain was performed with [address] dose: Total DLP: 1414 mGycm; CTDI volume: 70.4 mGy Findings: There is no acute intracranial hemorrhage or infarct. No mass, mass effect or midline shift identified. Ventricles and sulci are prominent secondary to global cortical atrophy. There are no extra-axial fluid collections seen. Periventricular chronic ischemic changes are noted. Bony calvarium is intact. Mastoid air cells and visualized paranasal sinuses are clear. Impression: 1. No acute intracranial abnormalities. 2. Global cortical atrophy with periventricular chronic ischemic changes. The CT scanner at [facility] is accredited by the [employer] and the scans are performed using protocols designed to limit radiation exposure to as low as reasonably achievable to attain images of sufficient resolution adequate for diagnostic evaluation.
--- NOTE | 2017-02-07 09:27 | Diagnostic Imaging Report ---
Indication: Shortness of breath Comparison: 01/03/2013 chest one view Findings: Single view of the chest shows a normal cardiomediastinal silhouette. Pulmonary vasculature is normal. Lung are clear. Sternal wires are again noted. Soft tissues and osseous structures are within normal limits. Impression: No acute chest disease
--- NOTE | 2017-02-28 17:40 | Cardiology Report ---
APPROVED REPORT EKG Measurement Heart [id number] Sinus rhythm with 1st degree AV block Nonspecific T wave abnormality Abnormal ECG
== END 2017-02-06 18:30 ==
LOC: EDBD 12:52 → EMR 13:17 → UNDOADMIN 14:46 → 4E 14:46 → EDBEDREQ 14:56 → EMR 18:30 → UNDODISIN 22:32
DX: N39.0 Urinary tract infection, site not specified (principal); I12.9 Hypertensive chronic kidney disease with stage 1 through stage 4 chronic kidney disease, or unspecified chronic kidney disease; E10.22 Type 1 diabetes mellitus with diabetic chronic kidney disease; N18.9 Chronic kidney disease, unspecified; I25.10 Atherosclerotic heart disease of native coronary artery without angina pectoris; Z95.1 Presence of aortocoronary bypass graft; Z88.0 Allergy status to penicillin
CPT/HCPCS: 36415; 51701; 70450; 71010; 80053; 81003; 82550; 82553; 82962; 83605; 84484; 85025; 87040; 87081; 93005; 96365; 96366; 99284; J0744; 99285

== ENCOUNTER 2017-02-06 19:10 | Inpatient (IN) | payer MEDICARE, MEDICAID ==
[~2017-02-06] VITALS: Ht 167.6 cm; Wt 68.0 kg
[~2017-02-06 19:10] MED LIST changes: +CIPROFLOXACIN500 M2 ORAL
[2017-02-06] MEDS ORDERED: levETIRAcetam 1,000mg/NS100ml 100 ML IVPB ONE (19:15)
[2017-02-06] MEDS ORDERED: LORazepam Inj 2mg/ml 1ml ONE (19:19)
--- NOTE | 2017-02-06 19:22 | Emergency Room Report ---
History of Present Illness General Chief Complaint: Seizure Source: EMS Present Illness HPI This is an 81-year-old male who presented after increased altered level consciousness. Patient was noted to have episode of decreased respirations associated with muscle rigidity. Patient had recently been discharged after emergency visit and was noted to have been an ambulance the time of onset. The patient recently been given IV Cipro as well as Flagyl for UTI. 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 Hx Cancer: No Hx Gastrointestinal Problems: Yes - CKD, BPH, GERD without esophagitis Hx Dialysis: No Hx Neurological Problems: Yes - dysphasia following CVA, blindness (one eye) Hx Cerebrovascular Accident: Yes - CVA, unspecified sequelae of cerebral infarction Hx Dementia: Yes Hx Alzheimer's Disease: Yes Hx Seizures: No Hx Peripheral Neuropathy: Yes - polyneuropathy Hx Memory Loss: Yes Hx Dizziness: Yes Hx Syncope: Yes Hx Dysphasia: Yes Review of Systems All Other Systems: negative except mentioned in HPI Physical Exam Vital Signs Date Time Temp Pulse Resp B/P (MAP) Pulse Ox O2 Delivery O2 Flow Rate FiO2 02/06/17 19:10 95 20 165/89 97 Room Air Sp02 EP Interpretation: reviewed, normal General Appearance: normal inspection, alert, moderate distress Head: atraumatic Eyes: bilateral eye PERRL ENT: normal ENT inspection, hearing grossly normal, normal voice Neck: normal inspection, full range of motion, supple, no bony tend Respiratory: normal inspection, lungs clear, normal breath sounds, no respiratory distress, no retraction, no wheezing Cardiovascular #1: regular rate, rhythm, no edema Gastrointestinal: normal inspection, normal bowel sounds, non tender, soft, no guarding, no hernia Genitourinary: no CVA tenderness Musculoskeletal: normal inspection, back normal, normal range of motion Neurologic: normal inspection, alert, other - actively seizing, with repetitive movements Psychiatric: normal inspection, mood/affect normal, other - confused Skin: normal inspection, normal color, no rash Medical Decision Making Diagnostic Impression: Primary Impression: Seizure Additional Impression: UTI (urinary tract infection) ER Course Patient was noted to acute onset of altered mental status. Differential diagnoses include was not limited to CVA, seizure, intracranial hemorrhage, urinary infection and among others.Because of complexity of patient's case laboratory testing and imaging studies were ordered.Given IM Ativan for active seizure. The patient was also given IV Ativan. The patient improvement of seizure activity. The patient was subsequently loaded on IV Keppra. Patient was given IV magnesium his EKG showed some prolongation of his QT interval. Patient discussed with Dr. Blaze Lucero for inpatient management. CT of the head interpreted by radiology showed no acute changes from previous CT Labs Test 02/06/17 19:18 02/06/17 21:01 02/07/17 03:35 02/08/17 04:05 Prothrombin Time 9.7 SEC (9.30-11.50) Prothromb Time International Ratio 0.9 (0.9-1.1) Activated Partial Thromboplast Time 28 SEC (23-33) Troponin I < 0.30 ng/mL (<=0.30) Thyroid Stimulating Hormone (TSH) 1.950 uIU/mL (0.300-4.500) Arterial Blood pH 7.404 (7.350-7.450) Arterial Blood Partial Pressure CO2 37.7 mmHg (35.0-45.0) Arterial Blood Partial Pressure O2 69.0 mmHg (75.0-100.0) Arterial Blood HCO3 23.0 mmol/L (22.0-26.0) Arterial Blood Oxygen Saturation 94.2 % (92.0-98.0) Arterial Blood Base Excess -1.3 Daniel Test Positive Magnesium Level 2.1 mg/dL (1.7-2.5) Total Bilirubin 0.3 mg/dL (0.0-1.2) Aspartate Amino Transf (AST/SGOT) 9 U/L (5-40) Alanine Aminotransferase (ALT/SGPT) 6 U/L (3-41) Alkaline Phosphatase 97 U/L (40-129) Total Protein 6.7 g/dL (6.6-8.7) Albumin 3.6 g/dL (3.5-5.2) Globulin 3.1 g/dL Albumin/Globulin Ratio 1.1 (1.0-2.7) Vitamin B12 Level 597 pg/mL (211-946) White Blood Count 9.4 K/UL (4.8-10.8) Red Blood Count 3.53 M/UL (4.70-6.10) Hemoglobin 11.7 G/DL (14.2-18.0) Hematocrit 34.3 % (42.0-52.0) Mean Corpuscular Volume 97 FL (80-99) Mean Corpuscular Hemoglobin 33.1 PG (27.0-31.0) Mean Corpuscular Hemoglobin Concent 34.1 G/DL (32.0-36.0) Red Cell Distribution Width 12.3 % (11.6-14.8) Platelet Count 147 K/UL (150-450) Mean Platelet Volume 10.8 FL (6.5-10.1) Neutrophils (%) (Auto) 60.7 % (45.0-75.0) Lymphocytes (%) (Auto) 18.7 % (20.0-45.0) Monocytes (%) (Auto) 13.5 % (1.0-10.0) Eosinophils (%) (Auto) 6.5 % (0.0-3.0) Basophils (%) (Auto) 0.6 % (0.0-2.0) Sodium Level 142 mEQ/L (135-145) Potassium Level 4.0 mEQ/L (3.4-4.9) Chloride Level 105 mEQ/L (98-107) Carbon Dioxide Level 24 mEQ/L (20-30) Anion Gap 13 (5-15) Blood Urea Nitrogen 33 mg/dL (7-23) Creatinine 3.8 mg/dL (0.7-1.2) Estimat Glomerular Filtration Rate mL/min (>60) Glucose Level 162 mg/dL (74-106) Calcium Level 9.4 mg/dL (8.6-10.2) Last Vital Signs Date Time Temp Pulse Resp B/P (MAP) Pulse Ox O2 Delivery O2 Flow Rate FiO2 02/06/17 19:10 95 20 165/89 97 Room Air Status: unchanged Disposition: ADMITTED INPATIENT Condition: Abiodun Aragon Feb 06, 2017 19:22
[2017-02-06] MEDS ORDERED: LORazepam Inj 2mg/ml 1ml IV ONE (19:30)
[2017-02-06] MEDS ORDERED: LORazepam Inj 2mg/ml 1ml IM ONE (19:30)
[2017-02-06 19:43] LABS: BASOPHILS % (AUTO) 0.8 % (0.0-2.0); LYMPHOCYTES % (AUTO) 15.4 % (20.0-45.0); MEAN CORPUSCULAR HEMOGLOBIN 31.2 PG (27.0-31.0); MEAN CORPUSCULAR HGB CONC 32.4 G/DL (32.0-36.0); MEAN CORPUSCULAR VOLUME 96 FL (80-99); MEAN PLATELET VOLUME 9.9 FL (6.5-10.1); NEUTROPHILS % (AUTO) 72.9 % (45.0-75.0); PLATELET COUNT 182 K/UL (150-450); RED BLOOD COUNT 4.37 M/UL (4.70-6.10); WHITE BLOOD COUNT 11.5 K/UL (4.8-10.8)
[2017-02-06 19:47] LABS: INR 0.9 (0.9-1.1); PROTHROMBIN TIME 9.7 SEC (9.30-11.50)
[2017-02-06 19:54] LABS: ALANINE AMINOTRANSFERASE 7 U/L (3-41); ALBUMIN/GLOBULIN RATIO 1.1 (1.0-2.7); ANION GAP 17 (5-15); ASPARTATE AMINO TRANSFERASE 12 U/L (5-40); CALCIUM 10.3 mg/dL (8.6-10.2); CARBON DIOXIDE 26 mEQ/L (20-30); CHLORIDE 101 mEQ/L (98-107); CREATININE 3.5 mg/dL (0.7-1.2); HEMOLYSIS 19; POTASSIUM 4.4 mEQ/L (3.4-4.9); SODIUM 144 mEQ/L (135-145); TOTAL PROTEIN 7.3 g/dL (6.6-8.7)
[2017-02-06 20:35] VITALS: BP 190/83
[2017-02-06 20:41] LABS: TROPONIN I < 0.30 ng/mL (<=0.30)
[2017-02-06 21:20] LABS: ABG ALLEN TEST POSITIVE; ABG BASE EXCESS -1.3; ABG PCO2 37.7 mmHg (35.0-45.0)
[2017-02-06 22:13] VITALS: BP 182/76
[2017-02-06] MEDS ORDERED: LORazepam Inj 2mg/ml 1ml IV PRN (22:30)
[2017-02-07 00:26] VITALS: BP 157/67
[2017-02-07] MEDS ORDERED: cefTRIAXone 2 GM in D5W 110 ML IVPB SCH (01:00)
[2017-02-07] MEDS ORDERED: Vancomycin 1gm inj IVPB ONE (01:15)
[2017-02-07] MEDS: D5 1/2NS w/KCL 10meq 1,000 ML IV SCH ×2 (01:42→10:33)
[2017-02-07] MEDS ORDERED: Vancomycin 1gm/D5W 275ml IVPB ONE ×2 (02:00)
[2017-02-07 04:00] VITALS: BP 147/73
[2017-02-07 05:17] LABS: ALANINE AMINOTRANSFERASE 6 U/L (3-41); ALBUMIN/GLOBULIN RATIO 1.1 (1.0-2.7); ANION GAP 14 (5-15); ASPARTATE AMINO TRANSFERASE 9 U/L (5-40); CALCIUM 9.6 mg/dL (8.6-10.2); CARBON DIOXIDE 26 mEQ/L (20-30); CHLORIDE 100 mEQ/L (98-107); CREATININE 3.4 mg/dL (0.7-1.2); HEMOLYSIS 3; MAGNESIUM 2.1 mg/dL (1.7-2.5); POTASSIUM 4.3 mEQ/L (3.4-4.9); SODIUM 140 mEQ/L (135-145); TOTAL PROTEIN 6.7 g/dL (6.6-8.7)
[2017-02-07 05:23] LABS: BASOPHILS % (AUTO) 0.5 % (0.0-2.0); EOSINOPHILS % (AUTO) 2.1 % (0.0-3.0); MEAN CORPUSCULAR HEMOGLOBIN 31.8 PG (27.0-31.0); MEAN CORPUSCULAR HGB CONC 33.1 G/DL (32.0-36.0); MEAN CORPUSCULAR VOLUME 96 FL (80-99); MEAN PLATELET VOLUME 10.3 FL (6.5-10.1); MONOCYTES % (AUTO) 8.8 % (1.0-10.0); NEUTROPHILS % (AUTO) 79.6 % (45.0-75.0); PLATELET COUNT 172 K/UL (150-450); RED BLOOD COUNT 4.12 M/UL (4.70-6.10); RED CELL DISTRIBUTION WIDTH 12.1 % (11.6-14.8); WHITE BLOOD COUNT 11.8 K/UL (4.8-10.8)
[2017-02-07] MEDS: NovoLOG Insulin Flexpen SUBQ SCH ×4 (06:49→22:01)
[2017-02-07 08:00] VITALS: BP 131/55
[2017-02-07] MEDS ORDERED: levETIRAcetam 500mg/NS100ml 100 ML IVPB ONE (09:00)
--- NOTE | 2017-02-07 09:22 | Diagnostic Imaging Report ---
Indication: Seizure after being discharged from ER. Comparison: Noncontrast CT brain 6 hours earlier Technique: Contiguous helical CT images of the brain was performed with [address] dose: Total DLP: 1400 mGycm; CTDI volume: 8.4 mGy Findings: There is no acute intracranial hemorrhage or infarct. No mass, mass effect or midline shift identified. Ventricles and sulci are prominent secondary to global cortical atrophy. There are no extra-axial fluid collections seen. Periventricular chronic ischemic changes are noted. Bony calvarium is intact. Mastoid air cells and visualized paranasal sinuses are clear. Impression: No significant interval change from prior exam 6 hours earlier. No acute intracranial abnormalities. Global cortical atrophy with periventricular chronic ischemic changes. The CT scanner at [facility] is accredited by the [employer] and the scans are performed using protocols designed to limit radiation exposure to as low as reasonably achievable to attain images of sufficient resolution adequate for diagnostic evaluation.
[2017-02-07 12:00] VITALS: BP 132/65
[2017-02-07] MEDS ORDERED: LEVETIRACETAM 500 MG IVPB ONE (12:00)
--- NOTE | 2017-02-07 15:09 | Infectious Diseases Prog Note ---
Assessment/Plan Problems: (1) UTI (urinary tract infection) Assessment & Plan: will start aztreonam empirically and send urine culture (2) Sepsis Assessment & Plan: will start aztreonam and clindamycin pending blood culture results, will order CXR to rule out pneumonia (3) Fever Assessment & Plan: due to the above, continue wide spectrum antibiotics, pending culture results (4) Seizure Assessment & Plan: continue neuro check, and tele, on [facility] , recommend neurology consult Subjective Allergies: Coded Allergies: PENICILLINS (Verified Allergy, Unknown, 11/14/15) Objective Vital Signs Last 24 Hour Vital Signs Date Time Temp Pulse Resp B/P (MAP) Pulse Ox O2 Delivery O2 Flow Rate FiO2 02/07/17 12:00 60 02/07/17 12:00 97.9 59 18 132/65 94 Nasal Cannula 2.0 02/07/17 08:00 98.1 63 18 131/55 91 Nasal Cannula 2.0 02/07/17 08:00 68 02/07/17 06:56 176/79 02/07/17 04:00 84 02/07/17 04:00 99.0 75 20 147/73 95 Nasal Cannula 2.0 02/07/17 00:26 99.1 94 20 157/67 96 Nasal Cannula 2.0 02/06/17 22:53 99.7 97 19 182/76 96 Nasal Cannula 2.0 02/06/17 22:13 97 19 182/76 96 Nasal Cannula 2.0 02/06/17 20:35 99.7 102 16 190/83 100 Nasal Cannula 2.0 02/06/17 19:15 95 20 Room Air 02/06/17 19:10 95 20 165/89 97 Room Air Height (Feet): 5 Height (Inches): 6.00 Weight (Pounds): 150 Laboratory Tests Test 02/06/17 19:18 02/06/17 21:01 02/07/17 03:35 White Blood Count 11.5 K/UL (4.8-10.8) H 11.8 K/UL (4.8-10.8) H Red Blood Count 4.37 M/UL (4.70-6.10) L 4.12 M/UL (4.70-6.10) L Hemoglobin 13.7 G/DL (14.2-18.0) L 13.1 G/DL (14.2-18.0) L Hematocrit 42.2 % (42.0-52.0) 39.6 % (42.0-52.0) L Mean Corpuscular Volume 96 FL (80-99) 96 FL (80-99) Mean Corpuscular Hemoglobin 31.2 PG (27.0-31.0) H 31.8 PG (27.0-31.0) H Mean Corpuscular Hemoglobin Concent 32.4 G/DL (32.0-36.0) 33.1 G/DL (32.0-36.0) Red Cell Distribution Width 12.0 % (11.6-14.8) 12.1 % (11.6-14.8) Platelet Count 182 K/UL (150-450) 172 K/UL (150-450) Mean Platelet Volume 9.9 FL (6.5-10.1) 10.3 FL (6.5-10.1) H Neutrophils (%) (Auto) 72.9 % (45.0-75.0) 79.6 % (45.0-75.0) H Lymphocytes (%) (Auto) 15.4 % (20.0-45.0) L 9.0 % (20.0-45.0) L Monocytes (%) (Auto) 8.0 % (1.0-10.0) 8.8 % (1.0-10.0) Eosinophils (%) (Auto) 3.0 % (0.0-3.0) 2.1 % (0.0-3.0) Basophils (%) (Auto) 0.8 % (0.0-2.0) 0.5 % (0.0-2.0) Prothrombin Time 9.7 SEC (9.30-11.50) Prothromb Time International Ratio 0.9 (0.9-1.1) Activated Partial Thromboplast Time 28 SEC (23-33) Sodium Level 144 mEQ/L (135-145) 140 mEQ/L (135-145) Potassium Level 4.4 mEQ/L (3.4-4.9) 4.3 mEQ/L (3.4-4.9) Chloride Level 101 mEQ/L (98-107) 100 mEQ/L (98-107) Carbon Dioxide Level 26 mEQ/L (20-30) 26 mEQ/L (20-30) Anion Gap 17 (5-15) H 14 (5-15) Blood Urea Nitrogen 35 mg/dL (7-23) H 33 mg/dL (7-23) H Creatinine 3.5 mg/dL (0.7-1.2) H 3.4 mg/dL (0.7-1.2) H Estimat Glomerular Filtration Rate mL/min (>60) mL/min (>60) Glucose Level 288 mg/dL (74-106) H 341 mg/dL (74-106) H Calcium Level 10.3 mg/dL (8.6-10.2) H 9.6 mg/dL (8.6-10.2) Total Bilirubin 0.4 mg/dL (0.0-1.2) 0.3 mg/dL (0.0-1.2) Aspartate Amino Transf (AST/SGOT) 12 U/L (5-40) 9 U/L (5-40) Alanine Aminotransferase (ALT/SGPT) 7 U/L (3-41) 6 U/L (3-41) Alkaline Phosphatase 106 U/L (40-129) 97 U/L (40-129) Troponin I < 0.30 ng/mL (<=0.30) Total Protein 7.3 g/dL (6.6-8.7) 6.7 g/dL (6.6-8.7) Albumin 3.9 g/dL (3.5-5.2) 3.6 g/dL (3.5-5.2) Globulin 3.4 g/dL 3.1 g/dL Albumin/Globulin Ratio 1.1 (1.0-2.7) 1.1 (1.0-2.7) Thyroid Stimulating Hormone (TSH) 1.950 uIU/mL (0.300-4.500) Arterial Blood pH 7.404 (7.350-7.450) Arterial Blood Partial Pressure CO2 37.7 mmHg (35.0-45.0) Arterial Blood Partial Pressure O2 69.0 mmHg (75.0-100.0) L Arterial Blood HCO3 23.0 mmol/L (22.0-26.0) Arterial Blood Oxygen Saturation 94.2 % (92.0-98.0) Arterial Blood Base Excess -1.3 Daniel Test Positive Magnesium Level 2.1 mg/dL (1.7-2.5) Vitamin B12 Level 597 pg/mL (211-946) Folate Pending Current Medications Medications (Trade) Dose Ordered Sig/Jason Route PRN Reason Start Time Stop Time Status Last Admin Dose Admin Acetaminophen (Tylenol) 325 mg Q6H PRN RECTAL Mild Pain/Temp > 100.0 02/07/17 00:15 03/09/17 00:14 Aspirin (ASA) 600 mg DAILY RECTAL 02/07/17 09:00 03/09/17 08:59 02/07/17 10:32 Ceftriaxone Sodium 2 gm/ Dextrose 110 ml @ 220 mls/hr Q24H IVPB 02/07/17 01:00 02/14/17 00:59 02/07/17 01:42 Clonidine HCl (Catapres) 0.1 mg Q4H PRN ORAL SBP above 160 02/06/17 22:30 03/08/17 22:29 02/07/17 06:56 Clonidine HCl (Catapres) 0.1 mg Q4H PRN SL SBP above 160 02/06/17 22:45 03/08/17 22:44 Dextrose (Dextrose 50%) STAT PRN IV Hypoglycemia 02/06/17 22:30 03/08/17 22:29 Dextrose/ Electrolytes 1,000 ml @ 100 mls/hr Q10H IV 02/07/17 00:00 03/09/17 00:00 02/07/17 10:33 Insulin Aspart (NovoLOG) BEFORE MEALS AND HS SUBQ 02/07/17 06:30 03/09/17 06:29 02/07/17 12:51 Levetiracetam 100 ml @ 400 mls/hr Q12HR ONCE IVPB 02/07/17 09:00 02/07/17 09:14 UNV Lorazepam (Ativan 2mg/ml 1ml) 2 mg DAILYPRN PRN IV seizure 02/06/17 22:30 02/13/17 22:29 Vancomycin HCl (Vanco rx to dose) 1 ea DAILY PRN MISC Per rx protocol 02/07/17 00:15 03/09/17 00:14 Ana Maria Calvin M.D. Feb 07, 2017 15:09
[2017-02-07] MEDS ORDERED: Aztreonam Inj 2 GM in D5W 110 ML IVPB SCH (15:15)
[2017-02-07] MEDS ORDERED: Tubing IV Secondary IV ONE (15:40)
[2017-02-07] MEDS ORDERED: NS 275ml ONE (15:40)
[2017-02-07] MEDS ORDERED: D5W 275ml ONE (15:40)
[2017-02-07 16:00] VITALS: BP 155/65
--- NOTE | 2017-02-07 16:45 | History and Physical Report ---
DATE OF ADMISSION: 02/06/2017 REASON FOR ADMISSION: New onset seizures. History Of Present Illness: This 81-year-old male with a history of cerebrovascular disease, dementia, and ischemic cardiomyopathy was referred to the emergency room early today with generalized weakness. A workup was performed notable only for lactic acidosis that resolved and according to patient's family member his daughter he was at his baseline mentation. He was treated empirically for urinary infection and discharged back to a halfway facility. Upon discussions with the patient's daughter who agreed with plan. Apparently in the ambulance, he suffered a seizure and had a recurrent one just upon arrival back to the emergency room. He was treated with lorazepam and Keppra and subsequently was lethargic and poorly responsive consistent with a postictal state. The patient had a CAT scan of the brain performed both pre and post seizures and both were without any signs of acute process. Past Medical History: Coronary artery disease with history of CABG, chronic stable angina, noninvasive stress test here at this hospital approximately one month ago revealing no significant reversible ischemia, hypertensive heart disease, chronic kidney disease, type 1 diabetes mellitus, benign prostatic hypertrophy, gastroesophageal reflux disease, blindness in one eye, dysphagia, polyneuropathy, and dementia. ALLERGIES: Penicillin. SOCIAL HISTORY: No record of smoking, alcohol, or substance abuse. Medications: Prior to admission, reviewed and reconciled. Advance directive DNR/DNI. Review Of Systems: Not obtainable from the patient. Pertinent data from prior review of records is outlined above. PHYSICAL EXAMINATION: Vital Signs: Blood pressure 165/89, pulse 95, and respiratory rate 20, and afebrile. HEENT: Temporal wasting. Pale conjunctiva. Oropharynx clear. NECK: Supple. LUNGS: Clear. Cardiac: Regular rhythm and rate. Normal S1 and S2 with a fourth heart sound. Chest with median sternotomy scar. ABDOMEN: Soft and nontender. EXTREMITIES: Without edema. Neurologic: Presently to be without seizure activity and poorly responsive. Laboratory and Diagnostic Data: White count 11.5 and hemoglobin 13.7. Troponin negative. TSH is 1.9. Sodium 144, potassium 4.4, bicarbonate 26, BUN 35, creatinine 3.5, and glucose 288. ABG 7.40, 37, and 69. IMPRESSION: 1. New onset seizures. 2. Cerebrovascular disease with multi-infarct dementia. 3. Ischemic cardiomyopathy with prior coronary artery bypass graft. 4. Insulin-requiring diabetes with multiple complications. 5. Lactic acidosis, resolved. PLAN: 1. Cardiac monitoring. 2. nursing care plan. 3. Hypotonic IV fluid hydration. 4. Insulin coverage by sliding scale. 5. NPO for now. 6. Seizure precautions. 7. Continue IV Keppra. 8. Metabolic profile. 9. SCDs. 10. We will follow up with neurologic evaluation and likely need MRI of the brain. 11. Continue cardiac monitoring for signs of atrial arrhythmias. 12. We will continue anti-platelet therapy. 13. We will follow. Blaze Lucero M.D. DR: ANDREY JOB#: [id number] CC: Eros Espinoza M.D.; Fax#: [phone]
[2017-02-07] MEDS: Aztreonam 1gm/D5W 55ml IVPB SCH ×4 (17:14→22:00)
[2017-02-07 19:37] VITALS: BP 156/81
[2017-02-07] MEDS ORDERED: levETIRAcetam 500mg/NS100ml 100 ML IVPB SCH (21:00)
[2017-02-07] MEDS: Clindamycin 600mg 50 ML IV SCH (22:02)
[2017-02-08 00:04] VITALS: BP 119/39
[2017-02-08 04:00] VITALS: BP 142/53
[2017-02-08 05:26] LABS: BASOPHILS % (AUTO) 0.6 % (0.0-2.0); EOSINOPHILS % (AUTO) 6.5 % (0.0-3.0); LYMPHOCYTES % (AUTO) 18.7 % (20.0-45.0); MEAN CORPUSCULAR HEMOGLOBIN 33.1 PG (27.0-31.0); MEAN CORPUSCULAR HGB CONC 34.1 G/DL (32.0-36.0); MEAN CORPUSCULAR VOLUME 97 FL (80-99); MEAN PLATELET VOLUME 10.8 FL (6.5-10.1); MONOCYTES % (AUTO) 13.5 % (1.0-10.0); NEUTROPHILS % (AUTO) 60.7 % (45.0-75.0); PLATELET COUNT 147 K/UL (150-450); RED BLOOD COUNT 3.53 M/UL (4.70-6.10); RED CELL DISTRIBUTION WIDTH 12.3 % (11.6-14.8); WHITE BLOOD COUNT 9.4 K/UL (4.8-10.8)
[2017-02-08] MEDS: Aztreonam 1gm/D5W 55ml IVPB SCH ×6 (06:00→22:07)
[2017-02-08 06:15] LABS: ANION GAP 13 (5-15); CALCIUM 9.4 mg/dL (8.6-10.2); CARBON DIOXIDE 24 mEQ/L (20-30); CHLORIDE 105 mEQ/L (98-107); CREATININE 3.8 mg/dL (0.7-1.2); HEMOLYSIS 0; SODIUM 142 mEQ/L (135-145)
[2017-02-08] MEDS: Clindamycin 600mg 50 ML IV SCH ×3 (06:27→21:25)
[2017-02-08] MEDS: NovoLOG Insulin Flexpen SUBQ SCH ×4 (06:48→21:26)
[2017-02-08 08:00] VITALS: BP 139/54
--- NOTE | 2017-02-08 08:32 | Progress Note ---
DATE: 02/07/2017 Subjective: The patient had seizures yesterday in the emergency room after initially presenting with altered mentation. No definitive source of infection was found. He was loaded with Keppra. No recurring seizures were noted, however, he did have recurrent fever. He was pancultured and started on antibiotics last evening with choice of antibiotics. They also are concerned about possible meningitis. OBJECTIVE: Vital Signs: 132/65 to 155/65, heart rate 52 to 62, respiratory rate 16 to 18, and temperature now 97.3 degrees. General: Left-sided weakness. The patient is alert and interactive today. LUNGS: Clear. CARDIAC: Regular. Normal S1 and S2. ABDOMEN: Soft. EXTREMITIES: No edema. Laboratory Data: White count 11.8 and hemoglobin 13.1. Potassium 4.3, BUN 33, creatinine 3.4, and glucose 341. IMPRESSION: 1. New onset seizures. 2. Fevers. 3. 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 4. Possible aspiration. 5. Acute on chronic kidney disease. 6. Hypertensive heart disease. PLAN: 1. Continue empiric antibiotics with coverage for [employer] system. 2. Antiseizure therapy with Keppra. 3. Await Neurology and ID consult. 4. Discontinue IV fluids. 5. Adjust insulin regimen. 6. Resume diet now that the patient is alert and at baseline mentation. 7. Seizure precautions. 8. 03:16. Blaze Lucero M.D. DR: PERRI JOB#: [id number] CC:
--- NOTE | 2017-02-08 10:20 | Diagnostic Imaging Report ---
Indication: Dyspnea Comparison: None A single view chest radiograph was obtained. Findings: Mild platelike atelectasis demonstrated at the left lung base. Cardiomegaly is present but stable. Sternotomy noted. Bones are osteopenic. Impression: No significant change.
--- NOTE | 2017-02-08 11:21 | Neurology Progress Note ---
Objective Physical Exam Last Vital Signs Date Time Temp Pulse Resp B/P (MAP) Pulse Ox O2 Delivery O2 Flow Rate FiO2 02/08/17 08:00 97.7 56 18 139/54 Nasal Cannula 3.0 02/08/17 04:00 97 Laboratory Tests Test 02/08/17 04:05 White Blood Count 9.4 K/UL (4.8-10.8) Red Blood Count 3.53 M/UL (4.70-6.10) L Hemoglobin 11.7 G/DL (14.2-18.0) L Hematocrit 34.3 % (42.0-52.0) L Mean Corpuscular Volume 97 FL (80-99) Mean Corpuscular Hemoglobin 33.1 PG (27.0-31.0) H Mean Corpuscular Hemoglobin Concent 34.1 G/DL (32.0-36.0) Red Cell Distribution Width 12.3 % (11.6-14.8) Platelet Count 147 K/UL (150-450) L Mean Platelet Volume 10.8 FL (6.5-10.1) H Neutrophils (%) (Auto) 60.7 % (45.0-75.0) Lymphocytes (%) (Auto) 18.7 % (20.0-45.0) L Monocytes (%) (Auto) 13.5 % (1.0-10.0) H Eosinophils (%) (Auto) 6.5 % (0.0-3.0) H Basophils (%) (Auto) 0.6 % (0.0-2.0) Sodium Level 142 mEQ/L (135-145) Potassium Level 4.0 mEQ/L (3.4-4.9) Chloride Level 105 mEQ/L (98-107) Carbon Dioxide Level 24 mEQ/L (20-30) Anion Gap 13 (5-15) Blood Urea Nitrogen 33 mg/dL (7-23) H Creatinine 3.8 mg/dL (0.7-1.2) H Estimat Glomerular Filtration Rate mL/min (>60) Glucose Level 162 mg/dL (74-106) #H Calcium Level 9.4 mg/dL (8.6-10.2) Impression/Recommendations Recommendations # [id number] ARTHUR FULLER Feb 08, 2017 11:21
[2017-02-08 12:00] VITALS: BP 136/75
[2017-02-08 16:00] VITALS: BP 148/62
--- NOTE | 2017-02-08 17:19 | Infectious Diseases Prog Note ---
Assessment/Plan Problems: (1) UTI (urinary tract infection) Assessment & Plan: on aztreonam empirically pending urine culture (2) Sepsis Assessment & Plan: on aztreonam and clindamycin pending blood culture results, CXR ruled out pneumonia (3) Fever Assessment & Plan: no evidence of meningitis or encephalitis clinically, most likely due to the above, continue wide spectrum antibiotics, pending culture results (4) Seizure Assessment & Plan: continue neuro check, and tele, on [facility] , neurology is following Subjective ROS Limited/Unobtainable: Yes Allergies: Coded Allergies: PENICILLINS (Verified Allergy, Unknown, 11/14/15) Subjective he was awake and alert, no agitation or neck stiffness, tolerated diet well, no cough or SOB, no seizure activity Objective Vital Signs Last 24 Hour Vital Signs Date Time Temp Pulse Resp B/P (MAP) Pulse Ox O2 Delivery O2 Flow Rate FiO2 02/08/17 12:00 97.2 49 16 136/75 Nasal Cannula 3.0 02/08/17 12:00 49 02/08/17 08:00 97.7 56 18 139/54 Nasal Cannula 3.0 02/08/17 08:00 52 02/08/17 04:00 61 02/08/17 04:00 98.2 57 16 142/53 97 Nasal Cannula 2.0 02/08/17 00:04 98.8 54 16 119/39 97 Nasal Cannula 2.0 02/08/17 00:00 56 02/07/17 20:00 63 02/07/17 19:37 98.2 63 16 156/81 97 Nasal Cannula 2.0 Height (Feet): 5 Height (Inches): 6.00 Weight (Pounds): 150 General Appearance: WD/WN, no acute distress HEENT: normocephalic, atraumatic, anicteric, mucous membranes moist Respiratory/Chest: chest wall non-tender, normal breath sounds, no respiratory distress, no accessory muscle use, decreased breath sounds Cardiovascular: normal peripheral pulses, normal rate, regular rhythm Abdomen: normal bowel sounds, soft, non tender, no organomegaly, non distended , no mass Extremities: no cyanosis, no clubbing, other - bruises, and scraches Skin: no rash, no lesions Microbiology Date/Time Source Procedure Growth Status 02/06/17 19:00 Nasal Nares MRSA Culture - Final NO METHICILLIN RESISTANT STAPH AUREUS... Complete 02/06/17 19:00 Rectum VRE Culture - Final NO VANCOMYCIN RESISTANT ENTEROCOCCUS ... Complete Laboratory Tests Test 02/08/17 04:05 White Blood Count 9.4 K/UL (4.8-10.8) Red Blood Count 3.53 M/UL (4.70-6.10) L Hemoglobin 11.7 G/DL (14.2-18.0) L Hematocrit 34.3 % (42.0-52.0) L Mean Corpuscular Volume 97 FL (80-99) Mean Corpuscular Hemoglobin 33.1 PG (27.0-31.0) H Mean Corpuscular Hemoglobin Concent 34.1 G/DL (32.0-36.0) Red Cell Distribution Width 12.3 % (11.6-14.8) Platelet Count 147 K/UL (150-450) L Mean Platelet Volume 10.8 FL (6.5-10.1) H Neutrophils (%) (Auto) 60.7 % (45.0-75.0) Lymphocytes (%) (Auto) 18.7 % (20.0-45.0) L Monocytes (%) (Auto) 13.5 % (1.0-10.0) H Eosinophils (%) (Auto) 6.5 % (0.0-3.0) H Basophils (%) (Auto) 0.6 % (0.0-2.0) Sodium Level 142 mEQ/L (135-145) Potassium Level 4.0 mEQ/L (3.4-4.9) Chloride Level 105 mEQ/L (98-107) Carbon Dioxide Level 24 mEQ/L (20-30) Anion Gap 13 (5-15) Blood Urea Nitrogen 33 mg/dL (7-23) H Creatinine 3.8 mg/dL (0.7-1.2) H Estimat Glomerular Filtration Rate mL/min (>60) Glucose Level 162 mg/dL (74-106) #H Calcium Level 9.4 mg/dL (8.6-10.2) Current Medications Medications (Trade) Dose Ordered Sig/Jason Route PRN Reason Start Time Stop Time Status Last Admin Dose Admin Acetaminophen (Tylenol) 325 mg Q6H PRN RECTAL Mild Pain/Temp > 100.0 02/07/17 00:15 03/09/17 00:14 Aspirin (ASA) 600 mg DAILY RECTAL 02/07/17 09:00 03/09/17 08:59 02/08/17 09:01 Aztreonam 1 gm/ Dextrose 55 ml @ 110 mls/hr EVERY 8 HOURS IVPB 02/07/17 16:00 02/14/17 15:59 02/08/17 14:19 Clindamycin HCl/ Dextrose 50 ml @ 100 mls/hr Q8HR IV 02/07/17 22:00 02/14/17 21:59 02/08/17 14:24 Clonidine HCl (Catapres) 0.1 mg Q4H PRN ORAL SBP above 160 02/06/17 22:30 03/08/17 22:29 02/07/17 06:56 Clonidine HCl (Catapres) 0.1 mg Q4H PRN SL SBP above 160 02/06/17 22:45 03/08/17 22:44 Dextrose (Dextrose 50%) STAT PRN IV Hypoglycemia 02/06/17 22:30 03/08/17 22:29 Insulin Aspart (NovoLOG) BEFORE MEALS AND HS SUBQ 02/07/17 06:30 03/09/17 06:29 02/08/17 09:02 Levetiracetam (Keppra) 500 mg Q12HR ORAL 02/07/17 21:00 03/09/17 20:59 02/08/17 09:00 Lorazepam (Ativan 2mg/ml 1ml) 2 mg DAILYPRN PRN IV seizure 02/06/17 22:30 02/13/17 22:29 Sodium Chloride 1,000 ml @ 75 mls/hr [id number] IV 02/07/17 15:30 03/09/17 15:29 02/08/17 04:50 Ana Maria Calvin M.D. Feb 08, 2017 17:19
[2017-02-08 20:00] VITALS: BP 157/73
--- NOTE | 2017-02-08 20:00 | Consultation ---
DATE OF CONSULTATION: 02/08/2017 NEUROLOGICAL CONSULTATION CONSULTING PHYSICIAN: Monroe Hill M.D. REQUESTING PHYSICIAN: Blaze Lucero M.D. History Of Present Illness: This is an 81-year-old man seen in neurological consultation to evaluate new onset of seizure activities. The patient was initially brought to the emergency room for evidence of acute onset of generalized weakness and was being discharged. Described by paramedics as being oriented x0. He was transferred from [facility] to [facility]. When he started to see going in and out of consciousness without breathing, he was ventilated, given oxygen, and returned back to [facility]. He was transferred to emergency room again. The patient was described as having episodes of decreased respirations associated with muscle rigidity. He was started on intravenous Cipro and Flagyl for urinary tract infection. His vital signs on admission, blood pressure 165/89 and he was afebrile. Initial laboratory work included a CBC study with WBC 11.5. Normal coagulation. Chemistry panel with anion gap of 17, BUN of 35, creatinine 3.5, elevated blood sugar 288, and calcium 10.3. Normal TSH, B12, troponin, and liver function. His imaging studies included CAT scan of the brain, which revealed global cortical atrophy and periventricular chronic ischemic changes. No evidence of acute stroke. No midline shift. His chest x-ray, no significant changes. Cardiomegaly noted. Sternotomy noted. The patient was loaded with Keppra. No further seizure activities were detected. Past Medical History: The patient has a history of left eye blindness, he had a previous stroke with some dysphagia and loss of visual acuity in the left eye. He has a history of diabetes type 2 and diabetic polyneuropathy, coronary artery disease status post coronary artery bypass graft and stenting. He has hypertension with chronic renal insufficiency, benign prostatic hypertrophy, and urinary incontinence. Current Medications: His treatment prior to admission included amlodipine, aspirin, Lipitor, Coreg, Cipro, Plavix, donepezil, famotidine, furosemide, gabapentin 300 mg t.i.d., insulin, Starlix, Januvia, and Zyprexa 2.5 at bedtime. Review Of Symptoms: The patient indicated that he is feeling well. He has no complaints. Denying headache or dizziness. No chest pain. No palpitations. He is unaware having seizures or strokes. PHYSICAL EXAMINATION: General: A well developed and well nourished man, in no acute distress, lying comfortably in bed, and asleep. VITAL SIGNS: Blood pressure 142/80 and respirations 14. HEENT: Head normocephalic. No evidence of trauma. Eyes, ears, and throat are clear. NECK: Supple. No meningeal signs. Musculoskeletal: Unremarkable. There is no deformities. Peripheral pulses 1+ and symmetric. Mental Status: The patient is alert and oriented to his name, but stated his age is 40. He is unaware of where he is located, unaware of the year, and unable to provide with history. He is coherent. Follows commands. Cranial Nerve II: Pupils both responding to light and accommodation. Extraocular movement intact. No nystagmus. CRANIAL NERVE V: Normal corneal responses. CRANIAL NERVE VII: No facial asymmetry. CRANIAL NERVE VIII: Slight decrease in hearing. Cranial Nerve IX Through XII: Tongue is in midline. Symmetric palate elevation. Motor Examination: Able to lift arms against the gravity. No pronation drift. Deep tendon reflexes depressed bilaterally. Plantar responses flexor. The patient indicated that he is unable to ambulate although strength in both lower extremities appears normal. IMPRESSION: 1. Acute onset of generalized seizure activity. 2. 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 3. Diabetes type 1. 4. Hypertension. 5. Chronic renal insufficiency. 6. Vascular dementia. Recommendations: The patient will continue on Keppra 250 mg b.i.d., if necessary to be further titrated. We will check EEG to identify epileptogenic focus. Meanwhile, continue with IV fluids and antibiotics to cover underlying infection. We will continue with aspirin, Lipitor, and Plavix. Thank you for allowing me to see this interesting patient in neurological consultation. Monroe Hill M.D. DR: SILAS JOB#: [id number] CC:
--- NOTE | 2017-02-08 21:30 | History and Physical Report ---
DATE OF ADMISSION: 02/06/2017 History Of Present Illness: This is an 81-year-old male, who was seen in the emergency room here at [facility] with altered level of consciousness. The patient apparently was noted to have decreased respirations with muscle rigidity and he was brought back to the hospital for the same reason. The patient was last seen here in December 2016 with a history of CAD and CABG. He is a residential resident with underlying dementia. In the past, he was seen by Cardiology as well and then refused a stress test, which was subsequently done. Past History: As discussed before, hypertension, CAD, CABG, and cognitive impairment. Medications: Include at this time clindamycin, Keppra, aztreonam, aspirin, and insulin sliding scale. He has also received ceftriaxone and vancomycin. REVIEW OF SYSTEMS: Not obtainable. PHYSICAL EXAMINATION: GENERAL: Examination reveals an elderly male. HEENT: Unremarkable. CHEST: Clear. Breath sounds bilaterally. ABDOMEN: Soft. EXTREMITIES: There is no appreciable edema. NEUROLOGIC: Unable to evaluate because of poor cooperation. Laboratory Data: Lab testing shows hemoglobin 11.7 and white count 9.4. Chemistry notable for creatinine 3.8. His creatinine has been elevated to 3.5 as far back as December 2016. IMPRESSION: 1. Altered mental status. 2. Possible seizures. 3. Rule out meningitis. 4. Chronic renal failure. 5. Hypertension. 6. Coronary artery disease. Discussion: The patient has been seen by Cardiology and ID. I will consult Neurology as well. Continue present medications. We will follow carefully. Eros Espinoza M.D. DR: SEBASTIÁN JOB#: [id number] CC:
[2017-02-09] VITALS (7 sets, daily range): BP systolic 144–172; BP diastolic 60–83
--- NOTE | 2017-02-09 03:15 | Consultation ---
DATE OF CONSULTATION: INFECTIOUS DISEASE CONSULTATION CONSULTING PHYSICIAN: Ana Maria Calvin M.D. REQUESTING PHYSICIAN: Blaze Lucero M.D. Reason For Consultation: Sepsis, fever, possible pneumonia, recommendation for antibiotics treatment. History Of Present Illness: The patient is an 81-year-old male with past medical history of coronary artery disease status post bypass surgery, hypertension, chronic kidney disease, diabetes type 1, GERD, and CVA, was [facility] emergency room for new onset of seizure. Unclear whether he had clonic-tonic seizure. There was no report of fever or chills, but UTI. The patient was given Cipro with Flagyl for treatment of UTI at the facility. The patient was found to have fever in the emergency room so he was given vancomycin and ceftriaxone by the admitting physician and I was consulted for antibiotic choice and further evaluation and management. As of note, the patient is poor historian, cannot provide any history. History was mainly obtained from his daughter and medical record. Review Of Systems: Unable to obtain at this point, the patient is a poor historian. Past Medical History: Significant for coronary artery disease status post bypass graft, chronic kidney disease, hypertension, diabetes type 1, benign prostatic hypertrophy, GERD, dysphagia, CVA, left eye blindness, Alzheimer dementia. PAST SURGICAL HISTORY: He had CABG graft surgery. Medications: The patient received vancomycin and ceftriaxone by the admitting physician. For the rest of his medications, please refer to MAR. ALLERGIES: He is allergic to penicillin, unclear exact reaction. Social History: He is a [facility] resident. No recent drugs, tobacco, or alcohol. 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 FAMILY HISTORY: Unable to obtain. PHYSICAL EXAMINATION: Vital Signs: Temperature 99 degrees, pulse 75, respirations 20, blood pressure 147/73, and O2 saturation 95% on two liters nasal cannula. General: An elderly male, lying in bed, awake, alert, responsive, daughter at the bedside, not in acute distress. HEENT: Normocephalic and atraumatic. Pupils are reactive on the right. On the left eye, he had artificial lens. Dry oral mucosa. No exudate. NECK: Supple. No lymphadenopathy. CARDIOVASCULAR: Regular rate and rhythm. No murmur or gallop. Lungs: He had congestion with rales. Diminished breathing sound at the bases. No wheezing. ABDOMEN: Soft, nontender, nondistended. Positive bowel sounds. EXTREMITIES: No edema or cyanosis. Multiple bruises on both legs. Skin: No rash or hives, but bruises and ecchymosis on both thighs and legs. Laboratory Data: Labs showed white count of 11.8, hemoglobin of 15.1, platelet count of 172. BUN of 33, creatinine of 3.4, calcium of 10.3. AST of 12, ALT of 7. Imaging: CT scan of the head showed no significant interval change from prior exam six hours earlier no acute intracranial abnormalities. ASSESSMENT AND RECOMMENDATION: 1. Urinary tract infection. We will start aztreonam empiric treatment since he has allergy to penicillin and send urine culture. 2. Sepsis, source most likely urine infection, need to rule out pneumonia. We will order chest x-ray to rule out pneumonia. Continue aztreonam and clindamycin empiric treatment. Pending blood culture. 3. Fever due to the above. Continue wide-spectrum antibiotics. Pending culture results. 4. New onset seizure. Continue neurologic check, Keppra, and telemonitor. Recommend Neurology consult for further evaluation. 5. Chronic kidney disease. Recommend hydration. Avoid nephrotoxic medicine and monitor renal function. Ana Maria Calvin M.D. DR: Kai JOB#: [id number] CC:
--- NOTE | 2017-02-09 05:00 | Progress Note ---
DATE: 02/08/2017 CARDIOLOGY PROGRESS NOTE Subjective: The patient has not had any new seizure activity. He has not complained of chest pain or shortness of breath. EEG is in progress. OBJECTIVE: Vital Signs: Blood pressure 157/73, pulse 63, respiratory rate 20. Heart rate ranging from 49 to 66. Monitored rhythm, sinus bradycardia. LUNGS: Bilateral breath sounds. Heart: Regular rhythm and rate. Normal S1 and S2 with a fourth heart sound. ABDOMEN: Soft. EXTREMITIES: No edema. Left hemiparesis. IMPRESSION: 1. Ischemic cardiomyopathy. 2. Stable angina. 3. Rehydrated with IV fluids. 4. Bradycardia of no clinical significance. 5. Seizure disorder. 6. Cerebrovascular disease. 7. Hypertensive heart disease. PLAN: 1. Discontinue clonidine. 2. Discontinue IV fluids. 3. Continue anti-platelet therapy with aspirin. 4. Low-dose statin added. 5. Add low-dose hydralazine for blood pressure control and reflex tachycardic benefits. Blaze Lucero M.D. DR: ANDREY JOB#: [id number] CC:
[2017-02-09] MEDS: Clindamycin 600mg 50 ML IV SCH ×3 (05:07→21:17)
[2017-02-09] MEDS: Aztreonam 1gm/D5W 55ml IVPB SCH ×6 (05:54→22:36)
[2017-02-09] MEDS: Nateglinide 60mg tab ORAL SCH ×3 (06:36→17:06)
[2017-02-09] MEDS: NovoLOG Insulin Flexpen SUBQ SCH ×4 (06:38→21:25)
[2017-02-09] MEDS: Imdur 30mg tab ORAL SCH (09:28)
[2017-02-09] MEDS: Aspirin Baby 81mg ORAL SCH (09:28)
--- NOTE | 2017-02-09 12:22 | Pulmonology Progress Note ---
Assessment/Plan Assessment/Plan 1. Altered mental status. Improved 2. Possible seizures. Seen by neurology 3. Rule out meningitis. On Abx 4. Chronic renal failure. 5. Hypertension. 6. Coronary artery disease. Discussion: The patient has been seen by Neurology, Cardiology and ID. I will consult Nephrology as well. Continue present medications. I will follow carefully. Subjective Interval Events: More awake and responsive Constitutional: Reports: no symptoms HEENT: Repors: no symptoms Respiratory: Reports: no symptoms Cardiovascular: Reports: no symptoms Gastrointestinal/Abdominal: Reports: no symptoms Allergies: Coded Allergies: PENICILLINS (Verified Allergy, Unknown, 11/14/15) Objective Last 24 Hour Vital Signs Date Time Temp Pulse Resp B/P (MAP) Pulse Ox O2 Delivery O2 Flow Rate FiO2 02/09/17 12:00 53 02/09/17 09:28 159/70 02/09/17 08:00 66 02/09/17 08:00 97.8 64 19 159/70 94 Nasal Cannula 2.0 02/09/17 04:00 98.4 59 20 154/76 98 Nasal Cannula 2.0 02/09/17 03:36 61 02/09/17 00:02 64 02/09/17 00:00 97.3 64 20 147/66 98 Nasal Cannula 2.0 02/08/17 20:02 66 02/08/17 20:00 97.3 63 20 157/73 99 Nasal Cannula 2.0 02/08/17 16:00 97.7 55 19 148/62 96 Nasal Cannula 2.0 02/08/17 16:00 55 HEENT: normocephalic Respiratory/Chest: chest wall non-tender Cardiovascular: normal peripheral pulses Abdomen: normal bowel sounds Extremities: no cyanosis Microbiology Date/Time Source Procedure Growth Status 02/07/17 12:15 Blood Blood Culture - Preliminary NO GROWTH AFTER 24 HOURS Resulted 02/06/17 19:00 Nasal Nares MRSA Culture - Final NO METHICILLIN RESISTANT STAPH AUREUS... Complete 02/08/17 10:45 External Cath Urine Culture - Preliminary NO GROWTH Resulted 02/06/17 19:00 Rectum VRE Culture - Final NO VANCOMYCIN RESISTANT ENTEROCOCCUS ... Complete Current Medications Medications (Trade) Dose Ordered Sig/Jason Route PRN Reason Start Time Stop Time Status Last Admin Dose Admin Acetaminophen (Tylenol) 325 mg Q6H PRN RECTAL Mild Pain/Temp > 100.0 10/1/17 00:15 03/09/17 00:14 Aspirin (ASA) 81 mg DAILY ORAL 02/09/17 09:00 03/11/17 08:59 02/09/17 09:28 Atorvastatin Calcium (Lipitor) 10 mg BEDTIME ORAL 02/09/17 21:00 03/11/17 20:59 Aztreonam 1 gm/ Dextrose 55 ml @ 110 mls/hr EVERY 8 HOURS IVPB 02/07/17 16:00 02/14/17 15:59 02/09/17 05:54 Clindamycin HCl/ Dextrose 50 ml @ 100 mls/hr Q8HR IV 02/07/17 22:00 02/14/17 21:59 02/09/17 05:07 Dextrose (Dextrose 50%) STAT PRN IV Hypoglycemia 02/06/17 22:30 03/08/17 22:29 Insulin Aspart (NovoLOG) BEFORE MEALS AND HS SUBQ 02/07/17 06:30 03/09/17 06:29 02/09/17 06:38 Isosorbide Mononitrate (Imdur) 30 mg DAILY ORAL 02/09/17 09:00 03/11/17 08:59 02/09/17 09:28 Levetiracetam (Keppra) 500 mg Q12HR ORAL 02/07/17 21:00 03/09/17 20:59 02/09/17 09:28 Lorazepam (Ativan 2mg/ml 1ml) 2 mg DAILYPRN PRN IV seizure 02/06/17 22:30 02/13/17 22:29 Nateglinide (Starlix) 60 mg TIAC ORAL 02/09/17 06:30 03/11/17 06:29 02/09/17 06:36 Eros Espinoza MD Feb 09, 2017 12:22
--- NOTE | 2017-02-09 14:49 | Neurology Progress Note ---
Interim History Interim History ROS Limited/Unobtainable: No Complaints: unstable gait Events: no sz Objective Physical Exam Last Vital Signs Date Time Temp Pulse Resp B/P (MAP) Pulse Ox O2 Delivery O2 Flow Rate FiO2 02/09/17 12:00 97.5 53 20 151/60 98 Nasal Cannula 2.0 General: well developed, well nourished, no acute distress Head: normocophalic, other - periorbital ecchymosis Neck: no rigidity Neurologic Exam Mental Status: awake, alert, normal recent memory Speech: normal speech, no dysarthia Language: normal language, no aphasia Cranial Nerve II: fundus normal, visual delgado, no papilledema Cranial Nerves III, IV, : PERRLA, EOMI, pupils Cranial Nerve V: normal facial sensations, temporales function normal, masseters function normal, pterygoids function normal Cranial Nerve VII: no facial asymmetry, normal facial expressions Cranial Nerve VIII: normal hearing, no nystagmus Cranial Nerve IX: normal palate elevation, gag response Cranial Nerve X: no voice hoarseness Cranial Nerve XI: SCM symmetric, trapezii function normal Cranial Nerve XII: tongue midline, no tongue atrophy/fasciculations Motor System: normal muscle tone, strength 5/5, no involuntary movement, no muscle wasting Sensory: normal pinprick Coordination: normal finger to nose bilaterally, other - + romberg Deep Tendon Reflexes: 0 bicep (L), 0 bicep (R), 0 tricep (L), 0 tricep (R), 0 brachioradialis (L), 0 brachioradialis (R), 0 knee (L), 0 knee (R), 0 ankle (L) , 0 ankle (R) Reflexes: mute plantar (L), mute plantar (R) Gait: other - unstable Impression/Recommendations Problems: (1) dilantin toxicity (2) Renal insufficiency (3) CAD (coronary artery disease) (4) Syncope Status: stable Recommendations # [id number] d/c dilantin start keppra 500mg bid pt/ot ARTHUR FULLER Feb 09, 2017 14:49
--- NOTE | 2017-02-09 15:32 | Neurology Progress Note ---
Interim History Interim History ROS Limited/Unobtainable: No Complaints: feel ok Events: no sz Objective Physical Exam Last Vital Signs Date Time Temp Pulse Resp B/P (MAP) Pulse Ox O2 Delivery O2 Flow Rate FiO2 02/09/17 12:00 97.5 53 20 151/60 98 Nasal Cannula 2.0 General: well developed, well nourished, no acute distress Head: normocophalic, other Neck: no rigidity Neurologic Exam Mental Status: awake, alert, normal recent memory Speech: normal speech, no dysarthia Language: normal language, no aphasia Cranial Nerve II: fundus normal, visual delgado, no papilledema Cranial Nerves III, IV, : PERRLA, EOMI, pupils Cranial Nerve V: normal facial sensations, temporales function normal, masseters function normal, pterygoids function normal Cranial Nerve VII: no facial asymmetry, normal facial expressions Cranial Nerve VIII: normal hearing, no nystagmus Cranial Nerve IX: normal palate elevation, gag response Cranial Nerve X: no voice hoarseness Cranial Nerve XI: SCM symmetric, trapezii function normal Cranial Nerve XII: tongue midline, no tongue atrophy/fasciculations Motor System: normal muscle tone, strength 5/5, no involuntary movement, no muscle wasting Sensory: normal pinprick Coordination: normal finger to nose bilaterally, other - + romberg Deep Tendon Reflexes: 0 bicep (L), 0 bicep (R), 0 tricep (L), 0 tricep (R), 0 brachioradialis (L), 0 brachioradialis (R), 0 knee (L), 0 knee (R), 0 ankle (L) , 0 ankle (R) Reflexes: mute plantar (L), mute plantar (R) Gait: other - unstable Impression/Recommendations Problems: (1) new onset of seizure disorder (2) Renal insufficiency (3) CAD (coronary artery disease) (4) Lactic acid acidosis Status: stable Recommendations # [id number] cont present rx keppra 500mg bid ARTHUR FULLER Feb 09, 2017 15:32
[2017-02-09] MEDS ORDERED: Tubing IV Secondary IV ONE (15:53)
[2017-02-09] MEDS ORDERED: NS 275ml ONE (15:53)
[2017-02-09] MEDS ORDERED: 1/2 NS 1000ml IV ONE (15:53)
--- NOTE | 2017-02-09 17:12 | Infectious Diseases Prog Note ---
Assessment/Plan Problems: (1) UTI (urinary tract infection) Assessment & Plan: on aztreonam empirically pending urine culture (2) Sepsis Assessment & Plan: on aztreonam and clindamycin pending blood culture results, CXR ruled out pneumonia (3) Fever Assessment & Plan: no evidence of meningitis or encephalitis clinically, most likely due to the above, continue wide spectrum antibiotics, pending culture results (4) Seizure Assessment & Plan: continue neuro check, and tele, on kera , neurology is following Subjective ROS Limited/Unobtainable: Yes Allergies: Coded Allergies: PENICILLINS (Verified Allergy, Unknown, 11/14/15) Subjective he was more awake and alert, no agitation or neck stiffness, tolerated diet well , pleasant and comfortable in bed, pulled his peripheral iv line out , no cough or SOB, no seizure activity Objective Vital Signs Last 24 Hour Vital Signs Date Time Temp Pulse Resp B/P (MAP) Pulse Ox O2 Delivery O2 Flow Rate FiO2 02/09/17 16:11 97.0 51 18 144/64 98 Nasal Cannula 2.0 02/09/17 12:00 97.5 53 20 151/60 98 Nasal Cannula 2.0 02/09/17 12:00 53 02/09/17 09:28 159/70 02/09/17 08:00 66 02/09/17 08:00 97.8 64 19 159/70 94 Nasal Cannula 2.0 02/09/17 04:00 98.4 59 20 154/76 98 Nasal Cannula 2.0 02/09/17 03:36 61 02/09/17 00:02 64 02/09/17 00:00 97.3 64 20 147/66 98 Nasal Cannula 2.0 02/08/17 20:02 66 02/08/17 20:00 97.3 63 20 157/73 99 Nasal Cannula 2.0 Height (Feet): 5 Height (Inches): 6.00 Weight (Pounds): 150 General Appearance: WD/WN, no acute distress HEENT: normocephalic, atraumatic, anicteric, mucous membranes moist, supple, no JVD Respiratory/Chest: chest wall non-tender, lungs clear, normal breath sounds, no respiratory distress, no accessory muscle use Cardiovascular: normal peripheral pulses, normal rate, regular rhythm, no gallop/murmur, no JVD Abdomen: normal bowel sounds, soft, non tender, no organomegaly, non distended , no mass, no scars Extremities: no cyanosis, no clubbing Skin: no rash, no lesions Neurologic/Psychiatric: alert, oriented x 3, responsive Microbiology Date/Time Source Procedure Growth Status 02/07/17 12:15 Blood Blood Culture - Preliminary NO GROWTH AFTER 24 HOURS Resulted 02/06/17 19:00 Nasal Nares MRSA Culture - Final NO METHICILLIN RESISTANT STAPH AUREUS... Complete 02/08/17 10:45 External Cath Urine Culture - Preliminary NO GROWTH Resulted 02/06/17 19:00 Rectum VRE Culture - Final NO VANCOMYCIN RESISTANT ENTEROCOCCUS ... Complete Current Medications Medications (Trade) Dose Ordered Sig/Jason Route PRN Reason Start Time Stop Time Status Last Admin Dose Admin Acetaminophen (Tylenol) 325 mg Q6H PRN RECTAL Mild Pain/Temp > 100.0 02/07/17 00:15 03/09/17 00:14 Aspirin (ASA) 81 mg DAILY ORAL 02/09/17 09:00 03/11/17 08:59 02/09/17 09:28 Atorvastatin Calcium (Lipitor) 10 mg BEDTIME ORAL 02/09/17 21:00 03/11/17 20:59 Aztreonam 1 gm/ Dextrose 55 ml @ 110 mls/hr EVERY 8 HOURS IVPB 02/07/17 16:00 02/14/17 15:59 02/09/17 14:49 Clindamycin HCl/ Dextrose 50 ml @ 100 mls/hr Q8HR IV 02/07/17 22:00 02/14/17 21:59 02/09/17 15:35 Dextrose (Dextrose 50%) STAT PRN IV Hypoglycemia 02/06/17 22:30 03/08/17 22:29 Insulin Aspart (NovoLOG) BEFORE MEALS AND HS SUBQ 02/07/17 06:30 03/09/17 06:29 02/09/17 17:09 Isosorbide Mononitrate (Imdur) 30 mg DAILY ORAL 02/09/17 09:00 03/11/17 08:59 02/09/17 09:28 Levetiracetam (Keppra) 500 mg Q12HR ORAL 02/07/17 21:00 03/09/17 20:59 02/09/17 09:28 Lorazepam (Ativan 2mg/ml 1ml) 2 mg DAILYPRN PRN IV seizure 02/06/17 22:30 02/13/17 22:29 Nateglinide (Starlix) 60 mg TIAC ORAL 02/09/17 06:30 03/11/17 06:29 02/09/17 17:06 Ana Maria Calvin M.D. Feb 09, 2017 17:12
[2017-02-10 04:39] VITALS: BP 132/82
[2017-02-10] MEDS: Clindamycin 600mg 50 ML IV SCH ×2 (05:31→14:00)
[2017-02-10 05:53] LABS: BASOPHILS % (AUTO) 0.8 % (0.0-2.0); EOSINOPHILS % (AUTO) 10.1 % (0.0-3.0); LYMPHOCYTES % (AUTO) 26.4 % (20.0-45.0); MEAN CORPUSCULAR HEMOGLOBIN 33.3 PG (27.0-31.0); MEAN CORPUSCULAR VOLUME 95 FL (80-99); MEAN PLATELET VOLUME 9.7 FL (6.5-10.1); MONOCYTES % (AUTO) 14.6 % (1.0-10.0); NEUTROPHILS % (AUTO) 48.2 % (45.0-75.0); PLATELET COUNT 154 K/UL (150-450); RED CELL DISTRIBUTION WIDTH 11.6 % (11.6-14.8); WHITE BLOOD COUNT 6.4 K/UL (4.8-10.8)
[2017-02-10] MEDS: Nateglinide 60mg tab ORAL SCH ×3 (06:04→16:48)
[2017-02-10] MEDS: Aztreonam 1gm/D5W 55ml IVPB SCH ×4 (06:05→14:27)
[2017-02-10] MEDS: NovoLOG Insulin Flexpen SUBQ SCH ×4 (06:09→20:27)
[2017-02-10 06:34] LABS: ALANINE AMINOTRANSFERASE 6 U/L (3-41); ANION GAP 13 (5-15); ASPARTATE AMINO TRANSFERASE 10 U/L (5-40); CALCIUM 9.1 mg/dL (8.6-10.2); CARBON DIOXIDE 24 mEQ/L (20-30); CHLORIDE 103 mEQ/L (98-107); CREATININE 3.6 mg/dL (0.7-1.2); HEMOLYSIS 2; MAGNESIUM 2.1 mg/dL (1.7-2.5); POTASSIUM 3.8 mEQ/L (3.4-4.9); SODIUM 140 mEQ/L (135-145); TOTAL PROTEIN 5.8 g/dL (6.6-8.7)
[2017-02-10 08:00] VITALS: BP 180/76
--- NOTE | 2017-02-10 08:19 | Pulmonology Progress Note ---
Assessment/Plan Assessment/Plan 1. Altered mental status. Improved 2. Possible seizures. Seen by neurology 3. Rule out meningitis. On Abx 4. Chronic renal failure. 5. Hypertension. 6. Coronary artery disease. Discussion: The patient has been seen by Neurology, Cardiology and ID. Continue present medications. I will follow carefully. DC planning to SNF in AM Subjective Interval Events: Awake; responsive; has moist cough Constitutional: Reports: no symptoms HEENT: Repors: no symptoms Respiratory: Reports: no symptoms Cardiovascular: Reports: no symptoms Gastrointestinal/Abdominal: Reports: no symptoms Genitourinary: Reports: no symptoms Allergies: Coded Allergies: PENICILLINS (Verified Allergy, Unknown, 11/14/15) Objective Last 24 Hour Vital Signs Date Time Temp Pulse Resp B/P (MAP) Pulse Ox O2 Delivery O2 Flow Rate FiO2 02/10/17 04:39 98.2 63 20 132/82 97 Nasal Cannula 02/10/17 04:11 55 02/10/17 00:00 60 02/09/17 23:45 98.0 62 20 172/83 96 Nasal Cannula 02/09/17 20:00 57 02/09/17 19:58 98.6 58 20 152/69 99 Nasal Cannula 02/09/17 16:11 97.0 51 18 144/64 98 Nasal Cannula 2.0 02/09/17 16:00 50 02/09/17 12:00 53 02/09/17 12:00 97.5 53 20 151/60 98 Nasal Cannula 2.0 02/09/17 09:28 159/70 General Appearance: no acute distress HEENT: normocephalic Respiratory/Chest: chest wall non-tender Cardiovascular: normal peripheral pulses Abdomen: normal bowel sounds Extremities: no cyanosis Microbiology Date/Time Source Procedure Growth Status 02/08/17 23:47 Blood Blood Culture - Preliminary NO GROWTH AFTER 24 HOURS Resulted 02/08/17 23:45 Blood Blood Culture - Preliminary NO GROWTH AFTER 24 HOURS Resulted 02/07/17 12:15 Blood Blood Culture - Preliminary NO GROWTH AFTER 48 HOURS Resulted 02/08/17 10:45 External Cath Urine Culture - Preliminary NO GROWTH AFTER 24 HOURS Resulted Laboratory Tests 02/10/17 03:30: White Blood Count 6.4, Red Blood Count 3.50L, Hemoglobin 11.7L, Hematocrit 33.3L , Mean Corpuscular Volume 95, Mean Corpuscular Hemoglobin 33.3H, Mean Corpuscular Hemoglobin Concent 35.0, Red Cell Distribution Width 11.6, Platelet Count 154, Mean Platelet Volume 9.7, Neutrophils (%) (Auto) 48.2, Lymphocytes (% ) (Auto) 26.4, Monocytes (%) (Auto) 14.6H, Eosinophils (%) (Auto) 10.1H, Basophils (%) (Auto) 0.8, Sodium Level 140, Potassium Level 3.8, Chloride Level 103, Carbon Dioxide Level 24, Anion Gap 13, Blood Urea Nitrogen 34H, Creatinine 3.6H, Estimat Glomerular Filtration Rate , Glucose Level 171H, Calcium Level 9.1 , Magnesium Level 2.1, Total Bilirubin < 0.2, Aspartate Amino Transf (AST/SGOT) 10, Alanine Aminotransferase (ALT/SGPT) 6, Alkaline Phosphatase 84, Pro-B-Type Natriuretic Peptide 6188H, Total Protein 5.8L, Albumin 3.0L, Globulin 2.8, Albumin/Globulin Ratio 1.0 Current Medications Medications (Trade) Dose Ordered Sig/Jason Route PRN Reason Start Time Stop Time Status Last Admin Dose Admin Acetaminophen (Tylenol) 325 mg Q6H PRN RECTAL Mild Pain/Temp > 100.0 02/07/17 00:15 03/09/17 00:14 Aspirin (ASA) 81 mg DAILY ORAL 02/09/17 09:00 03/11/17 08:59 02/09/17 09:28 Atorvastatin Calcium (Lipitor) 10 mg BEDTIME ORAL 02/09/17 21:00 03/11/17 20:59 02/09/17 21:17 Aztreonam 1 gm/ Dextrose 55 ml @ 110 mls/hr EVERY 8 HOURS IVPB 02/07/17 16:00 02/14/17 15:59 02/10/17 06:05 Clindamycin HCl/ Dextrose 50 ml @ 100 mls/hr Q8HR IV 02/07/17 22:00 02/14/17 21:59 02/10/17 05:31 Dextrose (Dextrose 50%) STAT PRN IV Hypoglycemia 02/06/17 22:30 03/08/17 22:29 Insulin Aspart (NovoLOG) BEFORE MEALS AND HS SUBQ 02/07/17 06:30 03/09/17 06:29 02/10/17 06:09 Isosorbide Mononitrate (Imdur) 30 mg DAILY ORAL 02/09/17 09:00 03/11/17 08:59 02/09/17 09:28 Levetiracetam (Keppra) 500 mg Q12HR ORAL 02/07/17 21:00 03/09/17 20:59 02/09/17 21:16 Lorazepam (Ativan 2mg/ml 1ml) 2 mg DAILYPRN PRN IV seizure 02/06/17 22:30 02/13/17 22:29 Nateglinide (Starlix) 60 mg TIAC ORAL 02/09/17 06:30 03/11/17 06:29 02/10/17 06:04 Eros Espinoza MD Feb 10, 2017 08:19
[2017-02-10] MEDS: Aspirin Baby 81mg ORAL SCH (09:40)
[2017-02-10] MEDS: Imdur 30mg tab ORAL SCH (09:40)
[2017-02-10 12:00] VITALS: BP 146/70
--- NOTE | 2017-02-10 13:47 | Physician Query ---
PLEASE COMPLETE DOCUMENT BEFORE SIGNING Dear Dr. Eros Espinoza Date: February Drill Hand/CDS Name: BRITTNI Rodriguez Drill Hand / CDS Phone #_[phone] Exercise your independent professional judgment when responding to query. Question asked do not imply a particular answer is desired/expected. Clinical Documentation States: This is an 81-year-old male, who was seen in the emergency room here at [facility] with altered level of consciousness. "Altered Level Of Consciousness" documented in the History and Physical Examination of Dr. Eros Espinoza. Clinical Findings Show: Seizures R/O Meningitis NEUROLOGIC: Unable to evaluate because of poor cooperation. WBC= 11.5, 11.8 Creatinine= 3.4, 3.8, 3.6 BUN=33,35,33 CT Scan: No significant interval change from prior exam 6 hours earlier. No acute intracranial abnormalities. Global cortical atrophy with periventricular chronic ischemic changes. Please indicate the nature and chronicity of the condition below: [] Metabolic Encephalopathy [] Toxic Encephalopathy [] Toxic - Metabolic Encephalopathy [] Progressive Encephalopathy [] Encephalopathy, Other [] Other: [] Not Applicable Severity [] Acute [] Chronic [] Acute on Chronic [] Unable to determine Condition Present on Admission: [] Yes [] No []Clinically Undeterminable Please also document in your Progress Notes and/or Discharge Summary and indicate if the condition was present on admission. Eros Espinoza MD [facility]
[2017-02-10 16:00] VITALS: BP 145/66
--- NOTE | 2017-02-10 16:00 | Infectious Diseases Prog Note ---
Assessment/Plan Problems: (1) UTI (urinary tract infection) Assessment & Plan: on aztreonam empirically , urine culture is negative, will stop (2) Sepsis Assessment & Plan: on aztreonam and clindamycin , blood culture is negative , CXR ruled out pneumonia, will stop antibiotics (3) Fever Assessment & Plan: no evidence of meningitis or encephalitis clinically, all cultures are negative , will stop antibiotics (4) Seizure Assessment & Plan: continue neuro check, and tele, on [facility] , neurology is following Subjective ROS Limited/Unobtainable: Yes Allergies: Coded Allergies: PENICILLINS (Verified Allergy, Unknown, 11/14/15) Subjective he was more awake and alert, no agitation or neck stiffness, tolerated diet well , pleasant and comfortable in bed, pulled his peripheral iv line out , no cough or SOB, no seizure activity Objective Vital Signs Last 24 Hour Vital Signs Date Time Temp Pulse Resp B/P (MAP) Pulse Ox O2 Delivery O2 Flow Rate FiO2 02/10/17 12:00 97.8 60 19 146/70 97 Nasal Cannula 2.0 02/10/17 12:00 58 02/10/17 09:40 180/76 02/10/17 08:00 61 02/10/17 08:00 97.2 57 19 180/76 99 Nasal Cannula 2.0 02/10/17 04:39 98.2 63 20 132/82 97 Nasal Cannula 02/10/17 04:11 55 02/10/17 00:00 60 02/09/17 23:45 98.0 62 20 172/83 96 Nasal Cannula 02/09/17 20:00 57 02/09/17 19:58 98.6 58 20 152/69 99 Nasal Cannula 02/09/17 16:11 97.0 51 18 144/64 98 Nasal Cannula 2.0 02/09/17 16:00 50 Height (Feet): 5 Height (Inches): 6.00 Weight (Pounds): 150 General Appearance: WD/WN, no acute distress HEENT: normocephalic, atraumatic, anicteric, mucous membranes moist, EOMI, pharynx normal, supple, no JVD Respiratory/Chest: chest wall non-tender, lungs clear, normal breath sounds, no respiratory distress, no accessory muscle use Cardiovascular: normal peripheral pulses, normal rate, regular rhythm, no gallop/murmur, no JVD Abdomen: normal bowel sounds, soft, non tender, no organomegaly, non distended , no mass Extremities: no cyanosis, no clubbing Skin: no rash, no lesions, no ulcers Neurologic/Psychiatric: alert, oriented x 3 Lymphatic: no neck adenopathy, no groin adenopathy Microbiology Date/Time Source Procedure Growth Status 02/08/17 23:47 Blood Blood Culture - Preliminary NO GROWTH AFTER 24 HOURS Resulted 02/08/17 23:45 Blood Blood Culture - Preliminary NO GROWTH AFTER 24 HOURS Resulted 02/08/17 10:45 External Cath Urine Culture - Preliminary NO GROWTH AFTER 24 HOURS Resulted Laboratory Tests Test 02/10/17 03:30 White Blood Count 6.4 K/UL (4.8-10.8) Red Blood Count 3.50 M/UL (4.70-6.10) L Hemoglobin 11.7 G/DL (14.2-18.0) L Hematocrit 33.3 % (42.0-52.0) L Mean Corpuscular Volume 95 FL (80-99) Mean Corpuscular Hemoglobin 33.3 PG (27.0-31.0) H Mean Corpuscular Hemoglobin Concent 35.0 G/DL (32.0-36.0) Red Cell Distribution Width 11.6 % (11.6-14.8) Platelet Count 154 K/UL (150-450) Mean Platelet Volume 9.7 FL (6.5-10.1) Neutrophils (%) (Auto) 48.2 % (45.0-75.0) Lymphocytes (%) (Auto) 26.4 % (20.0-45.0) Monocytes (%) (Auto) 14.6 % (1.0-10.0) H Eosinophils (%) (Auto) 10.1 % (0.0-3.0) H Basophils (%) (Auto) 0.8 % (0.0-2.0) Sodium Level 140 mEQ/L (135-145) Potassium Level 3.8 mEQ/L (3.4-4.9) Chloride Level 103 mEQ/L (98-107) Carbon Dioxide Level 24 mEQ/L (20-30) Anion Gap 13 (5-15) Blood Urea Nitrogen 34 mg/dL (7-23) H Creatinine 3.6 mg/dL (0.7-1.2) H Estimat Glomerular Filtration Rate mL/min (>60) Glucose Level 171 mg/dL (74-106) H Calcium Level 9.1 mg/dL (8.6-10.2) Magnesium Level 2.1 mg/dL (1.7-2.5) Total Bilirubin < 0.2 mg/dL (0.0-1.2) Aspartate Amino Transf (AST/SGOT) 10 U/L (5-40) Alanine Aminotransferase (ALT/SGPT) 6 U/L (3-41) Alkaline Phosphatase 84 U/L (40-129) Pro-B-Type Natriuretic Peptide 6188 pg/mL (0-450) H Total Protein 5.8 g/dL (6.6-8.7) L Albumin 3.0 g/dL (3.5-5.2) L Globulin 2.8 g/dL Albumin/Globulin Ratio 1.0 (1.0-2.7) Current Medications Medications (Trade) Dose Ordered Sig/Jason Route PRN Reason Start Time Stop Time Status Last Admin Dose Admin Acetaminophen (Tylenol) 325 mg Q6H PRN RECTAL Mild Pain/Temp > 100.0 02/07/17 00:15 03/09/17 00:14 Aspirin (ASA) 81 mg DAILY ORAL 02/09/17 09:00 03/11/17 08:59 02/10/17 09:40 Atorvastatin Calcium (Lipitor) 10 mg BEDTIME ORAL 02/09/17 21:00 03/11/17 20:59 02/09/17 21:17 Aztreonam 1 gm/ Dextrose 55 ml @ 110 mls/hr EVERY 8 HOURS IVPB 02/07/17 16:00 02/14/17 15:59 02/10/17 14:27 Clindamycin HCl/ Dextrose 50 ml @ 100 mls/hr Q8HR IV 02/07/17 22:00 02/14/17 21:59 02/10/17 14:00 Dextrose (Dextrose 50%) STAT PRN IV Hypoglycemia 02/06/17 22:30 03/08/17 22:29 Insulin Aspart (NovoLOG) BEFORE MEALS AND HS SUBQ 02/07/17 06:30 03/09/17 06:29 02/10/17 11:53 Isosorbide Mononitrate (Imdur) 30 mg DAILY ORAL 02/09/17 09:00 03/11/17 08:59 02/10/17 09:40 Levetiracetam (Keppra) 500 mg Q12HR ORAL 02/07/17 21:00 03/09/17 20:59 02/10/17 09:40 Lorazepam (Ativan 2mg/ml 1ml) 2 mg DAILYPRN PRN IV seizure 02/06/17 22:30 02/13/17 22:29 Nateglinide (Starlix) 60 mg TIAC ORAL 02/09/17 06:30 03/11/17 06:29 02/10/17 11:52 Ana Maria Calvin M.D. Feb 10, 2017 16:00
--- NOTE | 2017-02-10 17:00 | Progress Note ---
DATE: 02/09/2017 CARDIOLOGY PROGRESS NOTE Subjective: The patient has not had any new seizures. He is tolerating Keppra. No complaints of chest pain. Monitored sinus bradycardia. OBJECTIVE: VITAL SIGNS: Blood pressure 144/64, pulse 51, respirations 18. NECK: Supple. LUNGS: Clear. CARDIAC: Regular. Normal S1, S2 with a fourth heart sound. ABDOMEN: Soft. EXTREMITIES: No edema. IMPRESSION: 1. Seizure disorder. 2. Cerebrovascular disease. 3. Ischemic cardiomyopathy with prior coronary artery bypass graft. 4. Sinus node disease, asymptomatic. 5. Acute on chronic kidney disease. Plan: Continue current cardiovascular regimen. No indication for pacemaker. May need to advance antihypertensive further if blood pressure range increases. Continue antiplatelet therapy. Blaze Lucero M.D. DR: Lesly JOB#: [id number] CC:
[2017-02-10 20:00] VITALS: BP 141/68
[2017-02-11] VITALS: BP 136/88
--- NOTE | 2017-02-11 02:30 | Progress Note ---
DATE: 02/10/2017 CARDIOLOGY PROGRESS NOTE Subjective: The patient has not had any new seizures. He remains afebrile. He has not had chest pain or shortness of breath. Monitored rhythm sinus and sinus bradycardia. OBJECTIVE: Vital Signs: Blood pressure 132/82, pulse 63, respiratory rate 20, and afebrile. HEENT: Temporal wasting. Median sternotomy scar. LUNGS: Clear. Cardiac: Regular rhythm and rate. Normal S1 and S2 with a fourth heart sound. ABDOMEN: Soft. Left hemiparesis. LABORATORY DATA: Cultures negative. IMPRESSION: 1. New onset seizures. 2. Cerebrovascular disease. 3. Ischemic cardiomyopathy with history of coronary artery bypass graft. 4. Chronic stable angina. 5. Hypertensive heart disease. 6. Asymptomatic sinus bradycardia. PLAN: 1. Continue antiseizure therapy. 2. Avoid tighter blood pressure control at this time. 3. May risk orthostasis upon standing. 4. Continue anti-platelet and anti-lipid drugs. 5. Await results of EEG. 6. Titrate antiseizure regimen per neurologist. 7. Antimicrobial therapy per Infectious Disease etl consultant. Blaze Lucero M.D. DR: ANDREY JOB#: [id number] CC:
[2017-02-11 04:00] VITALS: BP 139/91
[2017-02-11] MEDS: Nateglinide 60mg tab ORAL SCH ×3 (06:18→16:30)
[2017-02-11] MEDS: NovoLOG Insulin Flexpen SUBQ SCH ×3 (06:19→16:30)
[2017-02-11 08:00] VITALS: BP 194/92
[2017-02-11] MEDS: Aspirin Baby 81mg ORAL SCH (08:26)
[2017-02-11] MEDS: Imdur 30mg tab ORAL SCH (08:28)
--- NOTE | 2017-02-11 08:39 | Pulmonology Progress Note ---
Assessment/Plan Assessment/Plan 1. Altered mental status. Improved 2. Possible seizures. Seen by neurology 3. Rule out meningitis. all abx dc now 4. Chronic renal failure. 5. Hypertension. 6. Coronary artery disease. Discussion: The patient has been seen by Neurology, Cardiology and ID. Continue present medications. I will follow carefully. DC planning to Subjective Interval Events: BP high; comfirtable; refusing medications Constitutional: Reports: no symptoms HEENT: Repors: no symptoms Respiratory: Reports: no symptoms Cardiovascular: Reports: no symptoms Gastrointestinal/Abdominal: Reports: no symptoms Allergies: Coded Allergies: PENICILLINS (Verified Allergy, Unknown, 11/14/15) Objective Last 24 Hour Vital Signs Date Time Temp Pulse Resp B/P (MAP) Pulse Ox O2 Delivery O2 Flow Rate FiO2 02/11/17 08:28 194/92 02/11/17 08:00 97.8 71 18 194/92 97 Room Air 02/11/17 04:00 97.2 72 19 139/91 98 Nasal Cannula 2.0 02/11/17 04:00 65 02/11/17 00:00 55 02/11/17 00:00 97.3 77 20 136/88 100 Nasal Cannula 2.0 02/10/17 20:00 62 02/10/17 20:00 97.5 60 18 141/68 98 Nasal Cannula 2.0 02/10/17 16:00 98.0 50 19 145/66 98 Nasal Cannula 2.0 02/10/17 16:00 50 02/10/17 12:00 97.8 60 19 146/70 97 Nasal Cannula 2.0 02/10/17 12:00 58 02/10/17 09:40 180/76 General Appearance: no acute distress HEENT: normocephalic Respiratory/Chest: chest wall non-tender, lungs clear Cardiovascular: normal peripheral pulses, normal rate Abdomen: normal bowel sounds, soft, non tender Extremities: no cyanosis Microbiology Date/Time Source Procedure Growth Status 02/08/17 23:47 Blood Blood Culture - Preliminary NO GROWTH AFTER 48 HOURS Resulted 02/08/17 23:45 Blood Blood Culture - Preliminary NO GROWTH AFTER 48 HOURS Resulted 02/08/17 10:45 External Cath Urine Culture - Final NO GROWTH AFTER 48 HOURS Complete Current Medications Medications (Trade) Dose Ordered Sig/Jason Route PRN Reason Start Time Stop Time Status Last Admin Dose Admin Acetaminophen (Tylenol) 325 mg Q6H PRN RECTAL Mild Pain/Temp > 100.0 02/07/17 00:15 03/09/17 00:14 Aspirin (ASA) 81 mg DAILY ORAL 02/09/17 09:00 03/11/17 08:59 02/11/17 08:26 Atorvastatin Calcium (Lipitor) 10 mg BEDTIME ORAL 02/09/17 21:00 03/11/17 20:59 02/10/17 20:19 Dextrose (Dextrose 50%) STAT PRN IV Hypoglycemia 02/06/17 22:30 03/08/17 22:29 Insulin Aspart (NovoLOG) BEFORE MEALS AND HS SUBQ 02/07/17 06:30 03/09/17 06:29 02/11/17 06:19 Isosorbide Mononitrate (Imdur) 30 mg DAILY ORAL 02/09/17 09:00 03/11/17 08:59 02/11/17 08:28 Levetiracetam (Keppra) 500 mg Q12HR ORAL 02/07/17 21:00 03/09/17 20:59 02/11/17 08:27 Lorazepam (Ativan 2mg/ml 1ml) 2 mg DAILYPRN PRN IV seizure 02/06/17 22:30 02/13/17 22:29 Nateglinide (Starlix) 60 mg TIAC ORAL 02/09/17 06:30 03/11/17 06:29 02/11/17 06:18 Eros Espinoza MD Feb 11, 2017 08:39
[2017-02-11] MEDS ORDERED: KEPPRA500 M3 ORAL (08:40)
[2017-02-11 10:33] LABS: BASOPHILS % (AUTO) 0.7 % (0.0-2.0); EOSINOPHILS % (AUTO) 9.3 % (0.0-3.0); LYMPHOCYTES % (AUTO) 24.7 % (20.0-45.0); MEAN CORPUSCULAR HEMOGLOBIN 32.1 PG (27.0-31.0); MEAN CORPUSCULAR HGB CONC 33.8 G/DL (32.0-36.0); MEAN CORPUSCULAR VOLUME 95 FL (80-99); MEAN PLATELET VOLUME 9.1 FL (6.5-10.1); MONOCYTES % (AUTO) 10.8 % (1.0-10.0); NEUTROPHILS % (AUTO) 54.5 % (45.0-75.0); PLATELET COUNT 200 K/UL (150-450); RED BLOOD COUNT 4.09 M/UL (4.70-6.10); RED CELL DISTRIBUTION WIDTH 11.6 % (11.6-14.8); WHITE BLOOD COUNT 6.6 K/UL (4.8-10.8)
[2017-02-11 10:44] LABS: ANION GAP 11 (5-15); CALCIUM 9.6 mg/dL (8.6-10.2); CARBON DIOXIDE 26 mEQ/L (20-30); CHLORIDE 106 mEQ/L (98-107); CREATININE 3.1 mg/dL (0.7-1.2); HEMOLYSIS 0; POTASSIUM 4.2 mEQ/L (3.4-4.9); SODIUM 143 mEQ/L (135-145)
[2017-02-11 12:00] VITALS: BP 175/93
[2017-02-11] MEDS ORDERED: NS 275ml ONE (15:21)
[2017-02-11 16:00] VITALS: BP 118/62
--- NOTE | 2017-02-11 16:05 | Infectious Diseases Prog Note ---
Assessment/Plan Problems: (1) UTI (urinary tract infection) Assessment & Plan: S/P aztreonam x 3 days , urine culture is negative (2) Sepsis Assessment & Plan: ruled out, S/P aztreonam and clindamycin , blood culture is negative , CXR ruled out pneumonia, monitor off antibiotics (3) Fever Assessment & Plan: unclear source , with no evidence of meningitis or encephalitis clinically, all cultures are negative , stable off antibiotics (4) Seizure Assessment & Plan[facility] , neurology is following Subjective Allergies: Coded Allergies: PENICILLINS (Verified Allergy, Unknown, 11/14/15) Subjective he was more awake and alert, no agitation or neck stiffness, tolerated diet well , pleasant and comfortable in bed, pulled his peripheral iv line out , no cough or SOB, no seizure activity Objective Vital Signs Last 24 Hour Vital Signs Date Time Temp Pulse Resp B/P (MAP) Pulse Ox O2 Delivery O2 Flow Rate FiO2 02/11/17 12:00 69 02/11/17 12:00 98.2 70 18 175/93 96 Room Air 02/11/17 11:55 175/93 02/11/17 08:39 68 02/11/17 08:28 194/92 02/11/17 08:00 97.8 71 18 194/92 97 Room Air 02/11/17 04:00 97.2 72 19 139/91 98 Nasal Cannula 2.0 02/11/17 04:00 65 02/11/17 00:00 55 02/11/17 00:00 97.3 77 20 136/88 100 Nasal Cannula 2.0 02/10/17 20:00 62 02/10/17 20:00 97.5 60 18 141/68 98 Nasal Cannula 2.0 Height (Feet): 5 Height (Inches): 6.00 Weight (Pounds): 150 General Appearance: WD/WN, no acute distress HEENT: normocephalic, atraumatic, anicteric, mucous membranes moist, PERRL Respiratory/Chest: chest wall non-tender, lungs clear, normal breath sounds, no respiratory distress, no accessory muscle use Cardiovascular: normal peripheral pulses, normal rate, regular rhythm, no gallop/murmur, no JVD Abdomen: normal bowel sounds, soft, non tender, no organomegaly, non distended , no mass Extremities: no cyanosis, no clubbing Skin: no rash, no lesions Microbiology Date/Time Source Procedure Growth Status 02/08/17 23:47 Blood Blood Culture - Preliminary NO GROWTH AFTER 48 HOURS Resulted 02/08/17 23:45 Blood Blood Culture - Preliminary NO GROWTH AFTER 48 HOURS Resulted Laboratory Tests Test 02/11/17 09:25 White Blood Count 6.6 K/UL (4.8-10.8) Red Blood Count 4.09 M/UL (4.70-6.10) L Hemoglobin 13.1 G/DL (14.2-18.0) L Hematocrit 38.8 % (42.0-52.0) L Mean Corpuscular Volume 95 FL (80-99) Mean Corpuscular Hemoglobin 32.1 PG (27.0-31.0) H Mean Corpuscular Hemoglobin Concent 33.8 G/DL (32.0-36.0) Red Cell Distribution Width 11.6 % (11.6-14.8) Platelet Count 200 K/UL (150-450) Mean Platelet Volume 9.1 FL (6.5-10.1) Neutrophils (%) (Auto) 54.5 % (45.0-75.0) Lymphocytes (%) (Auto) 24.7 % (20.0-45.0) Monocytes (%) (Auto) 10.8 % (1.0-10.0) H Eosinophils (%) (Auto) 9.3 % (0.0-3.0) H Basophils (%) (Auto) 0.7 % (0.0-2.0) Sodium Level 143 mEQ/L (135-145) Potassium Level 4.2 mEQ/L (3.4-4.9) Chloride Level 106 mEQ/L (98-107) Carbon Dioxide Level 26 mEQ/L (20-30) Anion Gap 11 (5-15) Blood Urea Nitrogen 28 mg/dL (7-23) H Creatinine 3.1 mg/dL (0.7-1.2) H Estimat Glomerular Filtration Rate mL/min (>60) Glucose Level 173 mg/dL (74-106) H Calcium Level 9.6 mg/dL (8.6-10.2) Current Medications Medications (Trade) Dose Ordered Sig/Jason Route PRN Reason Start Time Stop Time Status Last Admin Dose Admin Acetaminophen (Tylenol) 325 mg Q6H PRN RECTAL Mild Pain/Temp > 100.0 02/07/17 00:15 03/09/17 00:14 Aspirin (ASA) 81 mg DAILY ORAL 02/09/17 09:00 03/11/17 08:59 02/11/17 08:26 Atorvastatin Calcium (Lipitor) 10 mg BEDTIME ORAL 02/09/17 21:00 03/11/17 20:59 02/10/17 20:19 Clonidine HCl (Catapres) 0.1 mg Q4H PRN ORAL SBP > 160mmHg 02/11/17 11:45 03/13/17 11:44 02/11/17 11:55 Dextrose (Dextrose 50%) STAT PRN IV Hypoglycemia 02/06/17 22:30 03/08/17 22:29 Insulin Aspart (NovoLOG) BEFORE MEALS AND HS SUBQ 02/07/17 06:30 03/09/17 06:29 02/11/17 12:00 Isosorbide Mononitrate (Imdur) 30 mg DAILY ORAL 02/09/17 09:00 03/11/17 08:59 02/11/17 08:28 Levetiracetam (Keppra) 500 mg Q12HR ORAL 02/07/17 21:00 03/09/17 20:59 02/11/17 08:27 Lorazepam (Ativan 2mg/ml 1ml) 2 mg DAILYPRN PRN IV seizure 02/06/17 22:30 02/13/17 22:29 Nateglinide (Starlix) 60 mg TIAC ORAL 02/09/17 06:30 03/11/17 06:29 02/11/17 11:55 Ana Maria Calvin M.D. Feb 11, 2017 16:05
--- NOTE | 2017-02-12 04:00 | Progress Note ---
DATE: 02/11/2017 CARDIOLOGY PROGRESS NOTE Subjective: The patient without chest pain or shortness of breath. No recurring seizures. OBJECTIVE: Vital Signs: Blood pressure 139/91, heart rate 72, and respiratory rate 19. He has episodes of high blood pressure above 180 systolic, heart rates in the range of 50 to 72. LUNGS: Good breath sounds. No wheezing or rales. Heart: Regular rhythm and rate. Normal S1 and S2 with a fourth heart sound. ABDOMEN: Soft and nontender. EXTREMITIES: No edema. Left hemiparesis. Laboratory Data: Cultures remain negative. Repeat laboratory studies, white count 6.6 and hemoglobin 13.1. Sodium 143, potassium 4.2, bicarbonate 26, BUN 28, and creatinine 3.1. IMPRESSION: 1. New-onset seizures. 2. Cerebrovascular disease, possible acute cerebrovascular accident. 3. Fever of unknown origin, possibly urinary tract infection. 4. Ischemic heart disease. 5. History of coronary artery bypass graft, chronic stable angina. 6. Chronic kidney disease, now with creatinine at baseline following acute exacerbation. 7. Type 2 diabetes mellitus with improved glucose control. 8. Labile hypertension. 9. Asymptomatic sinus bradycardia. 10. Mild protein-calorie malnutrition. PLAN: 1. Stable for senior living facility. 2. Continue antiseizure therapy. 3. Maintain current antihypertensives. We will add hydralazine p.r.n. for blood pressure spikes. 4. Avoid clonidine due to potential for worsening bradyarrhythmias. 5. Monitor electrolytes and cardiorenal function as an outpatient. 6. Long-acting nitrates without change. 7. Anti-platelet therapy and anti-lipid drugs as prior to admission. Blaze Lucero M.D. DR: OSMANY JOB#: [id number] CC:
--- NOTE | 2017-02-12 11:22 | Discharge Summary ---
Discharge Summary Hospital Course Date of Admission Feb 06, 2017 at 20:13 Date of Discharge Feb 11, 2017 at 17:24 Admitting Diagnosis new onset of seizure HPI Manjeet Juarez is a 81 year old male who was admitted on Feb 06, 2017 at 20: 13 for New Onset Of Seizure Hospital Course [id number] Discharge Discharge Disposition Patient was discharged to [facility] (04) Discharge Diagnoses: Dara Rodriguez NP Feb 12, 2017 11:22
--- NOTE | 2017-02-12 20:45 | Discharge Summary 2 SIG ---
DATE OF ADMISSION: 02/06/2017 DATE OF DISCHARGE: 02/11/2017 CONSULTS: 1. Ana Maria Calvin M.D. 2. Blaze Lucero M.D. 3. [place] M.D. Brief Hospital Course: The patient is an 81-year-old male, who was seen at the emergency room with altered level of consciousness. The patient apparently was noted to have decreased respirations with muscle rigidity. The patient was recently discharged after an emergency visit and symptoms were noted by ambulance during transfer back to [facility]. The patient was brought back to this facility and was given IM and IV Ativan with improvement of seizure activity. He was subsequently loaded with IV Keppra and IV magnesium. EKG showed prolongation of the QT interval. Head CT showed no significant interval change. There were no acute intracranial abnormalities with global cortical atrophy and chronic ischemic changes. He was admitted to [facility] for seizures and was placed on seizure precaution. He has history of cerebrovascular disease with dementia and ischemic cardiomyopathy. He underwent neurologic evaluation and was started on Keppra 250 mg b.i.d. He was continued on aspirin, Lipitor, and Plavix. Keppra was eventually increased to 500 mg b.i.d. He was given IV hydration. Due to bradycardia, Clonidine was discontinued. He was given low -dose hydralazine. On monitor, he was in sinus rhythm and sinus bradycardia. Antihypertensives were titrated. He had episode of low-grade fever and was initially started on Cipro and Flagyl for UTI. Infectious Disease specialist was consulted. Antibiotics were discontinued and was given aztreonam and clindamycin for empiric treatment. Urine culture did not isolate any growth. Blood culture was negative. Antibiotic was discontinued and was monitored off antibiotic treatment. There was no recurrent seizure. The patient was eventually discharged back to long-term. FINAL DIAGNOSES: 1. Altered mental status. 2. Seizures. 3. Chronic renal failure. 4. Hypertension. 5. Coronary artery disease. 6. Cerebrovascular disease. 7. Fever of unknown origin, possibly urinary tract infection. 8. Ischemic heart disease. 9. Type 2 diabetes mellitus. 10. Labile hypertension. 11. Asymptomatic sinus bradycardia. 12. Mild protein-calorie malnutrition. 13. Urinary tract infection. 14. Hypertensive heart disease. 15. New onset seizure disorder. 16. Lactic acid acidosis. DISPOSITION: The patient was discharged to [facility]. DISCHARGE MEDICATIONS: Refer to medication list. Eros Espinoza M.D. I have been assigned to dictate discharge summary on this account and I was not involved in the patient's management. Dara Rodriguez N.P. DR: Gerard JOB#: [id number] CC: ARACELY
== END 2017-02-11 17:24 | DRG 872 ==
LOC: EDBD 19:10 → EMR 19:46 → 2W 20:13 → EDBEDREQ 22:08 → 2W 02-09 13:27
DX: A41.9 Sepsis, unspecified organism (principal); N17.9 Acute kidney failure, unspecified; E11.22 Type 2 diabetes mellitus with diabetic chronic kidney disease; I13.10 Hypertensive heart and chronic kidney disease without heart failure, with stage 1 through stage 4 chronic kidney disease, or unspecified chronic kidney disease; E11.42 Type 2 diabetes mellitus with diabetic polyneuropathy; N39.0 Urinary tract infection, site not specified; I69.354 Hemiplegia and hemiparesis following cerebral infarction affecting left non-dominant side; G40.909 Epilepsy, unspecified, not intractable, without status epilepticus; I25.5 Ischemic cardiomyopathy; R13.10 Dysphagia, unspecified; N18.9 Chronic kidney disease, unspecified; F01.50 Vascular dementia, unspecified severity, without behavioral disturbance, psychotic disturbance, mood disturbance, and anxiety; Z88.0 Allergy status to penicillin; K21.9 Gastro-esophageal reflux disease without esophagitis; Z95.1 Presence of aortocoronary bypass graft; N40.0 Benign prostatic hyperplasia without lower urinary tract symptoms; R41.82 Altered mental status, unspecified; I69.391 Dysphagia following cerebral infarction; I69.398 Other sequelae of cerebral infarction; H53.8 Other visual disturbances; H54.8 Legal blindness, as defined in USA; Z95.5 Presence of coronary angioplasty implant and graft; R32 Unspecified urinary incontinence; Z79.02 Long term (current) use of antithrombotics/antiplatelets; Z79.4 Long term (current) use of insulin; I25.118 Atherosclerotic heart disease of native coronary artery with other forms of angina pectoris; Z66 Do not resuscitate
CPT/HCPCS: 36415; 36600; 70450; 71010; 80048; 80053; 80299; 82607; 82746; 82803; 82962; 83735; 83880; 84443; 84484; 85025; 85610; 85730; 87040; 87081; 87086; 93005; 99285; J1815; S0077

== ENCOUNTER 2017-05-01 08:50 | Inpatient (IN) | payer MEDICARE, MEDICAID ==
[~2017-05-01] VITALS: Ht 167.6 cm; Wt 74.8 kg
[~2017-05-01 08:50] MED LIST changes: +KEPPRA500 M3 ORAL
[2017-05-01 09:05] VITALS: BP 125/66
[2017-05-01] MEDS ORDERED: NITROGLYCERIN0.4 MG SL (09:12)
[2017-05-01] MEDS ORDERED: HUMULIN R100 UNIT/1 SUBQ (09:12)
[2017-05-01] MEDS ORDERED: NORVASC10 MG ORAL (09:12)
[2017-05-01] MEDS ORDERED: MOM30 ML ORAL (09:12)
[2017-05-01] MEDS ORDERED: VITAMIN C250 MG ORAL (09:12)
--- NOTE | 2017-05-01 09:24 | Emergency Room Report ---
History of Present Illness General Chief Complaint: Altered Level of Consciousness Source: Patient, Medical Record, EMS Present Illness HPI 81.-year-old male, coming from group home, DO NOT RESUSCITATE and DO NOT INTUBATE, presenting with altered mental status and hypoxia. EMS states that he was 88 on room air, came up to 94 on 2 L nasal cannula. Currently patient is awake alert oriented to person and place, however does not know why he is here. 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 Hx Cancer: No Hx Gastrointestinal Problems: Yes - CKD, BPH, GERD without esophagitis Hx Dialysis: No Hx Neurological Problems: Yes - dysphasia following CVA, blindness (one eye) Hx Cerebrovascular Accident: Yes - CVA, unspecified sequelae of cerebral infarction Hx Dementia: Yes Hx Alzheimer's Disease: Yes Hx Seizures: No Hx Peripheral Neuropathy: Yes - polyneuropathy Hx Memory Loss: Yes Hx Dizziness: Yes Hx Syncope: Yes Hx Dysphasia: Yes Review of Systems All Other Systems: negative except mentioned in HPI Physical Exam Vital Signs Date Time Temp Pulse Resp B/P (MAP) Pulse Ox O2 Delivery O2 Flow Rate FiO2 05/01/17 08:47 97.9 78 19 136/71 85 Room Air Sp02 EP Interpretation: reviewed, normal General Appearance: alert, moderate distress, other - Chronically ill- appearing elderly male, appears to be in respiratory distress, appears tired Head: normocephalic, atraumatic Eyes: bilateral eye normal inspection, bilateral eye PERRL, bilateral eye EOMI ENT: normal ENT inspection, normal pharynx, normal voice, moist mucus membranes Neck: normal inspection, full range of motion, supple Respiratory: normal inspection, lungs clear, normal breath sounds, no respiratory distress, no retraction, no wheezing, speaking full sentences, chest symmetrical Cardiovascular #1: regular rate, rhythm, normal capillary refill, other - substernal surgical scar Cardiovascular #2: 2+ radial (R), 2+ radial (L) Gastrointestinal: normal inspection, non tender, soft, non-distended, no guarding Genitourinary: no CVA tenderness Musculoskeletal: normal inspection, back normal, normal range of motion, non- tender Neurologic: responsive, motor strength/tone normal, sensory intact, other - aox2 moves all ext spont Psychiatric: other - dementia Skin: normal inspection, normal color, no rash, warm/dry, well hydrated, normal turgor Medical Decision Making Diagnostic Impression: Primary Impression: Dehydration Additional Impressions: Renal insufficiency Decreased oral intake Generalized weakness Hypoxia ER Course 81-year-old male presenting with altered mental status and hypoxia DDX: ACS, CHF exacerbation, asthma or COPD Sepsis 2/2 UTI, PNA, bacteremia, will also consider intra-abdominal pathology such as colitis / diverticulitis / acalculous cholecystitis if no other course found but at this time abdomen soft, NT, ND. Plan: O2 via nasal cannula/NRB Obtain labs including cbc, bmp, blood culture, blood gas, lactate, ua, ucx CXR EKG ER course: Pt's airway remains patent, supplemental O2 provided by NC Patient's BP has remained stable with MAP > 65 labs unremarkable except worsening renal function afebrile rectally, no leukocytosis daughter at bedside states patient has not been eating/drinking. has pureed diet but not even eating that. has been more weak than normal will admit for dehydration and decreased oral intake Disposition: Patient will admitted to telemetry D/W Dr Espinoza who has accepted patient for admission Please note that this Emergency Department Report was dictated using [email or web address]multi purpose machine operator technology software, occasionally this can lead to erroneous entry secondary to interpretation by the dictation equipment. EKG Diagnostic Results EP Interpretation: Yes Rate: normal Rhythm: NSR ST Segments: T wave inversion noted in V2 V3 and V4 ASA given to patient: No Rhythm Strip EP Interpretation: Yes Rate: 80 Rhythm: NSR, no PVCs, no ectopy Chest X-ray CXR: Ordered: Yes 1 view Indication: Shortness of breath EP interpretation: Yes Interpretation: cardiomegaly, mild pulm vasc congestion Cardiomegaly with mild pulmonary vascular congestion. Linear opacification in the peripheral left lung likely related to atelectasis or scarring. Developing pneumonia is thought less likely but should be excluded clinically. 2.6 cm rounded calcification projecting over the left lower neck is stable in size and appearance from 11/14/2015. This likely represents calcification of a thyroid nodule. Further evaluation with thyroid ultrasound on a nonemergent basis is recommended for definitive assessment. Electronically signed by Simon Singh MD Laboratory Tests Test 05/01/17 09:15 05/01/17 09:25 05/01/17 09:41 05/01/17 12:05 White Blood Count 9.4 K/UL (4.8-10.8) Red Blood Count 4.25 M/UL (4.70-6.10) L Hemoglobin 13.3 G/DL (14.2-18.0) L Hematocrit 41.0 % (42.0-52.0) L Mean Corpuscular Volume 97 FL (80-99) Mean Corpuscular Hemoglobin 31.3 PG (27.0-31.0) H Mean Corpuscular Hemoglobin Concent 32.5 G/DL (32.0-36.0) Red Cell Distribution Width 12.5 % (11.6-14.8) Platelet Count 152 K/UL (150-450) Mean Platelet Volume 11.3 FL (6.5-10.1) H Neutrophils (%) (Auto) 79.3 % (45.0-75.0) H Lymphocytes (%) (Auto) 10.3 % (20.0-45.0) L Monocytes (%) (Auto) 10.0 % (1.0-10.0) Eosinophils (%) (Auto) 0.0 % (0.0-3.0) Basophils (%) (Auto) 0.4 % (0.0-2.0) Sodium Level 141 MMOL/L (136-145) Potassium Level 4.3 MMOL/L (3.5-5.1) Chloride Level 106 MMOL/L (98-107) Carbon Dioxide Level 27 MMOL/L (21-32) Anion Gap 9 mmol/L (5-15) Blood Urea Nitrogen 48 mg/dL (7-18) H Creatinine 4.7 MG/DL (0.55-1.30) H Estimate Glomerular Filtration Rate mL/min (>60) Glucose Level 337 MG/DL (74-106) H Lactic Acid Level 2.70 mmol/L (0.66-2.22) H Pending Calcium Level 8.6 MG/DL (8.5-10.1) Total Bilirubin 0.4 MG/DL (0.2-1.0) Aspartate Amino Transferase (AST) 16 U/L (15-37) Alanine Aminotransferase (ALT) 8 U/L (12-78) L Alkaline Phosphatase 90 U/L (46-116) Troponin I 0.029 ng/mL (0.000-0.056) Pro-B-Type Natriuretic Peptide 17322 pg/mL (0-125) H Total Protein 7.0 G/DL (6.4-8.2) Albumin 2.7 G/DL (3.4-5.0) L Globulin 4.3 g/dL Albumin/Globulin Ratio 0.6 (1.0-2.7) L Arterial Blood pH 7.433 (7.350-7.450) Arterial Blood Partial Pressure CO2 33.4 mmHg (35.0-45.0) L Arterial Blood Partial Pressure O2 64.6 mmHg (75.0-100.0) L Arterial Blood HCO3 21.8 mmol/L (22.0-26.0) L Arterial Blood Oxygen Saturation 93.4 % (92.0-98.0) Arterial Blood Base Excess -1.7 Daniel Test Positive Urine Color Pale yellow Urine Appearance Cloudy Urine pH 5 (4.5-8.0) Urine Specific Dolores 1.015 (1.005-1.035) Urine Protein 4+ (NEGATIVE) H Urine Glucose (UA) 4+ (NEGATIVE) H Urine Ketones Negative (NEGATIVE) Urine Occult Blood 2+ (NEGATIVE) H Urine Nitrite Negative (NEGATIVE) Urine Bilirubin Negative (NEGATIVE) Urine Urobilinogen Normal MG/DL (0.0-1.0) Urine Leukocyte Esterase Negative (NEGATIVE) Urine RBC 5-10 /HPF (0 - 0) H Urine WBC 2-4 /HPF (0 - 0) Urine Squamous Epithelial Cells Occasional /LPF Urine Amorphous Sediment Many /LPF (NONE) H Urine Bacteria Few /HPF (NONE) Last Vital Signs Date Time Temp Pulse Resp B/P (MAP) Pulse Ox O2 Delivery O2 Flow Rate FiO2 05/01/17 08:47 97.9 78 19 136/71 85 Room Air Disposition: ADMITTED INPATIENT Condition: Serious Simon Singh M.D. May 01, 2017 09:24
--- NOTE | 2017-05-01 09:27 | Diagnostic Imaging Report ---
Indication: Altered mental status Technique: XRAY Chest 1v Comparison: 02/08/2017 Findings: Patient is slightly rotated. Cardiomegaly is stable. Mediastinal contours are sharp. Atherosclerotic calcifications again noted in the aortic arch. Patient noted to be status post median sternotomy. There is mild pulmonary vascular congestion. Linear opacities in the peripheral left lung noted in the region of previously seen platelike atelectasis/scarring. No new focal consolidation. No pleural effusion or pneumothorax. There are multilevel degenerative changes in the thoracic spine. No acute osseous abnormality seen. A 2.7 cm calcification is noted projecting to the left of the lower neck. The stable in size and appearance compared to the most remote chest radiograph of 11/14/2015 and may represent calcification of a thyroid nodule. Impression: Cardiomegaly with mild pulmonary vascular congestion. Linear opacification in the peripheral left lung likely related to atelectasis or scarring. Developing pneumonia is thought less likely but should be excluded clinically. 2.6 cm rounded calcification projecting over the left lower neck is stable in size and appearance from 11/14/2015. This likely represents calcification of a thyroid nodule. Further evaluation with thyroid ultrasound on a nonemergent basis is recommended for definitive assessment.
[2017-05-01 09:43] LABS: BASOPHILS % (AUTO) 0.4 % (0.0-2.0); HEMOGLOBIN 13.3 G/DL (14.2-18.0); LYMPHOCYTES % (AUTO) 10.3 % (20.0-45.0); MEAN CORPUSCULAR VOLUME 97 FL (80-99); NEUTROPHILS % (AUTO) 79.3 % (45.0-75.0); PLATELET COUNT 152 K/UL (150-450); RED BLOOD COUNT 4.25 M/UL (4.70-6.10); RED CELL DISTRIBUTION WIDTH 12.5 % (11.6-14.8); WHITE BLOOD COUNT 9.4 K/UL (4.8-10.8)
[2017-05-01 09:52] LABS: ANION GAP 9 mmol/L (5-15); BLOOD UREA NITROGEN 48 mg/dL (7-18); CALCIUM 8.6 MG/DL (8.5-10.1); CARBON DIOXIDE 27 MMOL/L (21-32); CHLORIDE 106 MMOL/L (98-107); CREATININE 4.7 MG/DL (0.55-1.30); POTASSIUM 4.3 MMOL/L (3.5-5.1); SODIUM 141 MMOL/L (136-145)
[2017-05-01 09:55] LABS: APPEARANCE,URINE CLOUDY; BILIRUBIN, URINE NEGATIVE (NEGATIVE); COLOR,URINE PALE YELLOW; GLUCOSE, URINE (UA) 4+ (NEGATIVE); KETONES,URINE NEGATIVE (NEGATIVE); LEUKOCYTE ESTERASE ,URINE NEGATIVE (NEGATIVE); NITRITE,URINE NEGATIVE (NEGATIVE); PH,URINE 5 (4.5-8.0); PROTEIN,URINE 4+ (NEGATIVE); UROBILINOGEN,URINE NORMAL MG/DL (0.0-1.0)
[2017-05-01 10:05] LABS: ALANINE AMINOTRANSFERASE 8 U/L (12-78); ALBUMIN 2.7 G/DL (3.4-5.0); ALBUMIN/GLOBULIN RATIO 0.6 (1.0-2.7); ALKALINE PHOSPHATASE 90 U/L (46-116); ASPARTATE AMINO TRANSFERASE 16 U/L (15-37); BILIRUBIN,TOTAL 0.4 MG/DL (0.2-1.0)
[2017-05-01 11:00] VITALS: BP 168/71
[2017-05-01 13:00] VITALS: BP 162/76
[2017-05-01 13:35] VITALS: BP 161/77
[2017-05-01 16:00] VITALS: BP 147/78
[2017-05-01] MEDS: Docusate 100mg cap ORAL SCH (17:59)
[2017-05-01] MEDS: NovoLOG Insulin Flexpen SUBQ SCH ×2 (18:27→20:13)
[2017-05-01] MEDS: Donepezil 10mg tab ORAL SCH (20:11)
[2017-05-01 20:26] VITALS: BP 148/60
[2017-05-02] VITALS: BP 126/55
[2017-05-02 04:00] VITALS: BP 135/65
[2017-05-02] MEDS: NovoLOG Insulin Flexpen SUBQ SCH ×4 (06:30→20:32)
[2017-05-02] MEDS: sitaGLIPtin 25mg tab ORAL SCH (06:30)
[2017-05-02] MEDS: Docusate 100mg cap ORAL SCH ×2 (10:03→18:12)
[2017-05-02] MEDS: Aspirin Baby 81mg ORAL SCH (10:04)
[2017-05-02] MEDS: Imdur 30mg tab ORAL SCH (10:04)
[2017-05-02] MEDS: Ascorbic Acid 500mg tab ORAL SCH (10:09)
[2017-05-02 12:00] VITALS: BP 133/67
--- NOTE | 2017-05-02 14:58 | Cardiology Report ---
APPROVED REPORT EKG Measurement Heart [id number] Sinus rhythm with 1st degree AV block Abnormal ECG
[2017-05-02 16:00] VITALS: BP 160/79
--- NOTE | 2017-05-02 17:45 | History and Physical Report ---
DATE OF ADMISSION: 05/01/2017 HISTORY OF PRESENT ILLNESS: This is an 81-year-old, DNR/DNI half-way resident, who came to the hospital with hypoxemia. The patient unable to answer questions, however, states that he is not aware why he was sent to the hospital. PAST MEDICAL HISTORY: CABG, hypertension, CKD, cognitive impairment, diabetes mellitus, GERD. ALLERGIES: Penicillin. HOME MEDICATIONS: Summarized in chart. REVIEW OF SYSTEMS: Unreliable. PHYSICAL EXAMINATION: GENERAL: Reveals an elderly male. HEENT: Unremarkable. CHEST: Decreased breath sounds bilaterally. HEART: Normal heart sounds. ABDOMEN: Soft. EXTREMITIES: There is no edema. LABORATORY DATA: Results of laboratory testing show normal CBC and normal except for creatinine of 4.7. proBNP is 30,322. Troponin 0.029. ABG is adequate with pO2 of 64. Coags are negative. X-ray of chest was obtained which shows cardiomegaly with vascular congestion. Per review of old records, he has always had renal insufficiency with creatinine being 3.8 in 02/2017. IMPRESSION: 1. Worsening renal failure. 2. Hypoxemia, resolved. 3. Vascular congestion. 4. penitentiary resident. 5. History of hypertension. DISCUSSION: Admit to the hospital. The patient will be continued on his home medications which include aspirin, amlodipine, vitamin C, Lipitor, Coreg, Plavix. He is also on oral Lasix, Starlix, and Januvia which I will continue. I will consult nephrology and cardiology. At this point, I do not see an infectious process. We will hold off on antibiotics. Order oxygen, pulmonary hygiene. We will continue to follow as collar pointer and cytology laboratory manager. Eros Espinoza M.D. DR: Yung JOB#: [id number] CC:
[2017-05-02 20:00] VITALS: BP 161/80
[2017-05-02] MEDS: Donepezil 10mg tab ORAL SCH (20:28)
--- NOTE | 2017-05-02 22:00 | Consultation ---
DATE OF CONSULTATION: 05/02/2017 HISTORY OF PRESENT ILLNESS: The patient is a very pleasant 81-year-old male, residential patient, who was transferred to the hospital with altered mental status, which actually resolved today. Apparently, she had this problem before. GI consultation is requested for possible evaluation for nutrition, abdominal pain, and constipation. PAST MEDICAL HISTORY: History of: 1. Altered mental status. 2. Seizure disorder. 3. Chronic renal failure. 4. Hypertension. 5. Coronary artery disease. 6. CVA. 7. Ischemic heart disease. 8. Type 2 diabetes. 9. 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 PAST SURGICAL HISTORY: Thoracotomy many years ago according to him for his diphtheria. MEDICATIONS: Please see medication reconciliation list. ALLERGIES: Penicillin. SOCIAL HISTORY: Currently lives in a residential. No history of alcohol or IV drug abuse. FAMILY HISTORY: Noncontributory. PHYSICAL EXAMINATION: VITAL SIGNS: Temperature 98.1, pulse 64, respirations 20, and blood pressure is 130/65. HEENT: Normocephalic and atraumatic. Sclerae anicteric. NECK: Supple. No evidence of obvious lymphadenopathy. CARDIOVASCULAR: Regular rhythm. Plus S1 and S2. There is a scar in the midline from prior thoracotomy. ABDOMEN: Soft and nontender. No rebound. No guarding. No peritoneal sign. EXTREMITIES: No cyanosis. No clubbing. No edema. LABORATORY DATA: White count is 9.4, hemoglobin 13, hematocrit 41, and platelet count is 152,000. Chemistry; sodium 141, potassium 4.3, BUN 48, and creatinine is 1.7. ASSESSMENT AND PLAN: This is a very pleasant 81-year-old male without any significant gastrointestinal problems, admitted to the hospital with altered mental status. At this time, the patient seems to be very alert. He knows where he is. Plan will be to hold off any gastrointestinal procedures, monitor laboratories, put him on Colace and MiraLAX for constipation, and monitor p.o. intake and further recommendations will be made as needed. I want to thank, Dr. Espinoza, for this kind referral. Matthew Carver M.D. DR: ALIVIA JOB#: [id number] CC: Eros Espinoza M.D.; Fax#: [phone]
--- NOTE | 2017-05-02 23:29 | Consultation ---
History of Present Illness General Date patient seen: May 02, 2017 Chief Complaint: Altered Level of Consciousness Present Illness HPI 81 y/o male from snf with PMH for dm, htn, cad s/p cabg who presented to the ED for AMS. Patient was found to be hypoxic by EMS which improved on NC O2. Patient unable to give further history due to his underlying dementia. He was noted to have elevated B/Cr. Baseline renal function not available. Allergies: Coded Allergies: PENICILLINS (Verified Allergy, Unknown, 11/14/15) Medication History Scheduled Amlodipine Besylate (Norvasc), 10 MG ORAL DAILY, (Reported) Amlodipine Besylate (Norvasc), 10 MG ORAL DAILY, (Reported) Ascorbic Acid* (Vitamin C*), 250 MG ORAL DAILY, (Reported) Ascorbic Acid* (Vitamin C*), 250 MG ORAL DAILY, (Reported) Aspirin Ec* (Aspirin Ec*), 81 MG ORAL DAILY, (Reported) Atorvastatin Calcium* (Lipitor*), 10 MG ORAL BEDTIME, (Reported) Carvedilol (Coreg), 3.125 MG ORAL QHS Clopidogrel* (Clopidogrel*), 75 MG ORAL DAILY, (Reported) Docusate Sodium* (Docusate Sodium*), 100 MG ORAL BID, (Reported) Donepezil Hcl* (Donepezil Hcl*), 10 MG ORAL DAILY, (Reported) Famotidine (Famotidine), 20 MG ORAL DAILY, (Reported) Furosemide* (Lasix*), 20 MG ORAL DAILY, (Reported) Gabapentin* (Gabapentin*), 300 MG ORAL THREE TIMES A DAY, (Reported) Insulin Aspart* (Novolog*), 0 SUBQ AC+HS, (Reported) Insulin Glargine (Lantus), 0 SUBQ BEDTIME, (Reported) Isosorbide Mononitrate (Isosorbide Mononitrate Er), 30 MG ORAL DAILY Levetiracetam (Levetiracetam), 500 MG ORAL Q12HR Magnesium Hydroxide (Milk of Magnesia), 30 ML ORAL DAILY, (Reported) Multivitamin with Minerals (Multivitamins with Minerals), 1 TAB ORAL DAILY, ( Reported) Nateglinide (Starlix), 120 MG ORAL TIAC Olanzapine* (Zyprexa*), 2.5 MG ORAL DAILY, (Reported) Sitagliptin (Januvia), 25 MG ORAL ACBREAKFAST Zinc Sulfate (Zinc Sulfate*), 220 MG ORAL DAILY, (Reported) Scheduled PRN Acetaminophen* (Acetaminophen 325MG Tablet*), 650 MG ORAL Q4H PRN for Mild Pain/ Temp > 100.5, (Reported) Miscellaneous Medications Insulin Regular, Human (Humulin R), 0 SUBQ, (Reported) Nitroglycerin (Nitroglycerin), 0.4 MG SL, (Reported) [Regular Insulin], (Reported) Patient History History Provided By: Medical Record, EMS Healthcare decision maker Resuscitation status Full Code Advanced Directive on File Yes Past Medical/Surgical History Past Medical/Surgical History: (1) DM (diabetes mellitus) (2) CHF (congestive heart failure) (3) Seizure (4) CAD (coronary artery disease) (5) Anemia (6) Renal insufficiency Review of Systems ROS Narrative unable to obtain Physical Exam General Appearance: WD/WN, lethargic, confused HEENT: normocephalic, atraumatic Neck: supple Respiratory/Chest: decreased breath sounds Cardiovascular/Chest: normal rate, regular rhythm Abdomen: non tender, soft Last 24 Hour Vital Signs Date Time Temp Pulse Resp B/P (MAP) Pulse Ox O2 Delivery O2 Flow Rate FiO2 05/02/17 20:51 72 05/02/17 20:28 76 161/80 05/02/17 20:00 97.0 76 20 161/80 95 Nasal Cannula 2.0 05/02/17 16:00 74 05/02/17 16:00 97.9 83 19 160/79 Nasal Cannula 2.0 05/02/17 12:00 70 05/02/17 12:00 97.8 19 133/67 Nasal Cannula 1.0 05/02/17 10:05 65 135/65 05/02/17 10:04 135/65 05/02/17 08:00 67 05/02/17 08:00 97.1 68 19 93 Nasal Cannula 2.0 05/02/17 04:38 96 Nasal Cannula 2.0 05/02/17 04:00 97.7 65 21 135/65 93 05/02/17 03:44 65 05/02/17 00:00 98.1 56 20 126/55 93 05/02/17 00:00 95 Nasal Cannula 2.0 05/01/17 23:48 59 Intake and Output 05/01/17 05/02/17 19:00 07:00 Intake Total 1200 ml Output Total 600 ml Balance 600 ml Intake Oral 200 ml IV Total 1000 ml Output Urine Total 600 ml # Voids 1 3 # Bowel Movements 1 Height (Feet): 5 Height (Inches): 6.00 Weight (Pounds): 165 Medications Current Medications Medications (Trade) Dose Ordered Sig/Jason Route PRN Reason Start Time Stop Time Status Last Admin Dose Admin Acetaminophen (Tylenol) 650 mg Q4H PRN ORAL Mild Pain/Temp > 100.5 05/01/17 17:15 05/31/17 17:14 Amlodipine Besylate (Norvasc) 10 mg DAILY ORAL 05/02/17 09:00 06/01/17 08:59 05/02/17 10:05 Ascorbic Acid (Vitamin C) 250 mg DAILY ORAL 05/02/17 09:00 06/01/17 08:59 05/02/17 10:09 Aspirin (ASA) 81 mg DAILY ORAL 05/02/17 09:00 06/01/17 08:59 05/02/17 10:04 Atorvastatin Calcium (Lipitor) 10 mg BEDTIME ORAL 05/01/17 21:00 05/31/17 20:59 05/02/17 20:28 Carvedilol (Coreg) 3.125 mg QHS ORAL 05/01/17 21:00 05/31/17 20:59 05/02/17 20:28 Clopidogrel Bisulfate (Plavix) 75 mg DAILY ORAL 05/02/17 09:00 06/01/17 08:59 05/02/17 10:04 Dextrose (Dextrose 50%) STAT PRN IV Hypoglycemia 05/01/17 17:30 05/31/17 17:29 Docusate Sodium (Colace) 100 mg TWICE A DAY ORAL 05/01/17 18:00 05/31/17 17:59 05/02/17 18:12 Donepezil HCl (Aricept) 10 mg QHS ORAL 05/01/17 21:00 05/31/17 20:59 05/02/17 20:28 Famotidine (Pepcid) 20 mg DAILY ORAL 05/02/17 09:00 06/01/17 08:59 05/02/17 10:03 Furosemide (Lasix) 20 mg DAILY ORAL 05/02/17 09:00 06/01/17 08:59 05/02/17 10:03 Gabapentin (Neurontin) 300 mg THREE TIMES A DAY ORAL 05/01/17 18:00 05/31/17 17:59 05/02/17 18:12 Insulin Aspart (NovoLOG) BEFORE MEALS AND HS SUBQ 05/01/17 18:00 05/31/17 17:59 05/02/17 20:32 Isosorbide Mononitrate (Imdur) 30 mg DAILY ORAL 05/02/17 09:00 06/01/17 08:59 05/02/17 10:04 Multivitamins (Multivitamins) 1 tab DAILY ORAL 05/02/17 09:00 06/01/17 08:59 05/02/17 10:04 Nateglinide (Starlix) 120 mg TIAC ORAL 05/01/17 17:30 05/31/17 17:29 05/02/17 18:13 Sitagliptin Phosphate (Januvia) 25 mg ACBREAKFAST ORAL 05/02/17 06:30 06/01/17 06:29 Assessment/Plan Problem List: (1) CAD (coronary artery disease) ICD Codes: I25.10 - Atherosclerotic heart disease of [place] coronary artery without angina pectoris SNOMED: 33446882 (2) Hx of CABG ICD Codes: Z95.1 - Presence of aortocoronary bypass graft SNOMED: 986301750, 050483536 (3) Renal failure (ARF), acute on chronic ICD Codes: N17.9 - Acute kidney failure, unspecified; N18.9 - Chronic kidney disease, unspecified SNOMED: 261718240 (4) Dehydration ICD Codes: E86.0 - Dehydration SNOMED: 96766260 (5) CHF (congestive heart failure) ICD Codes: I50.9 - Heart failure, unspecified SNOMED: 07376117 (6) DM (diabetes mellitus) ICD Codes: E11.9 - Type 2 diabetes mellitus without complications SNOMED: 61211047 (7) Seizure ICD Codes: R56.9 - Unspecified convulsions SNOMED: 80878459 (8) Hypoxia ICD Codes: R09.02 - Hypoxemia SNOMED: 273758812 (9) Anemia ICD Codes: D64.9 - Anemia, unspecified SNOMED: 943272284 (10) Lactic acid acidosis ICD Codes: E87.2 - Acidosis SNOMED: 38564396 Assessment/Plan renal w/u. monitor labs.monitor UOP. IVF. Avoid nephrotoxic agents. Will follow. Thanks. ZAC TREJO May 02, 2017 23:29
[2017-05-03] VITALS (8 sets, daily range): BP systolic 120–169; BP diastolic 60–84
--- NOTE | 2017-05-03 01:00 | Consultation ---
DATE OF CONSULTATION: 05/02/2017 CARDIOLOGY CONSULTATION CONSULTING PHYSICIAN: Blaze Lucero M.D. ATTENDING/REQUESTING PHYSICIAN: Eros Espinoza M.D. REASON FOR CONSULTATION: Congestive heart failure in the setting of ischemic heart disease. HISTORY OF PRESENT ILLNESS: This 81-year-old male resides at a correction facility. He was referred to the hospital because of hypoxia. He was noted to have multiple laboratory abnormalities. I have been asked to assist with further care. PAST MEDICAL HISTORY: CAD with history of CABG, hypertension, chronic kidney disease, cerebrovascular disease with dementia, type 2 diabetes mellitus, gastroesophageal reflux disease. MEDICATIONS: Reviewed and reconciled. ALLERGIES: Penicillin. SOCIAL HISTORY: Denies smoking or alcohol abuse. REVIEW OF SYSTEMS: Cannot be reliably obtained from the patient. PHYSICAL EXAMINATION: GENERAL: Thin frail male in no acute distress. VITAL SIGNS: Blood pressure 133/67 to 170/79, heart rate 74, respiratory rate 19, and afebrile. NECK: Supple. LUNGS: With few rales. CARDIAC: Regular rhythm and rate. Normal S1, S2 with a fourth heart sound. ABDOMEN: Soft, nontender. EXTREMITIES: Trace edema. LABORATORY AND DIAGNOSTIC DATA: Lactic acid 2.7. BUN 48, creatinine 4.7, glucose 337. Pro-natriuretic peptide 30,000. Troponin 0.029. Albumin 2.7. White count 9.4, hemoglobin 13.3. Urinalysis with 2-4 white cells. ABG, pH 7.43, 33, 65. EKG, sinus rhythm, first-degree AV block, anterior ST-T changes suggesting ischemia. Chest x-ray with cardiomegaly, mild congestive heart failure, atelectasis, and possible left lower lobe pneumonia. IMPRESSION: 1. Acute on chronic renal failure, resolved. 2. Hypoxia. 3. Acute on chronic diastolic and systolic congestive heart failure. 4. Ischemic cardiomyopathy. 5. Hypertensive heart disease with labile blood pressure. PLAN: 1. Cardiac monitoring. 2. Antiplatelet therapy with aspirin. 3. Titrate anti-failure regimen. 4. Diuresis to be held pending assessment of renal poor function. 5. Titrate beta-dale. 6. Continue statin drug. 7. Check lipid parameters. 8. We will follow. Blaze Lucero M.D. DR: Kian JOB#: [id number] CC:
[2017-05-03] MEDS: sitaGLIPtin 25mg tab ORAL SCH (06:27)
[2017-05-03] MEDS: NovoLOG Insulin Flexpen SUBQ SCH ×4 (06:29→21:59)
[2017-05-03 06:50] LABS: BASOPHILS % (AUTO) 0.4 % (0.0-2.0); EOSINOPHILS % (AUTO) 3.6 % (0.0-3.0); HEMATOCRIT 33.4 % (42.0-52.0); HEMOGLOBIN 11.1 G/DL (14.2-18.0); LYMPHOCYTES % (AUTO) 24.6 % (20.0-45.0); MEAN CORPUSCULAR VOLUME 94 FL (80-99); MONOCYTES % (AUTO) 15.3 % (1.0-10.0); NEUTROPHILS % (AUTO) 56.2 % (45.0-75.0); PLATELET COUNT 107 K/UL (150-450); RED BLOOD COUNT 3.56 M/UL (4.70-6.10); RED CELL DISTRIBUTION WIDTH 11.7 % (11.6-14.8); WHITE BLOOD COUNT 4.8 K/UL (4.8-10.8)
[2017-05-03 06:59] LABS: ANION GAP 11 mmol/L (5-15); BLOOD UREA NITROGEN 49 mg/dL (7-18); CALCIUM 7.9 MG/DL (8.5-10.1); CARBON DIOXIDE 22 MMOL/L (21-32); CHLORIDE 103 MMOL/L (98-107); CREATININE 3.7 MG/DL (0.55-1.30); SODIUM 136 MMOL/L (136-145)
[2017-05-03 07:21] LABS: PHOSPHORUS 3.5 MG/DL (2.5-4.9)
[2017-05-03] MEDS: Imdur 30mg tab ORAL SCH (08:56)
[2017-05-03] MEDS: Docusate 100mg cap ORAL SCH ×2 (08:56→17:03)
[2017-05-03] MEDS: Ascorbic Acid 500mg tab ORAL SCH (08:57)
[2017-05-03] MEDS: Aspirin Baby 81mg ORAL SCH (08:57)
--- NOTE | 2017-05-03 09:18 | General Progress Note ---
Assessment/Plan Assessment/Plan 1. Worsening renal failure. 2. Hypoxemia 3. Pulmonary vascular congestion. 4. intermediate resident. 5. History of hypertension. 6. ALOC PLAN care noted repeat labs follow up cards/renal recommendations monitor oxygen needs dc planning impression, plan, and exam edited and reviewed in detail care discussed with RN Subjective Allergies: Coded Allergies: PENICILLINS (Verified Allergy, Unknown, 11/14/15) Subjective comfortable at present care noted Objective Last 24 Hour Vital Signs Date Time Temp Pulse Resp B/P (MAP) Pulse Ox O2 Delivery O2 Flow Rate FiO2 05/03/17 08:56 149/76 05/03/17 08:56 63 149/76 05/03/17 08:00 97.8 63 18 149/76 95 Nasal Cannula 2.0 05/03/17 04:10 149/73 95 Nasal Cannula 2.0 05/03/17 04:00 97.0 67 20 169/79 94 05/03/17 03:36 64 05/03/17 02:00 97.0 84 20 128/78 94 Non-Rebreather 05/03/17 00:00 98.0 66 20 152/84 95 Nasal Cannula 2.0 05/02/17 23:53 65 05/02/17 20:51 72 05/02/17 20:28 76 161/80 05/02/17 20:00 97.0 76 20 161/80 95 Nasal Cannula 2.0 05/02/17 16:00 74 05/02/17 16:00 97.9 83 19 160/79 Nasal Cannula 2.0 05/02/17 12:00 70 05/02/17 12:00 97.8 19 133/67 Nasal Cannula 1.0 05/02/17 10:05 65 135/65 05/02/17 10:04 135/65 Intake and Output 05/02/17 05/03/17 19:00 07:00 Intake Total 472 ml Output Total 250 ml Balance 472 ml -250 ml Intake Oral 472 ml Post Void Residual 250 ml Bladder Scan Volume Amount 235 # Voids 2 1 Laboratory Tests 05/03/17 05:45: White Blood Count 4.8, Red Blood Count 3.56L, Hemoglobin 11.1L, Hematocrit 33.4L , Mean Corpuscular Volume 94, Mean Corpuscular Hemoglobin 31.3H, Mean Corpuscular Hemoglobin Concent 33.3, Red Cell Distribution Width 11.7, Platelet Count 107L, Mean Platelet Volume 11.5H, Neutrophils (%) (Auto) 56.2, Lymphocytes (%) (Auto) 24.6, Monocytes (%) (Auto) 15.3H, Eosinophils (%) (Auto) 3.6H, Basophils (%) (Auto) 0.4, Sodium Level 136, Potassium Level 4.0, Chloride Level 103, Carbon Dioxide Level 22, Anion Gap 11, Blood Urea Nitrogen 49H, Creatinine 3.7H, Estimat Glomerular Filtration Rate , Glucose Level 136H, Uric Acid 6.2, Calcium Level 7.9L, Phosphorus Level 3.5, Magnesium Level 1.8, Troponin I 0.014, Pro-B-Type Natriuretic Peptide 5423H Height (Feet): 5 Height (Inches): 6.00 Weight (Pounds): 165 Objective WDWN NAD clear breath sounds bilaterally without rhonchi or wheeze [id number] without MRG NABS nontender no HSM no CCE nonfocal KIRA XIAO May 03, 2017 09:18
--- NOTE | 2017-05-03 11:49 | General Progress Note ---
Assessment/Plan Problem List: (1) DM (diabetes mellitus) ICD Codes: E11.9 - Type 2 diabetes mellitus without complications SNOMED: 32702041 (2) Anemia ICD Codes: D64.9 - Anemia, unspecified SNOMED: 717166138 (3) Renal insufficiency ICD Codes: N28.9 - Disorder of kidney and ureter, unspecified SNOMED: 718829337 (4) CAD (coronary artery disease) ICD Codes: I25.10 - Atherosclerotic heart disease of [place] coronary artery without angina pectoris SNOMED: 32997367 (5) Seizure ICD Codes: R56.9 - Unspecified convulsions SNOMED: 55124006 Assessment/Plan monitor PO intake anemia work up fu cardiology and renal recs DM control Subjective ROS Limited/Unobtainable: Yes Allergies: Coded Allergies: PENICILLINS (Verified Allergy, Unknown, 11/14/15) Subjective no event over night Objective Last 24 Hour Vital Signs Date Time Temp Pulse Resp B/P (MAP) Pulse Ox O2 Delivery O2 Flow Rate FiO2 05/03/17 08:56 149/76 05/03/17 08:56 63 149/76 05/03/17 08:00 72 05/03/17 08:00 97.8 63 18 149/76 95 Nasal Cannula 2.0 05/03/17 04:10 149/73 95 Nasal Cannula 2.0 05/03/17 04:00 97.0 67 20 169/79 94 05/03/17 03:36 64 05/03/17 02:00 97.0 84 20 128/78 94 Non-Rebreather 05/03/17 00:00 98.0 66 20 152/84 95 Nasal Cannula 2.0 05/02/17 23:53 65 05/02/17 20:51 72 05/02/17 20:28 76 161/80 05/02/17 20:00 97.0 76 20 161/80 95 Nasal Cannula 2.0 05/02/17 16:00 74 05/02/17 16:00 97.9 83 19 160/79 Nasal Cannula 2.0 05/02/17 12:00 70 05/02/17 12:00 97.8 19 133/67 Nasal Cannula 1.0 Intake and Output 05/02/17 05/03/17 19:00 07:00 Intake Total 472 ml Output Total 250 ml Balance 472 ml -250 ml Intake Oral 472 ml Post Void Residual 250 ml Bladder Scan Volume Amount 235 # Voids 2 1 Laboratory Tests 05/03/17 05:45: White Blood Count 4.8, Red Blood Count 3.56L, Hemoglobin 11.1L, Hematocrit 33.4L , Mean Corpuscular Volume 94, Mean Corpuscular Hemoglobin 31.3H, Mean Corpuscular Hemoglobin Concent 33.3, Red Cell Distribution Width 11.7, Platelet Count 107L, Mean Platelet Volume 11.5H, Neutrophils (%) (Auto) 56.2, Lymphocytes (%) (Auto) 24.6, Monocytes (%) (Auto) 15.3H, Eosinophils (%) (Auto) 3.6H, Basophils (%) (Auto) 0.4, Sodium Level 136, Potassium Level 4.0, Chloride Level 103, Carbon Dioxide Level 22, Anion Gap 11, Blood Urea Nitrogen 49H, Creatinine 3.7H, Estimat Glomerular Filtration Rate , Glucose Level 136H, Uric Acid 6.2, Calcium Level 7.9L, Phosphorus Level 3.5, Magnesium Level 1.8, Troponin I 0.014, Pro-B-Type Natriuretic Peptide 5423H 05/03/17 06:00: Urine Creatinine 65.5 Height (Feet): 5 Height (Inches): 6.00 Weight (Pounds): 165 General Appearance: no apparent distress EENT: normal ENT inspection Neck: supple Cardiovascular: normal rate Respiratory/Chest: decreased breath sounds Abdomen: normal bowel sounds, non tender, soft Extremities: non-tender ASHLEY RUEDA May 03, 2017 11:49
[2017-05-03] MEDS ORDERED: Vancomycin 1gm/D5W 275ml IVPB ONE ×2 (16:00)
--- NOTE | 2017-05-03 20:45 | Progress Note ---
DATE: 05/03/2017 CARDIOLOGY PROGRESS NOTE SUBJECTIVE: The patient has no chest pain. No shortness of breath today. OBJECTIVE: VITAL SIGNS: Blood pressure 149/76, heart rate 62 and respiratory rate 18. LUNGS: Coarse breath sounds. Few rhonchi. HEART: Regular rhythm and rate. Normal S1 and S2 with a fourth heart sound. LABORATORY DATA: Troponin has normalized to 0.014. Pro-natriuretic peptide is 5400. BUN 49 and creatinine 3.7. Lactic acid has normalized. IMPRESSION: 1. Acute on chronic diastolic congestive heart failure, improved. 2. Acute on chronic renal failure, improving. 3. Acute myocardial ischemia, recovered. 4. Lactic acidosis, recovering. 5. Hypertensive heart disease. PLAN: 1. Continue to hold diuresis. 2. Maintain beta-dale and statin drug. 3. Titrating the former based on clinical parameters. 4. Continue anti-platelet therapy with aspirin. 5. Monitor volume status and cardiorenal parameters. 6. Review chest x-ray. 7. Discontinue telemetry. Blaze Lucero M.D. DR: ANDREY JOB#: [id number] CC:
[2017-05-03] MEDS ORDERED: Carvedilol 6.25mg Tab ORAL SCH (21:00)
--- NOTE | 2017-05-03 21:14 | Nephrology Progress Note ---
Assessment/Plan Problem List: (1) CHF (congestive heart failure) (2) Renal failure (ARF), acute on chronic (3) Generalized weakness (4) CAD (coronary artery disease) (5) Seizure (6) DM (diabetes mellitus) Plan Renal ultrasound result pending 24 hr urine collection for creatinine clearance Monitor lites, correct prn Monitor neuro status Renally dose meds, avoid nephrotoxins AM labs Subjective Constitutional: Denies: no symptoms, chills, diaphoresis, fever, malaise, weakness, other HEENT: Denies: no symptoms, eye pain, blurred vision, tearing, double vision, ear pain, ear discharge, nose pain, nose congestion, throat pain, throat swelling, mouth pain, mouth swelling, other Genitourinary: Denies: no symptoms, burning, discharge, frequency, flank pain, hematuria, incontinence, pain, urgency, other Neurologic/Psychiatric: Denies: no symptoms, anxiety, depressed, emotional problems, headache, numbness, paresthesia, pre-existing deficit, seizure, tingling, tremors, weakness, other Subjective In bed, in no apparent distress, denies discomfort at this time Objective Objective Last 24 Hour Vital Signs Date Time Temp Pulse Resp B/P (MAP) Pulse Ox O2 Delivery O2 Flow Rate FiO2 05/03/17 16:00 97.4 67 19 130/60 93 Nasal Cannula 2.0 05/03/17 16:00 66 05/03/17 12:00 97.4 69 19 122/67 92 Nasal Cannula 2.0 05/03/17 12:00 65 05/03/17 08:56 149/76 05/03/17 08:56 63 149/76 05/03/17 08:00 72 05/03/17 08:00 97.8 63 18 149/76 95 Nasal Cannula 2.0 05/03/17 04:10 149/73 95 Nasal Cannula 2.0 05/03/17 04:00 97.0 67 20 169/79 94 05/03/17 03:36 64 05/03/17 02:00 97.0 84 20 128/78 94 Non-Rebreather 05/03/17 00:00 98.0 66 20 152/84 95 Nasal Cannula 2.0 05/02/17 23:53 65 Intake and Output 05/02/17 05/03/17 19:00 07:00 Intake Total 472 ml Output Total 250 ml Balance 472 ml -250 ml Intake Oral 472 ml Post Void Residual 250 ml Bladder Scan Volume Amount 235 # Voids 2 1 Laboratory Tests 05/03/17 05:45: White Blood Count 4.8, Red Blood Count 3.56L, Hemoglobin 11.1L, Hematocrit 33.4L , Mean Corpuscular Volume 94, Mean Corpuscular Hemoglobin 31.3H, Mean Corpuscular Hemoglobin Concent 33.3, Red Cell Distribution Width 11.7, Platelet Count 107L, Mean Platelet Volume 11.5H, Neutrophils (%) (Auto) 56.2, Lymphocytes (%) (Auto) 24.6, Monocytes (%) (Auto) 15.3H, Eosinophils (%) (Auto) 3.6H, Basophils (%) (Auto) 0.4, Sodium Level 136, Potassium Level 4.0, Chloride Level 103, Carbon Dioxide Level 22, Anion Gap 11, Blood Urea Nitrogen 49H, Creatinine 3.7H, Estimat Glomerular Filtration Rate , Glucose Level 136H, Uric Acid 6.2, Calcium Level 7.9L, Phosphorus Level 3.5, Magnesium Level 1.8, Troponin I 0.014, Pro-B-Type Natriuretic Peptide 5423H 05/03/17 06:00: Urine Creatinine 65.5 05/03/17 13:30: Stool Occult Blood Negative Height (Feet): 5 Height (Inches): 6.00 Weight (Pounds): 165 General Appearance: no apparent distress, alert EENT: normal ENT inspection Neck: non-tender, normal alignment Cardiovascular: normal rate, no JVD Respiratory/Chest: normal breath sounds Abdomen: non tender, soft Extremities: non-tender Neurologic: alert, responsive Adriana Wharton N.P. May 03, 2017 21:14
[2017-05-03] MEDS: Donepezil 10mg tab ORAL SCH (21:54)
[2017-05-04] VITALS: BP 144/62
[2017-05-04 04:43] VITALS: BP 144/70
[2017-05-04] MEDS: sitaGLIPtin 25mg tab ORAL SCH ×2 (06:30→06:40)
[2017-05-04] MEDS: NovoLOG Insulin Flexpen SUBQ SCH ×4 (06:41→20:28)
[2017-05-04 08:07] VITALS: BP 160/71
[2017-05-04 08:22] LABS: ANION GAP 8 mmol/L (5-15); BLOOD UREA NITROGEN 54 mg/dL (7-18); CALCIUM 8.1 MG/DL (8.5-10.1); CARBON DIOXIDE 24 MMOL/L (21-32); CHLORIDE 102 MMOL/L (98-107); CREATININE 3.8 MG/DL (0.55-1.30); POTASSIUM 3.9 MMOL/L (3.5-5.1); SODIUM 134 MMOL/L (136-145)
[2017-05-04 08:28] LABS: BASOPHILS % (AUTO) 1.4 % (0.0-2.0); EOSINOPHILS % (AUTO) 6.2 % (0.0-3.0); HEMATOCRIT 39.9 % (42.0-52.0); HEMOGLOBIN 12.9 G/DL (14.2-18.0); LYMPHOCYTES % (AUTO) 34.1 % (20.0-45.0); MEAN CORPUSCULAR VOLUME 95 FL (80-99); NEUTROPHILS % (AUTO) 39.4 % (45.0-75.0); PLATELET COUNT 115 K/UL (150-450); RED BLOOD COUNT 4.18 M/UL (4.70-6.10); RED CELL DISTRIBUTION WIDTH 11.9 % (11.6-14.8); WHITE BLOOD COUNT 3.7 K/UL (4.8-10.8)
[2017-05-04 09:08] LABS: % IRON SATURATION 15 % (15-50); IRON 27 ug/dL (50-175); TOTAL IRON BINDING CAPACITY 185 ug/dL (250-450)
--- NOTE | 2017-05-04 09:31 | Pulmonology Progress Note ---
Assessment/Plan Assessment/Plan 1. Worsening renal failure. 2. Hypoxemia 3. Pulmonary vascular congestion. 4. senior living resident. 5. History of hypertension. 6. ALOC 7. Bacteremia; likely contaminant PLAN care noted repeat labs follow up cards/renal recommendations monitor oxygen needs may need GT; discussed with GI Will lynda Hackett; I believe the positive blood CS is a contaminant Subjective Interval Events: Afebrile; no leucocytosis Constitutional: Reports: no symptoms HEENT: Repors: no symptoms Respiratory: Reports: no symptoms Cardiovascular: Reports: no symptoms Gastrointestinal/Abdominal: Reports: no symptoms Allergies: Coded Allergies: PENICILLINS (Verified Allergy, Unknown, 11/14/15) Objective Last 24 Hour Vital Signs Date Time Temp Pulse Resp B/P (MAP) Pulse Ox O2 Delivery O2 Flow Rate FiO2 05/04/17 08:07 97.5 67 18 160/71 95 Nasal Cannula 2.0 05/04/17 04:43 96.8 60 18 144/70 93 Nasal Cannula 2.0 05/04/17 00:00 97.7 63 20 144/62 97 05/04/17 00:00 Nasal Cannula 2.0 05/03/17 21:54 66 130/60 05/03/17 20:00 98.2 75 20 120/62 93 Nasal Cannula 2.0 05/03/17 16:00 97.4 67 19 130/60 93 Nasal Cannula 2.0 05/03/17 16:00 66 05/03/17 12:00 97.4 69 19 122/67 92 Nasal Cannula 2.0 05/03/17 12:00 65 Intake and Output 05/03/17 05/04/17 19:00 07:00 Intake Total 536 ml Output Total 460 ml 780 ml Balance 76 ml -780 ml Intake Oral 536 ml Output Urine Total 460 ml 260 ml Post Void Residual 520 ml Bladder Scan Volume Amount 232 283 41 # Voids 3 General Appearance: no acute distress HEENT: normocephalic Respiratory/Chest: chest wall non-tender, lungs clear Cardiovascular: normal peripheral pulses, normal rate Microbiology Date/Time Source Procedure Growth Status 05/01/17 13:30 Nasal Nares MRSA Culture - Final NO METHICILLIN RESISTANT STAPH AUREUS... Complete 05/01/17 13:30 Rectum VRE Culture - Final Enterococcus Faecalis - Vre Complete Laboratory Tests 05/03/17 13:30: Stool Occult Blood Negative 05/04/17 07:50: White Blood Count 3.7L, Red Blood Count 4.18L, Hemoglobin 12.9L, Hematocrit 39.9L, Mean Corpuscular Volume 95, Mean Corpuscular Hemoglobin 31.0, Mean Corpuscular Hemoglobin Concent 32.5, Red Cell Distribution Width 11.9, Platelet Count 115L, Mean Platelet Volume 11.7H, Neutrophils (%) (Auto) 39.4L, Lymphocytes (%) (Auto) 34.1, Monocytes (%) (Auto) 19.0H, Eosinophils (%) (Auto) 6.2H, Basophils (%) (Auto) 1.4, Sodium Level 134L, Potassium Level 3.9, Chloride Level 102, Carbon Dioxide Level 24, Anion Gap 8, Blood Urea Nitrogen 54H, Creatinine 3.8H, Estimat Glomerular Filtration Rate , Glucose Level 191H, Calcium Level 8.1L, Iron Level 27L, Total Iron Binding Capacity 185L, Percent Iron Saturation 15, Unsaturated Iron Binding 158 Current Medications Medications (Trade) Dose Ordered Sig/Jason Route PRN Reason Start Time Stop Time Status Last Admin Dose Admin Acetaminophen (Tylenol) 650 mg Q4H PRN ORAL Mild Pain/Temp > 100.5 05/04/17 01:15 05/31/17 17:14 Amlodipine Besylate (Norvasc) 10 mg DAILY ORAL 05/04/17 09:00 06/01/17 08:59 Ascorbic Acid (Vitamin C) 250 mg DAILY ORAL 05/04/17 09:00 06/01/17 08:59 Aspirin (ASA) 81 mg DAILY ORAL 05/04/17 09:00 06/01/17 08:59 Atorvastatin Calcium (Lipitor) 10 mg BEDTIME ORAL 05/04/17 21:00 05/31/17 20:59 Carvedilol (Coreg) 6.25 mg QHS ORAL 05/04/17 21:00 06/02/17 20:59 Clopidogrel Bisulfate (Plavix) 75 mg DAILY ORAL 05/04/17 09:00 06/01/17 08:59 Dextrose (Dextrose 50%) STAT PRN IV Hypoglycemia 05/04/17 17:30 05/31/17 17:29 Docusate Sodium (Colace) 100 mg TWICE A DAY ORAL 05/04/17 09:00 05/31/17 17:59 Donepezil HCl (Aricept) 10 mg QHS ORAL 05/04/17 21:00 05/31/17 20:59 Famotidine (Pepcid) 20 mg DAILY ORAL 05/04/17 09:00 06/01/17 08:59 Gabapentin (Neurontin) 300 mg THREE TIMES A DAY ORAL 05/04/17 09:00 05/31/17 17:59 Insulin Aspart (NovoLOG) BEFORE MEALS AND HS SUBQ 05/04/17 06:30 05/31/17 17:59 05/04/17 06:41 Isosorbide Mononitrate (Imdur) 30 mg DAILY ORAL 05/04/17 09:00 06/01/17 08:59 Multivitamins (Multivitamins) 1 tab DAILY ORAL 05/04/17 09:00 06/01/17 08:59 Nateglinide (Starlix) 120 mg TIAC ORAL 05/04/17 06:30 05/31/17 17:29 Sitagliptin Phosphate (Januvia) 25 mg ACBREAKFAST ORAL 05/04/17 06:30 06/01/17 06:29 Vancomycin HCl (Vanco rx to dose) 1 ea DAILY PRN MISC Per rx protocol 05/04/17 09:00 06/02/17 14:59 Eros Espinoza MD May 04, 2017 09:31
[2017-05-04] MEDS: Ascorbic Acid 500mg tab ORAL SCH (09:46)
[2017-05-04] MEDS: Docusate 100mg cap ORAL SCH ×2 (09:47→17:12)
[2017-05-04] MEDS: Aspirin Baby 81mg ORAL SCH (09:47)
[2017-05-04] MEDS: Imdur 30mg tab ORAL SCH (09:47)
[2017-05-04 12:00] VITALS: BP 134/60
--- NOTE | 2017-05-04 14:22 | Diagnostic Imaging Report ---
Indication:Elevated Bun and Creatinine. Technique: Grayscale and duplex Doppler imaging of the kidneys performed. Comparison: None Findings: Kidneys are echogenic. The right kidney measures 9.4 cm. Left kidney measures 11.7 cm. There is no hydronephrosis. The bladder is mildly distended. IVC is unremarkable as visualized. IMPRESSION: Medical renal disease suspected.
--- NOTE | 2017-05-04 15:08 | GI Progress Note ---
Assessment/Plan Problems: (1) Anemia ICD Codes: D64.9 - Anemia, unspecified SNOMED: 186020910 (2) Dehydration ICD Codes: E86.0 - Dehydration SNOMED: 29283790 (3) Generalized weakness ICD Codes: R53.1 - Weakness SNOMED: 38374886 Status: unchanged Status Narrative Discussed with Dr. Carver. Assessment/Plan defer PEG at this time >> pt more alert and awake, per RN report approximately 50% of meals. ordered ST eval with video, calorie count x 24 hours OB stool negative fu cardiology and renal recs DM control fu labs The patient was seen and examined at bedside and all new and available data was reviewed in the patients chart. I agree with the above findings, impression and plan. (Patient seen earlier today. Signature stamp does not reflect patient encounter time.). - Royce Carver MD Subjective Subjective limited Objective Last 24 Hour Vital Signs Date Time Temp Pulse Resp B/P (MAP) Pulse Ox O2 Delivery O2 Flow Rate FiO2 05/04/17 12:00 97.7 56 18 134/60 96 Nasal Cannula 2.0 05/04/17 09:47 160/71 05/04/17 09:47 67 160/71 05/04/17 08:07 97.5 67 18 160/71 95 Nasal Cannula 2.0 05/04/17 04:43 96.8 60 18 144/70 93 Nasal Cannula 2.0 05/04/17 00:00 97.7 63 20 144/62 97 05/04/17 00:00 Nasal Cannula 2.0 05/03/17 21:54 66 130/60 05/03/17 20:00 98.2 75 20 120/62 93 Nasal Cannula 2.0 05/03/17 16:00 97.4 67 19 130/60 93 Nasal Cannula 2.0 05/03/17 16:00 66 Intake and Output 05/03/17 05/04/17 19:00 07:00 Intake Total 536 ml Output Total 460 ml 780 ml Balance 76 ml -780 ml Intake Oral 536 ml Output Urine Total 460 ml 260 ml Post Void Residual 520 ml Bladder Scan Volume Amount 232 283 41 # Voids 3 Laboratory Tests Test 05/04/17 07:50 White Blood Count 3.7 K/UL (4.8-10.8) L Red Blood Count 4.18 M/UL (4.70-6.10) L Hemoglobin 12.9 G/DL (14.2-18.0) L Hematocrit 39.9 % (42.0-52.0) L Mean Corpuscular Volume 95 FL (80-99) Mean Corpuscular Hemoglobin 31.0 PG (27.0-31.0) Mean Corpuscular Hemoglobin Concent 32.5 G/DL (32.0-36.0) Red Cell Distribution Width 11.9 % (11.6-14.8) Platelet Count 115 K/UL (150-450) L Mean Platelet Volume 11.7 FL (6.5-10.1) H Neutrophils (%) (Auto) 39.4 % (45.0-75.0) L Lymphocytes (%) (Auto) 34.1 % (20.0-45.0) Monocytes (%) (Auto) 19.0 % (1.0-10.0) H Eosinophils (%) (Auto) 6.2 % (0.0-3.0) H Basophils (%) (Auto) 1.4 % (0.0-2.0) Sodium Level 134 MMOL/L (136-145) L Potassium Level 3.9 MMOL/L (3.5-5.1) Chloride Level 102 MMOL/L (98-107) Carbon Dioxide Level 24 MMOL/L (21-32) Anion Gap 8 mmol/L (5-15) Blood Urea Nitrogen 54 mg/dL (7-18) H Creatinine 3.8 MG/DL (0.55-1.30) H Estimat Glomerular Filtration Rate mL/min (>60) Glucose Level 191 MG/DL (74-106) H Calcium Level 8.1 MG/DL (8.5-10.1) L Iron Level 27 ug/dL (50-175) L Total Iron Binding Capacity 185 ug/dL (250-450) L Percent Iron Saturation 15 % (15-50) Unsaturated Iron Binding 158 ug/dL (112-346) Height (Feet): 5 Height (Inches): 6.00 Weight (Pounds): 165 General Appearance: no apparent distress Cardiovascular: normal rate Respiratory/Chest: normal breath sounds, no respiratory distress, other - NC Abdominal Exam: normal bowel sounds, non tender, soft Extremities: non-tender HernandezNaomi perez N.P. May 04, 2017 15:08 ASHLEY CARVER May 11, 2017 12:20
--- NOTE | 2017-05-04 15:09 | Diagnostic Imaging Report ---
Indication: Dyspnea Comparison: 05/01/2017 A single view chest radiograph was obtained. Findings: No definite infiltrate or pulmonary vascular congestion identified. Sternotomy again noted. Calcified nodule again noted at the base the neck. The heart is enlarged. The aorta is mildly enlarged consistent with atherosclerotic vascular disease. The bones are osteopenic. Impression: No acute disease
[2017-05-04 16:00] VITALS: BP 129/69
[2017-05-04 20:00] VITALS: BP 145/69
[2017-05-04] MEDS: Donepezil 10mg tab ORAL SCH (20:24)
[2017-05-04] MEDS: Carvedilol 6.25mg Tab ORAL SCH (20:25)
--- NOTE | 2017-05-04 23:48 | Nephrology Progress Note ---
Objective Objective Last 24 Hour Vital Signs Date Time Temp Pulse Resp B/P (MAP) Pulse Ox O2 Delivery O2 Flow Rate FiO2 05/04/17 20:25 57 129/69 05/04/17 20:00 97.3 64 20 145/69 94 05/04/17 20:00 94 Nasal Cannula 2.0 05/04/17 16:00 97.3 57 20 129/69 97 Nasal Cannula 2.0 05/04/17 12:00 97.7 56 18 134/60 96 Nasal Cannula 2.0 05/04/17 09:47 160/71 05/04/17 09:47 67 160/71 05/04/17 08:07 97.5 67 18 160/71 95 Nasal Cannula 2.0 05/04/17 04:43 96.8 60 18 144/70 93 Nasal Cannula 2.0 05/04/17 00:00 97.7 63 20 144/62 97 05/04/17 00:00 Nasal Cannula 2.0 Intake and Output 05/03/17 05/04/17 19:00 07:00 Intake Total 536 ml Output Total 460 ml 780 ml Balance 76 ml -780 ml Intake Oral 536 ml Output Urine Total 460 ml 260 ml Post Void Residual 520 ml Bladder Scan Volume Amount 232 283 41 # Voids 3 Laboratory Tests 05/04/17 07:50: White Blood Count 3.7L, Red Blood Count 4.18L, Hemoglobin 12.9L, Hematocrit 39.9L, Mean Corpuscular Volume 95, Mean Corpuscular Hemoglobin 31.0, Mean Corpuscular Hemoglobin Concent 32.5, Red Cell Distribution Width 11.9, Platelet Count 115L, Mean Platelet Volume 11.7H, Neutrophils (%) (Auto) 39.4L, Lymphocytes (%) (Auto) 34.1, Monocytes (%) (Auto) 19.0H, Eosinophils (%) (Auto) 6.2H, Basophils (%) (Auto) 1.4, Sodium Level 134L, Potassium Level 3.9, Chloride Level 102, Carbon Dioxide Level 24, Anion Gap 8, Blood Urea Nitrogen 54H, Creatinine 3.8H, Estimat Glomerular Filtration Rate , Glucose Level 191H, Calcium Level 8.1L, Iron Level 27L, Total Iron Binding Capacity 185L, Percent Iron Saturation 15, Unsaturated Iron Binding 158 Height (Feet): 5 Height (Inches): 6.00 Weight (Pounds): 165 ZAC TREJO May 04, 2017 23:48
[2017-05-05] VITALS: BP 133/59
[2017-05-05 04:17] VITALS: BP 152/68
[2017-05-05] MEDS: sitaGLIPtin 25mg tab ORAL SCH (05:43)
[2017-05-05] MEDS: NovoLOG Insulin Flexpen SUBQ SCH ×4 (05:45→20:41)
--- NOTE | 2017-05-05 06:26 | Pulmonology Progress Note ---
Assessment/Plan Assessment/Plan 1. Worsening renal failure, lab pdg. 2. Hypoxemia 3. Pulmonary vascular congestion. 4. penitentiary resident. 5. History of hypertension. 6. ALOC 7. Bacteremia; likely contaminant PLAN video swallow repeat labs may not need GT dc planning Subjective ROS Limited/Unobtainable: Yes Allergies: Coded Allergies: PENICILLINS (Verified Allergy, Unknown, 11/14/15) Objective Last 24 Hour Vital Signs Date Time Temp Pulse Resp B/P (MAP) Pulse Ox O2 Delivery O2 Flow Rate FiO2 05/05/17 04:22 97 Room Air 2.0 05/05/17 04:17 97.6 65 21 152/68 97 Nasal Cannula 2.0 05/05/17 00:00 98.1 60 21 133/59 97 05/05/17 00:00 97 Nasal Cannula 2.0 05/04/17 20:25 57 129/69 05/04/17 20:00 97.3 64 20 145/69 94 05/04/17 20:00 94 Nasal Cannula 2.0 05/04/17 16:00 97.3 57 20 129/69 97 Nasal Cannula 2.0 05/04/17 12:00 97.7 56 18 134/60 96 Nasal Cannula 2.0 05/04/17 09:47 160/71 05/04/17 09:47 67 160/71 05/04/17 08:07 97.5 67 18 160/71 95 Nasal Cannula 2.0 Intake and Output 05/04/17 05/05/17 19:00 07:00 Intake Total 480 ml Output Total 880 ml 600 ml Balance -400 ml -600 ml Intake Oral 480 ml Output Urine Total 700 ml 600 ml Post Void Residual 180 ml Bladder Scan Volume Amount 51-75 ml # Voids 1 1 General Appearance: no acute distress Respiratory/Chest: lungs clear Cardiovascular: normal rate Abdomen: soft, non tender Laboratory Tests 05/04/17 07:50: White Blood Count 3.7L, Red Blood Count 4.18L, Hemoglobin 12.9L, Hematocrit 39.9L, Mean Corpuscular Volume 95, Mean Corpuscular Hemoglobin 31.0, Mean Corpuscular Hemoglobin Concent 32.5, Red Cell Distribution Width 11.9, Platelet Count 115L, Mean Platelet Volume 11.7H, Neutrophils (%) (Auto) 39.4L, Lymphocytes (%) (Auto) 34.1, Monocytes (%) (Auto) 19.0H, Eosinophils (%) (Auto) 6.2H, Basophils (%) (Auto) 1.4, Sodium Level 134L, Potassium Level 3.9, Chloride Level 102, Carbon Dioxide Level 24, Anion Gap 8, Blood Urea Nitrogen 54H, Creatinine 3.8H, Estimat Glomerular Filtration Rate , Glucose Level 191H, Calcium Level 8.1L, Iron Level 27L, Total Iron Binding Capacity 185L, Percent Iron Saturation 15, Unsaturated Iron Binding 158 05/05/17 04:30: White Blood Count [Pending], Red Blood Count [Pending], Hemoglobin [Pending], Hematocrit [Pending], Mean Corpuscular Volume [Pending], Mean Corpuscular Hemoglobin [Pending], Mean Corpuscular Hemoglobin Concent [Pending], Red Cell Distribution Width [Pending], Platelet Count [Pending], Mean Platelet Volume [ Pending], Neutrophils (%) (Auto) [Pending], Lymphocytes (%) (Auto) [Pending], Monocytes (%) (Auto) [Pending], Eosinophils (%) (Auto) [Pending], Basophils (%) (Auto) [Pending], Sodium Level [Pending], Potassium Level [Pending], Chloride Level [Pending], Carbon Dioxide Level [Pending], Blood Urea Nitrogen [Pending], Creatinine [Pending], Estimat Glomerular Filtration Rate [Pending], Glucose Level [Pending], Calcium Level [Pending], Prothrombin Time [Pending], Prothromb Time International Ratio [Pending], Activated Partial Thromboplast Time [Pending ] Current Medications Medications (Trade) Dose Ordered Sig/Jason Route PRN Reason Start Time Stop Time Status Last Admin Dose Admin Acetaminophen (Tylenol) 650 mg Q4H PRN ORAL Mild Pain/Temp > 100.5 05/04/17 01:15 05/31/17 17:14 Amlodipine Besylate (Norvasc) 10 mg DAILY ORAL 05/04/17 09:00 06/01/17 08:59 05/04/17 09:47 Ascorbic Acid (Vitamin C) 250 mg DAILY ORAL 05/04/17 09:00 06/01/17 08:59 05/04/17 09:46 Aspirin (ASA) 81 mg DAILY ORAL 05/04/17 09:00 06/01/17 08:59 05/04/17 09:47 Atorvastatin Calcium (Lipitor) 10 mg BEDTIME ORAL 05/04/17 21:00 05/31/17 20:59 05/04/17 20:25 Carvedilol (Coreg) 6.25 mg QHS ORAL 05/04/17 21:00 06/02/17 20:59 05/04/17 20:25 Clopidogrel Bisulfate (Plavix) 75 mg DAILY ORAL 05/04/17 09:00 06/01/17 08:59 05/04/17 09:46 Dextrose (Dextrose 50%) STAT PRN IV Hypoglycemia 05/04/17 17:30 05/31/17 17:29 Docusate Sodium (Colace) 100 mg TWICE A DAY ORAL 05/04/17 09:00 05/31/17 17:59 05/04/17 17:12 Donepezil HCl (Aricept) 10 mg QHS ORAL 05/04/17 21:00 05/31/17 20:59 05/04/17 20:24 Famotidine (Pepcid) 20 mg DAILY ORAL 05/04/17 09:00 06/01/17 08:59 05/04/17 09:47 Gabapentin (Neurontin) 300 mg THREE TIMES A DAY ORAL 05/04/17 09:00 05/31/17 17:59 05/04/17 17:05 Insulin Aspart (NovoLOG) BEFORE MEALS AND HS SUBQ 05/04/17 06:30 05/31/17 17:59 05/05/17 05:45 Isosorbide Mononitrate (Imdur) 30 mg DAILY ORAL 05/04/17 09:00 06/01/17 08:59 05/04/17 09:47 Multivitamins (Multivitamins) 1 tab DAILY ORAL 05/04/17 09:00 06/01/17 08:59 05/04/17 09:47 Nateglinide (Starlix) 120 mg TIAC ORAL 05/04/17 06:30 05/31/17 17:29 05/05/17 05:44 Sitagliptin Phosphate (Januvia) 25 mg ACBREAKFAST ORAL 05/04/17 06:30 06/01/17 06:29 05/05/17 05:43 CHAPIS MOSER May 05, 2017 06:26
[2017-05-05 06:33] LABS: INR 0.9 (0.9-1.1)
[2017-05-05 06:42] LABS: ANION GAP 10 mmol/L (5-15); BLOOD UREA NITROGEN 55 mg/dL (7-18); CALCIUM 7.7 MG/DL (8.5-10.1); CARBON DIOXIDE 23 MMOL/L (21-32); CHLORIDE 102 MMOL/L (98-107); CREATININE 3.9 MG/DL (0.55-1.30); POTASSIUM 4.3 MMOL/L (3.5-5.1); SODIUM 135 MMOL/L (136-145)
[2017-05-05 06:47] LABS: BASOPHILS % (AUTO) 0.6 % (0.0-2.0); EOSINOPHILS % (AUTO) 3.4 % (0.0-3.0); HEMATOCRIT 36.1 % (42.0-52.0); HEMOGLOBIN 11.9 G/DL (14.2-18.0); MEAN CORPUSCULAR VOLUME 95 FL (80-99); MONOCYTES % (AUTO) 16.4 % (1.0-10.0); NEUTROPHILS % (AUTO) 49.7 % (45.0-75.0); PLATELET COUNT 113 K/UL (150-450); RED BLOOD COUNT 3.81 M/UL (4.70-6.10); RED CELL DISTRIBUTION WIDTH 11.7 % (11.6-14.8); WHITE BLOOD COUNT 5.2 K/UL (4.8-10.8)
[2017-05-05 08:00] VITALS: BP 143/65
[2017-05-05] MEDS: Ascorbic Acid 500mg tab ORAL SCH (09:38)
[2017-05-05] MEDS: Docusate 100mg cap ORAL SCH ×2 (09:38→18:00)
[2017-05-05] MEDS: Aspirin Baby 81mg ORAL SCH (09:38)
[2017-05-05] MEDS: Imdur 30mg tab ORAL SCH (09:38)
--- NOTE | 2017-05-05 11:18 | GI Progress Note ---
Assessment/Plan Problems: (1) Anemia ICD Codes: D64.9 - Anemia, unspecified SNOMED: 790721987 (2) Dehydration ICD Codes: E86.0 - Dehydration SNOMED: 89510714 (3) Generalized weakness ICD Codes: R53.1 - Weakness SNOMED: 31993826 Status: stable, unchanged Status Narrative Discussed with Dr. Carver. Assessment/Plan defer PEG at this time >> per daughter, the patient passed the video swallow study at [facility], records are in physical chart. ST evaluation today >> adv diet per recommendations, push PO PT evaluation OB stool negative fu cardiology and renal recs DM control fu labs Subjective Subjective limited Objective Last 24 Hour Vital Signs Date Time Temp Pulse Resp B/P (MAP) Pulse Ox O2 Delivery O2 Flow Rate FiO2 05/05/17 09:38 143/65 05/05/17 09:38 60 143/65 05/05/17 08:00 97.3 60 20 143/65 95 05/05/17 04:22 97 Room Air 2.0 05/05/17 04:17 97.6 65 21 152/68 97 Nasal Cannula 2.0 05/05/17 00:00 98.1 60 21 133/59 97 05/05/17 00:00 97 Nasal Cannula 2.0 05/04/17 20:25 57 129/69 05/04/17 20:00 97.3 64 20 145/69 94 05/04/17 20:00 94 Nasal Cannula 2.0 05/04/17 16:00 97.3 57 20 129/69 97 Nasal Cannula 2.0 05/04/17 12:00 97.7 56 18 134/60 96 Nasal Cannula 2.0 Intake and Output 05/04/17 05/05/17 18:59 06:59 Intake Total 480 ml Output Total 880 ml 600 ml Balance -400 ml -600 ml Intake Oral 480 ml Output Urine Total 700 ml 600 ml Post Void Residual 180 ml Bladder Scan Volume Amount 51-75 ml # Voids 1 1 Laboratory Tests Test 05/05/17 04:30 White Blood Count 5.2 K/UL (4.8-10.8) Red Blood Count 3.81 M/UL (4.70-6.10) L Hemoglobin 11.9 G/DL (14.2-18.0) L Hematocrit 36.1 % (42.0-52.0) L Mean Corpuscular Volume 95 FL (80-99) Mean Corpuscular Hemoglobin 31.3 PG (27.0-31.0) H Mean Corpuscular Hemoglobin Concent 33.1 G/DL (32.0-36.0) Red Cell Distribution Width 11.7 % (11.6-14.8) Platelet Count 113 K/UL (150-450) L Mean Platelet Volume 10.9 FL (6.5-10.1) H Neutrophils (%) (Auto) 49.7 % (45.0-75.0) Lymphocytes (%) (Auto) 30.0 % (20.0-45.0) Monocytes (%) (Auto) 16.4 % (1.0-10.0) H Eosinophils (%) (Auto) 3.4 % (0.0-3.0) H Basophils (%) (Auto) 0.6 % (0.0-2.0) Prothrombin Time 9.7 SEC (9.30-11.50) Prothromb Time International Ratio 0.9 (0.9-1.1) Activated Partial Thromboplast Time 30 SEC (23-33) Sodium Level 135 MMOL/L (136-145) L Potassium Level 4.3 MMOL/L (3.5-5.1) Chloride Level 102 MMOL/L (98-107) Carbon Dioxide Level 23 MMOL/L (21-32) Anion Gap 10 mmol/L (5-15) Blood Urea Nitrogen 55 mg/dL (7-18) H Creatinine 3.9 MG/DL (0.55-1.30) H Estimat Glomerular Filtration Rate mL/min (>60) Glucose Level 231 MG/DL (74-106) H Calcium Level 7.7 MG/DL (8.5-10.1) L Height (Feet): 5 Height (Inches): 6.00 Weight (Pounds): 165 General Appearance: WD/WN, no apparent distress, alert Cardiovascular: normal rate Respiratory/Chest: normal breath sounds, no respiratory distress Abdominal Exam: normal bowel sounds, non tender, soft Extremities: normal range of motion, non-tender Naomi Hernandez N.Julio César May 05, 2017 11:18
[2017-05-05 12:00] VITALS: BP 140/65
--- NOTE | 2017-05-05 13:30 | Nephrology Progress Note ---
Assessment/Plan Problem List: (1) CHF (congestive heart failure) (2) Renal failure (ARF), acute on chronic (3) Generalized weakness (4) CAD (coronary artery disease) (5) Seizure (6) DM (diabetes mellitus) Plan Strict intake and output Monitor lites, correct prn Monitor neuro status Renally dose meds, avoid nephrotoxins AM labs Subjective Constitutional: Denies: no symptoms, chills, diaphoresis, fever, malaise, weakness, other HEENT: Denies: no symptoms, eye pain, blurred vision, tearing, double vision, ear pain, ear discharge, nose pain, nose congestion, throat pain, throat swelling, mouth pain, mouth swelling, other Genitourinary: Denies: no symptoms, burning, discharge, frequency, flank pain, hematuria, incontinence, pain, urgency, other Neurologic/Psychiatric: Denies: no symptoms, anxiety, depressed, emotional problems, headache, numbness, paresthesia, pre-existing deficit, seizure, tingling, tremors, weakness, other Subjective In bed, in no apparent distress, denies discomfort at this time Objective Objective Last 24 Hour Vital Signs Date Time Temp Pulse Resp B/P (MAP) Pulse Ox O2 Delivery O2 Flow Rate FiO2 05/05/17 12:00 97.2 56 20 140/65 96 05/05/17 09:38 143/65 05/05/17 09:38 60 143/65 05/05/17 08:00 97.3 60 20 143/65 95 05/05/17 04:22 97 Room Air 2.0 05/05/17 04:17 97.6 65 21 152/68 97 Nasal Cannula 2.0 05/05/17 00:00 98.1 60 21 133/59 97 05/05/17 00:00 97 Nasal Cannula 2.0 05/04/17 20:25 57 129/69 05/04/17 20:00 97.3 64 20 145/69 94 05/04/17 20:00 94 Nasal Cannula 2.0 05/04/17 16:00 97.3 57 20 129/69 97 Nasal Cannula 2.0 Intake and Output 05/04/17 05/05/17 18:59 06:59 Intake Total 480 ml Output Total 880 ml 600 ml Balance -400 ml -600 ml Intake Oral 480 ml Output Urine Total 700 ml 600 ml Post Void Residual 180 ml Bladder Scan Volume Amount 51-75 ml # Voids 1 1 Laboratory Tests 05/05/17 04:30: White Blood Count 5.2, Red Blood Count 3.81L, Hemoglobin 11.9L, Hematocrit 36.1L , Mean Corpuscular Volume 95, Mean Corpuscular Hemoglobin 31.3H, Mean Corpuscular Hemoglobin Concent 33.1, Red Cell Distribution Width 11.7, Platelet Count 113L, Mean Platelet Volume 10.9H, Neutrophils (%) (Auto) 49.7, Lymphocytes (%) (Auto) 30.0, Monocytes (%) (Auto) 16.4H, Eosinophils (%) (Auto) 3.4H, Basophils (%) (Auto) 0.6, Prothrombin Time 9.7, Prothromb Time International Ratio 0.9, Activated Partial Thromboplast Time 30, Sodium Level 135L, Potassium Level 4.3, Chloride Level 102, Carbon Dioxide Level 23, Anion Gap 10, Blood Urea Nitrogen 55H, Creatinine 3.9H, Estimat Glomerular Filtration Rate , Glucose Level 231H, Calcium Level 7.7L Height (Feet): 5 Height (Inches): 6.00 Weight (Pounds): 165 General Appearance: no apparent distress EENT: normal ENT inspection Cardiovascular: normal peripheral pulses, no JVD Respiratory/Chest: normal breath sounds, no respiratory distress Abdomen: soft Extremities: non-tender Neurologic: alert, oriented x 3, responsive, normal mood/affect Adriana Wharton N.P. May 05, 2017 13:30
[2017-05-05 16:00] VITALS: BP 136/65
[2017-05-05 20:00] VITALS: BP 144/68
[2017-05-05] MEDS: Donepezil 10mg tab ORAL SCH (20:35)
[2017-05-05] MEDS: Carvedilol 6.25mg Tab ORAL SCH (20:35)
--- NOTE | 2017-05-05 21:45 | Progress Note ---
DATE: 05/06/2017 CARDIOLOGY PROGRESS NOTE SUBJECTIVE: Swallow evaluation noted. G-tube is not being planned at this time. OBJECTIVE: VITAL SIGNS: Vital signs are stable. Blood pressure 133/59 to 152/68, heart rate is 57 to 65, respiratory rate 18 to 21, and the patient is afebrile. NECK: Supple. LUNGS: With few rhonchi. No rales or wheezing. HEART: Regular rhythm and rate. Normal S1, S2 with a fourth heart sound. ABDOMEN: Soft. No edema. DIAGNOSTIC DATA: Chest x-ray yesterday with no acute disease. IMPRESSION: 1. No signs of acute congestive heart failure. 2. Chronic diastolic dysfunction. 3. Hypertensive heart disease with overall adequate blood pressure control. 4. Acute myocardial ischemia, recovered. 5. Acute on chronic renal failure, resolved. 6. Lactic acidosis. PLAN: 1. No need for diuresis at this time. 2. Maintain beta-dale and statin therapy as well as anti-platelet drug therapy with aspirin. 3. No additional cardiovascular workup presently indicated. Blaze Lucero M.D. DR: VANNA JOB#: [id number] CC:
[2017-05-06] VITALS: BP 141/71
[2017-05-06 04:00] VITALS: BP 148/73
[2017-05-06] MEDS: NovoLOG Insulin Flexpen SUBQ SCH ×4 (06:19→21:29)
[2017-05-06] MEDS: sitaGLIPtin 25mg tab ORAL SCH (06:22)
[2017-05-06 08:00] VITALS: BP 152/74
[2017-05-06 08:09] LABS: BASOPHILS % (AUTO) 0.4 % (0.0-2.0); EOSINOPHILS % (AUTO) 4.8 % (0.0-3.0); HEMOGLOBIN 12.7 G/DL (14.2-18.0); LYMPHOCYTES % (AUTO) 30.1 % (20.0-45.0); MEAN CORPUSCULAR VOLUME 94 FL (80-99); MONOCYTES % (AUTO) 16.4 % (1.0-10.0); NEUTROPHILS % (AUTO) 48.4 % (45.0-75.0); PLATELET COUNT 129 K/UL (150-450); RED BLOOD COUNT 4.05 M/UL (4.70-6.10); RED CELL DISTRIBUTION WIDTH 11.7 % (11.6-14.8); WHITE BLOOD COUNT 6.5 K/UL (4.8-10.8)
[2017-05-06 08:21] LABS: ANION GAP 5 mmol/L (5-15); BLOOD UREA NITROGEN 55 mg/dL (7-18); CALCIUM 8.7 MG/DL (8.5-10.1); CARBON DIOXIDE 27 MMOL/L (21-32); CHLORIDE 107 MMOL/L (98-107); CREATININE 4.1 MG/DL (0.55-1.30); POTASSIUM 5.4 MMOL/L (3.5-5.1); SODIUM 139 MMOL/L (136-145)
[2017-05-06] MEDS: Imdur 30mg tab ORAL SCH (09:39)
[2017-05-06] MEDS: Ascorbic Acid 500mg tab ORAL SCH (09:39)
[2017-05-06] MEDS: Docusate 100mg cap ORAL SCH ×2 (09:40→17:01)
[2017-05-06] MEDS: Aspirin Baby 81mg ORAL SCH (09:40)
--- NOTE | 2017-05-06 11:33 | GI Progress Note ---
Assessment/Plan Problems: (1) Anemia ICD Codes: D64.9 - Anemia, unspecified SNOMED: 333756389 (2) Dehydration ICD Codes: E86.0 - Dehydration SNOMED: 92350907 (3) Generalized weakness ICD Codes: R53.1 - Weakness SNOMED: 56859716 Status: stable Status Narrative Discussed with Dr. Carver. Assessment/Plan okay for DC per GI standpoint defer PEG at this time >> passed the video swallow study at [facility], records are in physical chart. ST evaluation noted >> adv diet per recommendations, push PO PT/IOT evaluation OB stool negative fu cardiology and renal recs DM control fu labs Subjective Subjective limited Objective Last 24 Hour Vital Signs Date Time Temp Pulse Resp B/P (MAP) Pulse Ox O2 Delivery O2 Flow Rate FiO2 05/06/17 09:40 70 152/74 05/06/17 09:39 152/74 05/06/17 08:00 97.2 70 18 152/74 96 05/06/17 04:00 96.8 58 18 148/73 99 05/06/17 00:00 97.7 58 18 141/71 97 05/05/17 20:35 56 144/68 05/05/17 20:00 97.7 61 20 144/68 97 05/05/17 16:00 97.7 56 18 136/65 97 05/05/17 12:00 97.2 56 20 140/65 96 Intake and Output 05/05/17 05/06/17 19:00 07:00 Intake Total 240 ml Output Total 403 ml 268 ml Balance -163 ml -268 ml Intake Oral 240 ml Output Urine Total 100 ml Post Void Residual 303 ml 268 ml Bladder Scan Volume Amount > 300 ml 201-300 ml # Voids 5 # Bowel Movements 3 Laboratory Tests Test 05/06/17 07:02 White Blood Count 6.5 K/UL (4.8-10.8) Red Blood Count 4.05 M/UL (4.70-6.10) L Hemoglobin 12.7 G/DL (14.2-18.0) L Hematocrit 38.0 % (42.0-52.0) L Mean Corpuscular Volume 94 FL (80-99) Mean Corpuscular Hemoglobin 31.4 PG (27.0-31.0) H Mean Corpuscular Hemoglobin Concent 33.5 G/DL (32.0-36.0) Red Cell Distribution Width 11.7 % (11.6-14.8) Platelet Count 129 K/UL (150-450) L Mean Platelet Volume 11.3 FL (6.5-10.1) H Neutrophils (%) (Auto) 48.4 % (45.0-75.0) Lymphocytes (%) (Auto) 30.1 % (20.0-45.0) Monocytes (%) (Auto) 16.4 % (1.0-10.0) H Eosinophils (%) (Auto) 4.8 % (0.0-3.0) H Basophils (%) (Auto) 0.4 % (0.0-2.0) Sodium Level 139 MMOL/L (136-145) Potassium Level 5.4 MMOL/L (3.5-5.1) H Chloride Level 107 MMOL/L (98-107) Carbon Dioxide Level 27 MMOL/L (21-32) Anion Gap 5 mmol/L (5-15) Blood Urea Nitrogen 55 mg/dL (7-18) H Creatinine 4.1 MG/DL (0.55-1.30) H Estimat Glomerular Filtration Rate mL/min (>60) Glucose Level 125 MG/DL (74-106) #H Calcium Level 8.7 MG/DL (8.5-10.1) Height (Feet): 5 Height (Inches): 6.00 Weight (Pounds): 165 General Appearance: WD/WN, no apparent distress, alert Cardiovascular: normal rate Respiratory/Chest: normal breath sounds, no respiratory distress Abdominal Exam: normal bowel sounds, non tender, soft Extremities: non-tender Naomi Hernandez N.P. May 06, 2017 11:33
[2017-05-06 12:00] VITALS: BP 148/73
[2017-05-06] MEDS ORDERED: SODIUM POLYSTYRENE SULFONATE ORAL (15:46)
[2017-05-06] MEDS ORDERED: JANUVIA25 MG ORAL (15:46)
--- NOTE | 2017-05-06 15:47 | General Progress Note ---
Assessment/Plan Assessment/Plan 1. Renal failure,no indication for dialysis yet 2. Hypoxemia 3. Pulmonary vascular congestion, resolved 4. senior care resident. 5. History of hypertension. 6. ALOC 7. Bacteremia; likely contaminant disc w dtr who does not wish to start dialysis yet dc to snf disc w RN Subjective ROS Limited/Unobtainable: Yes Allergies: Coded Allergies: PENICILLINS (Verified Allergy, Unknown, 11/14/15) Objective Last 24 Hour Vital Signs Date Time Temp Pulse Resp B/P (MAP) Pulse Ox O2 Delivery O2 Flow Rate FiO2 05/06/17 12:00 98.0 74 18 148/73 97 05/06/17 09:40 70 152/74 05/06/17 09:39 152/74 05/06/17 08:00 97.2 70 18 152/74 96 05/06/17 04:00 96.8 58 18 148/73 99 05/06/17 00:00 97.7 58 18 141/71 97 05/05/17 20:35 56 144/68 05/05/17 20:00 97.7 61 20 144/68 97 05/05/17 16:00 97.7 56 18 136/65 97 Intake and Output 05/05/17 05/06/17 19:00 07:00 Intake Total 240 ml Output Total 403 ml 268 ml Balance -163 ml -268 ml Intake Oral 240 ml Output Urine Total 100 ml Post Void Residual 303 ml 268 ml Bladder Scan Volume Amount > 300 ml 201-300 ml # Voids 5 # Bowel Movements 3 Laboratory Tests 05/06/17 07:02: White Blood Count 6.5, Red Blood Count 4.05L, Hemoglobin 12.7L, Hematocrit 38.0L , Mean Corpuscular Volume 94, Mean Corpuscular Hemoglobin 31.4H, Mean Corpuscular Hemoglobin Concent 33.5, Red Cell Distribution Width 11.7, Platelet Count 129L, Mean Platelet Volume 11.3H, Neutrophils (%) (Auto) 48.4, Lymphocytes (%) (Auto) 30.1, Monocytes (%) (Auto) 16.4H, Eosinophils (%) (Auto) 4.8H, Basophils (%) (Auto) 0.4, Sodium Level 139, Potassium Level 5.4H, Chloride Level 107, Carbon Dioxide Level 27, Anion Gap 5, Blood Urea Nitrogen 55H, Creatinine 4.1H, Estimat Glomerular Filtration Rate , Glucose Level 125#H, Calcium Level 8.7, Hepatitis A IgM Antibody [Pending], Hepatitis B Surface Antigen [Pending], Hepatitis B Core IgM Antibody [Pending], Hepatitis C Antibody [Pending] Height (Feet): 5 Height (Inches): 6.00 Weight (Pounds): 165 General Appearance: no apparent distress Cardiovascular: normal rate Respiratory/Chest: lungs clear Abdomen: non tender Edema: no edema noted Generalized CHAPIS MOSER May 06, 2017 15:47
[2017-05-06 16:00] VITALS: BP 136/81
[2017-05-06] MEDS: Sodium Polystyrene Sulfonate 15gm Powder ORAL ONE ×2 (17:07→17:30)
[2017-05-06 20:00] VITALS: BP 138/70
[2017-05-06] MEDS ORDERED: Sodium Polystyrene Sulfonate 15gm Powder ORAL ONE (20:15)
--- NOTE | 2017-05-06 21:24 | Nephrology Progress Note ---
Assessment/Plan Problem List: (1) CAD (coronary artery disease) (2) Hx of CABG (3) Renal failure (ARF), acute on chronic (4) Dehydration (5) CHF (congestive heart failure) (6) DM (diabetes mellitus) (7) Seizure (8) Hypoxia (9) Anemia (10) Lactic acid acidosis Objective Objective Last 24 Hour Vital Signs Date Time Temp Pulse Resp B/P (MAP) Pulse Ox O2 Delivery O2 Flow Rate FiO2 05/06/17 20:00 97.7 65 20 138/70 99 05/06/17 16:00 97.2 58 19 136/81 99 Nasal Cannula 2.0 05/06/17 12:00 98.0 74 18 148/73 97 05/06/17 09:40 70 152/74 05/06/17 09:39 152/74 05/06/17 08:00 97.2 70 18 152/74 96 05/06/17 04:00 96.8 58 18 148/73 99 05/06/17 00:00 97.7 58 18 141/71 97 Intake and Output 05/05/17 05/06/17 19:00 07:00 Intake Total 240 ml Output Total 403 ml 268 ml Balance -163 ml -268 ml Intake Oral 240 ml Output Urine Total 100 ml Post Void Residual 303 ml 268 ml Bladder Scan Volume Amount > 300 ml 201-300 ml # Voids 5 # Bowel Movements 3 Laboratory Tests 05/06/17 07:02: White Blood Count 6.5, Red Blood Count 4.05L, Hemoglobin 12.7L, Hematocrit 38.0L , Mean Corpuscular Volume 94, Mean Corpuscular Hemoglobin 31.4H, Mean Corpuscular Hemoglobin Concent 33.5, Red Cell Distribution Width 11.7, Platelet Count 129L, Mean Platelet Volume 11.3H, Neutrophils (%) (Auto) 48.4, Lymphocytes (%) (Auto) 30.1, Monocytes (%) (Auto) 16.4H, Eosinophils (%) (Auto) 4.8H, Basophils (%) (Auto) 0.4, Sodium Level 139, Potassium Level 5.4H, Chloride Level 107, Carbon Dioxide Level 27, Anion Gap 5, Blood Urea Nitrogen 55H, Creatinine 4.1H, Estimat Glomerular Filtration Rate , Glucose Level 125#H, Calcium Level 8.7, Hepatitis A IgM Antibody [Pending], Hepatitis B Surface Antigen [Pending], Hepatitis B Core IgM Antibody [Pending], Hepatitis C Antibody [Pending] Height (Feet): 5 Height (Inches): 6.00 Weight (Pounds): 165 ZAC TREJO May 06, 2017 21:24
[2017-05-06] MEDS: Carvedilol 6.25mg Tab ORAL SCH (21:27)
[2017-05-06] MEDS: Donepezil 10mg tab ORAL SCH (21:28)
--- NOTE | 2017-05-06 21:30 | Progress Note ---
DATE: 05/06/2017 CARDIOLOGY PROGRESS NOTE SUBJECTIVE: The patient is without distress, tolerating diet. OBJECTIVE: VITAL SIGNS: Blood pressure 148/73, pulse 74, respirations 18, and afebrile. LUNGS: Good breath sounds. HEART: Regular rhythm and rate. Normal S1 and S2. ABDOMEN: Soft. EXTREMITIES: No edema. LABORATORY DATA: White count 6.5 and hemoglobin 12.7. Potassium 5.4, BUN 55, and creatinine 4.1. IMPRESSION: 1. Acute on chronic diastolic congestive heart failure. 2. Chronic kidney disease, stage 5. 3. Ischemic cardiomyopathy. 4. Type 2 diabetes mellitus. 5. Increasing potassium level with hyperkalemia. PLAN: 1. Reassess potassium following Kayexalate. 2. For now family members do not wish to proceed with dialysis, however, recurring hyperkalemia may warrant earlier reconsideration. The patient's medication regimen was reviewed and the drugs on board are not aggravating his renal function. Blaze Lucero M.D. DR: ANDREY JOB#: [id number] CC:
[2017-05-07] VITALS: BP 108/59
[2017-05-07 04:00] VITALS: BP 144/65
[2017-05-07] MEDS: sitaGLIPtin 25mg tab ORAL SCH (06:12)
[2017-05-07] MEDS: NovoLOG Insulin Flexpen SUBQ SCH ×3 (06:13→17:14)
[2017-05-07 07:00] LABS: BASOPHILS % (AUTO) 0.5 % (0.0-2.0); EOSINOPHILS % (AUTO) 8.1 % (0.0-3.0); HEMATOCRIT 33.6 % (42.0-52.0); HEMOGLOBIN 11.3 G/DL (14.2-18.0); LYMPHOCYTES % (AUTO) 34.2 % (20.0-45.0); MEAN CORPUSCULAR VOLUME 93 FL (80-99); MONOCYTES % (AUTO) 15.3 % (1.0-10.0); NEUTROPHILS % (AUTO) 41.8 % (45.0-75.0); PLATELET COUNT 126 K/UL (150-450); RED CELL DISTRIBUTION WIDTH 11.4 % (11.6-14.8); WHITE BLOOD COUNT 5.3 K/UL (4.8-10.8)
[2017-05-07 07:37] LABS: ALANINE AMINOTRANSFERASE 13 U/L (12-78); ALBUMIN 2.1 G/DL (3.4-5.0); ALBUMIN/GLOBULIN RATIO 0.5 (1.0-2.7); ALKALINE PHOSPHATASE 73 U/L (46-116); ANION GAP 8 mmol/L (5-15); ASPARTATE AMINO TRANSFERASE 17 U/L (15-37); BILIRUBIN,TOTAL 0.3 MG/DL (0.2-1.0); BLOOD UREA NITROGEN 49 mg/dL (7-18); CALCIUM 7.7 MG/DL (8.5-10.1); CARBON DIOXIDE 25 MMOL/L (21-32); CHLORIDE 105 MMOL/L (98-107); CREATININE 3.8 MG/DL (0.55-1.30); POTASSIUM 3.9 MMOL/L (3.5-5.1); SODIUM 138 MMOL/L (136-145)
[2017-05-07] MEDS: Aspirin Baby 81mg ORAL SCH (08:28)
[2017-05-07] MEDS: Ascorbic Acid 500mg tab ORAL SCH (08:29)
[2017-05-07] MEDS: Docusate 100mg cap ORAL SCH ×2 (08:35→17:18)
[2017-05-07] MEDS: Imdur 30mg tab ORAL SCH (08:36)
[2017-05-07 08:39] VITALS: BP 134/65
--- NOTE | 2017-05-07 11:02 | GI Progress Note ---
Assessment/Plan Problems: (1) Anemia ICD Codes: D64.9 - Anemia, unspecified SNOMED: 039176054 (2) Dehydration ICD Codes: E86.0 - Dehydration SNOMED: 15389060 (3) Generalized weakness ICD Codes: R53.1 - Weakness SNOMED: 84811267 Status: stable Status Narrative Discussed with Dr. Carver. Assessment/Plan okay for DC per GI standpoint defer PEG at this time >> passed the video swallow study at [facility], records are in physical chart. ST evaluation noted >> adv diet per recommendations, push PO PT/IOT evaluation OB stool negative fu cardiology and renal recs DM control fu labs Subjective Subjective limited Objective Last 24 Hour Vital Signs Date Time Temp Pulse Resp B/P (MAP) Pulse Ox O2 Delivery O2 Flow Rate FiO2 05/07/17 08:39 97.4 63 18 134/65 98 05/07/17 08:36 134/65 05/07/17 08:35 63 134/65 05/07/17 04:00 Nasal Cannula 2.0 05/07/17 04:00 97.9 58 18 144/65 97 05/07/17 00:00 97.9 71 18 108/59 99 05/07/17 00:00 Nasal Cannula 2.0 05/06/17 21:27 65 138/70 05/06/17 20:00 Nasal Cannula 2.0 05/06/17 20:00 97.7 65 20 138/70 99 05/06/17 16:00 97.2 58 19 136/81 99 Nasal Cannula 2.0 05/06/17 12:00 98.0 74 18 148/73 97 Intake and Output 05/06/17 05/07/17 19:00 07:00 Intake Total 840 ml 240 ml Output Total 500 ml 789 ml Balance 340 ml -549 ml Intake Oral 840 ml 240 ml Output Urine Total 400 ml 600 ml Post Void Residual 100 ml 189 ml Bladder Scan Volume Amount 101-150 ml 151-200 ml # Voids 4 4 # Bowel Movements 3 Laboratory Tests Test 05/07/17 05:10 White Blood Count 5.3 K/UL (4.8-10.8) Red Blood Count 3.60 M/UL (4.70-6.10) L Hemoglobin 11.3 G/DL (14.2-18.0) L Hematocrit 33.6 % (42.0-52.0) L Mean Corpuscular Volume 93 FL (80-99) Mean Corpuscular Hemoglobin 31.5 PG (27.0-31.0) H Mean Corpuscular Hemoglobin Concent 33.7 G/DL (32.0-36.0) Red Cell Distribution Width 11.4 % (11.6-14.8) L Platelet Count 126 K/UL (150-450) L Mean Platelet Volume 10.0 FL (6.5-10.1) Neutrophils (%) (Auto) 41.8 % (45.0-75.0) L Lymphocytes (%) (Auto) 34.2 % (20.0-45.0) Monocytes (%) (Auto) 15.3 % (1.0-10.0) H Eosinophils (%) (Auto) 8.1 % (0.0-3.0) H Basophils (%) (Auto) 0.5 % (0.0-2.0) Sodium Level 138 MMOL/L (136-145) Potassium Level 3.9 MMOL/L (3.5-5.1) Chloride Level 105 MMOL/L (98-107) Carbon Dioxide Level 25 MMOL/L (21-32) Anion Gap 8 mmol/L (5-15) Blood Urea Nitrogen 49 mg/dL (7-18) H Creatinine 3.8 MG/DL (0.55-1.30) H Estimat Glomerular Filtration Rate mL/min (>60) Glucose Level 125 MG/DL (74-106) H Calcium Level 7.7 MG/DL (8.5-10.1) L Total Bilirubin 0.3 MG/DL (0.2-1.0) Aspartate Amino Transf (AST/SGOT) 17 U/L (15-37) Alanine Aminotransferase (ALT/SGPT) 13 U/L (12-78) Alkaline Phosphatase 73 U/L (46-116) Pro-B-Type Natriuretic Peptide 1719 pg/mL (0-125) H Total Protein 6.2 G/DL (6.4-8.2) L Albumin 2.1 G/DL (3.4-5.0) L Globulin 4.1 g/dL Albumin/Globulin Ratio 0.5 (1.0-2.7) L Height (Feet): 5 Height (Inches): 6.00 Weight (Pounds): 165 General Appearance: WD/WN, no apparent distress, alert Cardiovascular: normal rate Respiratory/Chest: normal breath sounds, no respiratory distress Abdominal Exam: normal bowel sounds, non tender, soft Extremities: non-tender Naomi Hernandez N.P. May 07, 2017 11:02
[2017-05-07 12:00] VITALS: BP 139/70
--- NOTE | 2017-05-07 14:13 | Pulmonology Progress Note ---
Assessment/Plan Assessment/Plan 1. stable renal failure 2. Hypoxemia 3. Pulmonary vascular congestion. 4. senior living resident. 5. History of hypertension. 6. ALOC 7. Bacteremia; likely contaminant PLAN renal fcn better K normal no need for HD at present dc to snf Subjective ROS Limited/Unobtainable: Yes Allergies: Coded Allergies: PENICILLINS (Verified Allergy, Unknown, 11/14/15) Objective Last 24 Hour Vital Signs Date Time Temp Pulse Resp B/P (MAP) Pulse Ox O2 Delivery O2 Flow Rate FiO2 05/07/17 08:39 97.4 63 18 134/65 98 05/07/17 08:36 134/65 05/07/17 08:35 63 134/65 05/07/17 04:00 Nasal Cannula 2.0 05/07/17 04:00 97.9 58 18 144/65 97 05/07/17 00:00 97.9 71 18 108/59 99 05/07/17 00:00 Nasal Cannula 2.0 05/06/17 21:27 65 138/70 05/06/17 20:00 Nasal Cannula 2.0 05/06/17 20:00 97.7 65 20 138/70 99 05/06/17 16:00 97.2 58 19 136/81 99 Nasal Cannula 2.0 Intake and Output 05/06/17 05/07/17 19:00 07:00 Intake Total 840 ml 240 ml Output Total 500 ml 789 ml Balance 340 ml -549 ml Intake Oral 840 ml 240 ml Output Urine Total 400 ml 600 ml Post Void Residual 100 ml 189 ml Bladder Scan Volume Amount 101-150 ml 151-200 ml # Voids 4 4 # Bowel Movements 3 General Appearance: no acute distress HEENT: atraumatic Respiratory/Chest: lungs clear Cardiovascular: normal rate Laboratory Tests 05/07/17 05:10: White Blood Count 5.3, Red Blood Count 3.60L, Hemoglobin 11.3L, Hematocrit 33.6L , Mean Corpuscular Volume 93, Mean Corpuscular Hemoglobin 31.5H, Mean Corpuscular Hemoglobin Concent 33.7, Red Cell Distribution Width 11.4L, Platelet Count 126L, Mean Platelet Volume 10.0, Neutrophils (%) (Auto) 41.8L, Lymphocytes (%) (Auto) 34.2, Monocytes (%) (Auto) 15.3H, Eosinophils (%) (Auto) 8.1H, Basophils (%) (Auto) 0.5, Sodium Level 138, Potassium Level 3.9, Chloride Level 105, Carbon Dioxide Level 25, Anion Gap 8, Blood Urea Nitrogen 49H, Creatinine 3.8H, Estimat Glomerular Filtration Rate , Glucose Level 125H, Calcium Level 7.7L, Total Bilirubin 0.3, Aspartate Amino Transf (AST/SGOT) 17, Alanine Aminotransferase (ALT/SGPT) 13, Alkaline Phosphatase 73, Pro-B-Type Natriuretic Peptide 1719H, Total Protein 6.2L, Albumin 2.1L, Globulin 4.1, Albumin/Globulin Ratio 0.5L Current Medications Medications (Trade) Dose Ordered Sig/Jason Route PRN Reason Start Time Stop Time Status Last Admin Dose Admin Acetaminophen (Tylenol) 650 mg Q4H PRN ORAL Mild Pain/Temp > 100.5 05/04/17 01:15 05/31/17 17:14 Amlodipine Besylate (Norvasc) 10 mg DAILY ORAL 05/04/17 09:00 06/01/17 08:59 05/07/17 08:35 Ascorbic Acid (Vitamin C) 250 mg DAILY ORAL 05/04/17 09:00 06/01/17 08:59 05/07/17 08:29 Aspirin (ASA) 81 mg DAILY ORAL 05/04/17 09:00 06/01/17 08:59 05/07/17 08:28 Atorvastatin Calcium (Lipitor) 10 mg BEDTIME ORAL 05/04/17 21:00 05/31/17 20:59 05/06/17 21:28 Carvedilol (Coreg) 6.25 mg QHS ORAL 05/04/17 21:00 06/02/17 20:59 05/06/17 21:27 Clopidogrel Bisulfate (Plavix) 75 mg DAILY ORAL 05/04/17 09:00 06/01/17 08:59 05/07/17 08:36 Dextrose (Dextrose 50%) STAT PRN IV Hypoglycemia 05/04/17 17:30 05/31/17 17:29 Docusate Sodium (Colace) 100 mg TWICE A DAY ORAL 05/04/17 09:00 05/31/17 17:59 05/07/17 08:35 Donepezil HCl (Aricept) 10 mg QHS ORAL 05/04/17 21:00 05/31/17 20:59 05/06/17 21:28 Famotidine (Pepcid) 20 mg DAILY ORAL 05/04/17 09:00 06/01/17 08:59 05/07/17 08:28 Gabapentin (Neurontin) 300 mg THREE TIMES A DAY ORAL 05/04/17 09:00 05/31/17 17:59 05/07/17 12:20 Insulin Aspart (NovoLOG) BEFORE MEALS AND HS SUBQ 05/04/17 06:30 05/31/17 17:59 05/07/17 12:21 Isosorbide Mononitrate (Imdur) 30 mg DAILY ORAL 05/04/17 09:00 06/01/17 08:59 05/07/17 08:36 Multivitamins (Multivitamins) 1 tab DAILY ORAL 05/04/17 09:00 06/01/17 08:59 05/07/17 08:29 Nateglinide (Starlix) 120 mg TIAC ORAL 05/04/17 06:30 05/31/17 17:29 05/07/17 12:19 Sitagliptin Phosphate (Januvia) 25 mg ACBREAKFAST ORAL 05/04/17 06:30 06/01/17 06:29 05/07/17 06:12 CHAPIS MOSER May 07, 2017 14:13
[2017-05-07 16:23] VITALS: BP 144/85
[2017-05-07] MEDS ORDERED: Nephrovite tab (Rena-Vite) ORAL SCH (18:00)
[2017-05-07 20:25] VITALS: BP 142/87
--- NOTE | 2017-05-07 20:32 | Nephrology Progress Note ---
Assessment/Plan Problem List: (1) CHF (congestive heart failure) (2) Renal failure (ARF), acute on chronic (3) Generalized weakness (4) CAD (coronary artery disease) (5) Seizure (6) DM (diabetes mellitus) Plan Strict intake and output Monitor lites, correct prn Monitor neuro status Renally dose meds, avoid nephrotoxins AM labs Subjective Constitutional: Denies: no symptoms, chills, diaphoresis, fever, malaise, weakness, other HEENT: Denies: no symptoms, eye pain, blurred vision, tearing, double vision, ear pain, ear discharge, nose pain, nose congestion, throat pain, throat swelling, mouth pain, mouth swelling, other Genitourinary: Denies: no symptoms, burning, discharge, frequency, flank pain, hematuria, incontinence, pain, urgency, other Neurologic/Psychiatric: Denies: no symptoms, anxiety, depressed, emotional problems, headache, numbness, paresthesia, pre-existing deficit, seizure, tingling, tremors, weakness, other Subjective In bed, in no apparent distress, denies discomfort at this time Objective Objective Last 24 Hour Vital Signs Date Time Temp Pulse Resp B/P (MAP) Pulse Ox O2 Delivery O2 Flow Rate FiO2 05/07/17 20:25 97.5 65 20 142/87 96 Room Air 05/07/17 16:23 97.7 57 20 144/85 99 Room Air 05/07/17 12:00 97.5 55 18 139/70 100 05/07/17 08:39 97.4 63 18 134/65 98 05/07/17 08:36 134/65 05/07/17 08:35 63 134/65 05/07/17 04:00 Nasal Cannula 2.0 05/07/17 04:00 97.9 58 18 144/65 97 05/07/17 00:00 97.9 71 18 108/59 99 05/07/17 00:00 Nasal Cannula 2.0 05/06/17 21:27 65 138/70 Intake and Output 05/06/17 05/07/17 19:00 07:00 Intake Total 840 ml 240 ml Output Total 500 ml 789 ml Balance 340 ml -549 ml Intake Oral 840 ml 240 ml Output Urine Total 400 ml 600 ml Post Void Residual 100 ml 189 ml Bladder Scan Volume Amount 101-150 ml 151-200 ml # Voids 4 4 # Bowel Movements 3 Laboratory Tests 05/07/17 05:10: White Blood Count 5.3, Red Blood Count 3.60L, Hemoglobin 11.3L, Hematocrit 33.6L , Mean Corpuscular Volume 93, Mean Corpuscular Hemoglobin 31.5H, Mean Corpuscular Hemoglobin Concent 33.7, Red Cell Distribution Width 11.4L, Platelet Count 126L, Mean Platelet Volume 10.0, Neutrophils (%) (Auto) 41.8L, Lymphocytes (%) (Auto) 34.2, Monocytes (%) (Auto) 15.3H, Eosinophils (%) (Auto) 8.1H, Basophils (%) (Auto) 0.5, Sodium Level 138, Potassium Level 3.9, Chloride Level 105, Carbon Dioxide Level 25, Anion Gap 8, Blood Urea Nitrogen 49H, Creatinine 3.8H, Estimat Glomerular Filtration Rate , Glucose Level 125H, Calcium Level 7.7L, Total Bilirubin 0.3, Aspartate Amino Transf (AST/SGOT) 17, Alanine Aminotransferase (ALT/SGPT) 13, Alkaline Phosphatase 73, Pro-B-Type Natriuretic Peptide 1719H, Total Protein 6.2L, Albumin 2.1L, Globulin 4.1, Albumin/Globulin Ratio 0.5L Height (Feet): 5 Height (Inches): 6.00 Weight (Pounds): 165 General Appearance: no apparent distress EENT: normal ENT inspection Neck: normal alignment Cardiovascular: normal rate Respiratory/Chest: normal breath sounds, no respiratory distress Abdomen: soft Extremities: non-tender, normal inspection Neurologic: alert, responsive, normal mood/affect Adriana Wharton N.P. May 07, 2017 20:32
--- NOTE | 2017-05-08 01:15 | Progress Note ---
DATE: 05/07/2017 CARDIOLOGY PROGRESS NOTE SUBJECTIVE: The patient without new complaints. OBJECTIVE: VITAL SIGNS: Blood pressure 134/65, pulse 62, and respiratory rate 18. NECK: Supple. LUNGS: Clear. CARDIAC: Regular rhythm and rate. Normal S1, S2 with a fourth heart sound. ABDOMEN: Soft, no edema. LABORATORY DATA: White count 5.3, hemoglobin 11.3, pro-natriuretic peptide 1700, BUN 49, creatinine 3.8. IMPRESSION: 1. Chronic kidney disease. 2. Acute on chronic diastolic congestive heart failure. 3. Hypertensive heart disease. 4. Cerebrovascular disease with dementia. 5. Elevated natriuretic peptide assay due to renal impairment. PLAN: 1. Maintain current cardiovascular regimen. 2. Monitor volume status and cardiorenal parameters. 3. Monitor electrolytes and renal function. 4. Outpatient followup to assess if hemodialysis indication developed. 5. Avoid tighter blood pressure control at this time. 6. Heart rate stable on current dose of beta-dale. Blaze Lucero M.D. DR: LILIANA JOB#: [id number] CC:
--- NOTE | 2017-05-11 09:49 | Discharge Summary ---
Discharge Summary Hospital Course Date of Admission May 01, 2017 at 11:05 Date of Discharge May 07, 2017 at 20:30 Admitting Diagnosis hypoxia/ams HPI Manjeet Juarez is a 81 year old male who was admitted on May 01, 2017 at 11: 05 for Hypoxia,Altered Mental Status Hospital Course dc summary #[id number] Discharge Medications New Medications: Sitagliptin* (Januvia*) 25 Mg Tablet 25 MG ORAL ACBREAKFAST, #30 TAB [Sodium Polystyrene Sulfonate] () 15 GM POWD 30 GM ORAL QD, #30 Continued Medications: Amlodipine Besylate (Norvasc) 10 Mg Tablet 10 MG ORAL DAILY, TAB Aspirin Ec* (Aspirin Ec*) 81 Mg Tablet.dr 81 MG ORAL DAILY, TAB Atorvastatin Calcium* (Lipitor*) 10 Mg Tablet 10 MG ORAL BEDTIME, TAB Carvedilol (Coreg) 3.125 Mg Tablet 3.125 MG ORAL QHS for 30 Days, TAB Clopidogrel* (Clopidogrel*) 75 Mg Tablet 75 MG ORAL DAILY, TAB Docusate Sodium* (Docusate Sodium*) 100 Mg Capsule 100 MG ORAL BID, CAP Donepezil Hcl* (Donepezil Hcl*) 10 Mg Tab.rapdis 10 MG ORAL DAILY, TAB Famotidine (Famotidine) 20 Mg Tablet 20 MG ORAL DAILY, #30 TAB 0 Refills Furosemide* (Lasix*) 20 Mg Tablet 20 MG ORAL DAILY, TAB Insulin Aspart* (Novolog*) 100 Unit/1 Ml Insuln.pen 0 SUBQ AC+HS for Hyperglycemia, #1 EA 0 Refills Insulin Glargine (Lantus) 100 Unit/1 Ml Insuln.pen 0 SUBQ BEDTIME, #1 EA 0 Refills Insulin Regular, Human (Humulin R) 100 Unit/1 Ml Vial 0 SUBQ, VIAL Isosorbide Mononitrate (Isosorbide Mononitrate Er) 30 Mg Tab.er.24h 30 MG ORAL DAILY for 30 Days, TAB Levetiracetam (Levetiracetam) 500 Mg Tablet 500 MG ORAL Q12HR for 30 Days, TAB Multivitamin with Minerals (Multivitamins with Minerals) 1 Each Tablet 1 TAB ORAL DAILY, TAB Nateglinide (Starlix) 120 Mg Tablet 120 MG ORAL TIAC for 30 Days, TAB Nitroglycerin (Nitroglycerin) 0.4 Mg Tab.subl 0.4 MG SL, TAB Zinc Sulfate (Zinc Sulfate*) 220 Mg Capsule 220 MG ORAL DAILY, CAP 0 Refills [Regular Insulin] () Discharge Condition Upon Discharge: stable Discharge Disposition Patient was discharged to SNF/Subacute Facility(03) Discharge Diagnoses: Discharge Instructions Discharge Instructions Special Instructions I have been assigned to complete a D/C Summary on this account. I was not involved in the patient management Anne Felton NP (Vanchtein) May 11, 2017 09:49
--- NOTE | 2017-05-12 01:45 | Discharge Summary 2 SIG ---
DATE OF ADMISSION: 05/01/2017 DATE OF DISCHARGE: 05/07/2017 REASON FOR ADMISSION: 81-year-old male with past medical history significant for coronary artery disease with prior CABG, hypertension, chronic kidney disease, cognitive impairment, diabetes mellitus, GERD, hypertension, and seizure disorder, presented to emergency room for evaluation due to hypoxemia. The patient was unable to answer any question. Workup in the emergency room revealed pulse oximetry 85% on room air , subsequently the patient required supplemental oxygen. Mild anemia, hemoglobin -13.3 and hematocrit -41. Lactic acid elevated of 2.7. BUN -48 and creatinine -4.7. Potassium at the time of arrival - 4.3. ABG was stable on 2 liters of oxygen via nasal cannula. Urinalysis showed +4 protein and +4 glucose, but was negative for any evidence of acute urinary tract infection. There was no leukocytosis. Chest x-ray revealed cardiomegaly with mild pulmonary vascular congestion. The patient was admitted for further management with diagnoses of hypoxia with vascular congestion, acute on chronic renal insufficiency, dehydration, diabetes mellitus, and history of coronary artery disease with CABG. HOSPITAL COURSE: The patient was admitted. Nephrology and Cardiology consults were requested. Supplemental oxygen provided as needed to keep pulse oximetry above 92%. Pulmonary toilet was provided. The patient was followed up with chest x-ray. Dual antiplatelet therapy resumed with aspirin and Plavix. Blood pressure was managed with beta-dale and calcium channel dale and remained stable. Statin continued. Blood sugar was managed with sliding scale of insulin as needed and oral hypoglycemic, Starlix and Januvia. No antibiotics. No acute evidence of infection. Urinalysis negative. Chest x-ray with no evidence of pneumonia. Blood culture 05/13 showed Staph, coagulase-negative, likely contaminant. The patient was on spot diuresis. Cardiorenal parameters and volume status were closely monitored. According to professor of music, the patient had acute on chronic diastolic heart failure, but was improving and acute myocardial ischemia resolved. Blood pressure was overall adequately controlled. Director Style followed the patient. The patient had a renal ultrasound with evidence of bilateral echogenic kidneys. Renal parameters were closely monitored. Electrolytes corrected as needed. Hyperkalemia corrected. Nephrotoxics were avoided. Medications were dosed with regards to renal function. The patient had a chronic kidney disease stage 5. At this time, the family members do not wish to proceed with dialysis, however per professor of music, recurring hyperkalemia may warrant early reconsideration. The medication regimen was reviewed and no drugs on board that could aggravate the patient's renal function. GI seen and evaluated the patient secondary to anemia and poor oral intake. The patient apparently passed video swallow evaluation at [facility]. Swallow evaluation was done and the patient passed swallow evaluation. Diet was restarted as per dietary recommendation with strict aspiration and reflux precautions. The patient was working with physical therapy. Hemoglobin and hematocrit were closely monitored. No trend down. Anemia workup revealed anemia of chronic disease, likely anemia of renal disease. Stool OB was negative. Hepatitis panel was negative. At this point, defer PEG as per GI specialist recommendations and continue diet with strict aspiration precaution and push oral fluids. Hemoglobin and hematocrit remained stable. Pro-BNP was trending down from initial 5423 down to 1719. The patient clinically improved. The patient was stable for discharge back to care home facility. FINAL DIAGNOSES: 1. Acute on chronic diastolic heart failure, improved. 2. Hypoxia with vascular congestion secondary to acute on chronic congestive heart failure, resolved. 3. Acute on chronic kidney disease stage 5. 4. Dehydration. 5. Anemia. 6. Diabetes mellitus type 2. 7. Lactic acidosis, resolved. 8. Hypertensive heart disease, overall adequate blood pressure control. 9. Ischemic cardiomyopathy. 10. Hyperkalemia. 11. Coronary artery disease with history of coronary artery bypass graft. 12. Seizure disorder. DISCHARGE MEDICATIONS: See medication reconciliation list. DISCHARGE INSTRUCTIONS: The patient was discharged to care home facility. Follow up with medical doctor at the facility and closely monitor dietary intake. Eros Espinoza M.D. I have been assigned to dictate discharge summary on this account and I was not involved in the patient's management. Anne Amadortravis N.P. DR: ZAKI JOB#: [id number] CC: ARACELY
--- NOTE | 2017-05-17 21:47 | Cardiology Report ---
APPROVED REPORT EXAM: Two-dimensional and M-mode echocardiogram with Doppler and color Doppler. INDICATION Congestive Heart Failure M-Mode DIMENSIONS IVSd1.3 (0.7-1.1cm)Left Atrium (MM)4.1 (1.6-4.0cm) LVDd3.5 (3.5-5.6cm)Aortic Root3.0 (2.0-3.7cm) PWd1.4 (0.7-1.1cm)Aortic Cusp Exc.1.5 (1.5-2.0cm) LVDs2.5 (2.5-4.0cm) PWs1.7 cm Normal left ventricular chamber size, systolic function and wall motion. Left ventricular ejection fraction estimated to be 55 %. Mild left ventricular hypertrophy. No evidence of pericardial effusion. Mild bi-atrial enlargement. Right ventricular chamber sizes is within normal limits. Focal aortic valve sclerosis with adequate cusp excursion. Thickened mitral valve leaflets with normal excursion. Mild mitral annulus and aortic root calcification. Normal pulmonic valve structure. Normal tricuspid valve structure. Subcostal views not obtainable. Echogenic material noted in right atrium. A color flow and spectral Doppler study was performed and revealed: No aortic regurgitation. No mitral regurgitation. Mitral diastolic velocities suggest mild left ventricular dysfunction (Grade I ). Mild tricuspid regurgitation. Tricuspid systolic velocities suggests peak right ventricular systolic pressure of 23 mmHg. Mild pulmonic regurgitation present.
== END 2017-05-07 20:30 | DRG 291 ==
LOC: EDBD 08:50 → EMR 09:44 → 2E 11:05 → EDBEDREQ 12:27 → 4E 05-03 22:17
DX: I13.2 Hypertensive heart and chronic kidney disease with heart failure and with stage 5 chronic kidney disease, or end stage renal disease (principal); I50.33 Acute on chronic diastolic (congestive) heart failure; N17.9 Acute kidney failure, unspecified; E87.2 Acidosis; E11.22 Type 2 diabetes mellitus with diabetic chronic kidney disease; N18.5 Chronic kidney disease, stage 5; F03.90 Unspecified dementia, unspecified severity, without behavioral disturbance, psychotic disturbance, mood disturbance, and anxiety; E86.0 Dehydration; N40.0 Benign prostatic hyperplasia without lower urinary tract symptoms; K21.9 Gastro-esophageal reflux disease without esophagitis; R09.02 Hypoxemia; Z66 Do not resuscitate; E87.5 Hyperkalemia; I25.5 Ischemic cardiomyopathy; I25.10 Atherosclerotic heart disease of native coronary artery without angina pectoris; G40.909 Epilepsy, unspecified, not intractable, without status epilepticus; D63.1 Anemia in chronic kidney disease; R09.89 Other specified symptoms and signs involving the circulatory and respiratory systems; I69.398 Other sequelae of cerebral infarction; Z95.1 Presence of aortocoronary bypass graft; Z79.82 Long term (current) use of aspirin; Z88.0 Allergy status to penicillin; Z79.84 Long term (current) use of oral hypoglycemic drugs; Z79.02 Long term (current) use of antithrombotics/antiplatelets
CPT/HCPCS: 36415; 36600; 71010; 76775; 80048; 80053; 81003; 82270; 82378; 82570; 82803; 82962; 83036; 83540; 83550; 83605; 83735; 83880; 84100; 84484; 84550; 85025; 85610; 85730; 86705; 86709; 86803; 87040; 87081; 87181; 87340; 93005; 93306; 99285; J1815

== ENCOUNTER 2017-05-11 04:56 | Inpatient (IN) | payer MEDICARE, MEDICAID ==
[~2017-05-11] VITALS: Ht 172.7 cm; Wt 63.5 kg
[2017-05-11] VITALS (7 sets, daily range): BP systolic 165–197; BP diastolic 75–104
[~2017-05-11 04:56] MED LIST changes: +HUMULIN R100 UNIT/1 SUBQ; +MOM30 ML ORAL; +NITROGLYCERIN0.4 MG SL; +SODIUM POLYSTYRENE SULFONATE ORAL
[2017-05-11 06:17] LABS: HEMATOCRIT 43.1 % (42.0-52.0); HEMOGLOBIN 13.9 G/DL (14.2-18.0); MEAN CORPUSCULAR VOLUME 95 FL (80-99); PLATELET COUNT 227 K/UL (150-450); RED BLOOD COUNT 4.55 M/UL (4.70-6.10); RED CELL DISTRIBUTION WIDTH 11.9 % (11.6-14.8)
[2017-05-11 06:20] LABS: WHITE BLOOD COUNT 22.4 K/UL (4.8-10.8)
[2017-05-11 06:30] LABS: ANION GAP 14 mmol/L (5-15); BLOOD UREA NITROGEN 38 mg/dL (7-18); CARBON DIOXIDE 22 MMOL/L (21-32); CHLORIDE 107 MMOL/L (98-107); CREATININE 3.4 MG/DL (0.55-1.30); SODIUM 143 MMOL/L (136-145)
[2017-05-11 06:45] LABS: ALANINE AMINOTRANSFERASE 8 U/L (12-78); ALBUMIN 2.5 G/DL (3.4-5.0); ALBUMIN/GLOBULIN RATIO 0.5 (1.0-2.7); ALKALINE PHOSPHATASE 98 U/L (46-116); ASPARTATE AMINO TRANSFERASE 12 U/L (15-37); BILIRUBIN,TOTAL 0.9 MG/DL (0.2-1.0); CKMB < 0.5 NG/ML (0.0-3.6); CREATINE KINASE 15 U/L (26-308)
[2017-05-11 08:12] LABS: APPEARANCE,URINE SLIGHTLY CLOUDY; BILIRUBIN, URINE NEGATIVE (NEGATIVE); COLOR,URINE YELLOW; GLUCOSE, URINE (UA) 4+ (NEGATIVE); KETONES,URINE 3+ (NEGATIVE); LEUKOCYTE ESTERASE ,URINE NEGATIVE (NEGATIVE); NITRITE,URINE NEGATIVE (NEGATIVE); PH,URINE 5 (4.5-8.0); PROTEIN,URINE 4+ (NEGATIVE); UROBILINOGEN,URINE NORMAL MG/DL (0.0-1.0)
--- NOTE | 2017-05-11 08:46 | Emergency Room Report ---
History of Present Illness General Chief Complaint: Dyspnea/Respdistress Source: Medical Record, EMS (PEDRO MCCLELLAN M.D.) Present Illness HPI 81-year-old male presents ED for evaluation. Per EMS patient noted be short of breath at his [facility] today. O2 sats in the 80s. Patient placed on oxygen mask with O2 sats improved. Patient has dementia at baseline and is unable to provide any additional history. Per EMS patient noted to be congested on exam. No signs of distress upon arrival. No other aggravating relieving factors. No other associated symptoms (PEDRO MCCLELLAN M.D.) Allergies: Coded Allergies: PENICILLINS (Verified Allergy, Unknown, 05/11/17) Patient History Past Medical History: DM, HTN, GERD, CVA/TIA, dementia, renal disease Past Surgical History: none Pertinent Family History: none Social History: Denies: smoking, alcohol use, drug use Immunizations: UTD Reviewed Nursing Documentation: PMH: Agreed, PSxH: Agreed (PEDRO MCCLELLAN M.D.) Nursing Documentation-PMH Hx Cardiac Problems: Yes - aortocoronary bypass graft, atherosclerosis of CABG w/o angina pectoris Hx Hypertension: Yes - hypertensive CKD Hx Pacemaker: No Hx Asthma: No Hx COPD: No 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 Hx Cancer: No Hx Gastrointestinal Problems: Yes - CKD, BPH, GERD without esophagitis Hx Dialysis: No Hx Neurological Problems: Yes - dysphasia following CVA, blindness (one eye) Hx Cerebrovascular Accident: Yes - CVA, unspecified sequelae of cerebral infarction Hx Dementia: Yes Hx Alzheimer's Disease: Yes Hx Seizures: No Hx Peripheral Neuropathy: Yes - polyneuropathy Hx Memory Loss: Yes Hx Dizziness: Yes Hx Syncope: Yes Hx Dysphasia: Yes (PEDRO MCCLELLAN M.D.) Review of Systems All Other Systems: limited (PERDO MCCLELLAN M.D.) Physical Exam Vital Signs Date Time Temp Pulse Resp B/P (MAP) Pulse Ox O2 Delivery O2 Flow Rate FiO2 05/11/17 04:51 99.0 124 22 197/104 97 Non-Rebreather 15.0 Sp02 EP Interpretation: reviewed, normal General Appearance: no apparent distress, lethargic Head: normocephalic Eyes: bilateral eye normal inspection, bilateral eye PERRL ENT: normal ENT inspection Neck: normal inspection Respiratory: crackles Cardiovascular #1: no edema, tachycardia Gastrointestinal: normal inspection Rectal: deferred Genitourinary: no CVA tenderness Musculoskeletal: normal inspection Neurologic: other - dementia Psychiatric: other - dementia Skin: normal inspection Lymphatic: normal inspection (PEDRO MCCLELLAN M.D.) Medical Decision Making Diagnostic Impression: Primary Impression: Respiratory distress Additional Impression: Pneumonia Qualified Codes: J18.1 - Lobar pneumonia, unspecified organism Labs Test 05/11/17 05:50 05/11/17 07:00 White Blood Count 22.4 K/UL (4.8-10.8) Red Blood Count 4.55 M/UL (4.70-6.10) Hemoglobin 13.9 G/DL (14.2-18.0) Hematocrit 43.1 % (42.0-52.0) Mean Corpuscular Volume 95 FL (80-99) Mean Corpuscular Hemoglobin 30.6 PG (27.0-31.0) Mean Corpuscular Hemoglobin Concent 32.3 G/DL (32.0-36.0) Red Cell Distribution Width 11.9 % (11.6-14.8) Platelet Count 227 K/UL (150-450) Mean Platelet Volume 9.4 FL (6.5-10.1) Neutrophils (%) (Auto) % (45.0-75.0) Lymphocytes (%) (Auto) % (20.0-45.0) Monocytes (%) (Auto) % (1.0-10.0) Eosinophils (%) (Auto) % (0.0-3.0) Basophils (%) (Auto) % (0.0-2.0) Differential Total Cells Counted 100 Neutrophils % (Manual) 86 % (45-75) Lymphocytes % (Manual) 4 % (20-45) Monocytes % (Manual) 10 % (1-10) Eosinophils % (Manual) 0 % (0-3) Basophils % (Manual) 0 % (0-2) Band Neutrophils 0 % (0-8) Platelet Estimate Adequate Platelet Morphology Normal Red Blood Cell Morphology Normal Sodium Level 143 MMOL/L (136-145) Potassium Level 4.0 MMOL/L (3.5-5.1) Chloride Level 107 MMOL/L (98-107) Carbon Dioxide Level 22 MMOL/L (21-32) Anion Gap 14 mmol/L (5-15) Blood Urea Nitrogen 38 mg/dL (7-18) Creatinine 3.4 MG/DL (0.55-1.30) Estimat Glomerular Filtration Rate mL/min (>60) Glucose Level 300 MG/DL (74-106) Lactic Acid Level 1.50 mmol/L (0.66-2.22) Calcium Level 9.0 MG/DL (8.5-10.1) Total Bilirubin 0.9 MG/DL (0.2-1.0) Aspartate Amino Transf (AST/SGOT) 12 U/L (15-37) Alanine Aminotransferase (ALT/SGPT) 8 U/L (12-78) Alkaline Phosphatase 98 U/L (46-116) Total Creatine Kinase 15 U/L (26-308) Creatine Kinase MB < 0.5 NG/ML (0.0-3.6) Creatine Kinase MB Relative Index Troponin I 0.009 ng/mL (0.000-0.056) Pro-B-Type Natriuretic Peptide 5653 pg/mL (0-125) Total Protein 7.7 G/DL (6.4-8.2) Albumin 2.5 G/DL (3.4-5.0) Globulin 5.2 g/dL Albumin/Globulin Ratio 0.5 (1.0-2.7) Urine Color Yellow Urine Appearance Slightly cloudy Urine pH 5 (4.5-8.0) Urine Specific [place] 1.015 (1.005-1.035) Urine Protein 4+ (NEGATIVE) Urine Glucose (UA) 4+ (NEGATIVE) Urine Ketones 3+ (NEGATIVE) Urine Occult Blood 2+ (NEGATIVE) Urine Nitrite Negative (NEGATIVE) Urine Bilirubin Negative (NEGATIVE) Urine Urobilinogen Normal MG/DL (0.0-1.0) Urine Leukocyte Esterase Negative (NEGATIVE) Urine RBC 2-4 /HPF (0 - 0) Urine WBC 0-2 /HPF (0 - 0) Urine Squamous Epithelial Cells Occasional /LPF Urine Amorphous Sediment Few /LPF (NONE) Urine Bacteria Few /HPF (NONE) (PEDRO MCCLELLAN M.D.) ER Course I spoke to Dr. Espinoza, accepted patient for admission Patient DNR/DNI, pneumonia, will be admitted to [facility] Sepsis Re-examination Time: 10 AM VS: Temp 99 HR 97 BP 154/77 RR 25 CVS: RRR Respiratory: coarse b/s R lung base Peripheral pulses: 2+ radial Capillary refill: <2 seconds Skin exam: warm, dry, no rash, not mottled (Simon Singh M.D.) EKG Diagnostic Results Rate: tachycardiac Rhythm: NSR ST Segments: no acute changes ASA given to the pt in ED: No (PEDRO MCCLELLAN M.D.) Rhythm Strip Diag. Results EP Interpretation: yes Rhythm: NSR, no PVC's, no ectopy (PEDRO MCCLELLAN M.D.) Chest X-Ray Diagnostic Results Chest X-Ray Diagnostic Results : Chest X-Ray Ordered: Yes # of Views/Limited/Complete: 1 View Indication: Shortness of Breath EP Interpretation: Yes Interpretation: no pneumothorax, no acute cardiopulmonary disease, other - RLL infiltrate Impression: Other - pneumonia Electronically Signed by: Electronically signed by Pedro Mcclellan MD (PEDRO MCCLELLAN M.D.) Last Vital Signs Date Time Temp Pulse Resp B/P (MAP) Pulse Ox O2 Delivery O2 Flow Rate FiO2 05/11/17 07:20 111 20 Non-Rebreather 15.0 05/11/17 07:00 165/77 95 05/11/17 05:00 99.0 (PEDRO MCCLELLAN M.D.) Disposition: ADMITTED INPATIENT Condition: Serious Referrals: [facility],REFERRING (PCP) PEDRO MCCLELLAN M.D. May 11, 2017 08:46 Simon Singh M.D. May 11, 2017 09:56
[2017-05-11] MEDS ORDERED: STARLIX60 MG ORAL (10:27)
[2017-05-11] MEDS ORDERED: JANUVIA25 MG ORAL (10:27)
[2017-05-11] MEDS ORDERED: NORVASC10 MG ORAL (10:27)
--- NOTE | 2017-05-11 11:56 | Diagnostic Imaging Report ---
Indication: Dyspnea Technique: XRAY Chest 1v Comparison: 05/04/2017 Findings: Cardiomegaly is stable. Mediastinal contours are sharp. Atherosclerotic calcifications again noted in the aortic arch. Patient noted to be status post median sternotomy. A 2.7 cm calcification is again noted projecting over the left lower neck, unchanged. Again, this may represent a calcified thyroid nodule. There is mild pulmonary vascular congestion. There is hazy opacity in the right lower lung which may be related to vascular crowding however developing pneumonia is not excluded. There are multilevel degenerative changes in the thoracic spine. No acute osseous abnormality seen. . Impression: Cardiomegaly with mild pulmonary vascular congestion. Hazy opacification in the right lower lung possibly related to vascular crowding however developing pneumonia is not entirely excluded. Clinical correlation and follow-up exam recommended.
--- NOTE | 2017-05-11 16:30 | Consultation ---
DATE OF CONSULTATION: 05/11/2017 INFECTIOUS DISEASES CONSULTATION CONSULTING PHYSICIAN: Yoel Ayala M.D. REFERRING PHYSICIAN: Eros Espinoza M.D. REASON FOR CONSULTATION: Pneumonia. HISTORY OF PRESENTING ILLNESS: This is an 81-year-old gentleman with history of hypertension, diabetes, and CVA, who came in to [place] emergency room with respiratory distress. He was found to have pneumonia and an Infectious Diseases consultation has been obtained for antibiotics. PAST MEDICAL HISTORY: 1. History of diabetes. 2. History of hypertension. 3. History of gastroesophageal reflux disease. 4. History of CVA. 5. Dementia. 6. Renal failure. 7. Polyneuropathy. MEDICATIONS: He has received Levaquin in the emergency room. ALLERGIES: He is allergic to penicillin. SOCIAL HISTORY: Unknown. FAMILY HISTORY: Unknown. REVIEW OF SYSTEMS: Unable to obtain currently. PHYSICAL EXAMINATION: VITAL SIGNS: Temperature of 99, T-max of 99, pulse of 111, respiratory rate of 20, blood pressure 106/77, and O2 saturation of 95%. HEENT: Pupils equally reactive to light and accommodation. Mouth appears clean without thrush. NECK: Supple. No adenopathy. No JVD. CARDIOVASCULAR: Regular rate and rhythm. No murmurs. LUNGS: Wheezing noted bilaterally. ABDOMEN: Soft and nontender. No organomegaly. EXTREMITIES: No cyanosis, no clubbing, no edema. LABORATORY AND DIAGNOSTIC DATA: White count 22.4, hemoglobin 13.9, hematocrit 43.1, and MCV 227 with neutrophils of 86%. Sodium 143, potassium 4, chloride 107, bicarb 22, BUN 38, creatinine 3.4, and glucose 300. Calcium 9. Total bilirubin 0.9. AST 12, ALT 8, and alkaline phosphatase 98. CK of 15. CK-MB less than 0.5. Troponin 0.009. Total protein 7.7. Albumin 2.5. UA showing 0 to 2 white cells. Nasal swab was negative for influenza A and B. Chest x-ray is showing a right lower lobe infiltrate. ASSESSMENT: 1. This is an 81-year-old gentleman with history of diabetes, hypertension, renal failure, and dementia, who comes in with a right-sided pneumonia, would be concerned regarding community-acquired pneumonia versus atypical pneumonia. 2. Renal failure. 3. Cerebrovascular accident. PLAN: 1. Continue Levaquin given his penicillin allergy. 2. We will order sputum for Gram stain and culture. 3. We will follow up cultures and adjust antibiotics accordingly. I would like to thank, Dr. Espinoza, for this consultation. Elfegokuntala Philomena Ayala DR: DEB JOB#: [id number] CC: Eros Espinoza M.D.; Fax#: [phone]
--- NOTE | 2017-05-11 17:03 | Cardiology Report ---
APPROVED REPORT EKG Measurement Heart [id number] [address] N[address] and T wave abnormality Abnormal ECG
[2017-05-11] MEDS ORDERED: Nitroglycerin Subl 0.4mg tab SL PRN (18:15)
[2017-05-11] MEDS ORDERED: Milk of Magnesia 30ml Ud ORAL PRN (18:15)
--- NOTE | 2017-05-11 18:58 | History & Physical ---
History and Physical History & Physicial DATE OF ADMISSION: 05/11/2017 HISTORY OF PRESENT ILLNESS: This is an 81-year-old, DNR/DNI [facility] resident, who came to the hospital with hypoxemia. The patient unable to answer questions, however, states that he is not aware why he was sent to the hospital. His workup showed RLL pneumonia. He was also found to have significant leucocytosis. PAST MEDICAL HISTORY: CABG, hypertension, CKD, cognitive impairment, diabetes mellitus, GERD. ALLERGIES: Penicillin. HOME MEDICATIONS: Summarized in chart. REVIEW OF SYSTEMS: Unreliable. PHYSICAL EXAMINATION: GENERAL: Reveals an elderly male. HEENT: Unremarkable. CHEST: Decreased breath sounds bilaterally. HEART: Normal heart sounds. ABDOMEN: Soft. EXTREMITIES: There is no edema. LABORATORY DATA: Reviewed. IMPRESSION: 1. Chronic enal failure. 2. Hypoxemia, resolved. 3. Vascular congestion. 4. care home resident. 5. History of hypertension. 6. Pneumonia/leucocytosis DISCUSSION: Admit to the hospital. The patient will be continued on his home medications which include aspirin, amlodipine, vitamin C, Lipitor, Coreg, Plavix. He is also on oral Lasix, Starlix, and Januvia which I will continue. I will consult nephrology and ID. Order oxygen, pulmonary hygiene. I will continue to follow as sales assistants and salespersons and security trainer. Eros Espinoza M.D. Eros Espinoza MD May 11, 2017 18:58
[2017-05-11] MEDS: levETIRAcetam 500mg/5ml Liquid ORAL SCH (22:36)
[2017-05-11] MEDS: NovoLOG Insulin Flexpen SUBQ SCH (22:41)
[2017-05-12] VITALS (7 sets, daily range): BP systolic 129–205; BP diastolic 74–101
[2017-05-12] MEDS: sitaGLIPtin 25mg tab ORAL SCH (07:16)
[2017-05-12 07:17] LABS: ANION GAP 10 mmol/L (5-15); BLOOD UREA NITROGEN 51 mg/dL (7-18); CALCIUM 8.9 MG/DL (8.5-10.1); CARBON DIOXIDE 24 MMOL/L (21-32); CHLORIDE 111 MMOL/L (98-107); CREATININE 3.6 MG/DL (0.55-1.30); POTASSIUM 4.7 MMOL/L (3.5-5.1); SODIUM 145 MMOL/L (136-145)
[2017-05-12] MEDS: NovoLOG Insulin Flexpen SUBQ SCH ×4 (07:20→22:48)
[2017-05-12 07:28] LABS: HEMOGLOBIN 12.3 G/DL (14.2-18.0); MEAN CORPUSCULAR VOLUME 96 FL (80-99); PLATELET COUNT 216 K/UL (150-450); RED BLOOD COUNT 3.97 M/UL (4.70-6.10); WHITE BLOOD COUNT 18.6 K/UL (4.8-10.8)
[2017-05-12] MEDS: Aspirin EC 81mg tab ORAL SCH (09:43)
[2017-05-12] MEDS: Multivitamin w/Minerals tab ORAL SCH (09:43)
[2017-05-12] MEDS: Donepezil 10mg tab ORAL SCH (09:43)
[2017-05-12] MEDS: Docusate 100mg/10ml Liq ORAL SCH ×2 (09:44→17:51)
[2017-05-12] MEDS: Imdur 30mg tab ORAL SCH (09:44)
[2017-05-12] MEDS: levETIRAcetam 500mg/5ml Liquid ORAL SCH ×2 (09:45→22:46)
--- NOTE | 2017-05-12 11:38 | Infectious Diseases Prog Note ---
Assessment/Plan Assessment/Plan antibiotics : levoquin A 1. pneumonia 2. leucocytosis improving 3. renal failure 4. CVA 5. HTN P 1. continue levoquin 2. will follow up cultures Subjective ROS Limited/Unobtainable: Yes Allergies: Coded Allergies: PENICILLINS (Verified Allergy, Unknown, 05/11/17) Objective Vital Signs Last 24 Hour Vital Signs Date Time Temp Pulse Resp B/P (MAP) Pulse Ox O2 Delivery O2 Flow Rate FiO2 05/12/17 11:34 98.6 71 21 129/77 97 05/12/17 09:44 161/77 05/12/17 09:44 63 161/77 05/12/17 08:50 98.5 76 21 205/101 98 05/12/17 06:30 158/90 05/12/17 04:46 191/98 05/12/17 04:00 97.6 83 16 191/98 98 05/12/17 04:00 Nasal Cannula 2.0 05/12/17 00:00 97.5 74 21 143/75 94 05/11/17 22:35 90 170/95 05/11/17 20:00 97.7 90 21 170/95 97 05/11/17 19:06 170/89 05/11/17 16:00 97.5 96 20 170/89 94 Nasal Cannula 2.0 05/11/17 15:00 98 20 168/79 100 Nasal Cannula 2.0 05/11/17 13:00 99.0 95 20 167/75 96 Nasal Cannula 2.0 Height (Feet): 5 Height (Inches): 8.00 Weight (Pounds): 140 Respiratory/Chest: lungs clear Cardiovascular: normal rate, regular rhythm, no gallop/murmur Abdomen: soft, non tender Extremities: no edema Microbiology Date/Time Source Procedure Growth Status 05/11/17 07:00 Nasal Nares Influenza Types A,B Antigen (BONITA) - Final Complete Laboratory Tests Test 05/11/17 20:20 05/12/17 04:55 Legionella pneumophila Group 1 Ab Pending Legionella pneumophilia IgM Group 1 Pending Mycoplasma pneumoniae IgG Antibody Pending Mycoplasma pneumoniae IgM Ab Titer Pending White Blood Count 18.6 K/UL (4.8-10.8) H Red Blood Count 3.97 M/UL (4.70-6.10) L Hemoglobin 12.3 G/DL (14.2-18.0) L Hematocrit 38.0 % (42.0-52.0) L Mean Corpuscular Volume 96 FL (80-99) Mean Corpuscular Hemoglobin 30.9 PG (27.0-31.0) Mean Corpuscular Hemoglobin Concent 32.4 G/DL (32.0-36.0) Red Cell Distribution Width 12.0 % (11.6-14.8) Platelet Count 216 K/UL (150-450) Mean Platelet Volume 8.4 FL (6.5-10.1) Neutrophils (%) (Auto) % (45.0-75.0) Lymphocytes (%) (Auto) % (20.0-45.0) Monocytes (%) (Auto) % (1.0-10.0) Eosinophils (%) (Auto) % (0.0-3.0) Basophils (%) (Auto) % (0.0-2.0) Differential Total Cells Counted 100 Neutrophils % (Manual) 82 % (45-75) H Lymphocytes % (Manual) 11 % (20-45) L Monocytes % (Manual) 7 % (1-10) Eosinophils % (Manual) 0 % (0-3) Basophils % (Manual) 0 % (0-2) Band Neutrophils 0 % (0-8) Platelet Estimate Adequate Platelet Morphology Normal Red Blood Cell Morphology Normal Sodium Level 145 MMOL/L (136-145) Potassium Level 4.7 MMOL/L (3.5-5.1) Chloride Level 111 MMOL/L (98-107) H Carbon Dioxide Level 24 MMOL/L (21-32) Anion Gap 10 mmol/L (5-15) Blood Urea Nitrogen 51 mg/dL (7-18) H Creatinine 3.6 MG/DL (0.55-1.30) H Estimat Glomerular Filtration Rate mL/min (>60) Glucose Level 427 MG/DL (74-106) #H Calcium Level 8.9 MG/DL (8.5-10.1) LEODAN LESLIE May 12, 2017 11:38
--- NOTE | 2017-05-12 16:59 | Pulmonology Progress Note ---
Assessment/Plan Assessment/Plan IMPRESSION: 1. Chronic renal failure. 2. Hypoxemia, resolved. 3. Vascular congestion. 4. half-way resident. 5. History of hypertension. 6. Pneumonia/leucocytosis DISCUSSION: Continue home medications which include aspirin, amlodipine, vitamin C, Lipitor, Coreg, Plavix. He is also on oral Lasix, Starlix, and Januvia which I will continue. Appreciate ID consult. Ordered oxygen, pulmonary hygiene. I will continue to follow as agile tester and etl bi developer. Swallow eval Subjective Interval Events: Noted difficulty with swallowing Constitutional: Reports: no symptoms HEENT: Repors: no symptoms Respiratory: Reports: no symptoms Cardiovascular: Reports: no symptoms Allergies: Coded Allergies: PENICILLINS (Verified Allergy, Unknown, 05/11/17) Objective Last 24 Hour Vital Signs Date Time Temp Pulse Resp B/P (MAP) Pulse Ox O2 Delivery O2 Flow Rate FiO2 05/12/17 16:00 98.0 73 20 131/74 98 05/12/17 11:34 98.6 71 21 129/77 97 05/12/17 09:44 161/77 05/12/17 09:44 63 161/77 05/12/17 08:50 98.5 76 21 205/101 98 05/12/17 06:30 158/90 05/12/17 04:46 191/98 05/12/17 04:00 97.6 83 16 191/98 98 05/12/17 04:00 Nasal Cannula 2.0 05/12/17 00:00 97.5 74 21 143/75 94 05/11/17 22:35 90 170/95 05/11/17 20:00 97.7 90 21 170/95 97 05/11/17 19:06 170/89 Intake and Output 05/11/17 05/12/17 19:00 07:00 Intake Total 150 ml 120 ml Balance 150 ml 120 ml Intake Oral 120 ml IV Total 150 ml # Voids 1 General Appearance: no acute distress HEENT: normocephalic Respiratory/Chest: chest wall non-tender, lungs clear Cardiovascular: normal peripheral pulses, normal rate Microbiology Date/Time Source Procedure Growth Status 05/11/17 07:00 Nasal Nares Influenza Types A,B Antigen (BONITA) - Final Complete Laboratory Tests 05/11/17 20:20: Legionella pneumophila Group 1 Ab [Pending], Legionella pneumophilia IgM Group 1 [Pending], Mycoplasma pneumoniae IgG Antibody [Pending], Mycoplasma pneumoniae IgM Ab Titer [Pending] 05/12/17 04:55: White Blood Count 18.6H, Red Blood Count 3.97L, Hemoglobin 12.3L, Hematocrit 38.0L, Mean Corpuscular Volume 96, Mean Corpuscular Hemoglobin 30.9, Mean Corpuscular Hemoglobin Concent 32.4, Red Cell Distribution Width 12.0, Platelet Count 216, Mean Platelet Volume 8.4, Neutrophils (%) (Auto) , Lymphocytes (%) ( Auto) , Monocytes (%) (Auto) , Eosinophils (%) (Auto) , Basophils (%) (Auto) , Differential Total Cells Counted 100, Neutrophils % (Manual) 82H, Lymphocytes % (Manual) 11L, Monocytes % (Manual) 7, Eosinophils % (Manual) 0, Basophils % ( Manual) 0, Band Neutrophils 0, Platelet Estimate Adequate, Platelet Morphology Normal, Red Blood Cell Morphology Normal, Sodium Level 145, Potassium Level 4.7 , Chloride Level 111H, Carbon Dioxide Level 24, Anion Gap 10, Blood Urea Nitrogen 51H, Creatinine 3.6H, Estimat Glomerular Filtration Rate , Glucose Level 427#H, Calcium Level 8.9 Current Medications Medications (Trade) Dose Ordered Sig/Jason Route PRN Reason Start Time Stop Time Status Last Admin Dose Admin Acetaminophen (Tylenol) 650 mg Q4H PRN ORAL Mild Pain/Temp > 100.5 05/11/17 18:15 06/10/17 18:14 Amlodipine Besylate (Norvasc) 10 mg DAILY ORAL 05/12/17 09:00 06/11/17 08:59 05/12/17 09:44 Aspirin (Ecotrin) 81 mg DAILY ORAL 05/12/17 09:00 06/11/17 08:59 05/12/17 09:43 Atorvastatin Calcium (Lipitor) 10 mg BEDTIME ORAL 05/11/17 21:00 06/10/17 20:59 05/11/17 22:36 Carvedilol (Coreg) 3.125 mg QHS ORAL 05/11/17 21:00 06/10/17 20:59 05/11/17 22:35 Clonidine HCl (Catapres) 0.1 mg Q4H PRN ORAL For High Blood Pressure 05/11/17 18:00 06/10/17 17:59 05/12/17 04:46 Clopidogrel Bisulfate (Plavix) 75 mg DAILY ORAL 05/12/17 09:00 06/11/17 08:59 05/12/17 09:44 Dextrose (Dextrose 50%) STAT PRN IV Hypoglycemia 05/11/17 18:00 06/10/17 17:59 Docusate Sodium (Colace) 100 mg BID ORAL 05/12/17 09:00 06/11/17 08:59 05/12/17 09:44 Donepezil HCl (Aricept) 10 mg DAILY ORAL 05/12/17 09:00 06/11/17 08:59 05/12/17 09:43 Famotidine (Pepcid) 20 mg DAILY ORAL 05/12/17 09:00 06/11/17 08:59 05/12/17 10:00 Furosemide (Lasix) 20 mg DAILY ORAL 05/12/17 09:00 06/11/17 08:59 05/12/17 10:00 Insulin Aspart (NovoLOG) BEFORE MEALS AND HS SUBQ 05/11/17 21:00 06/10/17 20:59 05/12/17 11:42 Isosorbide Mononitrate (Imdur) 30 mg DAILY ORAL 05/12/17 09:00 06/11/17 08:59 05/12/17 09:44 Levetiracetam (Keppra) 500 mg Q12HR ORAL 05/11/17 21:00 06/10/17 20:59 05/12/17 09:45 Levofloxacin 50 ml @ 50 mls/hr Q24H IVPB 05/12/17 09:00 05/19/17 08:59 05/12/17 09:56 Magnesium Hydroxide (Mom) 30 ml DAILYPRN PRN ORAL Constipation 05/11/17 18:15 06/10/17 18:14 Multivitamins Therapeutic (Therapeutic Multivitamin) 1 ea DAILY ORAL 05/12/17 09:00 06/11/17 08:59 05/12/17 09:43 Nateglinide (Starlix) 120 mg TIAC ORAL 05/12/17 06:30 06/11/17 06:29 05/12/17 09:44 Nitroglycerin (Ntg) 0.4 mg NEEDED PRN SL Prn Chest Pain 05/11/17 18:15 06/10/17 18:14 Sitagliptin Phosphate (Januvia) 25 mg ACBREAKFAST ORAL 05/12/17 06:30 06/11/17 06:29 05/12/17 07:16 Eros Espinoza MD May 12, 2017 16:59
[2017-05-13 00:53] VITALS: BP 135/72
[2017-05-13 04:00] VITALS: BP 157/80
[2017-05-13] MEDS: sitaGLIPtin 25mg tab ORAL SCH (06:12)
[2017-05-13] MEDS: NovoLOG Insulin Flexpen SUBQ SCH ×4 (06:14→22:20)
[2017-05-13 07:32] LABS: BASOPHILS % (AUTO) 0.3 % (0.0-2.0); EOSINOPHILS % (AUTO) 0.4 % (0.0-3.0); HEMATOCRIT 37.6 % (42.0-52.0); LYMPHOCYTES % (AUTO) 10.8 % (20.0-45.0); MEAN CORPUSCULAR VOLUME 96 FL (80-99); MONOCYTES % (AUTO) 6.9 % (1.0-10.0); NEUTROPHILS % (AUTO) 81.6 % (45.0-75.0); PLATELET COUNT 245 K/UL (150-450); RED BLOOD COUNT 3.93 M/UL (4.70-6.10); RED CELL DISTRIBUTION WIDTH 11.9 % (11.6-14.8); WHITE BLOOD COUNT 15.8 K/UL (4.8-10.8)
[2017-05-13 07:52] LABS: ANION GAP 10 mmol/L (5-15); BLOOD UREA NITROGEN 57 mg/dL (7-18); CALCIUM 9.1 MG/DL (8.5-10.1); CARBON DIOXIDE 26 MMOL/L (21-32); CHLORIDE 116 MMOL/L (98-107); CREATININE 3.8 MG/DL (0.55-1.30); POTASSIUM 3.7 MMOL/L (3.5-5.1); SODIUM 152 MMOL/L (136-145)
[2017-05-13 08:00] VITALS: BP 138/85
[2017-05-13] MEDS: Multivitamin w/Minerals tab ORAL SCH (09:53)
--- NOTE | 2017-05-13 09:58 | Pulmonology Progress Note ---
Assessment/Plan Assessment/Plan IMPRESSION: 1. Chronic renal failure. 2. Hypoxemia, resolved. 3. Vascular congestion. 4. halfway resident. 5. History of hypertension. 6. Pneumonia/leucocytosis; improving. 7. Chronic recanulized DVT's DISCUSSION: Continue home medications which include aspirin, amlodipine, vitamin C, Lipitor, Coreg, Plavix. He is also on oral Lasix, Starlix, and Januvia which I will continue. Appreciate ID consult. Ordered oxygen, pulmonary hygiene. I will continue to follow as artificial intelligence specialist and card tender. Swallow eval noted; will need PEG Added 1/2 NS fluids OK to have SCD's Subjective Interval Events: Noted bilteral canulized chronic DVT's; pt not taking PO's Constitutional: Reports: no symptoms HEENT: Repors: no symptoms Respiratory: Reports: no symptoms Cardiovascular: Reports: no symptoms Gastrointestinal/Abdominal: Reports: no symptoms Allergies: Coded Allergies: PENICILLINS (Verified Allergy, Unknown, 05/11/17) Objective Last 24 Hour Vital Signs Date Time Temp Pulse Resp B/P (MAP) Pulse Ox O2 Delivery O2 Flow Rate FiO2 05/13/17 08:00 97.6 82 21 138/85 94 05/13/17 04:00 96 Nasal Cannula 2.0 05/13/17 04:00 97.3 73 20 157/80 92 Nasal Cannula 3.0 05/13/17 00:53 97.0 63 20 135/72 96 Nasal Cannula 3.0 05/12/17 22:46 71 142/83 05/12/17 20:10 97.5 71 20 142/83 95 Nasal Cannula 3.0 05/12/17 20:00 Nasal Cannula 2.0 05/12/17 16:00 98.0 73 20 131/74 98 05/12/17 11:34 98.6 71 21 129/77 97 Intake and Output 05/12/17 05/13/17 19:00 07:00 Intake Total 240 ml Balance 240 ml Intake Oral 240 ml # Voids 2 1 General Appearance: no acute distress HEENT: normocephalic Respiratory/Chest: chest wall non-tender, lungs clear Cardiovascular: normal peripheral pulses, normal rate Abdomen: normal bowel sounds, soft, non tender Microbiology Date/Time Source Procedure Growth Status 05/11/17 06:05 Blood Blood Culture - Preliminary NO GROWTH AFTER 48 HOURS Resulted 05/11/17 05:50 Blood Blood Culture - Preliminary NO GROWTH AFTER 48 HOURS Resulted 05/11/17 07:00 Nasal Nares MRSA Culture - Final NO METHICILLIN RESISTANT STAPH AUREUS... Complete 05/11/17 07:00 Nasal Nares Influenza Types A,B Antigen (BONITA) - Final Complete 05/11/17 07:00 Rectum VRE Culture - Final Enterococcus Faecalis - Vre Complete Laboratory Tests 05/13/17 06:10: White Blood Count 15.8H, Red Blood Count 3.93L, Hemoglobin 12.0L, Hematocrit 37.6L, Mean Corpuscular Volume 96, Mean Corpuscular Hemoglobin 30.5, Mean Corpuscular Hemoglobin Concent 31.9L, Red Cell Distribution Width 11.9, Platelet Count 245, Mean Platelet Volume 8.6, Neutrophils (%) (Auto) 81.6H, Lymphocytes (%) (Auto) 10.8L, Monocytes (%) (Auto) 6.9, Eosinophils (%) (Auto) 0.4, Basophils (%) (Auto) 0.3, Sodium Level 152H, Potassium Level 3.7, Chloride Level 116H, Carbon Dioxide Level 26, Anion Gap 10, Blood Urea Nitrogen 57H, Creatinine 3.8H, Estimat Glomerular Filtration Rate , Glucose Level 192#H, Calcium Level 9.1 Current Medications Medications (Trade) Dose Ordered Sig/Jason Route PRN Reason Start Time Stop Time Status Last Admin Dose Admin Acetaminophen (Tylenol) 650 mg Q4H PRN ORAL Mild Pain/Temp > 100.5 05/11/17 18:15 06/10/17 18:14 Amlodipine Besylate (Norvasc) 10 mg DAILY ORAL 05/12/17 09:00 06/11/17 08:59 05/12/17 09:44 Aspirin (Ecotrin) 81 mg DAILY ORAL 05/12/17 09:00 06/11/17 08:59 05/12/17 09:43 Atorvastatin Calcium (Lipitor) 10 mg BEDTIME ORAL 05/11/17 21:00 06/10/17 20:59 05/12/17 22:46 Carvedilol (Coreg) 3.125 mg QHS ORAL 05/11/17 21:00 06/10/17 20:59 05/12/17 22:46 Clonidine HCl (Catapres) 0.1 mg Q4H PRN ORAL For High Blood Pressure 05/11/17 18:00 06/10/17 17:59 05/12/17 04:46 Clopidogrel Bisulfate (Plavix) 75 mg DAILY ORAL 05/12/17 09:00 06/11/17 08:59 05/12/17 09:44 Dextrose (Dextrose 50%) STAT PRN IV Hypoglycemia 05/11/17 18:00 06/10/17 17:59 Docusate Sodium (Colace) 100 mg BID ORAL 05/12/17 09:00 06/11/17 08:59 05/12/17 17:51 Donepezil HCl (Aricept) 10 mg DAILY ORAL 05/12/17 09:00 06/11/17 08:59 05/12/17 09:43 Famotidine (Pepcid) 20 mg DAILY ORAL 05/12/17 09:00 06/11/17 08:59 05/12/17 10:00 Furosemide (Lasix) 20 mg DAILY ORAL 05/12/17 09:00 06/11/17 08:59 05/12/17 10:00 Insulin Aspart (NovoLOG) BEFORE MEALS AND HS SUBQ 05/11/17 21:00 06/10/17 20:59 05/13/17 06:14 Isosorbide Mononitrate (Imdur) 30 mg DAILY ORAL 05/12/17 09:00 06/11/17 08:59 05/12/17 09:44 Levetiracetam (Keppra) 500 mg Q12HR ORAL 05/11/17 21:00 06/10/17 20:59 05/12/17 22:46 Levofloxacin 50 ml @ 50 mls/hr Q24H IVPB 05/12/17 09:00 05/19/17 08:59 05/12/17 09:56 Magnesium Hydroxide (Mom) 30 ml DAILYPRN PRN ORAL Constipation 05/11/17 18:15 06/10/17 18:14 Multivitamins Therapeutic (Therapeutic Multivitamin) 1 ea DAILY ORAL 05/12/17 09:00 06/11/17 08:59 05/12/17 09:43 Nateglinide (Starlix) 120 mg TIAC ORAL 05/12/17 06:30 06/11/17 06:29 05/13/17 06:12 Nitroglycerin (Ntg) 0.4 mg NEEDED PRN SL Prn Chest Pain 05/11/17 18:15 06/10/17 18:14 Sitagliptin Phosphate (Januvia) 25 mg ACBREAKFAST ORAL 05/12/17 06:30 06/11/17 06:29 05/13/17 06:12 Eros Espinoza MD May 13, 2017 09:57
[2017-05-13] MEDS: Docusate 100mg/10ml Liq ORAL SCH ×2 (10:02→17:49)
[2017-05-13] MEDS: Imdur 30mg tab ORAL SCH (10:02)
[2017-05-13] MEDS: Aspirin EC 81mg tab ORAL SCH (10:03)
[2017-05-13] MEDS: Donepezil 10mg tab ORAL SCH (10:04)
[2017-05-13] MEDS: levETIRAcetam 500mg/5ml Liquid ORAL SCH ×2 (10:08→22:23)
[2017-05-13 11:40] VITALS: BP 170/94
--- NOTE | 2017-05-13 11:40 | Infectious Diseases Prog Note ---
Assessment/Plan Assessment/Plan antibiotics : levoquin A 1. pneumonia 2. leucocytosis improving 3. renal failure 4. CVA 5. HTN P 1. continue levoquin 2. will follow up cultures Subjective ROS Limited/Unobtainable: Yes Allergies: Coded Allergies: PENICILLINS (Verified Allergy, Unknown, 05/11/17) Objective Vital Signs Last 24 Hour Vital Signs Date Time Temp Pulse Resp B/P (MAP) Pulse Ox O2 Delivery O2 Flow Rate FiO2 05/13/17 10:04 76 185/87 05/13/17 10:02 185/87 05/13/17 08:00 97.6 82 21 138/85 94 05/13/17 04:00 96 Nasal Cannula 2.0 05/13/17 04:00 97.3 73 20 157/80 92 Nasal Cannula 3.0 05/13/17 00:53 97.0 63 20 135/72 96 Nasal Cannula 3.0 05/12/17 22:46 71 142/83 05/12/17 20:10 97.5 71 20 142/83 95 Nasal Cannula 3.0 05/12/17 20:00 Nasal Cannula 2.0 05/12/17 16:00 98.0 73 20 131/74 98 Height (Feet): 5 Height (Inches): 8.00 Weight (Pounds): 140 Respiratory/Chest: lungs clear Cardiovascular: normal rate, regular rhythm, no gallop/murmur Abdomen: soft, non tender Extremities: no edema Microbiology Date/Time Source Procedure Growth Status 05/11/17 06:05 Blood Blood Culture - Preliminary NO GROWTH AFTER 48 HOURS Resulted 05/11/17 05:50 Blood Blood Culture - Preliminary NO GROWTH AFTER 48 HOURS Resulted 05/11/17 07:00 Nasal Nares MRSA Culture - Final NO METHICILLIN RESISTANT STAPH AUREUS... Complete 05/11/17 07:00 Nasal Nares Influenza Types A,B Antigen (BONITA) - Final Complete 05/11/17 07:00 Rectum VRE Culture - Final Enterococcus Faecalis - Vre Complete Laboratory Tests Test 05/13/17 06:10 White Blood Count 15.8 K/UL (4.8-10.8) H Red Blood Count 3.93 M/UL (4.70-6.10) L Hemoglobin 12.0 G/DL (14.2-18.0) L Hematocrit 37.6 % (42.0-52.0) L Mean Corpuscular Volume 96 FL (80-99) Mean Corpuscular Hemoglobin 30.5 PG (27.0-31.0) Mean Corpuscular Hemoglobin Concent 31.9 G/DL (32.0-36.0) L Red Cell Distribution Width 11.9 % (11.6-14.8) Platelet Count 245 K/UL (150-450) Mean Platelet Volume 8.6 FL (6.5-10.1) Neutrophils (%) (Auto) 81.6 % (45.0-75.0) H Lymphocytes (%) (Auto) 10.8 % (20.0-45.0) L Monocytes (%) (Auto) 6.9 % (1.0-10.0) Eosinophils (%) (Auto) 0.4 % (0.0-3.0) Basophils (%) (Auto) 0.3 % (0.0-2.0) Sodium Level 152 MMOL/L (136-145) H Potassium Level 3.7 MMOL/L (3.5-5.1) Chloride Level 116 MMOL/L (98-107) H Carbon Dioxide Level 26 MMOL/L (21-32) Anion Gap 10 mmol/L (5-15) Blood Urea Nitrogen 57 mg/dL (7-18) H Creatinine 3.8 MG/DL (0.55-1.30) H Estimat Glomerular Filtration Rate mL/min (>60) Glucose Level 192 MG/DL (74-106) #H Calcium Level 9.1 MG/DL (8.5-10.1) LEODAN LESLIE May 13, 2017 11:40
--- NOTE | 2017-05-13 12:39 | GI Initial Consult Note ---
Naomi Hernandez NJessica 05/13/17 1239: History of Present Illness General Date patient seen: May 13, 2017 Time patient seen: 12:35 Reason for Hospitalization: Dyspnea/Respdistress Referring physician: EROS HEBERT Reason for Consultation: PEG EVALUATION Present Illness HPI 81-year-old male presents ED for evaluation. Per EMS patient noted be short of breath at his group home today. O2 sats in the 80s. Patient placed on oxygen mask with O2 sats improved. Patient has dementia at baseline and is unable to provide any additional history. Per EMS patient noted to be congested on exam. No signs of distress upon arrival. No other aggravating relieving factors. No other associated symptoms GI consulted for PEG evaluation. HPI noted above. ST santiago noted. Spoke to daughter regarding PEG the risks and benefits of procedure. She has agreed to have PEG done. Home Meds Active Scripts [Sodium Polystyrene Sulfonate] 15 GM POWD No Conflict Check, 30 GM ORAL QD, #30 Prov:CHAPIS MOSER 05/06/17 Levetiracetam (Levetiracetam) 500 Mg Tablet, 500 MG ORAL Q12HR for 30 Days, TAB Prov:Eros Hebert MD 02/11/17 Carvedilol (Coreg) 3.125 Mg Tablet, 3.125 MG ORAL QHS for 30 Days, TAB Prov:Eros Hebert MD 01/05/17 Isosorbide Mononitrate (ISOSORBIDE MONONITRATE ER) 30 Mg Tab.er.24h, 30 MG ORAL DAILY for 30 Days, TAB Prov:Eros Hebert MD 01/05/17 Sitagliptin (Januvia) 50 Mg Tablet, 25 MG ORAL ACBREAKFAST for 30 Days, TAB Prov:Eros Hebert MD 07/02/16 Reported Medications Nateglinide* (STARLIX*) 60 Mg Tablet, 120 MG ORAL AC, TAB 05/11/17 Sitagliptin* (JANUVIA*) 25 Mg Tablet, 25 MG ORAL DAILY, TAB 05/11/17 Amlodipine Besylate (Norvasc) 10 Mg Tablet, 10 MG ORAL DAILY, TAB 05/11/17 Insulin Regular, Human (HUMULIN R) 100 Unit/1 Ml Vial, 0 SUBQ, VIAL 05/01/17 Ascorbic Acid* (VITAMIN C*) 250 Mg Tablet, 250 MG ORAL DAILY, #30 TAB 0 Refills 05/01/17 Nitroglycerin (NITROGLYCERIN) 0.4 Mg Tab.subl, 0.4 MG SL, TAB 05/01/17 Magnesium Hydroxide (Milk of Magnesia) 400 Mg/5 Ml Oral.susp, 30 ML ORAL DAILY, ML 05/01/17 Famotidine (FAMOTIDINE) 20 Mg Tablet, 20 MG ORAL DAILY, #30 TAB 0 Refills 02/06/17 Insulin Aspart* (NOVOLOG*) 100 Unit/1 Ml Insuln.pen, 0 SUBQ AC+HS for Hyperglycemia, #1 EA 0 Refills 01/03/17 Acetaminophen* (ACETAMINOPHEN 325MG TABLET*) 325 Mg Tablet, 650 MG ORAL Q4H Y for Mild Pain/Temp > 100.5, TAB 01/03/17 Docusate Sodium* (DOCUSATE SODIUM*) 100 Mg Capsule, 100 MG ORAL BID, CAP 12/31/16 Insulin Glargine (LANTUS) 100 Unit/1 Ml Insuln.pen, 0 SUBQ BEDTIME, #1 EA 0 Refills 06/08/16 Atorvastatin Calcium* (LIPITOR*) 10 Mg Tablet, 10 MG ORAL BEDTIME, TAB 06/08/16 [Regular Insulin] No Conflict Check 11/14/15 Zinc Sulfate (ZINC SULFATE*) 220 Mg Capsule, 220 MG ORAL DAILY, CAP 0 Refills 11/14/15 Multivitamin with Minerals (Multivitamins with Minerals) 1 Each Tablet, 1 TAB ORAL DAILY, TAB 11/14/15 Olanzapine* (ZYPREXA*) 2.5 Mg Tablet, 2.5 MG ORAL DAILY, TAB 0 Refills 11/14/15 Gabapentin* (GABAPENTIN*) 300 Mg Capsule, 300 MG ORAL THREE TIMES A DAY, CAP 0 Refills 11/14/15 Furosemide* (LASIX*) 20 Mg Tablet, 20 MG ORAL DAILY, TAB 11/14/15 Donepezil Hcl* (DONEPEZIL HCL*) 10 Mg Tab.rapdis, 10 MG ORAL DAILY, TAB 11/14/15 Clopidogrel* (CLOPIDOGREL*) 75 Mg Tablet, 75 MG ORAL DAILY, TAB 11/14/15 Aspirin Ec* (ASPIRIN EC*) 81 Mg Tablet.dr, 81 MG ORAL DAILY, TAB 11/14/15 Discontinued Reported Medications Amlodipine Besylate (Norvasc) 10 Mg Tablet, 10 MG ORAL DAILY, TAB 05/01/17 Amlodipine Besylate (Norvasc) 10 Mg Tablet, 10 MG ORAL DAILY, TAB 06/08/16 Ascorbic Acid* (VITAMIN C*) 250 Mg Tablet, 250 MG ORAL DAILY, TAB 0 Refills 11/14/15 Discontinued Scripts Sitagliptin* (JANUVIA*) 25 Mg Tablet, 25 MG ORAL ACBREAKFAST, #30 TAB Prov:CHAPIS MOSER 05/06/17 Nateglinide (Starlix) 120 Mg Tablet, 120 MG ORAL TIAC for 30 Days, TAB Prov:Eros Hebert MD 07/02/16 Med list reviewed/reconciled: Yes Allergies: Coded Allergies: PENICILLINS (Verified Allergy, Unknown, 05/11/17) Patient History Limited by: medical condition History Provided By: Family Member PMH Narrative Past Medical History: DM, HTN, GERD, CVA/TIA, dementia, renal disease Past Surgical History: none Pertinent Family History: none Social History: Denies: smoking, alcohol use, drug use Immunizations: UTD Reviewed Nursing Documentation: PMH: Agreed, PSxH: Agreed Nursing Documentation-PMH Hx Cardiac Problems: Yes - aortocoronary bypass graft, atherosclerosis of CABG w/o angina pectoris Hx Hypertension: Yes - hypertensive CKD Hx Pacemaker: No Hx Asthma: No Hx COPD: No 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 Hx Cancer: No Hx Gastrointestinal Problems: Yes - CKD, BPH, GERD without esophagitis Hx Dialysis: No Hx Neurological Problems: Yes - dysphasia following CVA, blindness (one eye) Hx Cerebrovascular Accident: Yes - CVA, unspecified sequelae of cerebral infarction Hx Dementia: Yes Hx Alzheimer's Disease: Yes Hx Seizures: No Hx Peripheral Neuropathy: Yes - polyneuropathy Hx Memory Loss: Yes Hx Dizziness: Yes Hx Syncope: Yes Hx Dysphasia: Yes Review of Systems All Other Systems: limited Physical Exam Vital Signs Date Time Temp Pulse Resp B/P (MAP) Pulse Ox O2 Delivery O2 Flow Rate FiO2 05/11/17 04:51 99.0 124 22 197/104 97 Non-Rebreather 15.0 Sp02 EP Interpretation: reviewed, normal Labs Laboratory Tests Test 05/13/17 06:10 White Blood Count 15.8 K/UL (4.8-10.8) H Red Blood Count 3.93 M/UL (4.70-6.10) L Hemoglobin 12.0 G/DL (14.2-18.0) L Hematocrit 37.6 % (42.0-52.0) L Mean Corpuscular Volume 96 FL (80-99) Mean Corpuscular Hemoglobin 30.5 PG (27.0-31.0) Mean Corpuscular Hemoglobin Concent 31.9 G/DL (32.0-36.0) L Red Cell Distribution Width 11.9 % (11.6-14.8) Platelet Count 245 K/UL (150-450) Mean Platelet Volume 8.6 FL (6.5-10.1) Neutrophils (%) (Auto) 81.6 % (45.0-75.0) H Lymphocytes (%) (Auto) 10.8 % (20.0-45.0) L Monocytes (%) (Auto) 6.9 % (1.0-10.0) Eosinophils (%) (Auto) 0.4 % (0.0-3.0) Basophils (%) (Auto) 0.3 % (0.0-2.0) Sodium Level 152 MMOL/L (136-145) H Potassium Level 3.7 MMOL/L (3.5-5.1) Chloride Level 116 MMOL/L (98-107) H Carbon Dioxide Level 26 MMOL/L (21-32) Anion Gap 10 mmol/L (5-15) Blood Urea Nitrogen 57 mg/dL (7-18) H Creatinine 3.8 MG/DL (0.55-1.30) H Estimat Glomerular Filtration Rate mL/min (>60) Glucose Level 192 MG/DL (74-106) #H Calcium Level 9.1 MG/DL (8.5-10.1) General Appearance: well appearing, no apparent distress, alert, other - confused Head: normocephalic EENT: PERRL/EOMI, normal ENT inspection Neck: supple Respiratory: normal breath sounds, no respiratory distress Cardiovascular: normal rate Gastrointestinal: normal inspection, non tender, soft, normal bowel sounds, non -distended Rectal: deferred Genitourinary: deferred Musculoskeletal: normal inspection, back normal Neurologic: normal inspection, alert, oriented x3, responsive Psychiatric: normal inspection, judgement/insight normal, memory normal Skin: normal inspection, normal color, no rash, warm/dry, palpation normal, well hydrated Lymphatic: normal inspection, no adenopathy Current Medications Current Medications Medications (Trade) Dose Ordered Sig/Jason Route PRN Reason Start Time Stop Time Status Last Admin Dose Admin Acetaminophen (Tylenol) 650 mg Q4H PRN ORAL Mild Pain/Temp > 100.5 05/11/17 18:15 06/10/17 18:14 Amlodipine Besylate (Norvasc) 10 mg DAILY ORAL 05/12/17 09:00 06/11/17 08:59 05/13/17 10:04 Aspirin (Ecotrin) 81 mg DAILY ORAL 05/12/17 09:00 06/11/17 08:59 05/13/17 10:03 Atorvastatin Calcium (Lipitor) 10 mg BEDTIME ORAL 05/11/17 21:00 06/10/17 20:59 05/12/17 22:46 Carvedilol (Coreg) 3.125 mg QHS ORAL 05/11/17 21:00 06/10/17 20:59 05/12/17 22:46 Clonidine HCl (Catapres) 0.1 mg Q4H PRN ORAL For High Blood Pressure 05/11/17 18:00 06/10/17 17:59 05/12/17 04:46 Clopidogrel Bisulfate (Plavix) 75 mg DAILY ORAL 05/12/17 09:00 06/11/17 08:59 05/13/17 09:53 Dextrose (Dextrose 50%) STAT PRN IV Hypoglycemia 05/11/17 18:00 06/10/17 17:59 Docusate Sodium (Colace) 100 mg BID ORAL 05/12/17 09:00 06/11/17 08:59 05/13/17 10:02 Donepezil HCl (Aricept) 10 mg DAILY ORAL 05/12/17 09:00 06/11/17 08:59 05/13/17 10:04 Famotidine (Pepcid) 20 mg DAILY ORAL 05/12/17 09:00 06/11/17 08:59 05/13/17 10:04 Furosemide (Lasix) 20 mg DAILY ORAL 05/12/17 09:00 06/11/17 08:59 05/13/17 10:03 Insulin Aspart (NovoLOG) BEFORE MEALS AND HS SUBQ 05/11/17 21:00 06/10/17 20:59 05/13/17 11:30 Isosorbide Mononitrate (Imdur) 30 mg DAILY ORAL 05/12/17 09:00 06/11/17 08:59 05/13/17 10:02 Levetiracetam (Keppra) 500 mg Q12HR ORAL 05/11/17 21:00 06/10/17 20:59 05/13/17 10:08 Levofloxacin 50 ml @ 50 mls/hr Q24H IVPB 05/12/17 09:00 05/19/17 08:59 05/13/17 10:25 Magnesium Hydroxide (Mom) 30 ml DAILYPRN PRN ORAL Constipation 05/11/17 18:15 06/10/17 18:14 Multivitamins Therapeutic (Therapeutic Multivitamin) 1 ea DAILY ORAL 05/12/17 09:00 06/11/17 08:59 05/13/17 09:53 Nateglinide (Starlix) 120 mg TIAC ORAL 05/12/17 06:30 06/11/17 06:29 05/13/17 12:11 Nitroglycerin (Ntg) 0.4 mg NEEDED PRN SL Prn Chest Pain 05/11/17 18:15 06/10/17 18:14 Sitagliptin Phosphate (Januvia) 25 mg ACBREAKFAST ORAL 05/12/17 06:30 06/11/17 06:29 05/13/17 06:12 Sodium Chloride 1,000 ml @ 50 mls/hr Q20H IV 05/13/17 10:00 06/12/17 09:59 05/13/17 10:25 GI: Plan Problems: (1) Dysphagia (2) Encounter for PEG (percutaneous endoscopic gastrostomy) (3) Diabetes mellitus out of control (4) Acute encephalopathy (5) Anemia Plan PEG scheduled for tomorrow. - maintain NPO + IVFs - hold all blood thinners ppi prn transfusions fu labs Discussed with Dr. Rueda. Thank you for this patient referral, we will follow. ASHLEY RUEDA 05/18/17 1132: History of Present Illness General Reason for Hospitalization: Dyspnea/Respdistress Present Illness Home Meds Active Scripts [Sodium Polystyrene Sulfonate] 15 GM POWD No Conflict Check, 30 GM ORAL QD, #30 Prov:CHAPIS MOSER 05/06/17 Levetiracetam (Levetiracetam) 500 Mg Tablet, 500 MG ORAL Q12HR for 30 Days, TAB Prov:Eros Hebert MD 02/11/17 Carvedilol (Coreg) 3.125 Mg Tablet, 3.125 MG ORAL QHS for 30 Days, TAB Prov:Eros Hebert MD 01/05/17 Isosorbide Mononitrate (ISOSORBIDE MONONITRATE ER) 30 Mg Tab.er.24h, 30 MG ORAL DAILY for 30 Days, TAB Prov:Eros Hebert MD 01/05/17 Sitagliptin (Januvia) 50 Mg Tablet, 25 MG ORAL ACBREAKFAST for 30 Days, TAB Prov:Eros Hebert MD 07/02/16 Reported Medications Nateglinide* (STARLIX*) 60 Mg Tablet, 120 MG ORAL AC, TAB 05/11/17 Sitagliptin* (JANUVIA*) 25 Mg Tablet, 25 MG ORAL DAILY, TAB 05/11/17 Amlodipine Besylate (Norvasc) 10 Mg Tablet, 10 MG ORAL DAILY, TAB 05/11/17 Insulin Regular, Human (HUMULIN R) 100 Unit/1 Ml Vial, 0 SUBQ, VIAL 05/01/17 Ascorbic Acid* (VITAMIN C*) 250 Mg Tablet, 250 MG ORAL DAILY, #30 TAB 0 Refills 05/01/17 Nitroglycerin (NITROGLYCERIN) 0.4 Mg Tab.subl, 0.4 MG SL, TAB 05/01/17 Magnesium Hydroxide (Milk of Magnesia) 400 Mg/5 Ml Oral.susp, 30 ML ORAL DAILY, ML 05/01/17 Famotidine (FAMOTIDINE) 20 Mg Tablet, 20 MG ORAL DAILY, #30 TAB 0 Refills 02/06/17 Insulin Aspart* (NOVOLOG*) 100 Unit/1 Ml Insuln.pen, 0 SUBQ AC+HS for Hyperglycemia, #1 EA 0 Refills 01/03/17 Acetaminophen* (ACETAMINOPHEN 325MG TABLET*) 325 Mg Tablet, 650 MG ORAL Q4H Y for Mild Pain/Temp > 100.5, TAB 01/03/17 Docusate Sodium* (DOCUSATE SODIUM*) 100 Mg Capsule, 100 MG ORAL BID, CAP 12/31/16 Insulin Glargine (LANTUS) 100 Unit/1 Ml Insuln.pen, 0 SUBQ BEDTIME, #1 EA 0 Refills 06/08/16 Atorvastatin Calcium* (LIPITOR*) 10 Mg Tablet, 10 MG ORAL BEDTIME, TAB 06/08/16 [Regular Insulin] No Conflict Check 11/14/15 Zinc Sulfate (ZINC SULFATE*) 220 Mg Capsule, 220 MG ORAL DAILY, CAP 0 Refills 11/14/15 Multivitamin with Minerals (Multivitamins with Minerals) 1 Each Tablet, 1 TAB ORAL DAILY, TAB 11/14/15 Olanzapine* (ZYPREXA*) 2.5 Mg Tablet, 2.5 MG ORAL DAILY, TAB 0 Refills 11/14/15 Gabapentin* (GABAPENTIN*) 300 Mg Capsule, 300 MG ORAL THREE TIMES A DAY, CAP 0 Refills 11/14/15 Furosemide* (LASIX*) 20 Mg Tablet, 20 MG ORAL DAILY, TAB 11/14/15 Donepezil Hcl* (DONEPEZIL HCL*) 10 Mg Tab.rapdis, 10 MG ORAL DAILY, TAB 11/14/15 Clopidogrel* (CLOPIDOGREL*) 75 Mg Tablet, 75 MG ORAL DAILY, TAB 11/14/15 Aspirin Ec* (ASPIRIN EC*) 81 Mg Tablet.dr, 81 MG ORAL DAILY, TAB 11/14/15 Discontinued Reported Medications Amlodipine Besylate (Norvasc) 10 Mg Tablet, 10 MG ORAL DAILY, TAB 05/01/17 Amlodipine Besylate (Norvasc) 10 Mg Tablet, 10 MG ORAL DAILY, TAB 06/08/16 Ascorbic Acid* (VITAMIN C*) 250 Mg Tablet, 250 MG ORAL DAILY, TAB 0 Refills 11/14/15 Discontinued Scripts Sitagliptin* (JANUVIA*) 25 Mg Tablet, 25 MG ORAL ACBREAKFAST, #30 TAB Prov:CHAPIS MOSER 05/06/17 Nateglinide (Starlix) 120 Mg Tablet, 120 MG ORAL TIAC for 30 Days, TAB Prov:Eros Hebert MD 07/02/16 Allergies: Coded Allergies: PENICILLINS (Verified Allergy, Unknown, 05/11/17) GI: Plan Plan The patient was seen and examined at bedside and all new and available data was reviewed in the patients chart. I agree with the above findings, impression and plan. (Patient seen earlier today. Signature stamp does not reflect patient encounter time.). - [facility] Oneill May 13, 2017 12:39 ASHLEY RUEDA May 18, 2017 11:32
[2017-05-13 16:00] VITALS: BP 169/83
[2017-05-13 20:00] VITALS: BP 152/79
[2017-05-14] VITALS: BP 139/73
[2017-05-14 04:30] VITALS: BP 152/83
[2017-05-14] MEDS: NovoLOG Insulin Flexpen SUBQ SCH ×4 (06:21→20:55)
[2017-05-14] MEDS: sitaGLIPtin 25mg tab ORAL SCH (06:22)
[2017-05-14 07:29] LABS: BASOPHILS % (AUTO) 0.2 % (0.0-2.0); EOSINOPHILS % (AUTO) 0.7 % (0.0-3.0); HEMOGLOBIN 11.9 G/DL (14.2-18.0); LYMPHOCYTES % (AUTO) 10.8 % (20.0-45.0); MEAN CORPUSCULAR VOLUME 96 FL (80-99); MONOCYTES % (AUTO) 6.9 % (1.0-10.0); NEUTROPHILS % (AUTO) 81.4 % (45.0-75.0); PLATELET COUNT 222 K/UL (150-450); RED BLOOD COUNT 3.76 M/UL (4.70-6.10); RED CELL DISTRIBUTION WIDTH 11.8 % (11.6-14.8); WHITE BLOOD COUNT 12.8 K/UL (4.8-10.8)
[2017-05-14 08:00] VITALS: BP 204/105
[2017-05-14 08:12] LABS: ANION GAP 12 mmol/L (5-15); BLOOD UREA NITROGEN 61 mg/dL (7-18); CALCIUM 8.8 MG/DL (8.5-10.1); CARBON DIOXIDE 22 MMOL/L (21-32); CHLORIDE 115 MMOL/L (98-107); CREATININE 3.8 MG/DL (0.55-1.30); SODIUM 149 MMOL/L (136-145)
[2017-05-14] MEDS: levETIRAcetam 500mg/5ml Liquid ORAL SCH ×2 (08:50→20:56)
[2017-05-14] MEDS: Multivitamin w/Minerals tab ORAL SCH (09:00)
[2017-05-14] MEDS: Donepezil 10mg tab ORAL SCH (09:00)
[2017-05-14] MEDS: Docusate 100mg/10ml Liq ORAL SCH ×2 (09:00→18:00)
[2017-05-14] MEDS: Aspirin Baby 81mg ORAL SCH (09:00)
[2017-05-14] MEDS: Imdur 30mg tab ORAL SCH (09:14)
[2017-05-14 12:00] VITALS: BP 187/94
--- NOTE | 2017-05-14 13:18 | Infectious Diseases Prog Note ---
Assessment/Plan Assessment/Plan antibiotics : levoquin A 1. pneumonia 2. leucocytosis improving 3. renal failure 4. CVA 5. HTN P 1. continue levoquin 2. will follow up cultures 3. GT planned Subjective Constitutional: Denies: fever, chills Respiratory: Reports: productive cough - decreasing, Denies: shortness of breath Gastrointestinal/Abdominal: Denies: nausea, vomiting, diarrhea Musculoskeletal: Denies: pain Allergies: Coded Allergies: PENICILLINS (Verified Allergy, Unknown, 05/11/17) Objective Vital Signs Last 24 Hour Vital Signs Date Time Temp Pulse Resp B/P (MAP) Pulse Ox O2 Delivery O2 Flow Rate FiO2 05/14/17 12:00 97.8 84 19 187/94 100 05/14/17 09:15 88 204/105 05/14/17 09:14 204/105 05/14/17 08:00 98.0 93 20 204/105 98 Room Air 05/14/17 04:30 97.7 70 18 152/83 96 Nasal Cannula 05/14/17 04:00 98 Nasal Cannula 2.0 05/14/17 00:00 97.5 68 20 139/73 100 Nasal Cannula 2.0 05/13/17 22:22 79 152/79 05/13/17 20:00 98.1 79 20 152/79 98 Nasal Cannula 2.0 05/13/17 17:45 178/90 05/13/17 16:00 97.9 84 20 169/83 99 Height (Feet): 5 Height (Inches): 8.00 Weight (Pounds): 140 Respiratory/Chest: lungs clear Cardiovascular: normal rate, regular rhythm, no gallop/murmur Abdomen: soft, non tender Extremities: no edema Laboratory Tests Test 05/14/17 04:55 White Blood Count 12.8 K/UL (4.8-10.8) H Red Blood Count 3.76 M/UL (4.70-6.10) L Hemoglobin 11.9 G/DL (14.2-18.0) L Hematocrit 36.0 % (42.0-52.0) L Mean Corpuscular Volume 96 FL (80-99) Mean Corpuscular Hemoglobin 31.7 PG (27.0-31.0) H Mean Corpuscular Hemoglobin Concent 33.2 G/DL (32.0-36.0) Red Cell Distribution Width 11.8 % (11.6-14.8) Platelet Count 222 K/UL (150-450) Mean Platelet Volume 8.6 FL (6.5-10.1) Neutrophils (%) (Auto) 81.4 % (45.0-75.0) H Lymphocytes (%) (Auto) 10.8 % (20.0-45.0) L Monocytes (%) (Auto) 6.9 % (1.0-10.0) Eosinophils (%) (Auto) 0.7 % (0.0-3.0) Basophils (%) (Auto) 0.2 % (0.0-2.0) Prothrombin Time 10.7 SEC (9.30-11.50) Prothromb Time International Ratio 1.0 (0.9-1.1) Activated Partial Thromboplast Time 21 SEC (23-33) L Sodium Level 149 MMOL/L (136-145) H Potassium Level 4.0 MMOL/L (3.5-5.1) Chloride Level 115 MMOL/L (98-107) H Carbon Dioxide Level 22 MMOL/L (21-32) Anion Gap 12 mmol/L (5-15) Blood Urea Nitrogen 61 mg/dL (7-18) H Creatinine 3.8 MG/DL (0.55-1.30) H Estimat Glomerular Filtration Rate mL/min (>60) Glucose Level 268 MG/DL (74-106) H Calcium Level 8.8 MG/DL (8.5-10.1) LEODAN LESLIE May 14, 2017 13:18
--- NOTE | 2017-05-14 13:31 | GI Progress Note ---
Assessment/Plan Problems: (1) Encounter for PEG (percutaneous endoscopic gastrostomy) ICD Codes: Z43.1 - Encounter for attention to gastrostomy SNOMED: 892572580, 741479957 (2) Dysphagia ICD Codes: R13.10 - Dysphagia, unspecified SNOMED: 02289362, 529002412 (3) Anemia ICD Codes: D64.9 - Anemia, unspecified SNOMED: 654678082 (4) DM (diabetes mellitus) ICD Codes: E11.9 - Type 2 diabetes mellitus without complications SNOMED: 05198093 Status: stable Status Narrative Discussed with Dr. Carver. Assessment/Plan PEG rescheduled to Wednesday, Plavix must be held minimum 48-72 hours prior any GI procedures. maintain NPO + IVFs insert NGT NGTFs per RD after imaging confirmation. ppi prn transfusions fu labs The patient was seen and examined at bedside and all new and available data was reviewed in the patients chart. I agree with the above findings, impression and plan. (Patient seen earlier today. Signature stamp does not reflect patient encounter time.). - Royce Carver MD Subjective Subjective limited Objective Last 24 Hour Vital Signs Date Time Temp Pulse Resp B/P (MAP) Pulse Ox O2 Delivery O2 Flow Rate FiO2 05/14/17 13:12 187/94 05/14/17 12:00 97.8 84 19 187/94 100 05/14/17 09:15 88 204/105 05/14/17 09:14 204/105 05/14/17 08:00 98.0 93 20 204/105 98 Room Air 05/14/17 04:30 97.7 70 18 152/83 96 Nasal Cannula 05/14/17 04:00 98 Nasal Cannula 2.0 05/14/17 00:00 97.5 68 20 139/73 100 Nasal Cannula 2.0 05/13/17 22:22 79 152/79 05/13/17 20:00 98.1 79 20 152/79 98 Nasal Cannula 2.0 05/13/17 17:45 178/90 05/13/17 16:00 97.9 84 20 169/83 99 Intake and Output 05/13/17 05/14/17 19:00 07:00 Intake Total 400 ml 600 ml Output Total 800 ml Balance 400 ml -200 ml IV Total 400 ml 600 ml Output Urine Total 800 ml # Bowel Movements 1 Laboratory Tests Test 05/14/17 04:55 White Blood Count 12.8 K/UL (4.8-10.8) H Red Blood Count 3.76 M/UL (4.70-6.10) L Hemoglobin 11.9 G/DL (14.2-18.0) L Hematocrit 36.0 % (42.0-52.0) L Mean Corpuscular Volume 96 FL (80-99) Mean Corpuscular Hemoglobin 31.7 PG (27.0-31.0) H Mean Corpuscular Hemoglobin Concent 33.2 G/DL (32.0-36.0) Red Cell Distribution Width 11.8 % (11.6-14.8) Platelet Count 222 K/UL (150-450) Mean Platelet Volume 8.6 FL (6.5-10.1) Neutrophils (%) (Auto) 81.4 % (45.0-75.0) H Lymphocytes (%) (Auto) 10.8 % (20.0-45.0) L Monocytes (%) (Auto) 6.9 % (1.0-10.0) Eosinophils (%) (Auto) 0.7 % (0.0-3.0) Basophils (%) (Auto) 0.2 % (0.0-2.0) Prothrombin Time 10.7 SEC (9.30-11.50) Prothromb Time International Ratio 1.0 (0.9-1.1) Activated Partial Thromboplast Time 21 SEC (23-33) L Sodium Level 149 MMOL/L (136-145) H Potassium Level 4.0 MMOL/L (3.5-5.1) Chloride Level 115 MMOL/L (98-107) H Carbon Dioxide Level 22 MMOL/L (21-32) Anion Gap 12 mmol/L (5-15) Blood Urea Nitrogen 61 mg/dL (7-18) H Creatinine 3.8 MG/DL (0.55-1.30) H Estimat Glomerular Filtration Rate mL/min (>60) Glucose Level 268 MG/DL (74-106) H Calcium Level 8.8 MG/DL (8.5-10.1) Height (Feet): 5 Height (Inches): 8.00 Weight (Pounds): 140 General Appearance: WD/WN, no apparent distress, alert, confused Cardiovascular: normal rate Respiratory/Chest: normal breath sounds, no respiratory distress, other - 2LNC Abdominal Exam: normal bowel sounds, non tender, soft Extremities: non-tender Naomi Hernandez N.P. May 14, 2017 13:31 ASHLEY CARVER May 18, 2017 11:36
--- NOTE | 2017-05-14 14:23 | Pulmonology Progress Note ---
Assessment/Plan Assessment/Plan IMPRESSION: 1. Chronic renal failure. 2. Hypoxemia, resolved. 3. Vascular congestion. 4. care home resident. 5. History of hypertension. 6. Pneumonia/leucocytosis; improving. 7. Chronic recanulized DVT's DISCUSSION: Continue home medications which include aspirin, amlodipine, vitamin C, Lipitor, Coreg, Plavix. He is also on oral Lasix, Starlix, and Januvia which I will continue. Appreciate ID consult. Ordered oxygen, pulmonary hygiene. 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 Swallow eval noted; will need PEG; delayed due to Plavix Added 1/2 NS fluids OK to have SCD's Subjective Interval Events: on Plavix, G-tube delayed. Constitutional: Reports: no symptoms HEENT: Repors: no symptoms Respiratory: Reports: no symptoms Cardiovascular: Reports: no symptoms Gastrointestinal/Abdominal: Reports: no symptoms Allergies: Coded Allergies: PENICILLINS (Verified Allergy, Unknown, 05/11/17) Objective Last 24 Hour Vital Signs Date Time Temp Pulse Resp B/P (MAP) Pulse Ox O2 Delivery O2 Flow Rate FiO2 05/14/17 13:12 187/94 05/14/17 12:00 97.8 84 19 187/94 100 05/14/17 09:15 88 204/105 05/14/17 09:14 204/105 05/14/17 08:00 98.0 93 20 204/105 98 Room Air 05/14/17 04:30 97.7 70 18 152/83 96 Nasal Cannula 05/14/17 04:00 98 Nasal Cannula 2.0 05/14/17 00:00 97.5 68 20 139/73 100 Nasal Cannula 2.0 05/13/17 22:22 79 152/79 05/13/17 20:00 98.1 79 20 152/79 98 Nasal Cannula 2.0 05/13/17 17:45 178/90 05/13/17 16:00 97.9 84 20 169/83 99 Intake and Output 05/13/17 05/14/17 19:00 07:00 Intake Total 400 ml 600 ml Output Total 800 ml Balance 400 ml -200 ml IV Total 400 ml 600 ml Output Urine Total 800 ml # Bowel Movements 1 General Appearance: no acute distress HEENT: normocephalic Respiratory/Chest: chest wall non-tender, lungs clear, normal breath sounds Cardiovascular: normal peripheral pulses, normal rate Microbiology Date/Time Source Procedure Growth Status 05/13/17 20:50 Sputum Induced Gram Stain - Final Resulted 05/13/17 20:50 Sputum Induced Sputum Culture Pending Resulted Laboratory Tests 05/14/17 04:55: White Blood Count 12.8H, Red Blood Count 3.76L, Hemoglobin 11.9L, Hematocrit 36.0L, Mean Corpuscular Volume 96, Mean Corpuscular Hemoglobin 31.7H, Mean Corpuscular Hemoglobin Concent 33.2, Red Cell Distribution Width 11.8, Platelet Count 222, Mean Platelet Volume 8.6, Neutrophils (%) (Auto) 81.4H, Lymphocytes ( %) (Auto) 10.8L, Monocytes (%) (Auto) 6.9, Eosinophils (%) (Auto) 0.7, Basophils (%) (Auto) 0.2, Prothrombin Time 10.7, Prothromb Time International Ratio 1.0, Activated Partial Thromboplast Time 21L, Sodium Level 149H, Potassium Level 4.0, Chloride Level 115H, Carbon Dioxide Level 22, Anion Gap 12 , Blood Urea Nitrogen 61H, Creatinine 3.8H, Estimat Glomerular Filtration Rate , Glucose Level 268H, Calcium Level 8.8 Current Medications Medications (Trade) Dose Ordered Sig/Jason Route PRN Reason Start Time Stop Time Status Last Admin Dose Admin Acetaminophen (Tylenol) 650 mg Q4H PRN ORAL Mild Pain/Temp > 100.5 05/11/17 18:15 06/10/17 18:14 Amlodipine Besylate (Norvasc) 10 mg DAILY ORAL 05/12/17 09:00 06/11/17 08:59 05/14/17 09:15 Aspirin (ASA) 81 mg DAILY ORAL 05/14/17 09:00 06/13/17 08:59 Atorvastatin Calcium (Lipitor) 10 mg BEDTIME ORAL 05/11/17 21:00 06/10/17 20:59 05/13/17 22:22 Carvedilol (Coreg) 3.125 mg QHS ORAL 05/11/17 21:00 06/10/17 20:59 05/13/17 22:22 Clonidine HCl (Catapres) 0.1 mg Q4H PRN ORAL For High Blood Pressure 05/11/17 18:00 06/10/17 17:59 05/14/17 13:12 Clopidogrel Bisulfate (Plavix) 75 mg DAILY ORAL 05/12/17 09:00 06/11/17 08:59 05/13/17 09:53 Dextrose (Dextrose 50%) STAT PRN IV Hypoglycemia 05/11/17 18:00 06/10/17 17:59 Docusate Sodium (Colace) 100 mg BID ORAL 05/12/17 09:00 06/11/17 08:59 05/13/17 17:49 Donepezil HCl (Aricept) 10 mg DAILY ORAL 05/12/17 09:00 06/11/17 08:59 05/13/17 10:04 Famotidine (Pepcid) 20 mg DAILY ORAL 05/12/17 09:00 06/11/17 08:59 05/13/17 10:04 Furosemide (Lasix) 20 mg DAILY ORAL 05/12/17 09:00 06/11/17 08:59 05/14/17 09:15 Insulin Aspart (NovoLOG) BEFORE MEALS AND HS SUBQ 05/11/17 21:00 06/10/17 20:59 05/13/17 22:20 Isosorbide Mononitrate (Imdur) 30 mg DAILY ORAL 05/12/17 09:00 06/11/17 08:59 05/14/17 09:14 Levetiracetam (Keppra) 500 mg Q12HR ORAL 05/11/17 21:00 06/10/17 20:59 05/14/17 08:50 Levofloxacin 50 ml @ 50 mls/hr Q24H IVPB 05/12/17 09:00 05/19/17 08:59 05/14/17 08:50 Magnesium Hydroxide (Mom) 30 ml DAILYPRN PRN ORAL Constipation 05/11/17 18:15 06/10/17 18:14 Multivitamins Therapeutic (Therapeutic Multivitamin) 1 ea DAILY ORAL 05/12/17 09:00 06/11/17 08:59 05/13/17 09:53 Nateglinide (Starlix) 120 mg TIAC ORAL 05/12/17 06:30 06/11/17 06:29 05/13/17 17:40 Nitroglycerin (Ntg) 0.4 mg NEEDED PRN SL Prn Chest Pain 05/11/17 18:15 06/10/17 18:14 Sitagliptin Phosphate (Januvia) 25 mg ACBREAKFAST ORAL 05/12/17 06:30 06/11/17 06:29 05/13/17 06:12 Sodium Chloride 1,000 ml @ 50 mls/hr Q20H IV 05/13/17 10:00 06/12/17 09:59 05/14/17 05:30 Eros Espinoza MD May 14, 2017 14:23
--- NOTE | 2017-05-14 15:23 | Diagnostic Imaging Report ---
Indication: Status post nasogastric tube placement Technique: Supine view of the upper abdomen Comparison: none Findings: There is a nasogastric tube in place, tip projected at the level gastric fundus, proximal port just beyond the gastroesophageal junction. The bowel gas pattern is unremarkable. Small amount of contrast from prior video swallowing study is seen in the colon Impression: Nasogastric tube in place, proximal port just beyond the gastroesophageal junction. Position presumably adequate but would be optimal with further advancement. Other findings as noted Findings discussed with patient's nurse at the time of interpretation
--- NOTE | 2017-05-14 15:52 | Nephrology Progress Note ---
Assessment/Plan Problem List: (1) Seizure (2) Renal failure (ARF), acute on chronic (3) Respiratory distress (4) Pneumonia (5) Dysphagia (6) Diabetes mellitus out of control (7) Acute encephalopathy (8) DM (diabetes mellitus) Plan Consult dictated # [id number] Subjective ROS Limited/Unobtainable: Yes Subjective In bed, in no apparent distress Objective Objective Last 24 Hour Vital Signs Date Time Temp Pulse Resp B/P (MAP) Pulse Ox O2 Delivery O2 Flow Rate FiO2 05/14/17 13:12 187/94 05/14/17 12:00 97.8 84 19 187/94 100 05/14/17 09:15 88 204/105 05/14/17 09:14 204/105 05/14/17 08:00 98.0 93 20 204/105 98 Room Air 05/14/17 04:30 97.7 70 18 152/83 96 Nasal Cannula 05/14/17 04:00 98 Nasal Cannula 2.0 05/14/17 00:00 97.5 68 20 139/73 100 Nasal Cannula 2.0 05/13/17 22:22 79 152/79 05/13/17 20:00 98.1 79 20 152/79 98 Nasal Cannula 2.0 05/13/17 17:45 178/90 05/13/17 16:00 97.9 84 20 169/83 99 Intake and Output 05/13/17 05/14/17 19:00 07:00 Intake Total 400 ml 600 ml Output Total 800 ml Balance 400 ml -200 ml IV Total 400 ml 600 ml Output Urine Total 800 ml # Bowel Movements 1 Laboratory Tests 05/14/17 04:55: White Blood Count 12.8H, Red Blood Count 3.76L, Hemoglobin 11.9L, Hematocrit 36.0L, Mean Corpuscular Volume 96, Mean Corpuscular Hemoglobin 31.7H, Mean Corpuscular Hemoglobin Concent 33.2, Red Cell Distribution Width 11.8, Platelet Count 222, Mean Platelet Volume 8.6, Neutrophils (%) (Auto) 81.4H, Lymphocytes ( %) (Auto) 10.8L, Monocytes (%) (Auto) 6.9, Eosinophils (%) (Auto) 0.7, Basophils (%) (Auto) 0.2, Prothrombin Time 10.7, Prothromb Time International Ratio 1.0, Activated Partial Thromboplast Time 21L, Sodium Level 149H, Potassium Level 4.0, Chloride Level 115H, Carbon Dioxide Level 22, Anion Gap 12 , Blood Urea Nitrogen 61H, Creatinine 3.8H, Estimat Glomerular Filtration Rate , Glucose Level 268H, Calcium Level 8.8 Height (Feet): 5 Height (Inches): 8.00 Weight (Pounds): 140 General Appearance: no apparent distress, confused EENT: normal ENT inspection Neck: normal alignment Cardiovascular: regular rhythm, no JVD Respiratory/Chest: decreased breath sounds Abdomen: soft Genitourinary/Rectal: other - condom catheter Extremities: non-tender Neurologic: alert, disoriented Adriana Wharton N.P. May 14, 2017 15:52
[2017-05-14 16:00] VITALS: BP 143/73
[2017-05-14] MEDS: Nephrovite tab (Rena-Vite) ORAL SCH (16:00)
[2017-05-14 20:00] VITALS: BP 151/93
--- NOTE | 2017-05-14 20:30 | Consultation ---
DATE OF CONSULTATION: 05/14/2017 NEPHROLOGY CONSULTATION REFERRING PHYSICIAN: Eros Espinoza M.D. REASON FOR CONSULT: Acute renal failure on chronic kidney disease, hypernatremia. HISTORY OF PRESENT ILLNESS: I mention that the patient has a history of dementia and at this time seems to be nonverbal and I am unable to obtain any medical history from this patient. Therefore, history was obtained from medical records and from consults as well. The patient is an 81-year-old male with past medical history significant for diabetes, anemia, hypertension, dementia, and resident of [facility] was brought to the emergency room for increasing shortness of breath. Saturation was at 80 at this time. According to the history also he was placed on O2 and his saturation improved. Laboratories obtained in the ER showed elevated BUN and creatinine, BUN was 51 and creatinine 3.6 and has since worsened. Also, the patient had a high sodium level of 149. So we are called to consult on this patient and evaluate his kidney functions. The patient is lying in bed at this time on bilateral wrist restraints. NG tube is noted with feeding. PAST MEDICAL HISTORY: Significant for diabetes, hypertension, chronic kidney disease, and . MEDICATIONS: Prior to admission include acetaminophen 650 mg p.o. q.4 h. p.r.n., amlodipine 10 mg p.o. daily, vitamin C 250 mg p.o. daily, aspirin 81 mg p.o. daily, atorvastatin 10 mg p.o. at bedtime, Coreg 3.125 mg p.o. at bedtime, Plavix 75 mg p.o. daily, docusate 100 mg p.o. b.i.d., Aricept 10 mg p.o. daily, famotidine 20 mg p.o. daily, Lasix 20 mg p.o. daily, gabapentin 300 mg p.o. t.i.d., insulin NovoLog per sliding scale, Lantus at bedtime, isosorbide mononitrate 30 mg p.o. daily, Keppra 500 mg p.o. b.i.d., milk of magnesium 30 mL daily p.r.n., multivitamin tablet one p.o. daily, Starlix 60 mg p.o. daily, Zyprexa 2.5 mg p.o. daily, Januvia 25 mg p.o. daily and zinc sulfate 220 mg p.o. daily. SOCIAL HISTORY: The patient is a resident of a [place] [facility]. No history of alcohol use, smoking or illicit drug use. FAMILY HISTORY: Noncontributory. REVIEW OF SYSTEMS: Unobtainable at this time due to the patient's altered mental status. PHYSICAL EXAMINATION: GENERAL: The patient is an 81-year-old male, confused at this time in no apparent distress. VITAL SIGNS: Blood pressure 187/94, heart rate is 84, respiratory rate is 19, temperature 97.8 degrees, and O2 saturation is 100% on two liters. HEENT: Head is normocephalic and atraumatic. Pupils are equal, round, and reactive to light and accommodation. NECK: Supple. No JVD noted. LUNGS: Diminished bilaterally. CARDIOVASCULAR: Regular rate and rhythm. ABDOMEN: Soft, nontender, and nondistended. EXTREMITIES: No edema. No cyanosis. No clubbing. GENITOURINARY: The patient has a condom catheter with adequate urine in the drainage bag. LABORATORY AND DIAGNOSTIC DATA: CBC, white count 12.8, hemoglobin 11.9, hematocrit 36.0, and platelet count of 222. BMP, sodium 149, potassium 4.0, chloride 115, bicarbonate 22, BUN 61, creatinine 3.8, and a blood glucose of 268. Radiologic findings, chest x-ray impression, cardiomegaly with mild pulmonary vascular congestion, hazy opacification in the right lower lung possibly related to vascular crowding, however, developing pneumonia is not entirely excluded. Abdominal x-ray impression nasogastric tube in place, proximal point port just beyond the gastroesophageal junction, possible presumably adequate ports would be optimal with further advancement. Renal ultrasound obtained on 05/03/2017 findings, kidneys are echogenic, the right kidney measures 9.4 centimeters, left kidney measures 11.7 centimeters. There is no hydronephrosis. The bladder is mildly distended. IVC is unremarkable as visualized. Impression, medical renal disease suspected. ASSESSMENT: 1. Acute renal failure on chronic kidney disease. 2. Hypernatremia. 3. Dysphagia. 4. Pneumonia. 5. Diabetes. 6. Acute encephalopathy. 7. Do Not Resuscitate status. 8. Seizure disorder. 9. . PLAN: A 24-hour urine collection has been obtained and results pending at this time. We will monitor intake and output and renally dose medications. We will avoid nephrotoxins. We will monitor lytes and correct as needed. We will continue current intravenous fluids. If sodium worsens, we would discontinue and start the patient on D5W. The patient has been seen by GI and scheduled for EGD with PEG placement tomorrow. We will followup postprocedure. Monitor neurological status. Seizure precautions. We will monitor the patient's overall response to treatment and make recommendations when necessary. Thank you, Dr. Espinoza, for this consult. James Hooks M.D. Adriana Wharton DR: MARBELLA JOB#: [id number] CC:
[2017-05-15] VITALS (9 sets, daily range): BP systolic 148–191; BP diastolic 72–85
[2017-05-15] MEDS: sitaGLIPtin 25mg tab ORAL SCH (06:08)
[2017-05-15] MEDS: NovoLOG Insulin Flexpen SUBQ SCH ×4 (06:08→21:12)
[2017-05-15] MEDS: levETIRAcetam 500mg/5ml Liquid ORAL SCH ×2 (08:19→21:10)
[2017-05-15] MEDS: Imdur 30mg tab ORAL SCH (08:19)
[2017-05-15] MEDS: Aspirin Baby 81mg ORAL SCH (08:21)
[2017-05-15] MEDS: Multivitamin w/Minerals tab ORAL SCH (08:40)
[2017-05-15] MEDS: Docusate 100mg/10ml Liq ORAL SCH ×2 (08:40→17:14)
[2017-05-15] MEDS: Donepezil 10mg tab ORAL SCH (08:40)
[2017-05-15] MEDS: Nephrovite tab (Rena-Vite) ORAL SCH (08:40)
[2017-05-15 09:24] LABS: ANION GAP 10 mmol/L (5-15); BLOOD UREA NITROGEN 65 mg/dL (7-18); CALCIUM 8.8 MG/DL (8.5-10.1); CARBON DIOXIDE 25 MMOL/L (21-32); CHLORIDE 117 MMOL/L (98-107); CREATININE 3.9 MG/DL (0.55-1.30); POTASSIUM 3.6 MMOL/L (3.5-5.1); SODIUM 152 MMOL/L (136-145)
[2017-05-15 09:29] LABS: BASOPHILS % (AUTO) 0.4 % (0.0-2.0); EOSINOPHILS % (AUTO) 0.6 % (0.0-3.0); HEMATOCRIT 38.4 % (42.0-52.0); HEMOGLOBIN 12.3 G/DL (14.2-18.0); LYMPHOCYTES % (AUTO) 12.9 % (20.0-45.0); MEAN CORPUSCULAR VOLUME 94 FL (80-99); MONOCYTES % (AUTO) 9.4 % (1.0-10.0); NEUTROPHILS % (AUTO) 76.6 % (45.0-75.0); PLATELET COUNT 233 K/UL (150-450); RED BLOOD COUNT 4.09 M/UL (4.70-6.10); RED CELL DISTRIBUTION WIDTH 11.5 % (11.6-14.8); WHITE BLOOD COUNT 12.3 K/UL (4.8-10.8)
--- NOTE | 2017-05-15 10:37 | General Progress Note ---
Assessment/Plan Problem List: (1) Seizure ICD Codes: R56.9 - Unspecified convulsions SNOMED: 52519613 (2) DM (diabetes mellitus) ICD Codes: E11.9 - Type 2 diabetes mellitus without complications SNOMED: 46086726 (3) Encounter for PEG (percutaneous endoscopic gastrostomy) ICD Codes: Z43.1 - Encounter for attention to gastrostomy SNOMED: 139081799, 785615925 Assessment/Plan pulled NGT plan PEG for Wednesday IVF fu labs Subjective ROS Limited/Unobtainable: No Allergies: Coded Allergies: PENICILLINS (Verified Allergy, Unknown, 05/11/17) Objective Last 24 Hour Vital Signs Date Time Temp Pulse Resp B/P (MAP) Pulse Ox O2 Delivery O2 Flow Rate FiO2 05/15/17 10:05 78 163/72 05/15/17 08:19 175/85 05/15/17 08:19 74 175/85 05/15/17 07:56 97.9 74 21 175/85 96 Room Air 05/15/17 06:06 172/79 05/15/17 04:00 97.0 71 20 172/79 94 05/15/17 04:00 94 Nasal Cannula 2.0 05/15/17 00:00 95 Nasal Cannula 2.0 05/15/17 00:00 97.9 67 20 148/73 95 05/14/17 20:00 95 Nasal Cannula 2.0 05/14/17 20:00 97.3 69 18 151/93 95 05/14/17 16:00 98.1 67 18 143/73 98 05/14/17 13:12 187/94 05/14/17 12:00 97.8 84 19 187/94 100 Intake and Output 05/14/17 05/15/17 19:00 07:00 Intake Total 50 ml 600 ml Output Total 600 ml 400 ml Balance -550 ml 200 ml IV Total 50 ml 600 ml Output Urine Total 600 ml 400 ml # Bowel Movements 1 Laboratory Tests 05/15/17 08:55: White Blood Count 12.3H, Red Blood Count 4.09L, Hemoglobin 12.3L, Hematocrit 38.4L, Mean Corpuscular Volume 94, Mean Corpuscular Hemoglobin 30.0, Mean Corpuscular Hemoglobin Concent 32.0, Red Cell Distribution Width 11.5L, Platelet Count 233, Mean Platelet Volume 8.8, Neutrophils (%) (Auto) 76.6H, Lymphocytes (%) (Auto) 12.9L, Monocytes (%) (Auto) 9.4, Eosinophils (%) (Auto) 0.6, Basophils (%) (Auto) 0.4, Sodium Level 152H, Potassium Level 3.6, Chloride Level 117H, Carbon Dioxide Level 25, Anion Gap 10, Blood Urea Nitrogen 65H, Creatinine 3.9H, Estimat Glomerular Filtration Rate , Glucose Level 236H, Calcium Level 8.8 Height (Feet): 5 Height (Inches): 8.00 Weight (Pounds): 140 General Appearance: no apparent distress EENT: normal ENT inspection Neck: supple Cardiovascular: normal rate Respiratory/Chest: decreased breath sounds Abdomen: normal bowel sounds, non tender, soft Extremities: non-tender ASHLEY RUEDA May 15, 2017 10:37
--- NOTE | 2017-05-15 10:41 | Pulmonology Progress Note ---
Assessment/Plan Assessment/Plan IMPRESSION: 1. Chronic renal failure. 2. Hypoxemia, resolved. 3. Vascular congestion. 4. group home resident. 5. History of hypertension. 6. Pneumonia/leucocytosis; improving. 7. Chronic recanulized DVT's 8. Hypernatremia DISCUSSION: Continue home medications which include amlodipine, vitamin C, Lipitor, Coreg, . ASA and Plavix on hold He is also on oral Lasix, Starlix, and Januvia which I will continue. Appreciate ID consult. Ordered oxygen, pulmonary hygiene. 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 Will add Clonidine PEG on Wednesday Swallow eval noted; will need PEG; delayed due to Plavix Added 1/2 NS fluids OK to have SCD's Subjective Interval Events: Pulled out NGT again Constitutional: Reports: no symptoms HEENT: Repors: no symptoms Respiratory: Reports: no symptoms Cardiovascular: Reports: no symptoms Gastrointestinal/Abdominal: Reports: no symptoms Allergies: Coded Allergies: PENICILLINS (Verified Allergy, Unknown, 05/11/17) Objective Last 24 Hour Vital Signs Date Time Temp Pulse Resp B/P (MAP) Pulse Ox O2 Delivery O2 Flow Rate FiO2 05/15/17 10:05 78 163/72 05/15/17 08:19 175/85 05/15/17 08:19 74 175/85 05/15/17 07:56 97.9 74 21 175/85 96 Room Air 05/15/17 06:06 172/79 05/15/17 04:00 97.0 71 20 172/79 94 05/15/17 04:00 94 Nasal Cannula 2.0 05/15/17 00:00 95 Nasal Cannula 2.0 05/15/17 00:00 97.9 67 20 148/73 95 05/14/17 20:00 95 Nasal Cannula 2.0 05/14/17 20:00 97.3 69 18 151/93 95 05/14/17 16:00 98.1 67 18 143/73 98 05/14/17 13:12 187/94 05/14/17 12:00 97.8 84 19 187/94 100 Intake and Output 05/14/17 05/15/17 19:00 07:00 Intake Total 50 ml 600 ml Output Total 600 ml 400 ml Balance -550 ml 200 ml IV Total 50 ml 600 ml Output Urine Total 600 ml 400 ml # Bowel Movements 1 General Appearance: no acute distress HEENT: normocephalic Respiratory/Chest: chest wall non-tender, lungs clear Cardiovascular: normal peripheral pulses, normal rate Abdomen: normal bowel sounds Microbiology Date/Time Source Procedure Growth Status 05/13/17 20:50 Sputum Induced Gram Stain - Final Resulted 05/13/17 20:50 Sputum Induced Sputum Culture Pending Resulted Laboratory Tests 05/15/17 08:55: White Blood Count 12.3H, Red Blood Count 4.09L, Hemoglobin 12.3L, Hematocrit 38.4L, Mean Corpuscular Volume 94, Mean Corpuscular Hemoglobin 30.0, Mean Corpuscular Hemoglobin Concent 32.0, Red Cell Distribution Width 11.5L, Platelet Count 233, Mean Platelet Volume 8.8, Neutrophils (%) (Auto) 76.6H, Lymphocytes (%) (Auto) 12.9L, Monocytes (%) (Auto) 9.4, Eosinophils (%) (Auto) 0.6, Basophils (%) (Auto) 0.4, Sodium Level 152H, Potassium Level 3.6, Chloride Level 117H, Carbon Dioxide Level 25, Anion Gap 10, Blood Urea Nitrogen 65H, Creatinine 3.9H, Estimat Glomerular Filtration Rate , Glucose Level 236H, Calcium Level 8.8 Current Medications Medications (Trade) Dose Ordered Sig/Jason Route PRN Reason Start Time Stop Time Status Last Admin Dose Admin Acetaminophen (Tylenol) 650 mg Q4H PRN ORAL Mild Pain/Temp > 100.5 05/11/17 18:15 06/10/17 18:14 Amlodipine Besylate (Norvasc) 10 mg DAILY ORAL 05/12/17 09:00 06/11/17 08:59 05/15/17 08:19 Aspirin (ASA) 81 mg DAILY ORAL 05/14/17 09:00 06/13/17 08:59 Atorvastatin Calcium (Lipitor) 10 mg BEDTIME ORAL 05/11/17 21:00 06/10/17 20:59 05/13/17 22:22 Carvedilol (Coreg) 3.125 mg QHS ORAL 05/11/17 21:00 06/10/17 20:59 05/13/17 22:22 Clonidine HCl (Catapres) 0.1 mg Q4H PRN ORAL For High Blood Pressure 05/11/17 18:00 06/10/17 17:59 05/15/17 06:06 Clopidogrel Bisulfate (Plavix) 75 mg DAILY ORAL 05/12/17 09:00 06/11/17 08:59 05/13/17 09:53 Dextrose (Dextrose 50%) STAT PRN IV Hypoglycemia 05/11/17 18:00 06/10/17 17:59 Docusate Sodium (Colace) 100 mg BID ORAL 05/12/17 09:00 06/11/17 08:59 05/13/17 17:49 Donepezil HCl (Aricept) 10 mg DAILY ORAL 05/12/17 09:00 06/11/17 08:59 05/13/17 10:04 Famotidine (Pepcid) 20 mg DAILY ORAL 05/12/17 09:00 06/11/17 08:59 05/13/17 10:04 Furosemide (Lasix) 20 mg DAILY ORAL 05/12/17 09:00 06/11/17 08:59 05/15/17 08:21 Insulin Aspart (NovoLOG) BEFORE MEALS AND HS SUBQ 05/11/17 21:00 06/10/17 20:59 05/15/17 06:08 Isosorbide Mononitrate (Imdur) 30 mg DAILY ORAL 05/12/17 09:00 06/11/17 08:59 05/15/17 08:19 Levetiracetam (Keppra) 500 mg Q12HR ORAL 05/11/17 21:00 06/10/17 20:59 05/15/17 08:19 Levofloxacin 50 ml @ 50 mls/hr Q24H IVPB 05/12/17 09:00 05/19/17 08:59 05/15/17 08:19 Magnesium Hydroxide (Mom) 30 ml DAILYPRN PRN ORAL Constipation 05/11/17 18:15 06/10/17 18:14 Multivitamins Therapeutic (Therapeutic Multivitamin) 1 ea DAILY ORAL 05/12/17 09:00 06/11/17 08:59 05/13/17 09:53 Nateglinide (Starlix) 120 mg TIAC ORAL 05/12/17 06:30 06/11/17 06:29 05/13/17 17:40 Nitroglycerin (Ntg) 0.4 mg NEEDED PRN SL Prn Chest Pain 05/11/17 18:15 06/10/17 18:14 Sitagliptin Phosphate (Januvia) 25 mg ACBREAKFAST ORAL 05/12/17 06:30 06/11/17 06:29 05/13/17 06:12 Sodium Chloride 1,000 ml @ 50 mls/hr Q20H IV 05/13/17 10:00 06/12/17 09:59 05/15/17 08:40 Vitamin B Complex/ Vit C/Folic Acid (Nephrovite) 1 tab DAILY ORAL 05/14/17 16:00 06/13/17 15:59 Eros Espinoza MD May 15, 2017 10:41
--- NOTE | 2017-05-15 12:29 | Nephrology Progress Note ---
Assessment/Plan Problem List: (1) Renal failure (ARF), acute on chronic (2) Acute encephalopathy (3) Dysphagia (4) Anemia (5) DM (diabetes mellitus) (6) Seizure (7) Hypernatremia (8) Sepsis Plan Recommend to change IVF to D5W. Pending PEG Wednesday. Follow up renal workup. Monitor I/O's. Follow up 24 hour CrCl. D/w Dr. Alaniz. Subjective Subjective confused. comfortable. Objective Objective Last 24 Hour Vital Signs Date Time Temp Pulse Resp B/P (MAP) Pulse Ox O2 Delivery O2 Flow Rate FiO2 05/15/17 11:53 97.4 80 22 160/83 95 Room Air 05/15/17 10:05 78 163/72 05/15/17 08:19 175/85 05/15/17 08:19 74 175/85 05/15/17 07:56 97.9 74 21 175/85 96 Room Air 05/15/17 06:06 172/79 05/15/17 04:00 97.0 71 20 172/79 94 05/15/17 04:00 94 Nasal Cannula 2.0 05/15/17 00:00 95 Nasal Cannula 2.0 05/15/17 00:00 97.9 67 20 148/73 95 05/14/17 20:00 95 Nasal Cannula 2.0 05/14/17 20:00 97.3 69 18 151/93 95 05/14/17 16:00 98.1 67 18 143/73 98 05/14/17 13:12 187/94 Intake and Output 05/14/17 05/15/17 19:00 07:00 Intake Total 50 ml 600 ml Output Total 600 ml 400 ml Balance -550 ml 200 ml IV Total 50 ml 600 ml Output Urine Total 600 ml 400 ml # Bowel Movements 1 Laboratory Tests 05/15/17 08:55: White Blood Count 12.3H, Red Blood Count 4.09L, Hemoglobin 12.3L, Hematocrit 38.4L, Mean Corpuscular Volume 94, Mean Corpuscular Hemoglobin 30.0, Mean Corpuscular Hemoglobin Concent 32.0, Red Cell Distribution Width 11.5L, Platelet Count 233, Mean Platelet Volume 8.8, Neutrophils (%) (Auto) 76.6H, Lymphocytes (%) (Auto) 12.9L, Monocytes (%) (Auto) 9.4, Eosinophils (%) (Auto) 0.6, Basophils (%) (Auto) 0.4, Sodium Level 152H, Potassium Level 3.6, Chloride Level 117H, Carbon Dioxide Level 25, Anion Gap 10, Blood Urea Nitrogen 65H, Creatinine 3.9H, Estimat Glomerular Filtration Rate , Glucose Level 236H, Calcium Level 8.8 Height (Feet): 5 Height (Inches): 8.00 Weight (Pounds): 140 General Appearance: no apparent distress Cardiovascular: normal rate, regular rhythm Respiratory/Chest: lungs clear Abdomen: non tender, soft, no organomegaly SUSHANT JAUREGUI May 15, 2017 12:29
[2017-05-15] MEDS ORDERED: 1/2 NS 1000ml IV ONE (15:49)
[2017-05-15] MEDS ORDERED: Tubing IV Secondary IV ONE (22:41)
[2017-05-16] VITALS (7 sets, daily range): BP systolic 142–187; BP diastolic 69–95
[2017-05-16] MEDS: NovoLOG Insulin Flexpen SUBQ SCH ×4 (05:48→20:22)
[2017-05-16] MEDS: sitaGLIPtin 25mg tab ORAL SCH (06:18)
[2017-05-16 07:21] LABS: BASOPHILS % (AUTO) 0.4 % (0.0-2.0); EOSINOPHILS % (AUTO) 0.4 % (0.0-3.0); HEMATOCRIT 38.8 % (42.0-52.0); HEMOGLOBIN 12.6 G/DL (14.2-18.0); LYMPHOCYTES % (AUTO) 8.7 % (20.0-45.0); MEAN CORPUSCULAR VOLUME 96 FL (80-99); MONOCYTES % (AUTO) 8.6 % (1.0-10.0); NEUTROPHILS % (AUTO) 82.1 % (45.0-75.0); PLATELET COUNT 234 K/UL (150-450); RED BLOOD COUNT 4.06 M/UL (4.70-6.10); RED CELL DISTRIBUTION WIDTH 12.2 % (11.6-14.8); WHITE BLOOD COUNT 12.5 K/UL (4.8-10.8)
[2017-05-16 07:34] LABS: ANION GAP 12 mmol/L (5-15); BLOOD UREA NITROGEN 58 mg/dL (7-18); CALCIUM 8.9 MG/DL (8.5-10.1); CARBON DIOXIDE 24 MMOL/L (21-32); CHLORIDE 113 MMOL/L (98-107); CREATININE 3.8 MG/DL (0.55-1.30); POTASSIUM 3.7 MMOL/L (3.5-5.1); SODIUM 149 MMOL/L (136-145)
--- NOTE | 2017-05-16 08:19 | General Progress Note ---
Assessment/Plan Problem List: (1) Seizure ICD Codes: R56.9 - Unspecified convulsions SNOMED: 99107340 (2) DM (diabetes mellitus) ICD Codes: E11.9 - Type 2 diabetes mellitus without complications SNOMED: 22330068 (3) Encounter for PEG (percutaneous endoscopic gastrostomy) ICD Codes: Z43.1 - Encounter for attention to gastrostomy SNOMED: 574676131, [id number] Assessment/Plan plan PEG for Wednesday IVF fu labs Subjective ROS Limited/Unobtainable: No Allergies: Coded Allergies: PENICILLINS (Verified Allergy, Unknown, 05/11/17) Objective Last 24 Hour Vital Signs Date Time Temp Pulse Resp B/P (MAP) Pulse Ox O2 Delivery O2 Flow Rate FiO2 05/16/17 04:00 98.1 78 21 150/83 97 Room Air 05/16/17 01:40 149/79 Room Air 05/16/17 00:58 158/81 05/16/17 00:00 97.9 75 20 165/86 96 05/15/17 21:50 98.3 81 22 158/81 98 Room Air 05/15/17 21:11 76 152/90 05/15/17 20:00 98.2 71 21 163/84 97 05/15/17 17:22 76 158/84 05/15/17 16:00 97.1 84 22 191/85 96 Room Air 05/15/17 15:53 160/83 05/15/17 11:53 97.4 80 22 160/83 95 Room Air 05/15/17 10:05 78 163/72 05/15/17 08:19 175/85 05/15/17 08:19 74 175/85 Intake and Output 05/15/17 05/16/17 19:00 07:00 Intake Total 500 ml 500 ml Output Total 600 ml 1200 ml Balance -100 ml -700 ml IV Total 500 ml 500 ml Output Urine Total 600 ml 1200 ml # Bowel Movements 1 Laboratory Tests 05/15/17 08:55: White Blood Count 12.3H, Red Blood Count 4.09L, Hemoglobin 12.3L, Hematocrit 38.4L, Mean Corpuscular Volume 94, Mean Corpuscular Hemoglobin 30.0, Mean Corpuscular Hemoglobin Concent 32.0, Red Cell Distribution Width 11.5L, Platelet Count 233, Mean Platelet Volume 8.8, Neutrophils (%) (Auto) 76.6H, Lymphocytes (%) (Auto) 12.9L, Monocytes (%) (Auto) 9.4, Eosinophils (%) (Auto) 0.6, Basophils (%) (Auto) 0.4, Sodium Level 152H, Potassium Level 3.6, Chloride Level 117H, Carbon Dioxide Level 25, Anion Gap 10, Blood Urea Nitrogen 65H, Creatinine 3.9H, Estimat Glomerular Filtration Rate , Glucose Level 236H, Calcium Level 8.8 05/15/17 12:50: Urine Random Total Protein 285H, Urine Random Sodium 45, Urine Creatinine 70.5 05/16/17 05:35: White Blood Count 12.5H, Red Blood Count 4.06L, Hemoglobin 12.6L, Hematocrit 38.8L, Mean Corpuscular Volume 96, Mean Corpuscular Hemoglobin 31.1H, Mean Corpuscular Hemoglobin Concent 32.5, Red Cell Distribution Width 12.2, Platelet Count 234, Mean Platelet Volume 9.6, Neutrophils (%) (Auto) 82.1H, Lymphocytes ( %) (Auto) 8.7L, Monocytes (%) (Auto) 8.6, Eosinophils (%) (Auto) 0.4, Basophils (%) (Auto) 0.4, Sodium Level 149H, Potassium Level 3.7, Chloride Level 113H, Carbon Dioxide Level 24, Anion Gap 12, Blood Urea Nitrogen 58H, Creatinine 3.8H , Estimat Glomerular Filtration Rate , Glucose Level 361#H, Calcium Level 8.9 Height (Feet): 5 Height (Inches): 8.00 Weight (Pounds): 140 General Appearance: no apparent distress EENT: normal ENT inspection Neck: supple Cardiovascular: normal rate Respiratory/Chest: decreased breath sounds Abdomen: normal bowel sounds, non tender, soft Extremities: non-tender ASHLEY RUEDA May 16, 2017 08:19
[2017-05-16] MEDS: Aspirin Baby 81mg ORAL SCH (08:39)
[2017-05-16] MEDS: Donepezil 10mg tab ORAL SCH (08:45)
[2017-05-16] MEDS: Imdur 30mg tab ORAL SCH (08:45)
[2017-05-16] MEDS: Docusate 100mg/10ml Liq ORAL SCH ×2 (08:46→17:05)
[2017-05-16] MEDS: levETIRAcetam 500mg/5ml Liquid ORAL SCH ×2 (08:46→20:22)
[2017-05-16] MEDS: Nephrovite tab (Rena-Vite) ORAL SCH (08:46)
[2017-05-16] MEDS: Multivitamin w/Minerals tab ORAL SCH (08:47)
--- NOTE | 2017-05-16 09:13 | Pulmonology Progress Note ---
Assessment/Plan Assessment/Plan IMPRESSION: 1. Chronic renal failure. 2. Hypoxemia, resolved. 3. Vascular congestion. 4. prison resident. 5. History of hypertension. 6. Pneumonia/leucocytosis; improving. 7. Chronic recanulized DVT's 8. Hypernatremia DISCUSSION: Continue home medications which include amlodipine, vitamin C, Lipitor, Coreg, . ASA and Plavix on hold He is also on oral Lasix, Starlix, and Januvia which I will continue. Appreciate ID consult. Ordered oxygen, pulmonary hygiene. 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 Will increase Clonidine PEG on Wednesday Swallow eval noted; will need PEG; delayed due to Plavix Added 1/2 NS fluids OK to have SCD's Subjective Interval Events: Remains hypertensive; on clonidine Constitutional: Reports: no symptoms HEENT: Repors: no symptoms Respiratory: Reports: no symptoms Cardiovascular: Reports: no symptoms Gastrointestinal/Abdominal: Reports: no symptoms Allergies: Coded Allergies: PENICILLINS (Verified Allergy, Unknown, 05/11/17) Objective Last 24 Hour Vital Signs Date Time Temp Pulse Resp B/P (MAP) Pulse Ox O2 Delivery O2 Flow Rate FiO2 05/16/17 08:45 187/95 05/16/17 08:45 78 187/95 05/16/17 08:00 97.5 78 19 187/95 99 05/16/17 04:00 98.1 78 21 150/83 97 Room Air 05/16/17 01:40 149/79 Room Air 05/16/17 00:58 158/81 05/16/17 00:00 97.9 75 20 165/86 96 05/15/17 21:50 98.3 81 22 158/81 98 Room Air 05/15/17 21:11 76 152/90 05/15/17 20:00 98.2 71 21 163/84 97 05/15/17 17:22 76 158/84 05/15/17 16:00 97.1 84 22 191/85 96 Room Air 05/15/17 15:53 160/83 05/15/17 11:53 97.4 80 22 160/83 95 Room Air 05/15/17 10:05 78 163/72 Intake and Output 05/15/17 05/16/17 19:00 07:00 Intake Total 500 ml 500 ml Output Total 600 ml 1200 ml Balance -100 ml -700 ml IV Total 500 ml 500 ml Output Urine Total 600 ml 1200 ml # Bowel Movements 1 General Appearance: no acute distress HEENT: normocephalic Respiratory/Chest: chest wall non-tender, lungs clear Cardiovascular: normal peripheral pulses, normal rate Abdomen: normal bowel sounds, soft, non tender Microbiology Date/Time Source Procedure Growth Status 05/13/17 20:50 Sputum Induced Gram Stain - Final Complete 05/13/17 20:50 Sputum Culture - Final Ariela Albicans Usual Upper Respiratory Kristie Complete Laboratory Tests 05/15/17 12:50: Urine Random Total Protein 285H, Urine Random Sodium 45, Urine Creatinine 70.5 05/16/17 05:35: White Blood Count 12.5H, Red Blood Count 4.06L, Hemoglobin 12.6L, Hematocrit 38.8L, Mean Corpuscular Volume 96, Mean Corpuscular Hemoglobin 31.1H, Mean Corpuscular Hemoglobin Concent 32.5, Red Cell Distribution Width 12.2, Platelet Count 234, Mean Platelet Volume 9.6, Neutrophils (%) (Auto) 82.1H, Lymphocytes ( %) (Auto) 8.7L, Monocytes (%) (Auto) 8.6, Eosinophils (%) (Auto) 0.4, Basophils (%) (Auto) 0.4, Sodium Level 149H, Potassium Level 3.7, Chloride Level 113H, Carbon Dioxide Level 24, Anion Gap 12, Blood Urea Nitrogen 58H, Creatinine 3.8H , Estimat Glomerular Filtration Rate , Glucose Level 361#H, Calcium Level 8.9 Current Medications Medications (Trade) Dose Ordered Sig/Jason Route PRN Reason Start Time Stop Time Status Last Admin Dose Admin Acetaminophen (Tylenol) 650 mg Q4H PRN ORAL Mild Pain/Temp > 100.5 05/11/17 18:15 06/10/17 18:14 Amlodipine Besylate (Norvasc) 10 mg DAILY ORAL 05/12/17 09:00 06/11/17 08:59 05/16/17 08:45 Aspirin (ASA) 81 mg DAILY ORAL 05/14/17 09:00 06/13/17 08:59 Atorvastatin Calcium (Lipitor) 10 mg BEDTIME ORAL 05/11/17 21:00 06/10/17 20:59 05/15/17 21:10 Carvedilol (Coreg) 3.125 mg QHS ORAL 05/11/17 21:00 06/10/17 20:59 05/15/17 21:11 Clonidine HCl (Catapres) 0.1 mg Q4H PRN ORAL For High Blood Pressure>150 05/15/17 10:45 06/14/17 10:44 05/16/17 00:58 Clopidogrel Bisulfate (Plavix) 75 mg DAILY ORAL 05/12/17 09:00 06/11/17 08:59 05/13/17 09:53 Dextrose 1,000 ml @ 50 mls/hr Q20H IV 05/15/17 13:00 06/14/17 12:59 05/15/17 13:00 Dextrose (Dextrose 50%) STAT PRN IV Hypoglycemia 05/11/17 18:00 06/10/17 17:59 Docusate Sodium (Colace) 100 mg BID ORAL 05/12/17 09:00 06/11/17 08:59 05/16/17 08:46 Donepezil HCl (Aricept) 10 mg DAILY ORAL 05/12/17 09:00 06/11/17 08:59 05/16/17 08:45 Famotidine (Pepcid) 20 mg DAILY ORAL 05/12/17 09:00 06/11/17 08:59 05/13/17 10:04 Furosemide (Lasix) 20 mg DAILY ORAL 05/12/17 09:00 06/11/17 08:59 05/16/17 08:46 Insulin Aspart (NovoLOG) BEFORE MEALS AND HS SUBQ 05/11/17 21:00 06/10/17 20:59 05/16/17 05:48 Isosorbide Mononitrate (Imdur) 30 mg DAILY ORAL 05/12/17 09:00 06/11/17 08:59 05/16/17 08:45 Levetiracetam (Keppra) 500 mg Q12HR ORAL 05/11/17 21:00 06/10/17 20:59 05/16/17 08:46 Levofloxacin 50 ml @ 50 mls/hr Q24H IVPB 05/12/17 09:00 05/19/17 08:59 05/16/17 08:46 Magnesium Hydroxide (Mom) 30 ml DAILYPRN PRN ORAL Constipation 05/11/17 18:15 06/10/17 18:14 Multivitamins Therapeutic (Therapeutic Multivitamin) 1 ea DAILY ORAL 05/12/17 09:00 06/11/17 08:59 05/13/17 09:53 Nateglinide (Starlix) 120 mg TIAC ORAL 05/12/17 06:30 06/11/17 06:29 05/13/17 17:40 Nitroglycerin (Ntg) 0.4 mg NEEDED PRN SL Prn Chest Pain 05/11/17 18:15 06/10/17 18:14 Sitagliptin Phosphate (Januvia) 25 mg ACBREAKFAST ORAL 05/12/17 06:30 06/11/17 06:29 05/13/17 06:12 Vitamin B Complex/ Vit C/Folic Acid (Nephrovite) 1 tab DAILY ORAL 05/14/17 16:00 06/13/17 15:59 Eros Espinoza MD May 16, 2017 09:13
--- NOTE | 2017-05-16 09:28 | Nephrology Progress Note ---
Assessment/Plan Problem List: (1) Renal failure (ARF), acute on chronic (2) Acute encephalopathy (3) Dysphagia (4) Anemia (5) DM (diabetes mellitus) (6) Seizure (7) Hypernatremia Assessment: improving on d5w. (8) Sepsis Plan Recommend to change IVF to D5W. Pending PEG Wednesday. Follow up renal workup. Monitor I/O's. Follow up 24 hour CrCl. D/w Dr. Alaniz. Subjective Subjective NAD Objective Objective Last 24 Hour Vital Signs Date Time Temp Pulse Resp B/P (MAP) Pulse Ox O2 Delivery O2 Flow Rate FiO2 05/16/17 08:45 187/95 05/16/17 08:45 78 187/95 05/16/17 08:00 97.5 78 19 187/95 99 05/16/17 04:00 98.1 78 21 150/83 97 Room Air 05/16/17 01:40 149/79 Room Air 05/16/17 00:58 158/81 05/16/17 00:00 97.9 75 20 165/86 96 05/15/17 21:50 98.3 81 22 158/81 98 Room Air 05/15/17 21:11 76 152/90 05/15/17 20:00 98.2 71 21 163/84 97 05/15/17 17:22 76 158/84 05/15/17 16:00 97.1 84 22 191/85 96 Room Air 05/15/17 15:53 160/83 05/15/17 11:53 97.4 80 22 160/83 95 Room Air 05/15/17 10:05 78 163/72 Intake and Output 05/15/17 05/16/17 19:00 07:00 Intake Total 500 ml 500 ml Output Total 600 ml 1200 ml Balance -100 ml -700 ml IV Total 500 ml 500 ml Output Urine Total 600 ml 1200 ml # Bowel Movements 1 Laboratory Tests 05/15/17 12:50: Urine Random Total Protein 285H, Urine Random Sodium 45, Urine Creatinine 70.5 05/16/17 05:35: White Blood Count 12.5H, Red Blood Count 4.06L, Hemoglobin 12.6L, Hematocrit 38.8L, Mean Corpuscular Volume 96, Mean Corpuscular Hemoglobin 31.1H, Mean Corpuscular Hemoglobin Concent 32.5, Red Cell Distribution Width 12.2, Platelet Count 234, Mean Platelet Volume 9.6, Neutrophils (%) (Auto) 82.1H, Lymphocytes ( %) (Auto) 8.7L, Monocytes (%) (Auto) 8.6, Eosinophils (%) (Auto) 0.4, Basophils (%) (Auto) 0.4, Sodium Level 149H, Potassium Level 3.7, Chloride Level 113H, Carbon Dioxide Level 24, Anion Gap 12, Blood Urea Nitrogen 58H, Creatinine 3.8H , Estimat Glomerular Filtration Rate , Glucose Level 361#H, Calcium Level 8.9 Height (Feet): 5 Height (Inches): 8.00 Weight (Pounds): 140 General Appearance: no apparent distress Cardiovascular: normal rate, regular rhythm Respiratory/Chest: lungs clear Abdomen: non tender, soft Extremities: non-pitting SUSHANT JAUREGUI May 16, 2017 09:28
[2017-05-16] MEDS: cloNIDine 0.2mg Tab ORAL PRN (10:52)
--- NOTE | 2017-05-16 13:52 | Infectious Diseases Prog Note ---
Assessment/Plan Assessment/Plan A; 1. pneumonia 2. leucocytosis improving 3. renal failure 4. CVA 5. HPN 6. dysphagia P 1. continue Levaquin 2. GT planned Subjective ROS Limited/Unobtainable: Yes Allergies: Coded Allergies: PENICILLINS (Verified Allergy, Unknown, 05/11/17) Objective Vital Signs Last 24 Hour Vital Signs Date Time Temp Pulse Resp B/P (MAP) Pulse Ox O2 Delivery O2 Flow Rate FiO2 05/16/17 12:00 97.2 73 20 142/69 95 05/16/17 10:52 187/95 05/16/17 08:45 187/95 05/16/17 08:45 78 187/95 05/16/17 08:00 97.5 78 19 187/95 99 05/16/17 04:00 98.1 78 21 150/83 97 Room Air 05/16/17 01:40 149/79 Room Air 05/16/17 00:58 158/81 05/16/17 00:00 97.9 75 20 165/86 96 05/15/17 21:50 98.3 81 22 158/81 98 Room Air 05/15/17 21:11 76 152/90 05/15/17 20:00 98.2 71 21 163/84 97 05/15/17 17:22 76 158/84 05/15/17 16:00 97.1 84 22 191/85 96 Room Air 05/15/17 15:53 160/83 Height (Feet): 5 Height (Inches): 8.00 Weight (Pounds): 140 General Appearance: no acute distress HEENT: mucous membranes moist Respiratory/Chest: lungs clear Cardiovascular: normal rate Abdomen: soft, non tender Extremities: no edema Neurologic/Psychiatric: other - opens eyes Microbiology Date/Time Source Procedure Growth Status 05/13/17 20:50 Sputum Induced Gram Stain - Final Complete 05/13/17 20:50 Sputum Culture - Final Ariela Albicans Usual Upper Respiratory Kristie Complete Laboratory Tests Test 05/16/17 05:35 White Blood Count 12.5 K/UL (4.8-10.8) H Red Blood Count 4.06 M/UL (4.70-6.10) L Hemoglobin 12.6 G/DL (14.2-18.0) L Hematocrit 38.8 % (42.0-52.0) L Mean Corpuscular Volume 96 FL (80-99) Mean Corpuscular Hemoglobin 31.1 PG (27.0-31.0) H Mean Corpuscular Hemoglobin Concent 32.5 G/DL (32.0-36.0) Red Cell Distribution Width 12.2 % (11.6-14.8) Platelet Count 234 K/UL (150-450) Mean Platelet Volume 9.6 FL (6.5-10.1) Neutrophils (%) (Auto) 82.1 % (45.0-75.0) H Lymphocytes (%) (Auto) 8.7 % (20.0-45.0) L Monocytes (%) (Auto) 8.6 % (1.0-10.0) Eosinophils (%) (Auto) 0.4 % (0.0-3.0) Basophils (%) (Auto) 0.4 % (0.0-2.0) Sodium Level 149 MMOL/L (136-145) H Potassium Level 3.7 MMOL/L (3.5-5.1) Chloride Level 113 MMOL/L (98-107) H Carbon Dioxide Level 24 MMOL/L (21-32) Anion Gap 12 mmol/L (5-15) Blood Urea Nitrogen 58 mg/dL (7-18) H Creatinine 3.8 MG/DL (0.55-1.30) H Estimat Glomerular Filtration Rate mL/min (>60) Glucose Level 361 MG/DL (74-106) #H Calcium Level 8.9 MG/DL (8.5-10.1) Current Medications Medications (Trade) Dose Ordered Sig/Jason Route PRN Reason Start Time Stop Time Status Last Admin Dose Admin Acetaminophen (Tylenol) 650 mg Q4H PRN ORAL Mild Pain/Temp > 100.5 05/11/17 18:15 06/10/17 18:14 Amlodipine Besylate (Norvasc) 10 mg DAILY ORAL 05/12/17 09:00 06/11/17 08:59 05/16/17 08:45 Aspirin (ASA) 81 mg DAILY ORAL 05/14/17 09:00 06/13/17 08:59 Atorvastatin Calcium (Lipitor) 10 mg BEDTIME ORAL 05/11/17 21:00 06/10/17 20:59 05/15/17 21:10 Carvedilol (Coreg) 3.125 mg QHS ORAL 05/11/17 21:00 06/10/17 20:59 05/15/17 21:11 Clonidine HCl (Catapres) 0.2 mg Q4H PRN ORAL SBP >150mmHg 05/16/17 09:30 06/15/17 09:29 05/16/17 10:52 Clopidogrel Bisulfate (Plavix) 75 mg DAILY ORAL 05/12/17 09:00 06/11/17 08:59 05/13/17 09:53 Dextrose 1,000 ml @ 50 mls/hr Q20H IV 05/15/17 13:00 06/14/17 12:59 05/15/17 13:00 Dextrose (Dextrose 50%) STAT PRN IV Hypoglycemia 05/11/17 18:00 06/10/17 17:59 Docusate Sodium (Colace) 100 mg BID ORAL 05/12/17 09:00 06/11/17 08:59 05/16/17 08:46 Donepezil HCl (Aricept) 10 mg DAILY ORAL 05/12/17 09:00 06/11/17 08:59 05/16/17 08:45 Famotidine (Pepcid) 20 mg DAILY ORAL 05/12/17 09:00 06/11/17 08:59 05/13/17 10:04 Furosemide (Lasix) 20 mg DAILY ORAL 05/12/17 09:00 06/11/17 08:59 05/16/17 08:46 Insulin Aspart (NovoLOG) BEFORE MEALS AND HS SUBQ 05/11/17 21:00 06/10/17 20:59 05/16/17 10:53 Isosorbide Mononitrate (Imdur) 30 mg DAILY ORAL 05/12/17 09:00 06/11/17 08:59 05/16/17 08:45 Levetiracetam (Keppra) 500 mg Q12HR ORAL 05/11/17 21:00 06/10/17 20:59 05/16/17 08:46 Levofloxacin 50 ml @ 50 mls/hr Q24H IVPB 05/12/17 09:00 05/19/17 08:59 05/16/17 08:46 Magnesium Hydroxide (Mom) 30 ml DAILYPRN PRN ORAL Constipation 1/2/18 18:15 06/10/17 18:14 Multivitamins Therapeutic (Therapeutic Multivitamin) 1 ea DAILY ORAL 05/12/17 09:00 06/11/17 08:59 05/13/17 09:53 Nateglinide (Starlix) 120 mg TIAC ORAL 05/12/17 06:30 06/11/17 06:29 05/13/17 17:40 Nitroglycerin (Ntg) 0.4 mg NEEDED PRN SL Prn Chest Pain 05/11/17 18:15 06/10/17 18:14 Sitagliptin Phosphate (Januvia) 25 mg ACBREAKFAST ORAL 05/12/17 06:30 06/11/17 06:29 05/13/17 06:12 Vitamin B Complex/ Vit C/Folic Acid (Nephrovite) 1 tab DAILY ORAL 05/14/17 16:00 06/13/17 15:59 DUARTE JOHNS May 16, 2017 13:52
[2017-05-16] MEDS ORDERED: Tubing IV Secondary IV ONE (16:59)
[2017-05-16] MEDS ORDERED: 1/2 NS 1000ml IV ONE (16:59)
[2017-05-16] MEDS: Losartan 50mg tab ORAL SCH (20:20)
[2017-05-16] MEDS: Metoprolol Tartrate 50mg tab ORAL SCH (20:21)
[2017-05-17] VITALS (12 sets, daily range): BP systolic 67–164; BP diastolic 43–80
[2017-05-17 05:33] LABS: BASOPHILS % (AUTO) 0.9 % (0.0-2.0); HEMATOCRIT 37.2 % (42.0-52.0); HEMOGLOBIN 12.3 G/DL (14.2-18.0); LYMPHOCYTES % (AUTO) 21.4 % (20.0-45.0); MEAN CORPUSCULAR VOLUME 95 FL (80-99); MONOCYTES % (AUTO) 13.9 % (1.0-10.0); NEUTROPHILS % (AUTO) 61.8 % (45.0-75.0); PLATELET COUNT 228 K/UL (150-450); RED BLOOD COUNT 3.91 M/UL (4.70-6.10); RED CELL DISTRIBUTION WIDTH 11.9 % (11.6-14.8); WHITE BLOOD COUNT 8.6 K/UL (4.8-10.8)
[2017-05-17] MEDS: NovoLOG Insulin Flexpen SUBQ SCH ×4 (06:17→20:40)
[2017-05-17] MEDS: sitaGLIPtin 25mg tab ORAL SCH (06:17)
[2017-05-17 06:37] LABS: ANION GAP 16 mmol/L (5-15); BLOOD UREA NITROGEN 54 mg/dL (7-18); CALCIUM 8.3 MG/DL (8.5-10.1); CARBON DIOXIDE 18 MMOL/L (21-32); CHLORIDE 113 MMOL/L (98-107); CREATININE 3.6 MG/DL (0.55-1.30); POTASSIUM 3.9 MMOL/L (3.5-5.1); SODIUM 147 MMOL/L (136-145)
--- NOTE | 2017-05-17 08:10 | Pre-Procedure Note/Attestation ---
Pre-Procedure Note/Attestation Complete Prior to Procedure Planned Procedure: not applicable Procedure Narrative: esophagogastroduodenoscopy/peg Indications for Procedure Pre-Operative Diagnosis: dysphagia Attestation I attest that I discussed the nature of the procedure; its benefits; risks and complications; and alternatives (and the risks and benefits of such alternatives ), prior to the procedure, with the patient (or the patient's legal farm loan representative). I attest that, if there was a reasonable possibility of needing a blood transfusion, the patient (or the patient's legal farm loan representative) was given the [facility] standardized written summary, pursuant to the Yosi Katie Blood Safety Act ([place] Health and Safety Code # 1645, as amended). I attest that I re-evaluated the patient just prior to the surgery and that there has been no change in the patient's H&P, except as documented below: ASHLEY RUEDA May 17, 2017 08:10
[2017-05-17] MEDS: Multivitamin w/Minerals tab ORAL SCH (09:00)
[2017-05-17] MEDS: levETIRAcetam 500mg/5ml Liquid ORAL SCH ×2 (09:00→20:13)
[2017-05-17] MEDS: Docusate 100mg/10ml Liq ORAL SCH ×2 (09:00→16:59)
[2017-05-17] MEDS: Nephrovite tab (Rena-Vite) ORAL SCH (09:00)
[2017-05-17] MEDS: Donepezil 10mg tab ORAL SCH (09:00)
[2017-05-17] MEDS: Aspirin Baby 81mg ORAL SCH (09:00)
[2017-05-17] MEDS: Metoprolol Tartrate 50mg tab ORAL SCH ×2 (09:04→20:15)
[2017-05-17] MEDS: Losartan 50mg tab ORAL SCH ×2 (09:06→20:17)
--- NOTE | 2017-05-17 09:06 | Pulmonology Progress Note ---
Assessment/Plan Assessment/Plan IMPRESSION: 1. Chronic renal failure. 2. Hypoxemia, resolved. 3. Vascular congestion. 4. skilled nursing resident. 5. History of hypertension. 6. Pneumonia/leucocytosis; improving. 7. Chronic recanulized DVT's 8. Hypernatremia DISCUSSION: Continue home medications which include amlodipine, vitamin C, Lipitor, Coreg, . ASA and Plavix on hold He is also on oral Lasix, Starlix, and Januvia which I will continue. Appreciate ID consult. Ordered oxygen, pulmonary hygiene. 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 Will increase Clonidine PEG today Swallow eval noted; will need PEG; delayed due to Plavix Added 1/2 NS fluids OK to have SCD's Subjective Interval Events: For PEG today Constitutional: Reports: no symptoms HEENT: Repors: no symptoms Respiratory: Reports: no symptoms Cardiovascular: Reports: no symptoms Gastrointestinal/Abdominal: Reports: no symptoms Allergies: Coded Allergies: PENICILLINS (Verified Allergy, Unknown, 05/11/17) Objective Last 24 Hour Vital Signs Date Time Temp Pulse Resp B/P (MAP) Pulse Ox O2 Delivery O2 Flow Rate FiO2 05/17/17 04:00 98.1 63 19 153/80 98 Room Air 05/17/17 00:00 98.0 61 18 148/72 97 Room Air 05/16/17 20:21 68 156/75 05/16/17 20:21 70 156/75 05/16/17 20:20 156/75 05/16/17 20:00 97.8 68 18 156/78 98 Room Air 05/16/17 16:00 97.0 62 20 160/76 97 05/16/17 12:00 97.2 73 20 142/69 95 05/16/17 10:52 187/95 Intake and Output 05/16/17 05/17/17 19:00 07:00 Intake Total 350 ml 550 ml Output Total 250 ml 800 ml Balance 100 ml -250 ml IV Total 350 ml 550 ml Output Urine Total 250 ml 800 ml General Appearance: no acute distress HEENT: normocephalic Respiratory/Chest: chest wall non-tender, lungs clear Cardiovascular: normal peripheral pulses, normal rate Abdomen: normal bowel sounds Laboratory Tests 05/17/17 05:00: White Blood Count 8.6, Red Blood Count 3.91L, Hemoglobin 12.3L, Hematocrit 37.2L , Mean Corpuscular Volume 95, Mean Corpuscular Hemoglobin 31.4H, Mean Corpuscular Hemoglobin Concent 33.1, Red Cell Distribution Width 11.9, Platelet Count 228, Mean Platelet Volume 8.9, Neutrophils (%) (Auto) 61.8, Lymphocytes (% ) (Auto) 21.4, Monocytes (%) (Auto) 13.9H, Eosinophils (%) (Auto) 2.0, Basophils (%) (Auto) 0.9, Sodium Level 147H, Potassium Level 3.9, Chloride Level 113H, Carbon Dioxide Level 18L, Anion Gap 16H, Blood Urea Nitrogen 54H, Creatinine 3.6H, Estimat Glomerular Filtration Rate , Glucose Level 304H, Calcium Level 8.3L Current Medications Medications (Trade) Dose Ordered Sig/Jason Route PRN Reason Start Time Stop Time Status Last Admin Dose Admin Acetaminophen (Tylenol) 650 mg Q4H PRN ORAL Mild Pain/Temp > 100.5 05/11/17 18:15 06/10/17 18:14 Amlodipine Besylate (Norvasc) 10 mg DAILY ORAL 05/12/17 09:00 06/11/17 08:59 05/16/17 08:45 Aspirin (ASA) 81 mg DAILY ORAL 05/14/17 09:00 06/13/17 08:59 Atorvastatin Calcium (Lipitor) 10 mg BEDTIME ORAL 05/11/17 21:00 06/10/17 20:59 05/16/17 20:20 Carvedilol (Coreg) 3.125 mg QHS ORAL 05/11/17 21:00 06/10/17 20:59 05/16/17 20:21 Clindamycin HCl/ Dextrose 50 ml @ 100 mls/hr ONCE ONCE IVPB 05/17/17 11:00 05/17/17 11:29 UNV Clonidine HCl (Catapres) 0.2 mg Q4H PRN ORAL SBP >150mmHg 05/16/17 09:30 06/15/17 09:29 05/16/17 10:52 Clopidogrel Bisulfate (Plavix) 75 mg DAILY ORAL 05/12/17 09:00 06/11/17 08:59 05/13/17 09:53 Dextrose 1,000 ml @ 50 mls/hr Q20H IV 05/15/17 13:00 06/14/17 12:59 05/16/17 16:00 Dextrose (Dextrose 50%) STAT PRN IV Hypoglycemia 05/11/17 18:00 06/10/17 17:59 Docusate Sodium (Colace) 100 mg BID ORAL 05/12/17 09:00 06/11/17 08:59 05/16/17 08:46 Donepezil HCl (Aricept) 10 mg DAILY ORAL 05/12/17 09:00 06/11/17 08:59 05/16/17 08:45 Famotidine (Pepcid) 20 mg DAILY ORAL 05/12/17 09:00 06/11/17 08:59 05/13/17 10:04 Furosemide (Lasix) 20 mg DAILY ORAL 05/12/17 09:00 06/11/17 08:59 05/16/17 08:46 Insulin Aspart (NovoLOG) BEFORE MEALS AND HS SUBQ 05/11/17 21:00 06/10/17 20:59 05/16/17 20:22 Isosorbide Mononitrate (Imdur) 30 mg DAILY ORAL 05/12/17 09:00 06/11/17 08:59 05/16/17 08:45 Levetiracetam (Keppra) 500 mg Q12HR ORAL 05/11/17 21:00 06/10/17 20:59 05/16/17 20:22 Levofloxacin 50 ml @ 50 mls/hr Q24H IVPB 05/12/17 09:00 05/19/17 08:59 05/16/17 08:46 Losartan Potassium (Cozaar) 50 mg Q12HR ORAL 05/16/17 21:00 06/15/17 20:59 05/16/17 20:20 Magnesium Hydroxide (Mom) 30 ml DAILYPRN PRN ORAL Constipation 05/11/17 18:15 06/10/17 18:14 Metoprolol Tartrate (Lopressor) 50 mg Q12HR ORAL 05/16/17 21:00 06/15/17 20:59 05/16/17 20:21 Multivitamins Therapeutic (Therapeutic Multivitamin) 1 ea DAILY ORAL 05/12/17 09:00 06/11/17 08:59 05/13/17 09:53 Nateglinide (Starlix) 120 mg TIAC ORAL 05/12/17 06:30 06/11/17 06:29 05/13/17 17:40 Nitroglycerin (Ntg) 0.4 mg NEEDED PRN SL Prn Chest Pain 05/11/17 18:15 06/10/17 18:14 Sitagliptin Phosphate (Januvia) 25 mg ACBREAKFAST ORAL 05/12/17 06:30 06/11/17 06:29 05/13/17 06:12 Vitamin B Complex/ Vit C/Folic Acid (Nephrovite) 1 tab DAILY ORAL 05/14/17 16:00 06/13/17 15:59 Eros Espinoaz MD May 17, 2017 09:06
[2017-05-17] MEDS: Imdur 30mg tab ORAL SCH (09:09)
--- NOTE | 2017-05-17 10:58 | Pre-Procedure Note/Attestation ---
Pre-Procedure Note/Attestation Complete Prior to Procedure Planned Procedure: not applicable Procedure Narrative: egd Indications for Procedure Pre-Operative Diagnosis: dysphagia Attestation I attest that I discussed the nature of the procedure; its benefits; risks and complications; and alternatives (and the risks and benefits of such alternatives ), prior to the procedure, with the patient (or the patient's legal small business sales representative). I attest that, if there was a reasonable possibility of needing a blood transfusion, the patient (or the patient's legal small business sales representative) was given the [facility] standardized written summary, pursuant to the Yosi Morehead Blood Safety Act ([place] Health and Safety Code # 1645, as amended). I attest that I re-evaluated the patient just prior to the surgery and that there has been no change in the patient's H&P, except as documented below: ASHLEY RUEDA May 17, 2017 10:58
[2017-05-17] MEDS ORDERED: Clindamycin 600mg 50 ML IV ONE (11:00)
--- NOTE | 2017-05-17 11:41 | Anethesia Preoperative Eval ---
Anesthesia Pre-op PMH/ROS General Date of Evaluation: May 17, 2017 Time of Evaluation: 11:25 Anesthesiologist: Kalani ASA Score: ASA 3 Mallampati Score Class I : Soft palate, uvula, fauces, pillars visible Class II: Soft palate, uvula, fauces visible Class III: Soft palate, base of uvula visible Class IV: Only hard plate visible Mallampati Classification: Class II Surgeon: Wen Diagnosis: Failure to thrive Surgical Procedure: EGD, PEG Allergies: Coded Allergies: PENICILLINS (Verified Allergy, Unknown, 05/11/17) Past Medical History Cardiovascular: Reports: HTN, CAD, [place], other - CHF Gastrointestinal/Genitourinary: Reports: CRI - Stage 4 PMH Narrative: CAD (s/p CABG X4), CHF, Stage 4 renal disease Anesthesia Pre-op Phys. Exam Physician Exam Last Vital Signs Date Time Temp Pulse Resp B/P (MAP) Pulse Ox O2 Delivery O2 Flow Rate FiO2 05/17/17 09:09 164/73 05/17/17 09:05 63 05/17/17 08:00 97.7 20 96 05/17/17 04:00 Room Air 05/15/17 04:00 2.0 Constitutional: NAD Neurologic: CN 2-12 intact Cardiovascular: RRR, no M/R/G Gastrointestinal: S/NT/ND Airway Exam Mallampati Score: Class II MO: full ROM: full Anesthesia Pre-op A/P Labs Hematology Test 05/17/17 05:00 White Blood Count 8.6 K/UL (4.8-10.8) Red Blood Count 3.91 M/UL (4.70-6.10) L Hemoglobin 12.3 G/DL (14.2-18.0) L Hematocrit 37.2 % (42.0-52.0) L Mean Corpuscular Volume 95 FL (80-99) Mean Corpuscular Hemoglobin 31.4 PG (27.0-31.0) H Mean Corpuscular Hemoglobin Concent 33.1 G/DL (32.0-36.0) Red Cell Distribution Width 11.9 % (11.6-14.8) Platelet Count 228 K/UL (150-450) Mean Platelet Volume 8.9 FL (6.5-10.1) Neutrophils (%) (Auto) 61.8 % (45.0-75.0) Lymphocytes (%) (Auto) 21.4 % (20.0-45.0) Monocytes (%) (Auto) 13.9 % (1.0-10.0) H Eosinophils (%) (Auto) 2.0 % (0.0-3.0) Basophils (%) (Auto) 0.9 % (0.0-2.0) Chemistry Test 05/17/17 05:00 Sodium Level 147 MMOL/L (136-145) H Potassium Level 3.9 MMOL/L (3.5-5.1) Chloride Level 113 MMOL/L (98-107) H Carbon Dioxide Level 18 MMOL/L (21-32) L Anion Gap 16 mmol/L (5-15) H Blood Urea Nitrogen 54 mg/dL (7-18) H Creatinine 3.6 MG/DL (0.55-1.30) H Estimat Glomerular Filtration Rate mL/min (>60) Glucose Level 304 MG/DL (74-106) H Calcium Level 8.3 MG/DL (8.5-10.1) L Risk Assessment & Plan Assessment: Failure to thrive Plan: GA, TIVA Status Change Before Surgery: No Pre-Antibiotics Drug: Clinda Given Within 1 Hr of Incision: Yes AMBER CISNEROS M.D. May 17, 2017 11:41
--- NOTE | 2017-05-17 11:41 | Immediate Post-Op Evaluation ---
Immediate Post-Op Evalulation Immediate Post-Op Evalulation Procedure: EGD, PEG Date of Evaluation: May 17, 2017 Time of Evaluation: 11:55 IV Fluids: 100 Blood Pressure Systolic: 85 Blood Pressure Diastolic: 55 Pulse Rate: 52 Respiratory Rate: 20 O2 Sat by Pulse Oximetry: 99 Temperature (Fahrenheit): 98.2 Pain Score (1-10): 0 Nausea: No Vomiting: No Complications No complication Patient Status: awake, patent, none Hydration Status: adequate Drug: Clinda Given Within 1 Hr of Incision: Yes AMBER CISNEROS M.D. May 17, 2017 11:41
--- NOTE | 2017-05-17 11:41 | Endoscopy Procedure Note ---
Endoscopy Procedure Note Indication for Procedure: dysphagia Procedures Performed: EGD, PEG Operative Findings/Diagnosis: same Specimen: none Pt Tolerated Procedure Well: Yes Estimated Blood Loss: none Anesthesiologist: evan Anesthesia: MAC Implant(s) used?: No 50 yrs or older w/o bx or poly: Not Applicable 10yrs. F/U not recommended: Not Applicable ASHLEY RUEDA May 17, 2017 11:41
--- NOTE | 2017-05-17 15:30 | Procedure Note ---
DATE OF PROCEDURE: 05/17/2017 SURGEON: Matthew Carver M.D. REFERRING PHYSICIAN: Eros Espinoza M.D. PROCEDURE: Upper endoscopy with PEG placement. ANESTHESIOLOGIST: Yosi Uriarte M.D. INSTRUMENT: Olympus adult flexible upper endoscope. INDICATION: Dysphagia. The procedure, risks, benefits, and possible consequences, including hemorrhage, aspiration, perforation and infection, and alternative treatments, were explained to the patient/legal guardian by Dr. Matthew Carver and the patient/legal guardian understood and accepted these risks. DESCRIPTION OF PROCEDURE: After informed consent was obtained and the patient was adequately sedated, Olympus upper endoscope was advanced from the mouth into the second portion of the duodenum and retroflexion was performed in the stomach. The patient has evidence of diffuse atrophic gastritis. Then, under endoscopic guidance under sterile condition, a 20-Iranian pull type of G-tube was successfully placed in the epigastric area. The distance from the tip of the tube to skin was about less than 3 cm in size. The patient tolerated the procedure very well without any complication. SUMMARY OF FINDINGS: 1. Status post successful PEG placement. 2. Atrophic gastritis. RECOMMENDATIONS: 1. Abdominal binder. 2. Elevate the head of the bed at all times. 3. G-tube flush. 4. G-tube care. 5. The patient received a dose of antibiotic prior to this procedure. We will start tube feeding later today. I want to thank Dr. Espinoza for this kind referral. Matthew Carver M.D. DR: RUDY JOB#: [id number] CC: Eros Espinoza M.D.; Fax#: [phone]
--- NOTE | 2017-05-17 17:18 | Infectious Diseases Prog Note ---
Assessment/Plan Assessment/Plan A; 1. pneumonia 2. leucocytosis resolved 3. renal failure 4. CVA 5. HPN 6. dysphagia s/p GT placement P 1. continue Levaquin Subjective ROS Limited/Unobtainable: Yes Respiratory: Reports: no symptoms Gastrointestinal/Abdominal: Reports: other - pain in GT site Allergies: Coded Allergies: PENICILLINS (Verified Allergy, Unknown, 05/11/17) Objective Vital Signs Last 24 Hour Vital Signs Date Time Temp Pulse Resp B/P (MAP) Pulse Ox O2 Delivery O2 Flow Rate FiO2 05/17/17 16:17 97.9 59 20 136/67 96 Room Air 05/17/17 12:25 98.0 56 17 108/58 96 Room Air 05/17/17 12:20 57 20 101/56 95 Room Air 05/17/17 12:10 55 18 102/54 96 Room Air 05/17/17 12:05 55 18 107/57 100 Simple Mask 6.0 05/17/17 12:05 52 20 99 05/17/17 12:00 53 19 85/55 100 Simple Mask 6.0 05/17/17 11:55 55 22 67/43 100 Simple Mask 6.0 05/17/17 11:50 98.3 52 25 76/44 100 Simple Mask 6.0 05/17/17 09:09 164/73 05/17/17 09:06 164/73 05/17/17 09:05 63 164/73 05/17/17 09:04 63 164/73 05/17/17 08:00 97.7 63 20 164/73 96 05/17/17 04:00 98.1 63 19 153/80 98 Room Air 05/17/17 00:00 98.0 61 18 148/72 97 Room Air 05/16/17 20:21 68 156/75 05/16/17 20:21 70 156/75 05/16/17 20:20 156/75 05/16/17 20:00 97.8 68 18 156/78 98 Room Air Height (Feet): 5 Height (Inches): 8.00 Weight (Pounds): 140 General Appearance: no acute distress HEENT: mucous membranes moist Respiratory/Chest: lungs clear Cardiovascular: normal rate Abdomen: other - new GT in place Extremities: no edema Neurologic/Psychiatric: other - awake Laboratory Tests Test 05/17/17 05:00 White Blood Count 8.6 K/UL (4.8-10.8) Red Blood Count 3.91 M/UL (4.70-6.10) L Hemoglobin 12.3 G/DL (14.2-18.0) L Hematocrit 37.2 % (42.0-52.0) L Mean Corpuscular Volume 95 FL (80-99) Mean Corpuscular Hemoglobin 31.4 PG (27.0-31.0) H Mean Corpuscular Hemoglobin Concent 33.1 G/DL (32.0-36.0) Red Cell Distribution Width 11.9 % (11.6-14.8) Platelet Count 228 K/UL (150-450) Mean Platelet Volume 8.9 FL (6.5-10.1) Neutrophils (%) (Auto) 61.8 % (45.0-75.0) Lymphocytes (%) (Auto) 21.4 % (20.0-45.0) Monocytes (%) (Auto) 13.9 % (1.0-10.0) H Eosinophils (%) (Auto) 2.0 % (0.0-3.0) Basophils (%) (Auto) 0.9 % (0.0-2.0) Sodium Level 147 MMOL/L (136-145) H Potassium Level 3.9 MMOL/L (3.5-5.1) Chloride Level 113 MMOL/L (98-107) H Carbon Dioxide Level 18 MMOL/L (21-32) L Anion Gap 16 mmol/L (5-15) H Blood Urea Nitrogen 54 mg/dL (7-18) H Creatinine 3.6 MG/DL (0.55-1.30) H Estimat Glomerular Filtration Rate mL/min (>60) Glucose Level 304 MG/DL (74-106) H Calcium Level 8.3 MG/DL (8.5-10.1) L Current Medications Medications (Trade) Dose Ordered Sig/Jason Route PRN Reason Start Time Stop Time Status Last Admin Dose Admin Acetaminophen (Tylenol) 650 mg Q4H PRN ORAL Mild Pain/Temp > 100.5 05/11/17 18:15 06/10/17 18:14 Amlodipine Besylate (Norvasc) 10 mg DAILY ORAL 05/12/17 09:00 06/11/17 08:59 05/17/17 09:05 Aspirin (ASA) 81 mg DAILY ORAL 05/14/17 09:00 06/13/17 08:59 Atorvastatin Calcium (Lipitor) 10 mg BEDTIME ORAL 05/11/17 21:00 06/10/17 20:59 05/16/17 20:20 Carvedilol (Coreg) 3.125 mg QHS ORAL 05/11/17 21:00 06/10/17 20:59 05/16/17 20:21 Clonidine HCl (Catapres) 0.2 mg Q4H PRN ORAL SBP >150mmHg 05/16/17 09:30 06/15/17 09:29 05/16/17 10:52 Clopidogrel Bisulfate (Plavix) 75 mg DAILY ORAL 05/12/17 09:00 06/11/17 08:59 05/13/17 09:53 Dextrose 1,000 ml @ 50 mls/hr Q20H IV 05/15/17 13:00 06/14/17 12:59 05/17/17 15:19 Dextrose (Dextrose 50%) STAT PRN IV Hypoglycemia 05/11/17 18:00 06/10/17 17:59 Docusate Sodium (Colace) 100 mg BID ORAL 05/12/17 09:00 06/11/17 08:59 05/17/17 16:59 Donepezil HCl (Aricept) 10 mg DAILY ORAL 05/12/17 09:00 06/11/17 08:59 05/16/17 08:45 Famotidine (Pepcid) 20 mg DAILY ORAL 05/12/17 09:00 06/11/17 08:59 05/13/17 10:04 Furosemide (Lasix) 20 mg DAILY ORAL 05/12/17 09:00 06/11/17 08:59 05/16/17 08:46 Insulin Aspart (NovoLOG) BEFORE MEALS AND HS SUBQ 05/11/17 21:00 06/10/17 20:59 05/17/17 17:00 Isosorbide Mononitrate (Imdur) 30 mg DAILY ORAL 05/12/17 09:00 06/11/17 08:59 05/17/17 09:09 Levetiracetam (Keppra) 500 mg Q12HR ORAL 05/11/17 21:00 06/10/17 20:59 05/16/17 20:22 Levofloxacin 50 ml @ 50 mls/hr Q24H IVPB 05/12/17 09:00 05/19/17 08:59 05/17/17 09:01 Losartan Potassium (Cozaar) 50 mg Q12HR ORAL 05/16/17 21:00 06/15/17 20:59 05/17/17 09:06 Magnesium Hydroxide (Mom) 30 ml DAILYPRN PRN ORAL Constipation 05/11/17 18:15 06/10/17 18:14 Metoprolol Tartrate (Lopressor) 50 mg Q12HR ORAL 05/16/17 21:00 06/15/17 20:59 05/17/17 09:04 Multivitamins Therapeutic (Therapeutic Multivitamin) 1 ea DAILY ORAL 05/12/17 09:00 06/11/17 08:59 05/13/17 09:53 Nateglinide (Starlix) 120 mg TIAC ORAL 05/12/17 06:30 06/11/17 06:29 05/17/17 16:59 Nitroglycerin (Ntg) 0.4 mg NEEDED PRN SL Prn Chest Pain 05/11/17 18:15 06/10/17 18:14 Sitagliptin Phosphate (Januvia) 25 mg ACBREAKFAST ORAL 05/12/17 06:30 06/11/17 06:29 05/13/17 06:12 Vitamin B Complex/ Vit C/Folic Acid (Nephrovite) 1 tab DAILY ORAL 05/14/17 16:00 06/13/17 15:59 DUARTE JOHNS May 17, 2017 17:17
--- NOTE | 2017-05-17 18:58 | Nephrology Progress Note ---
Assessment/Plan Problem List: (1) Seizure (2) Renal failure (ARF), acute on chronic (3) Respiratory distress (4) Pneumonia (5) Dysphagia (6) Diabetes mellitus out of control (7) Acute encephalopathy (8) DM (diabetes mellitus) Plan Continue current IVF to correct sodium Glycemic control Monitor renal function Avoid nephrotoxins Monitor intake and output Continue G-tube feeding per GI, monitor residuals Monitor neuro status AM labs Subjective ROS Limited/Unobtainable: Yes Subjective In bed, in no apparent distress, G-tube feeding ongoing Objective Objective Last 24 Hour Vital Signs Date Time Temp Pulse Resp B/P (MAP) Pulse Ox O2 Delivery O2 Flow Rate FiO2 05/17/17 16:17 97.9 59 20 136/67 96 Room Air 05/17/17 12:25 98.0 56 17 108/58 96 Room Air 05/17/17 12:20 57 20 101/56 95 Room Air 05/17/17 12:10 55 18 102/54 96 Room Air 05/17/17 12:05 55 18 107/57 100 Simple Mask 6.0 05/17/17 12:05 52 20 99 05/17/17 12:00 53 19 85/55 100 Simple Mask 6.0 05/17/17 11:55 55 22 67/43 100 Simple Mask 6.0 05/17/17 11:50 98.3 52 25 76/44 100 Simple Mask 6.0 05/17/17 09:09 164/73 05/17/17 09:06 164/73 05/17/17 09:05 63 164/73 05/17/17 09:04 63 164/73 05/17/17 08:00 97.7 63 20 164/73 96 05/17/17 04:00 98.1 63 19 153/80 98 Room Air 05/17/17 00:00 98.0 61 18 148/72 97 Room Air 05/16/17 20:21 68 156/75 05/16/17 20:21 70 156/75 05/16/17 20:20 156/75 05/16/17 20:00 97.8 68 18 156/78 98 Room Air Intake and Output 05/16/17 05/17/17 19:00 07:00 Intake Total 350 ml 550 ml Output Total 250 ml 800 ml Balance 100 ml -250 ml IV Total 350 ml 550 ml Output Urine Total 250 ml 800 ml Laboratory Tests 05/17/17 05:00: White Blood Count 8.6, Red Blood Count 3.91L, Hemoglobin 12.3L, Hematocrit 37.2L , Mean Corpuscular Volume 95, Mean Corpuscular Hemoglobin 31.4H, Mean Corpuscular Hemoglobin Concent 33.1, Red Cell Distribution Width 11.9, Platelet Count 228, Mean Platelet Volume 8.9, Neutrophils (%) (Auto) 61.8, Lymphocytes (% ) (Auto) 21.4, Monocytes (%) (Auto) 13.9H, Eosinophils (%) (Auto) 2.0, Basophils (%) (Auto) 0.9, Sodium Level 147H, Potassium Level 3.9, Chloride Level 113H, Carbon Dioxide Level 18L, Anion Gap 16H, Blood Urea Nitrogen 54H, Creatinine 3.6H, Estimat Glomerular Filtration Rate , Glucose Level 304H, Calcium Level 8.3L Height (Feet): 5 Height (Inches): 8.00 Weight (Pounds): 140 General Appearance: no apparent distress EENT: normal ENT inspection Neck: normal alignment Cardiovascular: regular rhythm Respiratory/Chest: normal breath sounds Abdomen: soft, other - PEG tube noted Extremities: non-tender, normal inspection Neurologic: disoriented Adriana Wharton N.P. May 17, 2017 18:58
[2017-05-18] VITALS (9 sets, daily range): BP systolic 111–169; BP diastolic 62–77
[2017-05-18] MEDS: sitaGLIPtin 25mg tab ORAL SCH (05:42)
[2017-05-18] MEDS: NovoLOG Insulin Flexpen SUBQ SCH ×4 (05:47→20:56)
[2017-05-18] MEDS: Multivitamin w/Minerals tab ORAL SCH (09:31)
[2017-05-18] MEDS: Imdur 30mg tab ORAL SCH (09:31)
[2017-05-18] MEDS: Docusate 100mg/10ml Liq ORAL SCH ×2 (09:31→18:00)
[2017-05-18] MEDS: Losartan 50mg tab ORAL SCH ×2 (09:32→20:53)
[2017-05-18] MEDS: Aspirin Baby 81mg ORAL SCH (09:32)
[2017-05-18] MEDS: Metoprolol Tartrate 50mg tab ORAL SCH ×2 (09:32→20:54)
[2017-05-18] MEDS: Nephrovite tab (Rena-Vite) ORAL SCH (09:33)
[2017-05-18] MEDS: Donepezil 10mg tab ORAL SCH (09:33)
[2017-05-18] MEDS: levETIRAcetam 500mg/5ml Liquid ORAL SCH ×2 (09:33→20:54)
--- NOTE | 2017-05-18 10:01 | Pulmonology Progress Note ---
Assessment/Plan Assessment/Plan IMPRESSION: 1. Chronic renal failure. 2. Hypoxemia, resolved. 3. Vascular congestion. 4. half-way resident. 5. History of hypertension. 6. Pneumonia/leucocytosis; improving. 7. Chronic recanulized DVT's 8. Hypernatremia; improved DISCUSSION: Continue home medications which include amlodipine, vitamin C, Lipitor, Coreg, . ASA and Plavix on hold He is also on oral Lasix, Starlix, and Januvia which I will continue. Appreciate ID consult. Ordered oxygen, pulmonary hygiene. 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 Will increase Clonidine PEG done DC1/2 NS fluids OK to have SCD's DC back to SNF Subjective Interval Events: Better; s/p PEG Constitutional: Reports: no symptoms HEENT: Repors: no symptoms Respiratory: Reports: no symptoms Cardiovascular: Reports: no symptoms Gastrointestinal/Abdominal: Reports: no symptoms Genitourinary: Reports: no symptoms Allergies: Coded Allergies: PENICILLINS (Verified Allergy, Unknown, 05/11/17) Objective Last 24 Hour Vital Signs Date Time Temp Pulse Resp B/P (MAP) Pulse Ox O2 Delivery O2 Flow Rate FiO2 05/18/17 09:33 74 162/72 05/18/17 09:32 74 162/72 05/18/17 09:32 162/72 05/18/17 09:31 162/72 05/18/17 09:01 97.9 74 20 162/72 98 05/18/17 08:00 97.9 74 20 162/72 98 05/18/17 04:40 98.6 05/18/17 04:00 99.4 70 21 146/66 96 05/18/17 00:00 98.6 68 21 137/69 93 05/17/17 20:17 142/66 05/17/17 20:16 65 142/66 05/17/17 20:15 65 142/66 05/17/17 20:00 99.1 65 21 142/66 99 05/17/17 16:17 97.9 59 20 136/67 96 Room Air 05/17/17 12:25 98.0 56 17 108/58 96 Room Air 05/17/17 12:20 57 20 101/56 95 Room Air 05/17/17 12:10 55 18 102/54 96 Room Air 05/17/17 12:05 55 18 107/57 100 Simple Mask 6.0 05/17/17 12:05 52 20 99 05/17/17 12:00 53 19 85/55 100 Simple Mask 6.0 05/17/17 11:55 55 22 67/43 100 Simple Mask 6.0 05/17/17 11:50 98.3 52 25 76/44 100 Simple Mask 6.0 Intake and Output 05/17/17 05/18/17 19:00 07:00 Intake Total 560 ml 1280 ml Output Total 200 ml 800 ml Balance 360 ml 480 ml Intake Oral 0 ml Free Water 100 ml 200 ml IV Total 400 ml 550 ml Tube Feeding 60 ml 530 ml Output Urine Total 200 ml 800 ml Estimated Blood Loss 0 ml # Voids 1 General Appearance: no acute distress HEENT: normocephalic Respiratory/Chest: chest wall non-tender, lungs clear Cardiovascular: normal peripheral pulses, normal rate Current Medications Medications (Trade) Dose Ordered Sig/Jason Route PRN Reason Start Time Stop Time Status Last Admin Dose Admin Acetaminophen (Tylenol) 650 mg Q4H PRN ORAL Mild Pain/Temp > 100.5 05/11/17 18:15 06/10/17 18:14 Amlodipine Besylate (Norvasc) 10 mg DAILY ORAL 05/12/17 09:00 06/11/17 08:59 05/18/17 09:33 Aspirin (ASA) 81 mg DAILY ORAL 05/14/17 09:00 06/13/17 08:59 05/18/17 09:32 Atorvastatin Calcium (Lipitor) 10 mg BEDTIME ORAL 05/11/17 21:00 06/10/17 20:59 05/17/17 20:16 Carvedilol (Coreg) 3.125 mg QHS ORAL 05/11/17 21:00 06/10/17 20:59 05/17/17 20:16 Clonidine HCl (Catapres) 0.2 mg Q4H PRN ORAL SBP >150mmHg 05/16/17 09:30 06/15/17 09:29 05/16/17 10:52 Clopidogrel Bisulfate (Plavix) 75 mg DAILY ORAL 05/12/17 09:00 06/11/17 08:59 05/18/17 09:36 Dextrose 1,000 ml @ 50 mls/hr Q20H IV 05/15/17 13:00 06/14/17 12:59 05/17/17 15:19 Dextrose (Dextrose 50%) STAT PRN IV Hypoglycemia 05/11/17 18:00 06/10/17 17:59 Docusate Sodium (Colace) 100 mg BID ORAL 05/12/17 09:00 06/11/17 08:59 05/18/17 09:31 Donepezil HCl (Aricept) 10 mg DAILY ORAL 05/12/17 09:00 06/11/17 08:59 05/18/17 09:33 Famotidine (Pepcid) 20 mg DAILY ORAL 05/12/17 09:00 06/11/17 08:59 05/18/17 09:36 Furosemide (Lasix) 20 mg DAILY ORAL 05/12/17 09:00 06/11/17 08:59 05/18/17 09:32 Insulin Aspart (NovoLOG) BEFORE MEALS AND HS SUBQ 05/11/17 21:00 06/10/17 20:59 05/18/17 05:47 Isosorbide Mononitrate (Imdur) 30 mg DAILY ORAL 05/12/17 09:00 06/11/17 08:59 05/18/17 09:31 Levetiracetam (Keppra) 500 mg Q12HR ORAL 05/11/17 21:00 06/10/17 20:59 05/18/17 09:33 Levofloxacin 50 ml @ 50 mls/hr Q24H IVPB 05/12/17 09:00 05/19/17 08:59 05/18/17 09:31 Losartan Potassium (Cozaar) 50 mg Q12HR ORAL 05/16/17 21:00 06/15/17 20:59 05/18/17 09:32 Magnesium Hydroxide (Mom) 30 ml DAILYPRN PRN ORAL Constipation 05/11/17 18:15 06/10/17 18:14 Metoprolol Tartrate (Lopressor) 50 mg Q12HR ORAL 05/16/17 21:00 06/15/17 20:59 05/18/17 09:32 Multivitamins Therapeutic (Therapeutic Multivitamin) 1 ea DAILY ORAL 05/12/17 09:00 06/11/17 08:59 05/18/17 09:31 Nateglinide (Starlix) 120 mg TIAC ORAL 05/12/17 06:30 06/11/17 06:29 05/18/17 05:43 Nitroglycerin (Ntg) 0.4 mg NEEDED PRN SL Prn Chest Pain 05/11/17 18:15 06/10/17 18:14 Sitagliptin Phosphate (Januvia) 25 mg ACBREAKFAST ORAL 05/12/17 06:30 06/11/17 06:29 05/18/17 05:42 Vitamin B Complex/ Vit C/Folic Acid (Nephrovite) 1 tab DAILY ORAL 05/14/17 16:00 06/13/17 15:59 05/18/17 09:33 Eros Espinoza MD May 18, 2017 10:01
--- NOTE | 2017-05-18 12:22 | Infectious Diseases Prog Note ---
Assessment/Plan Assessment/Plan antibiotics : levoquin A 1. pneumonia 2. leucocytosis improving 3. renal failure 4. CVA 5. HTN P 1. continue levoquin 2 more days 2. will follow up cultures Subjective ROS Limited/Unobtainable: Yes Allergies: Coded Allergies: PENICILLINS (Verified Allergy, Unknown, 05/11/17) Objective Vital Signs Last 24 Hour Vital Signs Date Time Temp Pulse Resp B/P (MAP) Pulse Ox O2 Delivery O2 Flow Rate FiO2 05/18/17 11:52 97.6 66 20 169/77 97 05/18/17 09:33 74 162/72 05/18/17 09:32 74 162/72 05/18/17 09:32 162/72 05/18/17 09:31 162/72 05/18/17 09:01 97.9 74 20 162/72 98 05/18/17 08:00 97.9 74 20 162/72 98 05/18/17 04:40 98.6 05/18/17 04:00 99.4 70 21 146/66 96 05/18/17 00:00 98.6 68 21 137/69 93 05/17/17 20:17 142/66 05/17/17 20:16 65 142/66 05/17/17 20:15 65 142/66 05/17/17 20:00 99.1 65 21 142/66 99 05/17/17 16:17 97.9 59 20 136/67 96 Room Air 05/17/17 12:25 98.0 56 17 108/58 96 Room Air Height (Feet): 5 Height (Inches): 8.00 Weight (Pounds): 140 Respiratory/Chest: lungs clear Cardiovascular: normal rate, regular rhythm, no gallop/murmur Abdomen: soft, non tender Extremities: no edema LEODAN LESLIE May 18, 2017 12:22
[2017-05-18] MEDS: cloNIDine 0.2mg Tab ORAL PRN (12:45)
[2017-05-18 12:58] LABS: BASOPHILS % (AUTO) 0.8 % (0.0-2.0); EOSINOPHILS % (AUTO) 0.4 % (0.0-3.0); HEMOGLOBIN 12.9 G/DL (14.2-18.0); LYMPHOCYTES % (AUTO) 19.6 % (20.0-45.0); MEAN CORPUSCULAR VOLUME 96 FL (80-99); MONOCYTES % (AUTO) 15.5 % (1.0-10.0); NEUTROPHILS % (AUTO) 63.7 % (45.0-75.0); PLATELET COUNT 218 K/UL (150-450); RED BLOOD COUNT 4.25 M/UL (4.70-6.10); RED CELL DISTRIBUTION WIDTH 12.3 % (11.6-14.8); WHITE BLOOD COUNT 6.6 K/UL (4.8-10.8)
--- NOTE | 2017-05-18 13:03 | Nephrology Progress Note ---
Assessment/Plan Problem List: (1) Renal failure (ARF), acute on chronic (2) Acute encephalopathy (3) Dysphagia (4) Anemia (5) DM (diabetes mellitus) (6) Seizure (7) Hypernatremia Assessment: improving on d5w. (8) Sepsis Plan Cont D5W. Follow up renal workup. Monitor I/O's. Follow up 24 hour CrCl. D/w Dr. Alaniz. Subjective Subjective appears comfortable. no fever. Objective Objective Last 24 Hour Vital Signs Date Time Temp Pulse Resp B/P (MAP) Pulse Ox O2 Delivery O2 Flow Rate FiO2 05/18/17 12:45 169/77 05/18/17 11:52 97.6 66 20 169/77 97 05/18/17 09:33 74 162/72 05/18/17 09:32 74 162/72 05/18/17 09:32 162/72 05/18/17 09:31 162/72 05/18/17 09:01 97.9 74 20 162/72 98 05/18/17 08:00 97.9 74 20 162/72 98 05/18/17 04:40 98.6 05/18/17 04:00 99.4 70 21 146/66 96 05/18/17 00:00 98.6 68 21 137/69 93 05/17/17 20:17 142/66 05/17/17 20:16 65 142/66 05/17/17 20:15 65 142/66 05/17/17 20:00 99.1 65 21 142/66 99 05/17/17 16:17 97.9 59 20 136/67 96 Room Air Intake and Output 05/17/17 05/18/17 19:00 07:00 Intake Total 560 ml 1280 ml Output Total 200 ml 800 ml Balance 360 ml 480 ml Intake Oral 0 ml Free Water 100 ml 200 ml IV Total 400 ml 550 ml Tube Feeding 60 ml 530 ml Output Urine Total 200 ml 800 ml Estimated Blood Loss 0 ml # Voids 1 Laboratory Tests 05/18/17 12:45: White Blood Count [Pending], Red Blood Count [Pending], Hemoglobin [Pending], Hematocrit [Pending], Mean Corpuscular Volume [Pending], Mean Corpuscular Hemoglobin [Pending], Mean Corpuscular Hemoglobin Concent [Pending], Red Cell Distribution Width [Pending], Platelet Count [Pending], Mean Platelet Volume [ Pending], Neutrophils (%) (Auto) [Pending], Lymphocytes (%) (Auto) [Pending], Monocytes (%) (Auto) [Pending], Eosinophils (%) (Auto) [Pending], Basophils (%) (Auto) [Pending], Sodium Level [Pending], Potassium Level [Pending], Chloride Level [Pending], Carbon Dioxide Level [Pending], Blood Urea Nitrogen [Pending], Creatinine [Pending], Estimat Glomerular Filtration Rate [Pending], Glucose Level [Pending], Calcium Level [Pending] Height (Feet): 5 Height (Inches): 8.00 Weight (Pounds): 140 General Appearance: no apparent distress Cardiovascular: normal rate, regular rhythm Respiratory/Chest: decreased breath sounds Abdomen: non tender, soft Extremities: non-pitting Neurologic: alert SUSHANT JAUREGUI May 18, 2017 13:03
[2017-05-18 13:22] LABS: ANION GAP 8 mmol/L (5-15); BLOOD UREA NITROGEN 55 mg/dL (7-18); CALCIUM 9.7 MG/DL (8.5-10.1); CARBON DIOXIDE 27 MMOL/L (21-32); CHLORIDE 115 MMOL/L (98-107); CREATININE 4.2 MG/DL (0.55-1.30); POTASSIUM 5.5 MMOL/L (3.5-5.1); SODIUM 150 MMOL/L (136-145)
--- NOTE | 2017-05-18 14:37 | GI Progress Note ---
Assessment/Plan Problems: (1) Encounter for PEG (percutaneous endoscopic gastrostomy) ICD Codes: Z43.1 - Encounter for attention to gastrostomy SNOMED: 962862368, 769574646 (2) Dysphagia ICD Codes: R13.10 - Dysphagia, unspecified SNOMED: 62051511, 673408264 (3) Anemia ICD Codes: D64.9 - Anemia, unspecified SNOMED: 777444083 (4) DM (diabetes mellitus) ICD Codes: E11.9 - Type 2 diabetes mellitus without complications SNOMED: 48064115 Status: stable Status Narrative Discussed with Dr. Carver. Assessment/Plan SUMMARY OF FINDINGS: 1. Status post successful PEG placement. 2. Atrophic gastritis. RECOMMENDATIONS: okay for DC per GI standpoint 1. Abdominal binder. 2. Elevate the head of the bed at all times. 3. G-tube flush. 4. G-tube care. 5. The patient received a dose of antibiotic prior to this procedure. GTFs per RD fu labs The patient was seen and examined at bedside and all new and available data was reviewed in the patients chart. I agree with the above findings, impression and plan. (Patient seen earlier today. Signature stamp does not reflect patient encounter time.). - Royce Carver MD Subjective Subjective limited Objective Last 24 Hour Vital Signs Date Time Temp Pulse Resp B/P (MAP) Pulse Ox O2 Delivery O2 Flow Rate FiO2 05/18/17 13:51 111/62 05/18/17 12:45 169/77 05/18/17 11:52 97.6 66 20 169/77 97 05/18/17 09:33 74 162/72 05/18/17 09:32 74 162/72 05/18/17 09:32 162/72 05/18/17 09:31 162/72 05/18/17 09:01 97.9 74 20 162/72 98 05/18/17 08:00 97.9 74 20 162/72 98 05/18/17 04:40 98.6 05/18/17 04:00 99.4 70 21 146/66 96 05/18/17 00:00 98.6 68 21 137/69 93 05/17/17 20:17 142/66 05/17/17 20:16 65 142/66 05/17/17 20:15 65 142/66 05/17/17 20:00 99.1 65 21 142/66 99 05/17/17 16:17 97.9 59 20 136/67 96 Room Air Intake and Output 05/17/17 05/18/17 19:00 07:00 Intake Total 560 ml 1280 ml Output Total 200 ml 800 ml Balance 360 ml 480 ml Intake Oral 0 ml Free Water 100 ml 200 ml IV Total 400 ml 550 ml Tube Feeding 60 ml 530 ml Output Urine Total 200 ml 800 ml Estimated Blood Loss 0 ml # Voids 1 Laboratory Tests Test 05/18/17 12:45 White Blood Count 6.6 K/UL (4.8-10.8) Red Blood Count 4.25 M/UL (4.70-6.10) L Hemoglobin 12.9 G/DL (14.2-18.0) L Hematocrit 41.0 % (42.0-52.0) L Mean Corpuscular Volume 96 FL (80-99) Mean Corpuscular Hemoglobin 30.3 PG (27.0-31.0) Mean Corpuscular Hemoglobin Concent 31.4 G/DL (32.0-36.0) L Red Cell Distribution Width 12.3 % (11.6-14.8) Platelet Count 218 K/UL (150-450) Mean Platelet Volume 9.1 FL (6.5-10.1) Neutrophils (%) (Auto) 63.7 % (45.0-75.0) Lymphocytes (%) (Auto) 19.6 % (20.0-45.0) L Monocytes (%) (Auto) 15.5 % (1.0-10.0) H Eosinophils (%) (Auto) 0.4 % (0.0-3.0) Basophils (%) (Auto) 0.8 % (0.0-2.0) Sodium Level 150 MMOL/L (136-145) H Potassium Level 5.5 MMOL/L (3.5-5.1) H Chloride Level 115 MMOL/L (98-107) H Carbon Dioxide Level 27 MMOL/L (21-32) Anion Gap 8 mmol/L (5-15) Blood Urea Nitrogen 55 mg/dL (7-18) H Creatinine 4.2 MG/DL (0.55-1.30) H Estimat Glomerular Filtration Rate mL/min (>60) Glucose Level 530 MG/DL (74-106) #*H Calcium Level 9.7 MG/DL (8.5-10.1) Height (Feet): 5 Height (Inches): 8.00 Weight (Pounds): 140 General Appearance: no apparent distress, alert Cardiovascular: normal rate Respiratory/Chest: normal breath sounds, no respiratory distress Abdominal Exam: GT site - c/d/i Naomi Hernandez N.P. May 18, 2017 14:37 ASHLEY CARVER May 20, 2017 07:19
[2017-05-18] MEDS ORDERED: Tubing IV Secondary IV ONE (20:59)
--- NOTE | 2017-05-20 16:35 | Discharge Summary ---
Discharge Summary Hospital Course Date of Admission May 11, 2017 at 09:00 Date of Discharge May 18, 2017 at 21:00 Admitting Diagnosis pneumonia HPI Manjeet Juarez is a 81 year old male who was admitted on May 11, 2017 at 09:00 for Pneumonia Hospital Course [id number] Discharge Discharge Disposition Patient was discharged to SNF/Subacute Facility(03) Discharge Diagnoses: Dara Rodriguez NP May 20, 2017 16:35
--- NOTE | 2017-05-20 19:15 | Discharge Summary 2 SIG ---
DATE OF ADMISSION: 05/11/2017 DATE OF DISCHARGE: 05/18/2017 CONSULTANTS: 1. Matthew Carver M.D. 2. James Hooks M.D. 3. Yoel Ayala M.D. BRIEF HOSPITAL COURSE: The patient is an 81-year-old DNR/DNI patient, who came from retirement, presented to the hospital due to hypoxemia. Workup at ED showed significant leukocytosis. WBC was 22.4. Chest x-ray with right lower lobe infiltrate. He has medical history significant for coronary artery disease status post coronary artery bypass graft, hypertension, chronic kidney disease, diabetes mellitus, and gastroesophageal reflux disease. He was admitted to medical floor for evaluation of pneumonia. He was continued on his home medications including aspirin, amlodipine, vitamin C, Lipitor, Coreg, and Plavix. His blood sugar was monitored and was continued on Starlix, Januvia, and was also given Lasix. Dr. Ayala was consulted. The patient has penicillin allergy and was given Levaquin. Influenza screen was negative. He had a swallow evaluation done and is at high risk for aspiration. Recommend non-oral feeding. GI was consulted. NG tube was inserted and the patient was scheduled for percutaneous endoscopic gastrostomy tube placement. Plavix has to be on hold prior to any procedure. On 05/17/2017, he underwent upper endoscopy with percutaneous endoscopic gastrostomy tube placement. Findings showed atrophic gastritis. He had electrolyte imbalance and antibiotic and IV fluid was switched to D5 water. Sputum culture showed growth of Ariela and usual upper respiratory kendall. Tube feeding was started and was placed on abdominal binder and to elevate head of the bed at all times. He was eventually discharged to SNF. FINAL DIAGNOSES: 1. Chronic renal failure. 2. Hypoxemia with possible pneumonia. 3. Vascular congestion. 4. halfway resident. 5. Hypertension. 6. Pneumonia with leukocytosis. 7. Chronic recanalized deep venous thrombosis. 8. Hypernatremia, improved. 9. Dysphagia status post percutaneous endoscopic gastrostomy placement on 05/17/17. 10. Diabetes mellitus. DISPOSITION: The patient was discharged to [facility]. DISCHARGE MEDICATIONS: Refer to medication list. Eros Espinoza M.D. I have been assigned to dictate discharge summary on this account and I was not involved in the patient's management. Dara Rodriguez N.P. DR: LG JOB#: [id number] CC: ARACELY
--- NOTE | 2017-06-03 13:00 | Diagnostic Imaging Report ---
Indications: Dysphagia Technique: Patient ingested multiple substances under the supervision of speech pathology. Video fluoroscopic recording performed. Total fluoroscopy time 133 seconds. Total dose area product [id number] mGycm2 Comparison: none Findings: There is marked delay in initiation of deglutition. Aspiration of thin liquid barium was observed. With ingestion of nectar thick liquid barium, no definite aspiration or penetration. Early pooling in the vallecula and piriform sinuses was observed. Impression: Positive for aspiration of thin liquid barium Please refer to speech pathology report for more detailed analysis
[2018-05-17] MEDS ORDERED: Propofol 200mg/20ml IV ONE (10:00)
== END 2017-05-18 21:00 | DRG 193 ==
LOC: EDBD 04:56 → EMR 05:44 → EDBEDREQ 08:04 → 4E 09:00 → EDBEDREQSVC 10:44 → EDBEDREQ 13:20
PROC: 0DH63UZ Insertion of Feeding Device into Stomach, Percutaneous Approach (ICD-10-PCS; principal; 2017-05-17 11:31)
DX: J18.9 Pneumonia, unspecified organism (principal); G93.40 Encephalopathy, unspecified; E87.0 Hyperosmolality and hypernatremia; R13.10 Dysphagia, unspecified; I82.513 Chronic embolism and thrombosis of femoral vein, bilateral; E11.21 Type 2 diabetes mellitus with diabetic nephropathy; F03.90 Unspecified dementia, unspecified severity, without behavioral disturbance, psychotic disturbance, mood disturbance, and anxiety; I69.391 Dysphagia following cerebral infarction; Z95.1 Presence of aortocoronary bypass graft; Z78.1 Physical restraint status; I12.9 Hypertensive chronic kidney disease with stage 1 through stage 4 chronic kidney disease, or unspecified chronic kidney disease; N18.9 Chronic kidney disease, unspecified; Z66 Do not resuscitate; D72.829 Elevated white blood cell count, unspecified; K21.9 Gastro-esophageal reflux disease without esophagitis; I25.10 Atherosclerotic heart disease of native coronary artery without angina pectoris; K29.40 Chronic atrophic gastritis without bleeding; R09.02 Hypoxemia; E11.42 Type 2 diabetes mellitus with diabetic polyneuropathy; E11.65 Type 2 diabetes mellitus with hyperglycemia; D64.9 Anemia, unspecified; H54.40 Blindness, one eye, unspecified eye; G40.909 Epilepsy, unspecified, not intractable, without status epilepticus; Z88.0 Allergy status to penicillin; Z79.82 Long term (current) use of aspirin; Z79.02 Long term (current) use of antithrombotics/antiplatelets; Z79.4 Long term (current) use of insulin
CPT/HCPCS: 36415; 71045; 74018; 74230; 80048; 80053; 81003; 81050; 82044; 82550; 82553; 82570; 82962; 83605; 83880; 84300; 84484; 85007; 85025; 85610; 85730; 86710; 86713; 86738; 87040; 87070; 87081; 87205; 93005; 93970; 94003; 94150; 99285; J1815; S0077